=== PATIENT | female | born 1960 | race Caucasian/White ===

== ENCOUNTER 2019-08-05 09:08 | Day surgery (SDC) | payer OTHER, SELFPAY ==
[2019-08-02 09:09] VITALS: BMI 35.5
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
[2019-08-05] VITALS (7 sets, daily range): BP systolic 109–138; BP diastolic 74–84; PULSE 69–75; RESP 18; TEMP 36.2–36.6; O2SAT 91–97
--- NOTE | 2019-08-05 | SCC_ITS ---
Procedure Done: Placement of intraspinal epidural paddle electrode arrays; placement of subQ programmable pulse generator. 11.3 seconds of fluoroscopic guidance, for a cumulative dose of 11.36 mGy, was provided to Dr. García by the radiology department. C-arm images of the thoracic spine were saved for the patient's permanent record. [facility]
--- NOTE | 2019-08-05 | XR_ITS ---
WS: [id number] XR thoracic spine 1V 56009 REASON FOR EXAM: OR PICS FINDINGS: C-arm insertion of SCS electrodes. Electrodes were inserted in the upper thoracic spine are seen in good position in the one projection. XR/XR thoracic spine 1V 79542 IMPRESSION: SCS electrodes in good position
[2019-08-05 09:47] LABS: Glucose Point of Care 177 mg/dL (70-110)
[2019-08-05] MEDS: sodium chloride 0.9% 1,000 ML 30 ML IV (09:55)
--- NOTE | 2019-08-05 10:16 | P.ANESUD_ITS ---
Pre-Anesthetic Update Pre-Anesthetic Assessment: Date of Surgery/Procedure: 08/05/19 Preop Bhumika gnosis: Lumbar disc displacement with radiculopathy Proposed Procedure: Operation Date: 08/05/19 11:35 Proposed Procedures p Thoracic laminotomy/laminectomy with placement of intraspinal epidural paddle electrode arrays. Placement of subcutaneous programmable oulse generator (04000) M51.17(Not Applicable) - Rahul García MD Last Intake: Intake Last Liquid Date 08/04/19 Last Liquid Time 22:00 Last Solid Date 08/04/19 Last Solid Time 22:00 Labs Last 48hrs: Laboratory Results - last 48 hr 08/05/19 09:43 POC Glucose 177 Vitals: Temperature 97.1 F L 08/05/19 09:40 Temperature Source Temporal Artery S can 08/05/19 09:40 Pulse Rate 72 08/05/19 09:40 Pulse Rhythm 08/05/19 09:40 Pulse Strength 3+ Normal 08/05/19 09:40 Respiratory Rate 18 08/05/19 09:40 Blood Pressure 109/74 08/05/19 09:40 Blood Pressure Gisel n 85 08/05/19 09:40 Pulse Oximetry 93 08/05/19 09:40 Oxygen Delivery Me thod 08/05/19 09:40 Cardiac Studies: No Data to Display
[2019-08-05] MEDS: ipratropium 0.5 mg/2.5 mL Neb INHALATION (10:28)
--- NOTE | 2019-08-05 12:30 | W.PM.OPSUD ---
Surgery/Procedure H&P Update DATE OF PROCEDURE: August 05, 2019 DATE H&P PERFORMED: 07/30/19 H&P UPDATE INFORMATION: I have reviewed H&P completed within last 30 days and H&P to be scanned into chart PREOP DIAGNOSIS: Lumbar disc displacement with radiculopathy PRIMARY INDICATION FOR PROCEDURE: Pain PLANNED PROCEDURE: Operation Date: 08/05/19 11:35 Proposed Procedures Thoracic laminotomy/laminectomy with placement of intraspinal epidural paddle electrode arrays. Placement of subcutaneous programmable pulse generator (52837) M51.17(Not Applicable) - Rahul García MD
[2019-08-05] MEDS: vancomycin 1,000 MG in sodium chloride 0.9% 250 ML 250 MG IV (12:31)
--- NOTE | 2019-08-05 13:16 | PM.OP2 ---
 Brief Operative Note: Date of procedure: 08/05/19 Pre-op diagnosis: Intervertebral disc disorder with radiculopathy Post-op diagnosis: same Procedure Done: Placement of intraspinal epidural paddle electrode arrays; placement of subQ programmable pulse generator. Surgeon: Rahul García Estimated blood loss (mL): 50 Complications: None Condition: stable Disposition: same day Coding Level of Care Code Acute Instrument Repair Technician for Earle Tan
[2019-08-05] MEDS: thrombin 5,000 unit SDV 5000 UNIT XX (14:01)
--- NOTE | 2019-08-06 22:35 | PM.OP ---
Operative Report Date of procedure: August 05, 2019 Pre-op Diagnosis: Lumbar disc displacement with radiculopathy Post-op diagnosis: same Procedure Done: 1. Thoracic laminotomy with placement of intraspinal, epidural paddle electrode arrays. 2. Placement of subcutaneous programmable pulse generator with connection to intraspinal epidural electrode arrays. Implants: [employer] 32 surgical supply assistant [employer] WaveWriter pulse generator CLIK lead anchors Fixate suture devices Pathology: none sent Surgeon: Rahul García Anesthesia: MAC Estimated blood loss (mL): 50 IV fluids (mL): 500 Complications: none Condition: stable Disposition: same day Brief History: The patient is a 58-year-old female with complaints of chronic, progressive low back pain and predominantly left lower extremity symptoms. She underwent extensive pain clinic treatment trials in [place], with limited/transient benefit. She underwent a percutaneous thoracic spinal cord stimulation trial with Dr. Gale at [facility] in June, with marked improvement in chronic pain complaints noted during the trial. After review of the diagnostic and treatment options with the risks/potential benefits/rationale for each, she requested to proceed with permanent spinal cord stimulator implantation via laminotomy. Procedure: After routine preoperative evaluation and informed consent were obtained, the patient was taken to the Operating Room and positioned prone on the operating table. Chest and pelvic bolsters were positioned to ensure the abdomen was decompressed. All pressure points were padded. The patient reported the position to be comfortable. She was maintained under varying levels of intravenous sedation by Anesthesia personnel. The planned right flank pulse generator placement incision was marked with a skin marker. A planned midline posterior thoracic incision was also marked, after intraoperative localization with fluoroscopy. The patient's lead location during the successful percutaneous trial was utilized to guide placement for the permanent implant. The posterior thorax and flank areas were scrubbed with Betadine and prepped with DuraPrep. Sterile towels and drapes were applied, and an [place] surgical barrier was placed. The proposed midline thoracic incision was infiltrated with 1% Xylocaine with epinephrine. A skin incision was made and carried down into the subcutaneous tissues. The deep fascial plane was identified and divided in the midline. A right-sided subperiosteal dissection was carried down along the lamina at what appeared by intraoperative fluoroscopy to be T8/T9. Deep self-retaining retractors were placed to maximize the operative exposure. A laminotomy was fashioned with Kerrison rongeurs. Ligamentum flavum was resected at the base of the laminotomy site. The hockey-stick dural separator was advanced into the dorsal epidural space without resistance, and then removed. The [employer] Cover[employer] 32, 70 cm, 4 x 8 surgical supply assistant was then advanced into the dorsal epidural space. Intraoperative fluoroscopy suggested a near midline position with the cephalad extent of the lead approximating the T6/T7 interspace. Anesthesia personnel diminished the patient's sedation until she was awake and conversant. The lead tails were connected to extension cables, and intraoperative spinal cord stimulation was performed. The patient reported good paresthesia coverage of her chronic low back and lower extremity pain sites. Lead impedances were good. The patient's sedation was deepened. The wound was copiously irrigated with sterile saline and antibiotic irrigation. The fascia was closed utilizing 2-0 Vicryl Plus in a simple interrupted fashion. CLIK lead anchors were placed over 2 of the 4 lead tails, and secured at the fascial entry point with Fixate suture devices. The lead - anchor - fascial interfaces were manipulated and found to be secure. Intraoperative fluoroscopy verified a stable lead position. Strain relief loops of the lead tails were fashioned within the subcutaneous space at the thoracic incision site. The right flank incision site was prepared by infiltration with 1% Xylocaine with epinephrine. An incision was then made, and a subcutaneous pocket was created of adequate size to accommodate the pulse generator. The subcutaneous tunneling tool was utilized to create a subcutaneous passage between the thoracic and right flank incisions. Lead tails were advanced through the subcutaneous tunnel utilizing the tunneling tool. The lead tails were advanced into the appropriate ports on the [employer] WaveWriter pulse generator. An impedance check demonstrated no lead faults. The connection sites were secured with set screws and the torque wrench. The connection sites were manipulated and found to be secure. The pulse generator was again interrogated, with acceptable impedances and no evidence of device malfunction. The right flank subcutaneous pocket and the thoracic incision site were again copiously irrigated with antibiotic irrigation. Hemostasis was ensured. The pulse generator was placed within the right flank subcutaneous pocket with excess lead coiled deep/adjacent to the device. The pulse generator was anchored to the superficial fascia with a single Silk suture. The site was again irrigated with antibiotic irrigation. Wound closure was performed in multiple layers with 2-0 Vicryl Plus simple interrupted closure of the dermis. Intraoperative fluoroscopy demonstrated the lead extending to the top of T7, slightly left of midline. Final skin closure was performed at both incision sites with 3-0 Vicryl Plus in a running subcuticular pattern. Steri-Strips were applied, and sterile dressings were placed. The patient was then rotated onto the Recovery Room cart in the supine position. She tolerated the procedure well. All sponge, needle and instrument counts were correct at the completion of the procedure.
== END 2019-08-05 18:15 | disposition home or self-care (01) ==
PROVIDERS: Family Provider Nurse Practitioner; PCP Nurse Practitioner; Visit Provider Specialist
PROC: (CPT 63655; principal; 2019-08-05 11:35)
DX: M51.16 Intervertebral disc disorders with radiculopathy, lumbar region (principal); E11.9 Type 2 diabetes mellitus without complications; J44.9 Chronic obstructive pulmonary disease, unspecified; F41.9 Anxiety disorder, unspecified; F17.210 Nicotine dependence, cigarettes, uncomplicated
CPT/HCPCS: 63655; 63685; 12345; 36416; 72020; 76000; 82962; 94640; 96365; C1778; C1820; C1883; J2001; J2704; J3010; J3370; J3490; J7030; J7050; J7611; J7644

== ENCOUNTER → 2022-05-25 14:03 | Outpatient (BNVA) | payer OTHER, SELFPAY | PROVIDERS: PCP Nurse Practitioner; Visit Provider Internal Medicine Cardiovascular Disease | DX: R07.9 Chest pain, unspecified (principal); F17.210 Nicotine dependence, cigarettes, uncomplicated; I20.8 Other forms of angina pectoris; E78.5 Hyperlipidemia, unspecified; I10 Essential (primary) hypertension; Z86.73 Personal history of transient ischemic attack (TIA), and cerebral infarction without residual deficits | CPT/HCPCS: 99214; Q3014 ==

== ENCOUNTER 2022-07-11 16:58 | Emergency (ER) | payer OTHER, SELFPAY ==
[2022-07-11 17:00] VITALS: BP 100/63; PULSE 63; RESP 13; O2SAT 95; BMI 32.3
--- NOTE | 2022-07-11 17:10 | ECG_ITS ---
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 Measurements Intervals [place] Rate: 64 P: 24 [place]: 182 QRS: -18 QRSD: 87 T: 21 QT: 412 QTc: 427 Interpretive Statements SINUS RHYTHM LOW QRS VOLTAGE IN PRECORDIAL LEADS [QRS DEFLECTION < 1.0 mV IN CHEST LEADS] POSSIBLE ANTERIOR MYOCARDIAL INFARCTION , PROBABLY OLD [30 ms Q WAVE IN V3/V4, OR R < 0.2 mV IN V4] No previous ECG available for comparison Electronically Signed On 07-11-2022 19:11:26 RESERVATION MANAGER by Abigail Marie M.D. [id number]
--- NOTE | 2022-07-11 17:24 | XRR_ITS ---
PROCEDURE INFORMATION: Exam: XR Chest Exam date and time: 07/11/2022 6:04 PM Age: 61 years old Clinical indication: Pain; Chest pressure; Prior surgery; Surgery date: 6+ months; Surgery type: Stimulator; Additional info: Chest pain TECHNIQUE: Imaging protocol: Radiologic exam of the chest. Views: 1 view. COMPARISON: OT XR thoracic spine 1V [id number] 08/05/2019 12:38 PM FINDINGS: Tubes, catheters and devices: Thoracic neurostimulator device electrodes project over the midthoracic region. Lungs: Minimal left basilar atelectasis or infiltrate. Pleural spaces: Unremarkable. No pleural effusion. No pneumothorax. Heart/Mediastinum: Unremarkable. No cardiomegaly. Bones/joints: Unremarkable. XR/XR chest 1V portable [id number] IMPRESSION: Minimal left basilar atelectasis or infiltrate. Correlate for pulmonary infection.
--- NOTE | 2022-07-11 17:28 | W.ED.CHESTPA ---
HPI - Chest Pain General: Chief Complaint: Chest Pain Stated Complaint: CHEST PAIN Time Seen by Provider: 07/11/22 17:11 Source: patient and EMS Mode of arrival: EMS History of Present Illness: This 61-year-old male female with a history of coronary artery disease presents to the ER with chest pain that started around 1600 hrs. Patient is currently packing boxes at home because she is planning to move. Patient describes the pain as dull and intermittent. She took 1 nitroglycerin prior to EMS arrival and EMS administered 325 mg of aspirin prior to ER arrival. She currently rates the pain at 3 out of 10. She denies fever, nausea or vomiting. She appears clinically stable. Associated symptoms: Reports palpitations Review of Systems Const: Denies: chills, body aches or change in appetite Card: Reports: chest pain and palpitations; Denies: swelling of feet/ankles, lightheadedness or acrocyanosis : Denies: dysuria Musc: Denies: neck pain or back pain Neuro: Denies: headache(s) or weakness in extremities Psych: Denies: depression Luis Felipe/Lymph: Denies: easy bruising All/Imm: Denies: urticaria, tongue swelling or facial swelling PFSH ED PFSH: Medical History CAD (coronary artery disease) Cervical disc disorder with myelopathy of mid-cervical region Dyslipidemia HTN (hypertension) Intervertebral disc disorders with radiculopathy, lumbar region Intervertebral disc disorders with radiculopathy, lumbosacral region Lumbosacral spondylosis with radiculopathy Peripheral vascular disease Smoker Surgical History H/O: hysterectomy History of bladder surgery S/P insertion of spinal cord stimulator Family History Mother Cancer Diabetes Father CAD (coronary artery disease) Diabetes Sister Diabetes Grandmother Diabetes Social History Smoking and tobacco status: current every day smoker Alcohol intake: never Lives independently: Yes Marital status: Current occupational status: disabled Physical Exam Const: COMMON NORMALS: no acute distress, patient oriented x3, no limitations and alert HENMT: COMMON NORMALS: normocephalic HEAD & SCALP: normocephalic Eye: COMMON NORMALS: EOMs intact bilaterally Neck/C-Spine: COMMON NORMALS: full ROM and supple Chest: COMMONS NORMALS: normal inspection of the chest Resp: COMMON NORMALS: normal respiratory effort, No retractions, No use of accessory muscles and clear to auscultation bilaterally AUSCULTATION: clear to auscultation bilaterally Cardio: COMMON NORMALS: regular rate, regular rhythm and No murmurs present (Cardio) RATE: regular rate RHYTHM: regular rhythm GI: COMMON NORMALS: Normal to inspection, nondistended, normoactive bowel sounds present and non-tender : COMMON NORMALS: Yes no CVA tenderness BLADDER/KIDNEY EXAM: Yes no CVA tenderness Back/Pelvis: COMMON NORMALS: no CVA tenderness and no thoracic nor lumbar tenderness Extremity: GENERAL: Yes normal exam except as noted Neuro: COMMON NORMALS: patient oriented x3 and no focal motor deficits SENSORIUM/ORIENTATION: Yes alert Psych: COMMON NORMALS: mental status grossly normal and cooperative Course Vital Signs: Vital signs: Vital Signs Pulse Rate 63 07/11/22 17:00 Respiratory Rate 13 07/11/22 17:00 Blood Pressure 100/63 07/11/22 17:00 Pulse Oximetry 95 07/11/22 17:00 Oxygen Delivery Me thod 07/11/22 17:00 Oxygen Flow Rate 2 07/11/22 17:00 MDM - Chest Pain Medical Decision Making Medical decision making: Patient presents to the ER with chest pain. Initial troponin and repeat troponin 2 hours later shows a delta of 0. EKG is negative for any acute ischemic changes. Chest x-ray shows minimal left atelectasis versus infiltrate. Patient has no signs to suggest pulmonary infection. On reevaluation, patient was pain-free and ready to go home. She was advised to follow-up with her primary care physician to arrange for an outpatient stress test. Return instructions provided. Lab Data 07/11/22 16:14 07/11/22 16:14 Radiology Impressions Chest X-Ray 07/11/22 17:24 IMPRESSION: Minimal left basilar atelectasis or infiltrate. Correlate for pulmonary infection. Laboratory Results WBC 16.4 10^3/uL (4.0-10.0) H 07/11/22 16:14 RBC 4.68 10^6/uL (4.1-5.3) 07/11/22 16:14 Hgb 14.9 g/dL (11.5-15.3) 07/11/22 16:14 Hct 44.6 % (37.0-47.0) 07/11/22 16:14 MCV 95.3 fl (81-99) 07/11/22 16:14 MCH 31.8 pg (28.0-34.0) 07/11/22 16:14 MCHC 33.4 g/dL (30.0-36.0) 07/11/22 16:14 RDW 11.8 % (12.1-15.1) L 07/11/22 16:14 Plt Count 282 10^3/cmm (130-400) 07/11/22 16:14 MPV 9.7 fL (7.4-10.4) 07/11/22 16:14 Neut % (Auto) 61.2 % 07/11/22 16:14 Lymph % (Auto) 30.6 % 07/11/22 16:14 [place] % (Auto) 6.0 % 07/11/22 16:14 Eos % (Auto) 1.2 % 07/11/22 16:14 Baso % (Auto) 0.7 % 07/11/22 16:14 Neut # (Auto) 10.03 10^3/uL (1.8-7.7) H 07/11/22 16:14 Lymph # (Auto) 5.0 10^3/uL (0.8-4.8) H 07/11/22 16:14 [place] # (Auto) 1.0 10^3/uL (0.2-0.9) H 07/11/22 16:14 Eos # (Auto) 0.2 10^3/uL (0.0-0.8) 07/11/22 16:14 Baso # (Auto) 0.1 10^3/uL (0.0-0.1) 07/11/22 16:14 Nucleated RBC % (auto) 0 % 07/11/22 16:14 Nucleated RBCs # 0.0 /100WBC 07/11/22 16:14 Sodium 127 mmol/L (136-145) L 07/11/22 16:14 Potassium 4.1 mmol/L (3.5-5.1) 07/11/22 16:14 Chloride 89 mmol/L (98-107) L 07/11/22 16:14 Carbon Dioxide 24 mmol/L (22-29) 07/11/22 16:14 Anion Gap 18.1 (5-19) 07/11/22 16:14 BUN 6 mg/dL (8-23) L 07/11/22 16:14 Creatinine 0.7 mg/dL (0.5-0.9) 07/11/22 16:14 GFR Calculation 85.1 mL/min (90-130) L 07/11/22 16:14 Glucose 164 mg/dL (65-115) H 07/11/22 16:14 Calculated Osmolality 265 mOsm/kg (285-295) L 07/11/22 16:14 Calcium 9.4 mg/dL (8.5-10.5) 07/11/22 16:14 Total Bilirubin 0.4 mg/dL (0.15-1.2) 07/11/22 16:14 AST 16 U/L (0-32) 07/11/22 16:14 ALT 14 U/L (0-33) 07/11/22 16:14 Alkaline Phosphatase 114 U/L (35-105) H 07/11/22 16:14 Troponin T Baseline 6 ng/L (0-10) 07/11/22 16:14 Troponin T 120 Minute 6.00 ng/L (0-10) 07/11/22 18:38 Delta Troponin T 0 ABS# (0-10) 07/11/22 18:38 Total Protein 7.4 g/dL (6.6-8.7) 07/11/22 16:14 Albumin 3.9 g/dL (3.5-5.2) 07/11/22 16:14 Globulin 3.5 g/dL (1.3-4.6) 07/11/22 16:14 Discharge Plan Discharge Patient Disposition: Home Clinical Impression: Atypical chest pain Condition: Stable Prescriptions: No Action nitroglycerin [Nitrostat] 0.4 mg tablet, sublingual 0.4 mg SUBLINGUAL Q5M PRN (Reason: chest pain) Qty: 25 6RF Rx Instructions: do not exceed 3 doses per episode albuterol sulfate [Ventolin HFA] 90 mcg/actuation HFA aerosol inhaler 2 puff INHALATION Q6H PRN (Reason: sob) cetirizine 10 mg capsule 10 mg PO DAILY omeprazole 40 mg capsule,delayed release(DR/EC) 40 mg PO DAILY atorvastatin 80 mg tablet 80 mg PO DAILY spironolactone 100 mg tablet 100 mg PO DAILY Symbicort 160-4.5 mcg/actuation HFA aerosol inhaler 2 puff INHALATION BID duloxetine 60 mg capsule,delayed release(DR/EC) 60 mg PO DAILY fluticasone propionate 50 mcg/actuation spray,suspension 1 spray INTRANASAL DAILY lamotrigine [Lamictal] 200 mg tablet 225 mg PO DAILY omega-3 fatty acids 1,000 mg capsule 1,000 mg PO BID oxybutynin chloride 5 mg tablet 5 mg PO TID gabapentin 300 mg capsule 600 mg PO TID oxycodone-acetaminophen [Percocet] 5-325 mg tablet 1.5 tab PO TID ranolazine 500 mg tablet extended release 12 hr 500 mg PO BID Qty: 60 3RF Discharge Orders: Discharge ED (Routine); Ordered 07/11/22 Ordered By: Idania Mobley Referrals: Jenny Aly FNP [Primary Care Provider] - Discharge Diet: Usual diet Discharge Activity: Resume usual activity Patient Instructions: Opioid Safety, Pain Management Activity Restrictions/Additional Instructions: Continue taking your usual home medications. Follow-up with your primary care physician in 3 to 5 days for reevaluation and to arrange for an outpatient stress test. Return to the ER if you develop any new or worsening symptoms. Coding Level of Care Code ED Prepress Stripper for Earle Tan
[2022-07-11] MEDS: nitroglycerin 0.4 mg sublingual Tablet SUBLINGUAL (17:42)
[2022-07-11 17:50] LABS: Basophils # 0.1 10^3/uL (0.0-0.1); Basophils % 0.7 %; Eosinophils # 0.2 10^3/uL (0.0-0.8); Eosinophils % 1.2 %; Hematocrit 44.6 % (37.0-47.0); Hemoglobin 14.9 g/dL (11.5-15.3); Lymphocytes % 30.6 %; Mean Corpuscular HGB Conc 33.4 g/dL (30.0-36.0); Mean Corpuscular Hemoglobin 31.8 pg (28.0-34.0); Mean Corpuscular Volume 95.3 fl (81-99); Mean Platelet Volume 9.7 fL (7.4-10.4); Neutrophils # 10.03 10^3/uL (1.8-7.7); Neutrophils % 61.2 %; Nucleated Red Blood Cells % 0 %; Platelet Count 282 10^3/cmm (130-400); Red Blood Count 4.68 10^6/uL (4.1-5.3); Red Cell Distribution Width 11.8 % (12.1-15.1); White Blood Count 16.4 10^3/uL (4.0-10.0)
[2022-07-11 18:15] LABS: Troponin(5th) Baseline 6 ng/L (0-10)
[2022-07-11 18:17] LABS: Alanine Aminotransferase 14 U/L (0-33); Albumin Level 3.9 g/dL (3.5-5.2); Alkaline Phosphatase 114 U/L (35-105); Anion Gap 18.1 (5-19); Aspartate Amino Transferase 16 U/L (0-32); Blood Urea Nitrogen 6 mg/dL (8-23); Calcium 9.4 mg/dL (8.5-10.5); Carbon Dioxide 24 mmol/L (22-29); Chloride 89 mmol/L (98-107); Globulin 3.5 g/dL (1.3-4.6); Glomerular Filtration Rate 85.1 mL/min (90-130); Glucose 164 mg/dL (65-115); Osmolality Calculated 265 mOsm/kg (285-295); Potassium 4.1 mmol/L (3.5-5.1); Sodium 127 mmol/L (136-145); Total Bilirubin 0.4 mg/dL (0.15-1.2); Total Protein 7.4 g/dL (6.6-8.7)
[2022-07-11 19:19] LABS: Troponin 5 2HR Delta 0 ABS# (0-10)
--- NOTE | 2022-07-11 19:25 | ECG_ITS ---
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 Measurements Intervals [place] Rate: 65 P: 35 [place]: 185 QRS: 1 QRSD: 90 T: 32 QT: 405 QTc: 424 Interpretive Statements SINUS RHYTHM LOW QRS VOLTAGE IN PRECORDIAL LEADS [QRS DEFLECTION < 1.0 mV IN CHEST LEADS] ANTEROSEPTAL MYOCARDIAL INFARCTION , OF INDETERMINATE AGE [40+ ms Q WAVE IN V1-V4] Compared to ECG 07/11/2022 17:12:03 No significant changes Electronically Signed On 07-12-2022 17:40:50 GRIZZLY WORKER by Colt Chambers M.D. [id number]
== END 2022-07-11 21:01 | disposition home or self-care (01) ==
PROVIDERS: Emergency Provider Family Medicine; PCP Nurse Practitioner
DX: R07.89 Other chest pain (principal); I25.10 Atherosclerotic heart disease of native coronary artery without angina pectoris; E78.5 Hyperlipidemia, unspecified; I10 Essential (primary) hypertension; F17.210 Nicotine dependence, cigarettes, uncomplicated
CPT/HCPCS: 36415; 71045; 80053; 84484; 85025; 93005; 99285

== ENCOUNTER 2022-08-19 14:01 | Outpatient (CLI) | payer OTHER, SELFPAY ==
--- NOTE | 2022-08-19 14:19 | XR_ITS ---
WS: [id number] SCREENING DEXA SCAN [facility] CLINICAL INFORMATION: osteoporosis COMPARISON: None. FINDINGS: The LEFT forearm bone mineral density measures 0.90. This corresponds to a T score score of 0.3 and Z score of 1.4. Left femoral neck bone mineral density measures 0.973 g/cm2. This corresponds to a T score of -0.3 an d Z score of 0.1. Right femoral neck bone mineral density measures 1.049 g/cm2. This corresponds to a T score 0.3of and Z score of 0.7. Mean femoral neck bone mineral density measures 1.011 g/cm2. This corresponds to a T score of 0.0 and Z score of 0.4. XR/XR DEXA axial skeleton* [id number] IMPRESSION: Normal bone mineralization. Patient's FRAX calculated 10 year probability for major osteoporotic fracture i s 6.8 % and osteoporotic hip fracture is 0.6%.
== END 2022-08-19 14:02 | disposition home or self-care (01) ==
LOC: RAD 14:05
PROVIDERS: PCP Nurse Practitioner; Visit Provider Nurse Practitioner
DX: M81.0 Age-related osteoporosis without current pathological fracture (principal)
CPT/HCPCS: 77080

== ENCOUNTER 2023-03-07 14:13 | Outpatient (CLI) | payer OTHER, SELFPAY ==
--- NOTE | 2023-03-07 14:20 | MM_ITS ---
WS: [id number] BILATERAL 3D TOMOSYNTHESIS DIGITAL SCREENING MAMMOGRAPHY WITH CAD CLINICAL INFORMATION: SCREENING HISTORY: Screening mammogram. No current complaints. COMPARISON: 2014 TECHNIQUE: Bilateral CC and MLO views. FINDINGS: Scattered fibroglandular densities bilaterally. No suspicious focal mass, asymmetry, calcifications, or architectural distortion. No evidence of malignancy. Incidental punctate and secretory calcifications. IMPRESSION: MM/[place] [id number] BI-RADS: 2-Benign FOLLOW UP: 1 Year Follow-up Recommend return to annual screening mammography.
== END 2023-03-07 14:14 | disposition home or self-care (01) ==
PROVIDERS: PCP Nurse Practitioner; Visit Provider Nurse Practitioner
DX: Z12.31 Encounter for screening mammogram for malignant neoplasm of breast (principal)
CPT/HCPCS: 77063; 77067

== ENCOUNTER → 2023-06-16 11:04 | Outpatient (BNVA) | payer OTHER, SELFPAY | PROVIDERS: PCP Nurse Practitioner; Visit Provider Internal Medicine Cardiovascular Disease | DX: E78.5 Hyperlipidemia, unspecified (principal); I25.10 Atherosclerotic heart disease of native coronary artery without angina pectoris; I10 Essential (primary) hypertension; F17.200 Nicotine dependence, unspecified, uncomplicated; R07.9 Chest pain, unspecified; G89.29 Other chronic pain; F17.210 Nicotine dependence, cigarettes, uncomplicated | CPT/HCPCS: 99214 ==

== ENCOUNTER 2023-08-14 14:57 | Outpatient (CLI) | payer OTHER, SELFPAY ==
--- NOTE | 2023-08-14 15:07 | CT_ITS ---
WS: [id number] CT HEAD TECHNIQUE: Noncontrast CT of the head obtained from the skullbase to the vertex. CLINICAL INFORMATION: WORSENING TREMORS IN BILATERAL UPPER EXTREMITIES COMPARISON: None. DLP: 1103.[address] scans at [facility] use at least one of these dose optimization techniques: automated e xposure control; mA and/or kV adjustment per patient size (includes targeted exams where dose is matc hed to clinical indication); or iterative reconstruction. FINDINGS: No evidence of intracranial hemorrhage or mass effect. Ventricular system and basal cisterns are sauceda nt. Mild small vessel changes with mild parenchymal volume loss worst in the frontal lobes. No extra- axial fluid collections. No evidence of mass or mass effect. Mild intracranial vascular calcification . Paranasal sinuses and mastoid air cells are well aerated. .Normal visualized soft tissues. IMPRESSION: 1. No evidence of intracranial hemorrhage or mass effect 2. Mild small vessel changes. Mild parenchymal volume loss. 3. No acute intracranial findings.
== END 2023-08-14 14:58 | disposition home or self-care (01) ==
LOC: RAD 15:02
PROVIDERS: PCP Nurse Practitioner; Visit Provider Nurse Practitioner
DX: R25.1 Tremor, unspecified (principal)
CPT/HCPCS: 70450

== ENCOUNTER 2023-09-19 19:42 | Emergency (ER) | payer OTHER, SELFPAY ==
[2023-09-19 19:47] VITALS: BP 117/79; PULSE 86; RESP 16; TEMP 36.4; O2SAT 96; BMI 32.4
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
[2023-09-19] MEDS: bacitracin ointment Pkt 1 EACH TOPICAL (21:33)
[2023-09-19] MEDS: tetanus-dipt-pertussis 0.5 mL SDV IM (21:35)
[2023-09-19 22:06] VITALS: PULSE 84; RESP 16; O2SAT 96
== END 2023-09-19 21:50 | disposition home or self-care (01) ==
PROVIDERS: Emergency Provider Physician Assistant; PCP Nurse Practitioner
DX: T23.131A Burn of first degree of multiple right fingers (nail), not including thumb, initial encounter (principal); X10.2XXA Contact with fats and cooking oils, initial encounter; I10 Essential (primary) hypertension; I25.10 Atherosclerotic heart disease of native coronary artery without angina pectoris; E78.5 Hyperlipidemia, unspecified; Z72.0 Tobacco use; Z23 Encounter for immunization
CPT/HCPCS: 90471; 90715; 99283

== ENCOUNTER → 2023-10-04 08:51 | Outpatient (BNVA) | payer OTHER, SELFPAY | PROVIDERS: PCP Nurse Practitioner; Visit Provider Specialist | DX: R29.90 Unspecified symptoms and signs involving the nervous system (principal); G62.89 Other specified polyneuropathies; M51.16 Intervertebral disc disorders with radiculopathy, lumbar region; G89.29 Other chronic pain | CPT/HCPCS: 99204 ==

== ENCOUNTER → 2023-11-21 11:57 | Outpatient (BNVA) | payer MEDICARE, SELFPAY | PROVIDERS: PCP Nurse Practitioner; Visit Provider Specialist | DX: G62.89 Other specified polyneuropathies (principal) | CPT/HCPCS: 95909; 95910 ==

== ENCOUNTER → 2023-12-14 13:41 | Outpatient (BNVA) | payer OTHER, SELFPAY | PROVIDERS: PCP Nurse Practitioner; Visit Provider Internal Medicine Cardiovascular Disease | DX: E78.5 Hyperlipidemia, unspecified (principal); I25.118 Atherosclerotic heart disease of native coronary artery with other forms of angina pectoris; I10 Essential (primary) hypertension; Z72.0 Tobacco use | CPT/HCPCS: 99213 ==

== ENCOUNTER → 2024-01-16 10:15 | Outpatient (BNVA) | payer OTHER, SELFPAY | PROVIDERS: PCP Nurse Practitioner; Visit Provider Nurse Practitioner Family | DX: I20.81 Angina pectoris with coronary microvascular dysfunction (principal); I10 Essential (primary) hypertension | CPT/HCPCS: 99214 ==

== ENCOUNTER 2024-01-22 10:51 | Emergency (ER) | payer OTHER, MEDICARE, SELFPAY ==
[2024-01-22 11:06] VITALS: BP 119/78; PULSE 79; RESP 18; TEMP 36.6; O2SAT 95; BMI 30.7
--- NOTE | 2024-01-22 11:14 | CTR_ITS ---
PROCEDURE INFORMATION: Exam: CT Head Without Contrast Exam date and time: 01/22/2024 11:26 AM Age: 63 years old Clinical indication: Injury or trauma; Blunt trauma (contusions or hematomas); Injury details: PT states she had syncopal episode last night, PT reports falling before being able to sit down. PT C/O of right side pain from head to toe. PT reports hitting her head. PT reports being sick a few weeks with n/v. Prior surgery; Surgery date: 6+ months; Surgery type: Spinal cord stimulator; Additional info: Fall TECHNIQUE: Imaging protocol: Computed tomography of the head without contrast. Axial, coronal and sagittal reformatted images were created and reviewed. Radiation optimization: All CT scans at this facility use at least one of these dose optimization techniques: automated exposure control; mA and/or kV adjustment per patient size (includes targeted exams where dose is matched to clinical indication); or iterative reconstruction. COMPARISON: CT head wo con* [id number] 08/14/2023 3:14 PM RADIATION DOSE METRICS: Total DLP (mGy-cm): 947.7 FINDINGS: Brain: Subtle, patchy areas of hypoattenuation in the periventricular and subcortical white matter, nonspecific but suggestive of mild chronic small vessel ischemic disease. No CT evidence of acute intracranial hemorrhage or acute territorial infarction. No significant mass effect or midline shift. Basal cisterns patent. Cerebral ventricles: Prominence of the cortical sulci, cisterns and ventricular system, consistent with cerebral and cerebellar volume loss. Paranasal sinuses: Unremarkable. No fluid levels. Mastoid air cells: Grossly unremarkable. Bones: Unremarkable. No acute fracture. Soft tissues: Grossly unremarkable. CT/CT head wo con* [id number]: 1[address] No CT evidence of acute intracranial pathology. 2. Additional findings, as above.
--- NOTE | 2024-01-22 11:14 | XRR_ITS ---
PROCEDURE INFORMATION: Exam: XR Chest Exam date and time: 01/22/2024 11:18 AM Age: 63 years old Clinical indication: Injury or trauma; Fall; Blunt trauma (contusions or hematomas); Prior surgery; Surgery date: 6+ months; Surgery type: Spinal cord stimulator; Additional info: Syncope TECHNIQUE: Imaging protocol: Radiologic exam of the chest. Views: 1 view. COMPARISON: CR XR chest 1V portable [id number] 07/11/2022 6:04 PM FINDINGS: Tubes, catheters and devices: Leads project over spine similar to prior study, and information provided indicates spinal cord stimulator. Lungs: Opacity left lung base, lower left hemithorax laterally appears increased compared to 07/11/2022. Pleural spaces: No large or obvious pneumothorax nor pleural effusion seen. Heart/Mediastinum: Heart size appears within normal. Vasculature: Atherosclerotic disease. Bones/joints: Curvature, degenerative changes spine. Lobular sclerotic density measured at 1.2 cm or greater projects proximal shaft left humerus, not otherwise further characterized XR/XR chest 1V portable [id number] IMPRESSION: Opacity left lung base, lower left hemithorax laterally appears increased compared to 07/11/2022. Please see body of report for additional findings.
--- NOTE | 2024-01-22 11:14 | ECG_ITS ---
[facility] Test Date: 2024-01-22 Pat Name: Laquita Holguin Department: Room: Gender: Female Applications Trainer: : 1960 Requested By: Abby Benz Order Number: [id number] Miguel MD: Colt Chambers M.D. Measurements Intervals [place] Rate: 75 P: 113 IA: 366 QRS: -18 QRSD: 76 T: 29 QT: 349 QTc: 392 Interpretive Statements SUPRAVENTRICULAR RHYHTM. BASELINE ARTIFACT LOW QRS VOLTAGE IN PRECORDIAL LEADS [QRS DEFLECTION < 1.0 mV IN CHEST LEADS] POSSIBLE ANTERIOR MYOCARDIAL INFARCTION , PROBABLY OLD [30 ms Q WAVE IN V3/V4, OR R < 0.2 mV IN V4] Electronically Signed On 01-22-2024 11:59:11 CDT by Colt Chambers M.D. [email or web address]
--- NOTE | 2024-01-22 11:14 | CTR_ITS ---
PROCEDURE INFORMATION: Exam: CT Cervical Spine Without Contrast Exam date and time: 01/22/2024 11:26 AM Age: 63 years old Clinical indication: Injury or trauma; Blunt trauma; Injury details: PT states she had syncopal episode last night, PT reports falling before being able to sit down. PT C/O of right side pain from head to toe. PT reports hitting her head. PT reports being sick a few weeks with n/v. Prior surgery; Surgery date: 6+ months; Surgery type: Spinal cord stimulator; Additional info: Fall TECHNIQUE: Imaging protocol: Computed tomography of the cervical spine without contrast. Axial, coronal and sagittal reformatted images were created and reviewed. Radiation optimization: All CT scans at this facility use at least one of these dose optimization techniques: automated exposure control; mA and/or kV adjustment per patient size (includes targeted exams where dose is matched to clinical indication); or iterative reconstruction. COMPARISON: CT cervical spine w con [id number] 10/02/2018 10:15 AM RADIATION DOSE METRICS: Total DLP (mGy-cm): 1072.8 FINDINGS: Tubes, catheters and devices: Spinal stimulator device in place. Bones: Osteopenia. Straightening of the normal cervical lordosis. No CT evidence of acute fracture, dislocation or subluxation. Alignment anatomic. Minimal dextroscoliosis. Vertebral body heights maintained. Mild multilevel degenerative changes, characterized by disc space narrowing, osteophytosis and uncovertebral and facet joint hypertrophy. Mild multilevel spinal canal and neural foraminal narrowing. Lungs: Lung apices are normal. Soft tissues: Grossly unremarkable. CT/CT cervical spin wo con* [id number] IMPRESSION: 1. No CT evidence of acute cervical spine traumatic injury. 2. Additional findings, as above.
--- NOTE | 2024-01-22 11:21 | ED_ITS ---
HPI - Syncope 2 General: Chief Complaint: Syncope Stated Complaint: fall Time Seen by Provider: 01/22/24 10:55 Source: patient Mode of arrival: ambulatory Limitations: no limitations History of Present Illness: 63-year-old female states that she had a syncopal event last night around 8 PM. States she had passed out at home did hit her head states been having a headache since then she rates an 8 out of 10. She denies any chest pain or shortness of breath. She has some mild neck pain as well. She had some nausea and vomiting Associated symptoms: Reports headache(s); Deny abdominal pain, chest pain, fever(s) or nausea Related Data Home Medications Medication Instructions Recorded Confirmed albuterol sulfate 90 mcg/actuation 2 puff inhalation Q6H PRN sob 07/22/19 01/16/24 aerosol inhaler (Ventolin HFA) atorvastatin 80 mg tablet 80 mg PO DAILY 07/22/19 01/16/24 budesonide-formoterol HFA 160 2 puff inhalation BID 07/22/19 01/16/24 mcg-4.5 mcg/actuation aerosol inhaler (Symbicort) cetirizine 10 mg capsule 10 mg PO DAILY 07/22/19 01/16/24 duloxetine 60 mg capsule,delayed 60 mg PO DAILY 07/22/19 01/16/24 release fluticasone propionate 50 1 spray intranasal DAILY 07/22/19 01/16/24 mcg/actuation nasal spray,suspension lamotrigine 200 mg tablet 225 mg PO DAILY 07/22/19 01/16/24 (Lamictal) omega-3 fatty acids 1,000 mg 1,000 mg PO BID 07/22/19 01/16/24 capsule omeprazole 40 mg capsule,delayed 40 mg PO DAILY 07/22/19 01/16/24 release oxybutynin chloride 5 mg tablet 5 mg PO TID 07/22/19 01/16/24 oxycodone-acetaminophen 5 mg-325 1.5 tab PO TID pain 05/25/22 01/16/24 mg tablet (Percocet) trazodone 100 mg tablet 100 mg PO BEDTIME 10/04/23 01/16/24 fexofenadine 60 mg tablet 60 mg PO DAILY 12/14/23 01/16/24 semaglutide 0.25 mg or 0.5 mg (2 mg SUBCUT 12/14/23 01/16/24 mg/3 mL) subcutaneous pen injector (Ozempic) spironolactone 100 mg tablet 50 mg PO DAILY 12/14/23 01/16/24 Previous Rx's Medication Instructions Recorded nitroglycerin 0.4 mg sublingual 0.4 mg sublingual Q5M PRN chest 11/13/19 tablet (Nitrostat) pain #25 tabs bacitracin 500 unit/gram topical 1 applic topical BID #1,022.4 grams 09/19/23 ointment amlodipine 2.5 mg tablet 2.5 mg PO BID #60 tabs 12/04/23 isosorbide dinitrate 30 mg tablet 30 mg PO DAILY #90 tabs 12/26/23 ranolazine 500 mg tablet,extended 500 mg PO BID #180 tabs 01/16/24 release,12 hr Allergies Allergy/AdvReac Type Severity Reaction Status Date / Time bee pollen Allergy Intermediate Unknown Verified 01/16/24 10:19 iodine Allergy Intermediate unknow Verified 01/16/24 10:19 pneumococcal vaccine Allergy Intermediate Unknown Verified 01/16/24 10:19 [From Pneumovax 23] codeine Allergy Unknown Unknown Verified 01/16/24 10:19 latex Allergy Unknown Unknown Verified 01/16/24 10:19 Penicillins AdvReac Intermediate hives Verified 01/16/24 10:19 tramadol AdvReac itchy, rash Verified 01/16/24 10:19 Review of Systems 2 Const: Denies: fever(s), chills, body aches or change in appetite ENMT: Denies: throat pain or dental pain Card: Reports: syncope; Denies: chest pain Resp: Denies: dyspnea GI: Reports: vomiting; Denies: abdominal pain, nausea or diarrhea Musc: Denies: neck pain or back pain Skin/Breast: Denies: rash Neuro: Reports: headache(s) PFSH ED 2 PFSH: Medical History Chronic chest pain Smoker Intervertebral disc disorders with radiculopathy, lumbosacral region Lumbosacral spondylosis with radiculopathy HTN (hypertension) CAD (coronary artery disease) Dyslipidemia Peripheral vascular disease Cervical disc disorder with myelopathy of mid-cervical region Intervertebral disc disorders with radiculopathy, lumbar region Surgical History S/P insertion of spinal cord stimulator H/O: hysterectomy History of bladder surgery Family History Mother Cancer Diabetes Father CAD (coronary artery disease) Diabetes Sister Diabetes Grandmother Diabetes Social History Smoking and tobacco/nicotine status: current every day tobacco/nicotine user Alcohol intake: never Substance/Drug Use: never Lives independently: Yes Marital status: Current occupational status: disabled Physical Exam 2 Const: COMMON NORMALS: no acute distress, patient oriented x3 and healthy appearing HENMT: COMMON NORMALS: normocephalic and atraumatic HEAD & SCALP: n ormocephalic and atraumatic Eye: COMMON NORMALS: Equal, round and reactive pupils present and EOMs intact bilaterally PUPIL: Yes Equal, round and reactive pupils present Neck/C-Spine: COMMON NORMALS: full ROM and supple Chest: COMMONS NORMALS: normal inspection of the chest and normal palpation of entire chest wall Resp: COMMON NORMALS: normal respiratory effort, No retractions, No use of accessory muscles and clear to auscultation bilaterally AUSCULTATION: clear to auscultation bilaterally Cardio: COMMON NORMALS: regular rate, regular rhythm and No murmurs present (Cardio) RATE: regular rate RHYTHM: regular rhythm GI: COMMON NORMALS: Normal to inspection, nondistended, normoactive bowel sounds present, Soft to palpation, non-tender and no masses PALPATION: Yes Soft to palpation Extremity: COMMON NORMALS: normal to inspection and full ROM Neuro: COMMON NORMALS: patient oriented x3, moves all extremities and no focal motor deficits Psych: COMMON NORMALS: mental status grossly normal, Normal thought process present and cooperative THOUGHT PROCESS: Normal thought process present Skin: COMMON NORMALS: no rashes or lesions noted and no wounds GENERAL SKIN EXAM: no rashes or lesions noted Course 2 Vital Signs: Vital signs: Vital Signs Temperature 97.9 F 01/22/24 11:06 Pulse Rate 79 01/22/24 16:09 Respiratory Rate 21 H 01/22/24 16:09 Blood Pressure 111/72 01/22/24 16:09 Pulse Oximetry 92 01/22/24 16:09 Oxygen Delivery Me thod Room Air 01/22/24 11:06 MDM - Syncope Medical Decision Making Patient presents after syncopal event she has been well-appearing here she ambulated out any difficulty she feels improved like to go home head CT other imaging is normal troponins are normal she stable for discharge she is follow-up with PCP return if worsening. Medical Records I reviewed the patient's medical records. Lab Data I reviewed the patient's lab results. 01/22/24 11:49 01/22/24 11:49 Radiology Impressions Cervical Spine CT 01/22/24 11:[address]: [address] evidence of acute cervical spine traumatic injury. 2. Additional findings, as above. Chest X-Ray 01/22/24 11:14 IMPRESSION: Opacity left lung base, lower left hemithorax laterally appears increased compared to 07/11/2022. Please see body of report for additional findings. Head CT 01/22/24 11:[address]: 1[address] evidence of acute intracranial pathology. 2. Additional findings, as above. Chest/Abdomen/Pelvis CT 01/22/24 12:05 IMPRESSION: 1. No CT evidence of acute intrathoracic traumatic injury. 2. Additional findings, as above. IMPRESSION: 1. No CT evidence of acute intra-abdominal or pelvic traumatic injury. 2. Additional findings, as above. COMMENTS: Consistent with the [employer]'s Incidental Findings Committee white paper (J Am Bobby Radiol 2018): Any incidental renal lesion less than 1 cm or classified as too small to characterize, or any incidental cystic renal lesion characterized as simple-appearing, is likely benign. No follow-up imaging is recommended for these lesions per consensus recommendations based on imaging criteria. Laboratory Results WBC 15.62 10^3/uL (3.29-11.43) H 01/22/24 11:49 RBC 4.68 10^6/uL (3.85-5.65) 01/22/24 11:49 Hgb 14.60 g/dL (11.27-16.99) 01/22/24 11:49 Hct 45.0 % (36-47) 01/22/24 11:49 MCV 96.2 fl (85-98) 01/22/24 11:49 MCH 31.2 pg (27-33) 01/22/24 11:49 MCHC 32.4 g/dL (30-55) 01/22/24 11:49 RDW 13.2 % (12.1-15.1) 01/22/24 11:49 Plt Count 263 10^3/cmm (157-399) 01/22/24 11:49 MPV 9.2 fL (7.4-10.4) 01/22/24 11:49 Neut % (Auto) 69.2 % 01/22/24 11:49 Lymph % (Auto) 24.3 % 01/22/24 11:49 Moffat % (Auto) 4.7 % 01/22/24 11:49 Eos % (Auto) 0.9 % 01/22/24 11:49 Baso % (Auto) 0.5 % 01/22/24 11:49 Neut # (Auto) 10.79 10^3/uL (1.8-7.7) H 01/22/24 11:49 Lymph # (Auto) 3.8 10^3/uL (0.8-4.8) 01/22/24 11:49 Moffat # (Auto) 0.7 10^3/uL (0.2-0.9) 01/22/24 11:49 Eos # (Auto) 0.1 10^3/uL (0.0-0.8) 01/22/24 11:49 Baso # (Auto) 0.1 10^3/uL (0.0-0.1) 01/22/24 11:49 Nucleated RBC % (auto) 0 % 01/22/24 11:49 Nucleated RBCs # 0.0 /100WBC 01/22/24 11:49 PT 14.00 SECONDS (12.1-14.9) 01/22/24 12:31 INR 1.04 (0.8-1.2) 01/22/24 12:31 Sodium 135 mmol/L (136-145) L 01/22/24 11:49 Potassium 4.5 mmol/L (3.5-5.1) 01/22/24 11:49 Chloride 97 mmol/L (98-107) L 01/22/24 11:49 Carbon Dioxide 23 mmol/L (22-29) 01/22/24 11:49 Anion Gap 19.5 (5-19) H 01/22/24 11:49 BUN 7 mg/dL (8-23) L 01/22/24 11:49 Creatinine 0.6 mg/dL (0.5-0.9) 01/22/24 11:49 GFR Calculation 101.0 mL/min (90-130) 01/22/24 11:49 Glucose 129 mg/dL (65-115) H 01/22/24 11:49 Calculated Osmolality 280 mOsm/kg (285-295) L 01/22/24 11:49 Calcium 9.6 mg/dL (8.5-10.5) 01/22/24 11:49 Total Bilirubin 0.5 mg/dL (0.15-1.2) 01/22/24 11:49 AST 19 U/L (0-32) 01/22/24 11:49 ALT 23 U/L (0-33) 01/22/24 11:49 Alkaline Phosphatase 124 U/L (35-105) H 01/22/24 11:49 Troponin T Baseline 8 ng/L (0-10) 01/22/24 11:49 Troponin T 120 Minute 6.83 ng/L (0-10) 01/22/24 13:57 Delta Troponin T -1.17 ABS# (0-10) L 01/22/24 13:57 Total Protein 7.4 g/dL (6.6-8.7) 01/22/24 11:49 Albumin 4.7 g/dL (3.5-5.2) 01/22/24 11:49 Globulin 2.7 g/dL (1.3-4.6) 01/22/24 11:49 Lipase 32 U/L (13-60) 01/22/24 11:49 All radiology interpretation(s) finalized by discharge EKG Data EKG 1: I personally reviewed and interpreted this EKG as follows: EKG interpretation date: 01/22/24 EKG interpretation time: 11:22 Interpretation: nsr hr [address] or t wave abnormalities qrs 76 qtc 379 EKG 2: I personally reviewed and interpreted this EKG as follows: EKG interpretation date: 01/22/24 EKG interpretation time: 13:08 Interpretation: hr [address] elevation qrs 85 qtc 407 Discharge Plan Discharge Patient Disposition: Home Clinical Impression: Syncope, Closed head injury Condition: Stable Prescriptions: No Action nitroglycerin [Nitrostat] 0.4 mg tablet, sublingual 0.4 mg SUBLINGUAL Q5M PRN (Reason: chest pain) Qty: 25 6RF Rx Instructions: do not exceed 3 doses per episode albuterol sulfate [Ventolin HFA] 90 mcg/actuation HFA aerosol inhaler 2 puff INHALATION Q6H PRN (Reason: sob) cetirizine 10 mg capsule 10 mg PO DAILY omeprazole 40 mg capsule,delayed release(DR/EC) 40 mg PO DAILY atorvastatin 80 mg tablet 80 mg PO DAILY Symbicort 160-4.5 mcg/actuation HFA aerosol inhaler 2 puff INHALATION BID duloxetine 60 mg capsule,delayed release(DR/EC) 60 mg PO DAILY fluticasone propionate 50 mcg/actuation spray,suspension 1 spray INTRANASAL DAILY lamotrigine [Lamictal] 200 mg tablet 225 mg PO DAILY omega-3 fatty acids 1,000 mg capsule 1,000 mg PO BID oxybutynin chloride 5 mg tablet 5 mg PO TID oxycodone-acetaminophen [Percocet] 5-325 mg tablet 1.5 tab PO TID spironolactone 100 mg tablet 50 mg PO DAILY trazodone 100 mg tablet 100 mg PO BEDTIME ranolazine 500 mg tablet extended release 12 hr 500 mg PO BID Qty: 180 4RF fexofenadine 60 mg tablet 60 mg PO DAILY Ozempic 0.25 mg or 0.5 mg (2 mg/3 mL) pen injector SUBCUT amlodipine 2.5 mg tablet 2.5 mg PO BID Qty: 60 4RF isosorbide dinitrate 30 mg tablet 30 mg PO DAILY Qty: 90 1RF Rx Instructions: allow nitrate-free interval of 12-14 hrs per 24-hr period bacitracin 500 unit/gram ointment 1 applic topical BID Qty: 1022.4 0RF Discharge Orders: Discharge ED (Routine); Ordered 01/22/24 Ordered By: Abby Benz Referrals: Jenny Aly, PIANO MOVER [Primary Care Provider] - Discharge Diet: Advance as tolerated Discharge Activity: Resume usual activity Patient Instructions: Syncope (ED), Head Injury (ED) Coding Level of Care Code ED Neuro Intensivist Physician for Chg Fwd
[2024-01-22] MEDS: sodium chloride 0.9% 1,000 ML 999 ML IV (11:50)
[2024-01-22] MEDS: ondansetron 2 mg/ML SDV 2 mL 4 MG IVP (11:50)
[2024-01-22] MEDS: morphine 4 mg/mL SDV 1 mL IVP (11:50)
[2024-01-22 12:00] LABS: Basophils # 0.1 10^3/uL (0.0-0.1); Basophils % 0.5 %; Eosinophils # 0.1 10^3/uL (0.0-0.8); Eosinophils % 0.9 %; Lymphocytes # 3.8 10^3/uL (0.8-4.8); Lymphocytes % 24.3 %; Mean Corpuscular HGB Conc 32.4 g/dL (30-55); Mean Corpuscular Hemoglobin 31.2 pg (27-33); Mean Corpuscular Volume 96.2 fl (85-98); Mean Platelet Volume 9.2 fL (7.4-10.4); Monocytes # 0.7 10^3/uL (0.2-0.9); Monocytes % 4.7 %; Neutrophils # 10.79 10^3/uL (1.8-7.7); Neutrophils % 69.2 %; Nucleated Red Blood Cells % 0 %; Platelet Count 263 10^3/cmm (157-399); Red Blood Count 4.68 10^6/uL (3.85-5.65); Red Cell Distribution Width 13.2 % (12.1-15.1); White Blood Count 15.62 10^3/uL (3.29-11.43)
--- NOTE | 2024-01-22 12:05 | CTR_ITS ---
PROCEDURE INFORMATION: Exam: CTA Chest With Contrast Exam date and time: 01/22/2024 12:50 PM Age: 63 years old Clinical indication: Abdominal pain; Epigastric; Other: SOB; Additional info: Syncope/vomiting TECHNIQUE: Imaging protocol: Computed tomographic angiography of the chest with contrast. Exam focused on the arteries. Axial, coronal and sagittal reformatted images were created and reviewed. 3D rendering (Not supervised by radiologist): MIP and/or 3D reconstructed images were created by the technologist. Radiation optimization: All CT scans at this facility use at least one of these dose optimization techniques: automated exposure control; mA and/or kV adjustment per patient size (includes targeted exams where dose is matched to clinical indication); or iterative reconstruction. Contrast material: OMNI 350; Contrast volume: 100 ml; Contrast route: INTRAVENOUS (IV); COMPARISON: CR (CHEST, ) 01/22/2024 11:18 AM RADIATION DOSE METRICS: Total DLP (mGy-cm): 1438.84 FINDINGS: Pulmonary arteries: Contrast opacification satisfactory. No intraluminal filling defect. Aorta: Unremarkable. No aneurysm or dissection. Lungs: Mild central peribronchial thickening, suggestive of airway inflammation. Mild linear stranding and groundglass, likely due to atelectasis and/or scarring. No consolidation. Pleural spaces: Unremarkable. No pneumothorax. No pleural effusion. Heart: Unremarkable. No cardiomegaly. No pericardial effusion. Lymph nodes: Small mediastinal and hilar lymph nodes, nonspecific in appearance. No pathologically enlarged lymph nodes. Bones/joints: No acute osseous abnormality. Osteopenia. Degenerative changes. Soft tissues: Unremarkable. PROCEDURE INFORMATION: Exam: CT Abdomen And Pelvis With Contrast Exam date and time: 01/22/2024 12:50 PM Age: 63 years old Clinical indication: Abdominal pain; Epigastric; Other: SOB; Additional info: Syncope/vomiting TECHNIQUE: Imaging protocol: Computed tomography of the abdomen and pelvis with contrast. Axial, coronal and sagittal reformatted images were created and reviewed. Radiation optimization: All CT scans at this facility use at least one of these dose optimization techniques: automated exposure control; mA and/or kV adjustment per patient size (includes targeted exams where dose is matched to clinical indication); or iterative reconstruction. Contrast material: OMNI 350; Contrast volume: 100 ml; Contrast route: INTRAVENOUS (IV); COMPARISON: CR (CHEST, ) 01/22/2024 11:18 AM RADIATION DOSE METRICS: Total DLP (mGy-cm): 1438.84 FINDINGS: Tubes, catheters and devices: Stimulator device in the subcutaneous tissues of the right flank. Liver: 9 mm low-density lesion in the right hepatic lobe, too small to characterize. Gallbladder and biliary ducts: No radiodense gallstones. No biliary ductal dilatation. Pancreas: Unremarkable. Spleen: Unremarkable. Adrenal glands: Normal. No mass. Kidneys and ureters: 1.5 cm right renal cyst (no follow-up is indicated based on the imaging appearance). Stomach and bowel: Scattered colonic diverticula without evidence of diverticulitis. No obstruction. No bowel wall thickening. No pneumatosis. Appendix: Appendix not identified with certainty but no right lower quadrant inflammatory change to suggest acute appendicitis. Intraperitoneal space: No free fluid. No organized fluid collection. No free air. Vasculature: Mild atherosclerotic disease. No aneurysm or dissection. Lymph nodes: No pathologically enlarged lymph nodes. Urinary bladder: Unremarkable as visualized. Reproductive: Status post hysterectomy. Bones/joints: No acute osseous abnormality. Osteopenia. Mild degenerative changes. Soft tissues: Small, fat containing left inguinal hernia. CT/CT angio chest w abd pel w con IMPRESSION: 1. No CT evidence of acute intrathoracic traumatic injury. 2. Additional findings, as above. IMPRESSION: 1. No CT evidence of acute intra-abdominal or pelvic traumatic injury. 2. Additional findings, as above. COMMENTS: Consistent with the [employer]'s Incidental Findings Committee white paper (J Am Bobby Radiol 2018): Any incidental renal lesion less than 1 cm or classified as too small to characterize, or any incidental cystic renal lesion characterized as simple-appearing, is likely benign. No follow-up imaging is recommended for these lesions per consensus recommendations based on imaging criteria.
[2024-01-22 12:20] LABS: Troponin(5th) Baseline 8 ng/L (0-10)
[2024-01-22] MEDS: methylPREDNISolone sod succ 125 mg/2 mL INJ 40 MG IVP (12:26)
[2024-01-22] MEDS: diphenhydrAMINE 50 mg/mL SDV 1mL IVP (12:26)
[2024-01-22 12:41] LABS: Alanine Aminotransferase 23 U/L (0-33); Albumin Level 4.7 g/dL (3.5-5.2); Alkaline Phosphatase 124 U/L (35-105); Blood Urea Nitrogen 7 mg/dL (8-23); Calcium 9.6 mg/dL (8.5-10.5); Carbon Dioxide 23 mmol/L (22-29); Chloride 97 mmol/L (98-107); Creatinine Clr Calc Pharmacy 106.1338; Globulin 2.7 g/dL (1.3-4.6); Glucose 129 mg/dL (65-115); Lipase 32 U/L (13-60); Osmolality Calculated 280 mOsm/kg (285-295); Sodium 135 mmol/L (136-145); Total Bilirubin 0.5 mg/dL (0.15-1.2); Total Protein 7.4 g/dL (6.6-8.7)
[2024-01-22 12:46] LABS: INR 1.04 (0.8-1.2)
[2024-01-22 12:51] LABS: Anion Gap 19.5 (5-19); Aspartate Amino Transferase 19 U/L (0-32); Potassium 4.5 mmol/L (3.5-5.1)
[2024-01-22] MEDS: iohexol 350 mg/mL 500 mL Btl (per mL) IV (12:56)
--- NOTE | 2024-01-22 13:14 | ECG_ITS ---
[facility] Test Date: 2024-01-22 Pat Name: Laquita Holguin Department: Room: Gender: Female Car Conditioner: : 1960 Requested By: Abby Benz Order Number: [id number] Miguel MD: Colt Chambers M.D. Measurements Intervals [place] Rate: 78 P: -83 LA: 366 QRS: -13 QRSD: 85 T: 50 QT: 373 QTc: 427 Interpretive Statements SUPRAVENTRICULAR RHYTHM. BASELINE ARTIFACT LOW QRS VOLTAGE IN PRECORDIAL LEADS [QRS DEFLECTION < 1.0 mV IN CHEST LEADS] ANTEROSEPTAL MYOCARDIAL INFARCTION , OF INDETERMINATE AGE [40+ ms Q WAVE IN V1-V4] Compared to ECG 01/22/2024 11:22:06 No significant changes Electronically Signed On 01-22-2024 18:09:38 CDT by Colt Chambers M.D. [id number]
[2024-01-22 14:37] LABS: Troponin 5 2HR 6.83 ng/L (0-10)
[2024-01-22 14:39] LABS: Troponin 5 2HR Delta -1.17 ABS# (0-10)
[2024-01-22 15:21] VITALS: BP 112/70; BP 113/71; BP 93/71; PULSE 75; PULSE 80; PULSE 84
[2024-01-22 16:09] VITALS: BP 111/72; PULSE 79; RESP 21; O2SAT 92
== END 2024-01-22 16:11 | disposition home or self-care (01) ==
PROVIDERS: Emergency Provider Emergency Medicine; PCP Nurse Practitioner
DX: R55 Syncope and collapse (principal); S09.8XXA Other specified injuries of head, initial encounter; Z79.85 Long-term (current) use of injectable non-insulin antidiabetic drugs; Z72.0 Tobacco use; I10 Essential (primary) hypertension; I25.10 Atherosclerotic heart disease of native coronary artery without angina pectoris; E78.5 Hyperlipidemia, unspecified; W18.39XA Other fall on same level, initial encounter
CPT/HCPCS: 70450; 71045; 71275; 72125; 74177; 80053; 83690; 84484; 85025; 85610; 93005; 96374; 96375; 99285; J1200; J2270; J2405; J2919; J7030

== ENCOUNTER 2024-03-18 20:00 | Outpatient (CLI) | payer MEDICARE, SELFPAY | END 2024-03-18 20:01 | disposition home or self-care (01) | LOC: SLEEP 03-19 | PROVIDERS: PCP Nurse Practitioner; Visit Provider Nurse Practitioner | DX: G47.33 Obstructive sleep apnea (adult) (pediatric) (principal) | CPT/HCPCS: 95810 ==

== ENCOUNTER 2024-09-03 20:00 | Outpatient (CLI) | payer MEDICARE, SELFPAY | END 2024-09-03 20:01 | disposition home or self-care (01) | LOC: SLEEP 21:15 | PROVIDERS: PCP Nurse Practitioner; Visit Provider Anesthesiology Pain Medicine | DX: G47.33 Obstructive sleep apnea (adult) (pediatric) (principal) | CPT/HCPCS: 95811 ==

== ENCOUNTER 2024-12-15 23:13 | Emergency (ER) | payer MEDICARE, SELFPAY ==
--- OUTSIDE RECORDS SUMMARY | 2023-12-18 10:11 | XMS_ITS | Encounter Summary ---
Author Name [facility] [place] [facility] [place] Address [address] [place] [address] Care Team Providers Care Gps Field Data Collector Name Role Phone DAKOTAH INFANTE Primary Care Provider Unavail able Insurance Providers: All historical and current Section Date Range: From patient's date of to the date document was created. This section includes the names of all active insurance providers for the patient. Insurance Provider Type of Coverage Plan Name Start of Policy Coverage End of Policy Coverage Group Number Member ID Insurance Provider's Telephone Number Policy Palmer's Name Patient's Relationship to Policy Palmer [facility] (WNR) MEDICARE ADVANTAGE HUMAN A INSUR ANCE COM May 22, 2020 [id number] JAMI CASTELLANO PATIENT INNOVIANT E-PHARM PRESCRIPT ION SWEET WATER KANDI DIST Jan 20, 2007 [id number] [phone] JAMI CASTELLANO PATIENT MEDICARE (WNR) MEDICARE (M) PART A Nov 19, 2013 PART A [id number] JAMI CASTELLANO PATIENT MEDICARE (WNR) MEDICARE (M) PART B Nov 19, 2013 PART B [id number] JAMI CASTELLANO PATIENT MEDICARE (WNR) MEDICARE (M) PART A Nov 19, 2013 PART A [id number] JAMI CASTELLAON PATIENT MEDICARE (WNR) MEDICARE (M) PART B Nov 19, 2013 PART B [id number] JAMI CASTELLANO PATIENT MEDICARE (WNR) MEDICARE (M) PART A Nov 19, 2013 PART A [id number] JAMI CASTELLANO PATIENT MEDICARE (WNR) MEDICARE (M) PART B Nov 19, 2013 PART B [id number] JAMI CASTELLANO PATIENT MEDICARE (WNR) MEDICARE (M) PART B Nov 19, 2013 PART B [id number] JAMI CASTELLANO PATIENT MEDICARE (WNR) MEDICARE (M) PART A Nov 19, 2013 PART A [id number] JAMI CASTELLANO PATIENT MEDICARE (WNR) MEDICARE (M) PART A Nov 19, 2013 PART A [id number] JAMI CASTELLANO PATIENT MEDICARE (WNR) MEDICARE (M) PART B Nov 19, 2013 PART B [id number] JAMI CASTELLANO PATIENT MEDICARE (WNR) MEDICARE (M) PART B Nov 19, 2013 PART B [id number] JAMI CASTELLANO PATIENT MEDICARE (WNR) MEDICARE (M) PART A Nov 19, 2013 PART A [id number] JAMI CASTELLANO PATIENT MEDICARE (WNR) MEDICARE (M) PART B Nov 19, 2013 PART B [id number] JAMI CASTELLANO PATIENT MEDICARE (WNR) MEDICARE (M) PART A Nov 19, 2013 PART A [id number] JAMI CASTELLANO PATIENT MEDICARE (WNR) MEDICARE (M) PART A Nov 19, 2013 PART A [id number] JAMI CASTELLANO PATIENT MEDICARE (WNR) MEDICARE (M) PART B Nov 19, 2013 PART B [id number] JAMI CASTELLANO PATIENT MEDICARE PART D (WNR) MEDICARE (M) PART D May 22, 2020 PART D [id number] JAMI CASTELLANO PATIENT MEDICARE PART D (WNR) MEDICARE (M) PART D Feb 19, 2014 PART D [id number] JAMI CASTELLANO PATIENT OFF OF REG RINK RAT BURDICK TORT FEASOR TORT Nov 26, 2017 TORT [id number] JAMI CASTELLANO PATIENT OPTUM RX PRESCRIPT ION SWEET WATER SCHOO L #1 September 19, 2008 [id number] [phone] JAMI CASTELLANO PATIENT [facility] COMPREHEN SIVE MAJOR MEDICAL SWEET WATER COUNT Y SC Jan 20, 2014 [id number] [phone] JAMI CASTELLANO PATIENT [facility] PREFERRED PROVIDER ORGANIZAT ION (PPO) TAWANNA SS ROEL HEALT H Jan 20, 2007 [id number] JAMI CASTELLANO PATIENT Selected Encounter This section includes the information on record at [place] for the Encounter. Date/Time Encounter Type Encounter Description Reason Pro vider Source Dec 18, 2023 03:11 PM Outpatient Encounter PRIMARY CARE/MEDICINE IHE Encounter Template Text not used by [place] Plan of Treatment: Future Appointments (+ 6 months) and Future Tests (+/- 45 days) The Plan of Treatment section includes future care activities for the patient from all [place] treatmentfacilities. This section includes future appointments and future orders which are active, pending or scheduled. Future Appointments This section includes appointments that were scheduled to occur 6 months from the date of the Encounter, up to a maximum of 20 appointments. The data comes from all [place] treatment facilities. Appointment Date/Time Appointment Type Appointme nt Facility Name Dec 21, 2023 01:00 PM AMBULATORY - MEDICINE [facility] Jan 23, 2024 02:30 PM [facility] [place] [facility] Jan 25, 2024 01:00 PM AMBULATORY - MEDICINE [facility] Jan 30, 2024 03:45 PM AMBULATORY - MEDICINE [facility] Feb 14, 2024 08:00 AM AMBULATORY - NONE [place] [facility] Mar 12, 2024 02:30 PM AMBULATORY - MEDICINE [facility] Mar 14, 2024 02:00 PM AMBULATORY - PS[facility]CHIATRY [facility] Mar 19, 2024 09:30 AM AMBULATORY - MEDICINE [facility] Mar 19, 2024 09:31 AM [facility] [place] [facility] Mar 26, 2024 02:00 PM [facility] - NONE [place] [facility] Apr 02, 2024 01:00 PM AMBULATORY - MEDICINE [facility] Apr 09, 2024 01:00 PM AMBULATORY - MEDICINE [facility] Apr 09, 2024 02:00 PM AMBULATORY - MEDICINE [facility] Apr 19, 2024 02:00 PM AMBULATORY - PS[facility]CHIATRY [facility] May 09, 2024 01:30 PM [facility] [place]IC[place] [facility] May 17, 2024 09:30 AM AMBULATORY - MEDICINE [facility] May 17, 2024 09:31 AM [facility]IC[place] [facility] May 28, 2024 01:30 PM AMBULATORY - MEDICINE [facility] Jun 05, 2024 01:30 PM AMBULATORY - MEDICINE [facility] Jun 07, 2024 01:00 PM AMBULATORY - PS[facility]CHIATRY [facility] Active, Pending, and Scheduled Orders This section includes a listing of several types of active, pending, and scheduled orders, including clinic medications orders, diagnostic test orders, procedure orders and consult orders; where the start date of the order is 45 days before the date of the Encounter or 45 days after the date of theEncounter. The data comes from all [place] treatment facilities. Test Date/Time Test Type Test Details Facility Name Dec 01, 2023 12:00 AM Laboratory - Chemi stry Order [id number],3- GALACTOSE IGE BLOOD SERUM SP [facility] Lab Results: +/- 30 days of the encounter This section includes the Chemistry and Hematology Lab Results on record with [place] for the patient. Radiology Reports and Pathology Reports are provided separately, in subsequent sections. Lab Results This section contains the Chemistry/Hematology Results that were resulted 30 days before or 30 daysafter the date of the Encounter. Date/Time Source Result Type Result - Unit Interpretation Reference Range Specimen Type Comment Dec 21, 2023 02:12 PM [facility] GASTROINTESTINAL PCR PANEL FECES Specimen Typ e: FECES No comment entered. Ordering Provider: LILIAM HARPER Report Released Date/Time: Dec 21, 2023 02:11 PM Reporting Lab: [place] [facility] [address] [place] [address] Performing Lab: [place] [facility] [address] [place] [address] *Campylobacter-j,c,u (BF)) Not Detected Not Detected *Clostridium difficile (toxin A/B)(BF) canc Not Detected *Plesiomonas shigelloides(BF) Not Detected Not Detected *Salmonella(BF) Not Detected Not Detecte d *Yersinia enterocolitica(BF) Not Detected Not Detected *Vibrio (p,v,ch)(BF) Not Detected Not De tected *Vibrio cholerae(BF) Not Detected Not De tected *Enteroaggregative E. coli (EAEC)(BF) Not Detect ed Not Detected *Enteropathic E. coli (EPEC)(BF) Not Detected Not Detected *Enterotoxigenic E. coli (ETEC)(BF) Not Detected Not Detected *Shiga-like tox-prod E. coli (STEC)(BF) Not Dete cted Not Detected *E. coli 0157(BF) Not Detected Not Detec demario *Shigella/Enteroinv E. coli (EIEC)(BF) Not Detec demario Not Detected *Cryptosporidium(BF) Not Detected Not De tected *Cyclospora cayetanensis(BF) Not Detected Not Detected *Entamoeba histolytica(BF) Not Detected Not Detected *Giardia lamblia(BF) Not Detected Not De tected *Adenovirus F40/41(BF) NON_DETECT Not De tected *Norovirus GI/GII(BF) Not Detected Not D etected *Rotavirus A(BF) Not Detected Not Detect ed *Sapovirus (I, II, IV & V)(BF) Not Detected Not Detected *Astrovirus(BF) Not Detected Not Detecte d Dec 21, 2023 02:10 PM [facility] HELICOBACTER PYLORI ANTIGEN FECES Specimen Ty pe: FECES Comment: Antimicrobials, proton pump inhibitors, and bismuth preparations inhibit H. pylori and ingestion up to two weeks prior to testing may cause false negative results. If clinically indicated the test should be repeated on a new specimen obtained two weeks after discontinuing treatment. Test Performed by Doris Ladd, [facility], [address] [place], [place] Wilfred Velásquez M.D., Ph.D., Director of Laboratories , CLIA [id number] Ordering Provider: LILIAM HARPER Report Released Date/Time: Dec 14, 2023 03:24 PM Reporting Lab: [facility] [address] [facility] [place] [address] Performing Lab: [facility] [address] [facility] HELICOBACTER PYLORI ANTIGEN Not Detected Not Detected Dec 14, 2023 03:21 PM [facility] [id number]-1,3-GALACTOSE IGE SERUM Speci men Type: SERUM Comment: REFERENCE RANGE: <0.10 kU/L Results above 0.1 kU/L indicate an allergen-specific IgE sensitization to cpuradiok-o-0,3-galactose, and such patients are at risk for delayed allergic reactions following beef, pork, or poole consumption. Circulating IgE antibodies may remain undetectable despite a convincing clinical history because these antibodies may be directed towards allergens revealed or altered during industrial processing, cooking, or digestion and therefore do not exist in the original food for which the patient is tested. Sometimes individuals diagnosed with chronic urticaria may develop IgE antibodies directed against human thyroglobulin. Such antibodies may cross-react with the bovine thyroglobulin used in ImmunoCAP(R) Allergen o215, alpha-Gal, leading to a false-positive test result. A definitive diagnosis should be based on the evaluation of both clinical and laboratory findings and not on any single diagnostic method. Additional information can be found at [email or web address] Test performed by [facility] [address] [place] [address] Station Jailer: Loni Landis MD,PHD,SANCHO Test Reported by [employer] [facility], [address] [place], [place] Wilfred Velásquez M.D., Ph.D., Director of Laboratories , CLIA [id number] Ordering Provider: LILIAM HARPER Report Released Date/Time: Dec 11, 2023 04:10 PM Reporting Lab: [place] [facility] [address] [facility] [place] [address] Performing Lab: [place] [facility] [address] [facility] [id number]-CUKTI-5,3-GALACTOSE IGE <0.10 kU/L SEE BELOW Dec 14, 2023 03:21 PM [place] [facility] IRON PLASM A Specimen Type: PLASMA No comment entered. Ordering Provider: LILIAM HARPER Report Released Date/Time: Dec 11, 2023 04:10 PM Reporting Lab: [place] [facility] [address] [place] [address] Performing Lab: [place] [facility] [address] [place] [address] IRON 56 ug/dL 50-170 Dec 14, 2023 03:21 PM [facility] [place] [facility] CHOLESTEROL PANEL (PB) PLASMA Specimen Type: P LASMA No comment entered. Ordering Provider: LILIAM HARPER Report Released Date/Time: Dec 11, 2023 04:10 PM Reporting Lab: [place] [facility] [address] [place] [address] Performing Lab: [place] [facility] [address] [place] [address] CHOLESTEROL 122 mg/dL 0-200 TRIGLYCERIDE 250 mg/dL H 0-150 CALCULATED LDL 49.0 mg/dL HDL(New) 23.0 mg/dL L >40 HDL % OF TOTAL CHOLESTEROL (PB) 18.9 >25 Dec 14, 2023 03:21 PM [facility] [place] [facility] VITAMIN D, 25-HYDROXY SERUM Specimen Type: SE RUM No comment entered. Ordering Provider: LILIAM HARPER Report Released Date/Time: Dec 11, 2023 04:10 PM Reporting Lab: [place] [facility] [address] [place] [address] Performing Lab: [place] [facility] [address] [place] [address] VITAMIN D, 25-HYDROXY 31.9 ng/mL 30-96 Dec 14, 2023 03:21 PM [facility] [place] [facility] B12 SERUM Specimen Type: SERUM No comment entered. Ordering Provider: LILIAM HARPER Report Released Date/Time: Dec 11, 2023 04:10 PM Reporting Lab: [place] [facility] [address] [place] [address] Performing Lab: [place] [facility] [address] [place] [address] B12 213 pg/mL 213-816 Dec 14, 2023 03:21 PM [facility] FOLATE (PB) SERUM Specimen Typ e: SERUM No comment entered. Ordering Provider: LILIAM HARPER Report Released Date/Time: Dec 11, 2023 04:10 PM Reporting Lab: [place] [facility] [address] [place] [address] Performing Lab: [place] [facility] [address] [place] [address] FOLATE (PB) 11.4 ng/mL 7-20 Dec 14, 2023 03:21 PM [facility] HGA1C BLOOD Specimen Type: BLOOD No comment entered. Ordering Provider: LILIAM HARPER Report Released Date/Time: Dec 11, 2023 04:10 PM Reporting Lab: [place] [facility] [address] [place] [address] Performing Lab: [place] [facility] [address] [place] [address] HGA1C 6.5 H 4.0-6.0 Dec 14, 2023 03:20 PM [facility] DIRECT LDL (MA-PB) PLASMA Specimen Type: PLASM A No comment entered. Ordering Provider: LILIAM HARPER Report Released Date/Time: Dec 11, 2023 04:10 PM Reporting Lab: [place] [facility] [address] [place] [address] Performing Lab: [place] [facility] [address] [place] [address] DIRECT LDL 63.9 mg/dL 0-99.9 Advance Directives: All historical and current Section Date Range: From patient's date of to the date document was created. This section includes ALL of a patient's completed or amended [place] Advance and Rescinded Directives. The entries below indicate that a directive exists for the patient, but an actual copy is not included with this document. The data comes from all [place] facilities. Date Advance Directives Provider Source Dec 18, 2023 ADVANCE DIRECTIVE PETER BOWLINGU [facility] Encounter Notes: All associated encounter notes This section contains the clinical notes associated to the Encounter. Date/Time Encounter Note(s) Provider Source Dec 18, 2023 03:11 PM ADVANCE DIRECTIVE: LOCAL TITLE: ADVANCE DIRECTIVE STANDARD TITLE: ADVANCE DIRECTIVE DATE OF NOTE: DEC 18, 2023@15:11 ENTRY DATE: DEC 18, 2023@15:11:38 AUTHOR: PETER BOWLING EXP COSIGNER: URGENCY: STATUS: COMPLETED received a completed Advance directive on this date. Document forwarded to scanning to be added to record. /matt/ AMAIRANI Hardy,SPREADING MACHINE OPERATOR Information Technology Audit Manager Signed: 12/18/2023 15:12 PETER BOWLING [facility]
--- OUTSIDE RECORDS SUMMARY | 2024-03-01 09:12 | XMS_ITS | Encounter Summary ---
Author Name [facility] [place] [facility] [place] Address [address] [place] [address] Care Team Providers Care Hospice Care Transitions Coordinator Name Role Phone DAKOTAH INFANTE Primary Care [...] Name Patient's Relationship to Policy [facility] (WNR) MEDICARE ADVANTAGE HUMAN A INSUR KaiimaE [employer] May 22, 2020 [id number] JAMI CASTELLANO PATIENT INNOVIANT E-PHARM PRESCRIPT ION SWEET WATER KANDI DIST Jan 20, 2007 [id number] [phone] JAMI CASTELLANO PATIENT MEDICARE (WNR) MEDICARE (M) PART A Nov 19, 2013 PART A [id number] JAMI CASTELLANO PATIENT MEDICARE (WNR) MEDICARE (M) PART B Nov 19, 2013 PART B [id number] JAMI CASTELLANO PATIENT MEDICARE (WNR) MEDICARE (M) PART A Nov 19, 2013 PART A [id number] JAMI CASTELLANO PATIENT MEDICARE (WNR) MEDICARE (M) PART B Nov 19, 2013 PART B [id number] JAMI CASTELLANO PATIENT MEDICARE (WNR) MEDICARE (M) PART A Nov 19, 2013 PART A [id number] JAMI CASTELLANO PATIENT MEDICARE (WNR) MEDICARE (M) PART B Nov 19, 2013 PART B [id number] JAMI CASTELLANO PATIENT MEDICARE (WNR) MEDICARE (M) PART A Nov 19, 2013 PART A [id number] JAMI CASTELLANO PATIENT MEDICARE (WNR) MEDICARE (M) PART B Nov 19, 2013 PART B [id number] JAMI CASTELLANO PATIENT MEDICARE (WNR) MEDICARE (M) PART A Nov 19, 2013 PART A [id number] JAMI CASTELLANO PATIENT MEDICARE (WNR) MEDICARE (M) PART B Nov 19, 2013 PART B [id number] JAMI CASTELLANO PATIENT MEDICARE (WNR) MEDICARE (M) PART A Nov 19, 2013 PART A [id number] JAMI CASTELLANO PATIENT MEDICARE (WNR) MEDICARE (M) PART B Nov 19, 2013 PART B [id number] JAMI CASTELLANO PATIENT MEDICARE (WNR) MEDICARE (M) PART A Nov 19, 2013 PART A [id number] JAMI CASTELLANO PATIENT MEDICARE (WNR) MEDICARE (M) PART B Nov 19, 2013 PART B [id number] JAMI CASTELLANO PATIENT MEDICARE (WNR) MEDICARE (M) PART A Nov 19, 2013 PART A [id number] JAMI CASTELLANO PATIENT MEDICARE (WNR) MEDICARE (M) PART B Nov 19, 2013 PART B [id number] JAMI CASTELLANO PATIENT MEDICARE PART D (WNR) MEDICARE (M) PART D May 22, 2020 PART D [id number] JAMI CASTELLANO PATIENT MEDICARE PART D (WNR) MEDICARE (M) PART D Feb 19, 2014 PART D [id number] JAMI CASTELLANO PATIENT OFF OF REG ORDNANCE KEEPER BURDICK TORT FEASOR TORT Nov 26, 2017 TORT [id number] JAMI CASTELLANO PATIENT [employer] RX PRESCRIPT ION SWEET WATER SCHOO L #1 September 19, 2008 [id number] [phone] JAMI CASTELLANO PATIENT [facility] COMPREHEN SIVE MAJOR MEDICAL SWEET WATER COUNT Y SC Jan 20, 2014 [id number] [phone] JAMI CASTELLANO PATIENT [facility] PREFERRED PROVIDER ORGANIZAT ION (PPO) TAWANNA SS ROEL HEALT H Jan 20, 2007 [id number] JAMI CASTELLANO PATIENT Selected Encounter This section includes the information on record at [place] for the Encounter. Date/Time Encounter Type Encounter Description Reason Pro vider Source Mar 01, 2024 02:12 PM Outpatient Encounter ADMIN PAT ACTIVTIES (MASNONCT) IHE Encounter Template Text not used by [place] Plan of Treatment: Future Appointments (+ 6 months) and Future Tests (+/- 45 days) The Plan of Treatment section includes future care activities for the patient from all [place] treatmentfacilities. This section includes future appointments and future orders which are active, pending or scheduled. Future Appointments This section includes appointments that were scheduled to occur 6 months from the date of the Encounter, up to a maximum of 20 appointments. The data comes from all [place] treatment facilities. Appointment Date/Time Appointment Type Appointme nt Facility Name Mar 12, 2024 02:30 PM AMBULATORY - MEDICINE [facility] Mar 14, 2024 02:00 PM AMB[facility]ATORY - PSYCHIATRY [facility] Mar 19, 2024 09:30 AM AMBULATORY - MEDICINE [facility] Mar 19, 2024 09:31 AM AMBULAT[facility] - MEDICINE [facility] Mar 26, 2024 02:00 PM AMBULATORY - NONE [facility] Apr 02, 2024 01:00 PM AMBULATORY - MEDICINE [facility] Apr 09, 2024 01:00 PM AMBULATORY - MEDICINE [facility] Apr 09, 2024 02:00 PM AMBULATORY - MEDICINE [facility] Apr 19, 2024 02:00 PM AM[facility]ATORY - PS[facility]CHIATRY [facility] May 09, 2024 01:30 PM AMBULATORY - MEDICINE [facility] May 17, 2024 09:30 AM AMBULATORY - MEDICINE [facility] May 17, 2024 09:31 AM AMBULATORY - MEDICINE [facility] May 28, 2024 01:30 PM AMBULATORY - MEDICINE [facility] Jun 05, 2024 01:30 PM AMBULATORY - MEDICINE [facility] Jun 07, 2024 01:00 PM AM[facility]ATORY - [facility]CHIATRY [facility] Jun 17, 2024 01:15 PM AMBULATORY - MEDICINE [facility] Jun 19, 2024 11:45 AM AMBULATORY - MEDICINE [facility] Jun 19, 2024 01:00 PM AM[facility]ULATORY - PS[facility]CHIATRY [facility] Jun 19, 2024 02:00 PM AMBULATORY - MEDICINE [facility] Jun 19, 2024 02:01 PM AMBULATORY - MEDICINE [facility] Advance Directives: All historical and current Section Date Range: From patient's date of to the date document was created. This section includes ALL of a patient's completed or amended [place] Advance and Rescinded Directives. The entries below indicate that a directive exists for the patient, but an actual copy is not included with this document. The data comes from all [place] facilities. Date Advance Directives Provider Source Dec 18, 2023 ADVANCE DIRECTIVE [facility] Encounter Notes: All associated encounter notes This section contains the clinical notes associated to the Encounter. Date/Time Encounter Note(s) Provider Source Mar 01, 2024 02:12 PM GENERAL MEDICINE N OTE: LOCAL TITLE: General Note PB STANDARD TITLE: GENERAL MEDICINE NOTE DATE OF NOTE: MAR 01, 2024@14:12 ENTRY DATE: MAR 01, 2024@14:12:25 AUTHOR: NAVID SHORE EXP COSIGNER: URGENCY: STATUS: COMPLETED 63 yr old with noted smoking hx of 1ppd x 40 yrs. 02.22.2023 LRADS 1. No noted exclusions. Will place annual screen order for PCP review/signature. /matt/ NAVID PANCHAL BSN RN FELICIANO V15 [facility] Spec RNCC Signed: 03/01/2024 14:15 NAVID SHORE [facility]
--- OUTSIDE RECORDS SUMMARY | 2024-04-09 08:00 | XMS_ITS | Encounter Summary ---
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 Name Role Phone DAKOTAH INFANTE Primary Care [...] Name Patient's Relationship to Policy Palmer [facility] (WNR) MEDICARE ADVANTAGE HUMAN A INSUR ANCE THEMA May 22, 2020 [id number] JAMI CASTELLANO PATIENT INNOVIANT E-PHARM PRESCRIPT ION SWEET WATER KANDI DIST Jan 20, 2007 [id number] [phone] JAMI CASTELLANO PATIENT MEDICARE (WNR) MEDICARE (M) PART A Nov 19, 2013 PART A [id number] JAMI CASTELLANO PATIENT MEDICARE (WNR) MEDICARE (M) PART B Nov 19, 2013 PART B [id number] JAMI CASTELLANO PATIENT MEDICARE (WNR) MEDICARE (M) PART B Nov 19, 2013 PART B [id number] JAMI CASTELLANO PATIENT MEDICARE (WNR) MEDICARE (M) PART A Nov 19, 2013 PART A [id number] JAMI CASTELLANO PATIENT MEDICARE (WNR) MEDICARE (M) PART A Nov 19, 2013 PART A [id number] JAMI CASTELLANO PATIENT MEDICARE (WNR) MEDICARE (M) PART B Nov 19, 2013 PART B [id number] JAMI CASTELLANO PATIENT MEDICARE (WNR) MEDICARE (M) PART A Nov 19, 2013 PART A [id number] JAMI CASTELLANO PATIENT MEDICARE (WNR) MEDICARE (M) PART B Nov 19, 2013 PART B [id number] JAMI CASTELLANO PATIENT MEDICARE (WNR) MEDICARE (M) PART A Nov 19, 2013 PART A [id number] JAMI CASTELLANO PATIENT MEDICARE (WNR) MEDICARE () PART B Nov 19, 2013 PART B [id number] JAMI CASTELLANO PATIENT MEDICARE (WNR) MEDICARE () PART A Nov 19, 2013 PART A [id number] JAMI CASTELLANO PATIENT MEDICARE (WNR) MEDICARE (M) PART B Nov 19, 2013 PART B [id number] JAMI CASTELLANO PATIENT MEDICARE (WNR) MEDICARE (M) PART A Nov 19, 2013 PART A [id number] JAMI CASTELLANO PATIENT MEDICARE (WNR) MEDICARE (M) PART B Nov 19, 2013 PART B [id number] JAMI CASTELLANO PATIENT MEDICARE (WNR) MEDICARE (M) PART A Nov 19, 2013 PART A [id number] JAMI CASTELLANO PATIENT MEDICARE (WNR) MEDICARE (M) PART B Nov 19, 2013 PART B [id number] JAMI CASTELLANO PATIENT MEDICARE PART D (WNR) MEDICARE (M) PART D May 22, 2020 PART D [id number] JAMI CASTELLANO PATIENT MEDICARE PART D (WNR) MEDICARE (M) PART D Feb 19, 2014 PART D [id number] JAMI CASTELLANO PATIENT OFF OF REG TRANSPORTATION AID [facility] TORT FEASOR TORT Nov 26, 2017 TORT [id number] JAMI CASTELLANO PATIENT OPTUM RX PRESCRIPT ION SWEET WATER SCHOO L #1 September 19, 2008 [id number] [phone] JAMI CASTELLANO PATIENT UMR COMPREHEN SIVE MAJOR MEDICAL SWEET WATER COUNT Y SC Jan 20, 2014 [id number] [phone] JAMI CASTELLANO PATIENT [facility]MR PREFERRED PROVIDER ORGANIZAT ION (PPO) TAWANNA SS ROEL HEALT H Jan 20, 2007 [id number] [phone] JAMI CASTELLANO PATIENT Selected Encounter This section includes the information on record at [place] for the Encounter. Date/Time Encounter Type Encounter Description Reason Provider Source Apr 09, 2024 01:00 PM OFFICE O/P EST MOD 30 MIN PRIMARY CARE/MEDICINE ICD-10-CM E11.9 Type 2 diabetes mellitus without complications LUDWIN INFANTE Bruna Encounter Template Text not used by [place] Assessments - Encounter Diagnoses This section includes the primary and secondary diagnoses documented for the Encounter. Date/Time Primary/Secondary Diagnosis Diagnosis Name Provider Source Apr 09, 2024 05:12 PM PRIMARY Type 2 diabetes mellitus without complications CAMRYN INFANTE [place] [facility] Apr 09, 2024 05:12 PM SECONDARY Allergic rhinitis, unspecified CAMRYN INFANTE [place] [facility] Apr 09, 2024 05:12 PM SECONDARY Chronic obstructive pulmonary disease, unspecified CAMRYN INFANTE [place] [facility] Apr 09, 2024 05:12 PM SECONDARY Gastro-esophageal reflux disease without esophagitis CAMRYN INFANTE [place] [facility] Apr 09, 2024 05:12 PM SECONDARY Low back pain, unspecified CAMRYN INFANTE [place] [facility] Apr 09, 2024 05:12 PM SECONDARY Nicotine dependence, cigarettes, uncomplicated CAMRYN INFANTE [facility] Apr 09, 2024 05:12 PM SECONDARY Stress incontinence (female) (male) CAMRYN INFANTE [facility] Apr 09, 2024 05:12 PM SECONDARY Type 2 diabetes mellitus with diabetic neuropathy, unsp CAMRYN INFANTE [facility] Plan of Treatment: Future Appointments (+ 6 months) and Future Tests (+/- 45 days) The Plan of Treatment section includes future care activities for the patient from all [place] treatmentfacilities. This section includes future appointments and future orders which are active, pending or scheduled. Future Appointments This section includes appointments that were scheduled to occur 6 months from the date of the Encounter, up to a maximum of 20 appointments. The data comes from all [place] treatment facilities. Appointment Date/Time Appointment Type Appointme nt Facility Name Apr 19, 2024 02:00 PM AMBULATORY - [facility]RY [facility] May 09, 2024 01:30 PM AMB[facility]ORY - [place]IC[place] [facility] May 17, 2024 09:30 AM AMBULATORY - MEDICINE [facility] May 17, 2024 09:31 AM AMBULATORY - [facility]IC[place] [facility] May 28, 2024 01:30 PM AMBULATORY - MEDICINE [facility] Jun 05, 2024 01:30 PM AMBULATORY - MEDICINE [facility] Jun 07, 2024 01:00 PM [facility]ATORY - PS[facility]CHIATRY [facility] Jun 17, 2024 01:15 PM AMBULATORY - MEDICINE [facility] Jun 19, 2024 11:45 AM AMBULATORY - MEDIC[place] [facility] Jun 19, 2024 01:00 PM [facility] - PS[facility]CHIATRY [facility] Jun 19, 2024 02:00 PM AMBULATORY - MEDICINE [facility] Jun 19, 2024 02:01 PM AMBULATORY - MEDICINE [place] [facility] Jun 21, 2024 12:30 PM AMBULATORY - MEDICINE [facility] Jun 27, 2024 01:30 PM AMBULATORY - MEDICINE [facility] Jul 01, 2024 02:00 PM AMBULATORY - MEDICINE [facility] Jul 01, 2024 02:02 PM AMBULATORY - MEDICINE [place] [facility] Jul 04, 2024 01:30 PM AMBULATORY - MEDICINE [facility] Jul 16, 2024 01:00 PM [facility] Jul 31, 2024 12:30 PM [facility] [facility] Jul 31, 2024 12:32 PM [facility] Lab Results: +/- 30 days of the encounter This section includes the Chemistry and Hematology Lab Results on record with [place] for the patient. Radiology Reports and Pathology Reports are provided separately, in subsequent sections. Lab Results This section contains the Chemistry/Hematology Results that were resulted 30 days before or 30 daysafter the date of the Encounter. Date/Time Source Result Type Result - Unit Interpretation Reference Range Specimen Type Comment Apr 02, 2024 01:16 PM [facility] LAMOTRIGINE SERUM Specimen Type: SERUM Comment: This test was developed and its analytical performance characteristics have been determined by [employer] [place], [place]. It has not been cleared or approved by the U.S. Food and Drug Administration. This assay has been validated pursuant to the CLIA regulations and is used for clinical purposes. Test Performed by [facility], [employer] [facility], [address] [place] [address] Wilfred Velásquez M.D., Ph.D., Director of Laboratories , CLIA [id number] Ordering Provider: LILIAM HARPER Report Released Date/Time: Apr 02, 2024 01:14 PM Reporting Lab: [place] [facility] [address] [place] [address] Performing Lab: [place] [facility] [address] [facility] LAMOTRIGINE 4.7 ug/mL 2.5-15.0 Apr 02, 2024 01:16 PM [facility] DIRECT LDL (MA-PB) PLASMA Specimen Type: PLASM A Comment: LDL calculation invalid when Triglyceride exceeds 250 mg/dl Ordering Provider: LILIAM HARPER Report Released Date/Time: Apr 02, 2024 01:14 PM Reporting Lab: [place] [facility] [address] [place] [address] Performing Lab: [place] [facility] [address] [place] [address] DIRECT LDL 65.1 mg/dL 0-99.9 Apr 02, 2024 01:16 PM [facility] VITAMIN D, 25-HYDROXY SERUM Specimen Type: SE RUM No comment entered. Ordering Provider: LILIAM HARPER Report Released Date/Time: Apr 02, 2024 01:14 PM Reporting Lab: [place] [facility] [address] [place] [address] Performing Lab: [place] [facility] [address] [place] [address] VITAMIN D, 25-HYDROXY 26.6 ng/mL L 30-96 Apr 02, 2024 01:16 PM [facility] CHOLESTEROL PANEL (PB) PLASMA Specimen Type: P LASMA Comment: LDL calculation invalid when Triglyceride exceeds 250 mg/dl Ordering Provider: LILIAM HARPER Report Released Date/Time: Apr 02, 2024 01:14 PM Reporting Lab: [place] [facility] [address] [place] [address] Performing Lab: [place] [facility] [address] [place] [address] CHOLESTEROL 136 mg/dL 0-200 TRIGLYCERIDE 275 mg/dL H 0-150 CALCULATED LDL comment mg/dL HDL(New) 23.6 mg/dL L >40 HDL % OF TOTAL CHOLESTEROL (PB) 17.4 >25 DIRECT LDL(MA) 65.0 mg/dL 0-99.9 Apr 02, 2024 01:16 PM [facility] IRON PLASM A Specimen Type: PLASMA Comment: LDL calculation invalid when Triglyceride exceeds 250 mg/dl Ordering Provider: LILIAM HARPER Report Released Date/Time: Apr 02, 2024 01:14 PM Reporting Lab: [place] [facility] [address] [place] [address] Performing Lab: [place] [facility] [address] [place] [address] IRON 69 ug/dL 50-170 Apr 02, 2024 01:16 PM [facility] FOLATE (PB) SERUM Specimen Typ e: SERUM No comment entered. Ordering Provider: LILIAM HARPER Report Released Date/Time: Apr 02, 2024 01:14 PM Reporting Lab: [place] [facility] [address] [place] [address] Performing Lab: [place] [facility] [address] [place] [address] FOLATE (PB) 9.4 ng/mL 7-20 Apr 02, 2024 01:16 PM [facility] HGA1C BLOOD Specimen Type: BLOOD No comment entered. Ordering Provider: LILIAM HARPER Report Released Date/Time: Apr 02, 2024 01:14 PM Reporting Lab: [place] [facility] [address] [place] [address] Performing Lab: [place] [facility] [address] [place] [address] HGA1C 6.6 H 4.0-6.0 Apr 02, 2024 01:16 PM [facility] B12 SERUM Specimen Type: SERUM No comment entered. Ordering Provider: LILIAM HARPER Report Released Date/Time: Apr 02, 2024 01:14 PM Reporting Lab: [place] [facility] [address] [place] [address] Performing Lab: [place] [facility] [address] [place] [address] B12 193 pg/mL L 213-816 Apr 02, 2024 01:16 PM [facility] COMPREHENSIVE METABOLIC PANEL PLASMA Specimen Type: PLASMA Comment: LDL calculation invalid when Triglyceride exceeds 250 mg/dl Ordering Provider: LILIAM HARPER Report Released Date/Time: Apr 02, 2024 01:14 PM Reporting Lab: [place] [facility] [address] [place] [address] Performing Lab: [place] [facility] [address] [place] [address] CREATININE 0.87 mg/dL 0.6-1.1 UREA NITROGEN 12 mg/dL 9-25 GLUCOSE 169 mg/dL H 72-99 SODIUM 137 meq/L 136-145 POTASSIUM 3.8 meq/L 3.5-5 CHLORIDE 104 meq/L 98-107 CARBON DIOXIDE 21 meq/L L 22-31 CALCIUM 9.3 mg/dL 8.4-10.4 PROTEIN 7.2 g/dL 6-8.6 ALBUMIN 4.3 g/dL 3.4-5 TOTAL BILIRUBIN 0.3 mg/dL 0.2-1.2 ALKALINE PHOSPHATASE 112 U/L 40-150 AST/SGOT 14 U/L 5-34 ALT/SGPT 20 U/L 8-40 EGFR (CKD-EPI 2020) 75 Vital Signs: All taken on the encounter date This section contains inpatient and outpatient Vital Signs collected on the date of the Encounter. Date/Time Temperature Pulse Blood Pressure Respiratory Rate SP02 Pain Height Weight Body Mass Index Source Apr 09, 2024 01:07 PM 81 95 [facility] Apr 09, 2024 01:06 PM 79 81/50 18 96 66.0 186.4 30 [facility] Social History: Smoking Status (Most current) and Tobacco Use (All prior to encounter date) This section includes the most current, and the historical, smoking and tobacco- related health factors from the [place] facility where the Encounter took place. Current Smoking Status This section includes the most current smoking, or tobacco-related health factor, from the [place] facility where the Encounter took place. Date/Time Current Smoking Status Comment Facil ity Aug 23, 2023 11:00 AM VA-TOBACCO USER EVERY DAY [facility] Tobacco Use History This section includes a history of the smoking, or tobacco-related health factors, that were collected on or before the date of the Encounter. The data comes from the [facility] facility where the Encounter took place. Date/Time Smoking Status/Tobacco Use Comment F acility Aug 23, 2023 11:00 AM VA-TOBACCO USE ADVICE [facility] Aug 23, 2023 11:00 AM VA-TOBACCO USE TRANSPORTATION AID NO [facility] Aug 23, 2023 11:00 AM VA-TOBACCO USE MED NO [facility] Aug 23, 2023 11:00 AM VA-TOBACCO USE WI 30 MIN OF WAKE UP [facility] Aug 23, 2023 11:00 AM VA-TOBACCO USER EVERY DAY [facility] Aug 24, 2022 01:30 PM VA-TOBACCO DOESNT USE WI 30 MIN WAKEUP [facility] Aug 24, 2022 01:30 PM VA-TOBACCO USE > 1 5 LESS THAN 30 YEARS [facility] Aug 24, 2022 01:30 PM VA-TOBACCO USE ADVICE [facility] Aug 24, 2022 01:30 PM VA-TOBACCO USE TRANSPORTATION AID NO [facility] Aug 24, 2022 01:30 PM VA-TOBACCO USE MED NO [facility] Aug 24, 2022 01:30 PM VA-TOBACCO USER EVERY DAY [facility] [place] [facility] Aug 30, 2021 01:30 PM VA-TOBACCO USE 30 YEARS OR MORE [facility] Aug 30, 2021 01:30 PM VA-TOBACCO USE ADVICE [facility] Aug 30, 2021 01:30 PM VA-TOBACCO USE TRANSPORTATION AID NO [facility] Aug 30, 2021 01:30 PM VA-TOBACCO USE MED NOTIFY PROVID ER [facility] Aug 30, 2021 01:30 PM VA-TOBACCO USE WI 30 MIN OF WAKE UP [facility] Aug 30, 2021 01:30 PM VA-TOBACCO USER EVERY DAY [facility] Feb 17, 2020 02:00 PM VA-TOBACCO USE 30 YEARS OR MORE [place] [facility] Feb 17, 2020 02:00 PM VA-TOBACCO USE ADVICE [place] [facility] Feb 17, 2020 02:00 PM VA-TOBACCO USE TRANSPORTATION AID NO [place] [facility] Feb 17, 2020 02:00 PM VA-TOBACCO USE MED NO [facility] Feb 17, 2020 02:00 PM VA-TOBACCO USE WI 30 MIN OF WAKE UP [facility] Feb 17, 2020 02:00 PM VA-TOBACCO USER EVERY DAY [place] [facility] Jun 27, 2018 12:01 PM VA-TOBACCO USE 30 YEARS OR MORE [place] [facility] Jun 27, 2018 12:01 PM VA-TOBACCO USE ADVICE [place] [facility] Jun 27, 2018 12:01 PM VA-TOBACCO USE TRANSPORTATION AID NO [facility] Jun 27, 2018 12:01 PM VA-TOBACCO USE MED NO [facility] Jun 27, 2018 12:01 PM VA-TOBACCO USE WI 30 MIN OF WAKE UP [facility] Jun 27, 2018 12:01 PM VA-TOBACCO USER EVERY DAY [facility] Jul 20, 2017 04:18 PM CURRENT TOBACCO USER [facility] Jul 20, 2017 04:18 PM CURRENT TOBACCO US ER (NOT READY TO QUIT) [place] [facility] Jul 20, 2017 04:18 PM TOBACCO CESSATION REFERRAL DECLI JENNIFFER [facility] Jul 20, 2017 04:18 PM TOBACCO MEDS OFFERED BUT DECLINE D [facility] Jul 20, 2017 04:18 PM TOBACCO USER OFFERED MEDS [facility] Jul 20, 2017 04:00 PM CURRENT TOBACCO USER [facility] Jul 20, 2017 04:00 PM CURRENT TOBACCO US ER (NOT READY TO QUIT) [facility] Jul 20, 2017 04:00 PM TOBACCO CESSATION REFERRAL DECLI JENNIFFER [facility] Jul 20, 2017 04:00 PM TOBACCO MEDS OFFERED BUT DECLINE D [facility] Jul 20, 2017 04:00 PM TOBACCO USER OFFERED MEDS [facility] Advance Directives: All historical and current Section Date Range: From patient's date of to the date document was created. This section includes ALL of a patient's completed or amended [place] Advance and Rescinded Directives. The entries below indicate that a directive exists for the patient, but an actual copy is not included with this document. The data comes from all [place] facilities. Date Advance Directives Provider Source Dec 18, 2023 ADVANCE DIRECTIVE PETER BOWLING MARIVEL [facility] Encounter Notes: All associated encounter notes This section contains the clinical notes associated to the Encounter. Date/Time Encounter Note(s) Provider Source Apr 09, 2024 01:27 PM PRIMARY CARE PROGR ESS NOTE: LOCAL TITLE: PRIMARY CARE CLINIC PROGRESS NOTE PB STANDARD TITLE: PRIMARY CARE PROGRESS NOTE DATE OF NOTE: APR 09, 2024@13:27 ENTRY DATE: APR 09, 2024@13:27:51 AUTHOR: DAKOTAH INFANTE COSIGNER: URGENCY: STATUS: COMPLETED PROVIDER ASSESSMENT DATE & TIME:Mar@13:27 CHIEF COMPLAINT: 6 month follow up on chronic illness and lab review. HISTORY OF PRESENT ILLNESS: Kulwinder is being seen for 6 month follow up on chronic illness. Kulwinder is feeling better and is not as sick as when she was on lyrica. [place] states she has only had one fall in the bathtub. Kulwinder is due for a repeat LDCT scan. She does not want to do a mammogram. She continues to use nicotine in the form of cigarettes and is not interested in quitting at this time. She denies any home needs. Active problems/med list gut puller: 1) Diabetes Mellitus Type 2 ([facility] [id number]) 2) GERD - Gastro-Esophageal Reflux Disease ([facility] [id number]) 3) Gout ([facility] [id number]) 4) Depression ([facility] [id number]) 5) Bipolar disorder 6) Migraine 7) Low back pain 8) Cervicalgia 9) Somatoform pain disorder 10) Mood disorder with depressive features due to general medical condition 11) Generalized anxiety disorder 12) Housing problem 13) Neurocognitive disorder 14) Nicotine dependence ([facility] [id number]) 15) Chronic obstructive lung disease 16) Allergic Rhinitis ([facility] [id number]) 17) Chronic post-traumatic stress disorder 18) Female stress incontinence 19) Diabetic neuropathy 20) Chronic tremor 21) Cyst of pineal gland Active Outpatient Medications (including Supplies): Active Outpatient Medications Status 1) ALBUTEROL 90MCG (CFC-F) 200D ORAL INHL INHALE 2 PUFFS ACTIVE (S) BY ORAL INHALATION FOUR TIMES A DAY NEEDED FOR BREATHING. SHAKE WELL. RINSE MOUTHPIECE FREQUENTLY TO PREVENT CLOGGING. 2) AMLODIPINE BESYLATE 2.5MG TAB TAKE ONE TABLET BY ACTIVE (S) MOUTH TWICE A DAY FOR HIGH BLOOD PRESSURE 3) ATORVASTATIN CALCIUM 80MG TAB TAKE ONE-HALF TABLET BY ACTIVE MOUTH EVERY EVENING FOR CHOLESTEROL. REPORT ANY UNEXPLAINED MUSCLE PAIN/WEAKNESS TO PROVIDER THIS TABLET IS TO BE CUT IN HALF FOR YOUR DOSE 4) CETIRIZINE HCL 10MG TAB TAKE ONE TABLET BY MOUTH ONCE ACTIVE (S) A DAY FOR ALLERGY SYMPTOMS 5) CHOLECALCIF 50MCG (D3-2,000UNIT) TAB TAKE ONE TABLET ACTIVE (S) BY MOUTH ONCE A DAY FOR VITAMIN D DEFICIENCY. 6) DULOXETINE HCL 60MG EC CAP TAKE ONE CAPSULE BY MOUTH ACTIVE ONCE A DAY DO NOT ABRUPTLY DISCONTINUE MEDICATION. 7) EPI(EQV-ADRENACLICK)0.3MG/0. 3ML INJCTR INJECT 1 PEN ACTIVE (0.3MG/0.3ML) INTRAMUSCULARLY ONE-TIME FOR ALLERGIC REACTION 8) FEXOFENADINE HCL 180MG TAB TAKE ONE TABLET BY MOUTH ACTIVE (S) EVERY MORNING FOR ALLERGIC RHINITIS 9) GLIPIZIDE 10MG TAB TAKE ONE TABLET BY MOUTH THREE ACTIVE TIMES A DAY BEFORE MEALS FOR DIABETES TAKE 30 MINUTES BEFORE EATING. 10) HYDROPHILIC (EQV EUCERIN) TOP CREAM APPLY LIGHTLY TO ACTIVE (S) AFFECTED AREA(S) ONCE A DAY FOR DRY SKIN (EXTERNAL USE ONLY) APPLY TO FEET NIGHTLY 11) HYDROXYZINE HCL 25MG TAB TAKE ONE TABLET BY MOUTH ACTIVE (S) THREE TIMES A DAY NEEDED FOR URTICARIA *MAY CAUSE DROWSINESS* 12) ISOSORBIDE DINITRATE 30MG ORAL TAB TAKE ONE TABLET BY ACTIVE MOUTH ONCE A DAY ALLOW 10 TO 12 HOURS BETWEEN NIGHT AND MORNING DOSE. 13) LAMOTRIGINE 200MG TAB TAKE ONE TABLET BY MOUTH AT ACTIVE (S) BEDTIME FOR MOOD OR SEIZURES 14) LAMOTRIGINE 25MG TAB TAKE ONE TABLET BY MOUTH AT ACTIVE (S) BEDTIME FOR MOOD OR SEIZURES TAKE WITH THE 200MG 15) LANCET,SOFTCLIX USE LANCET FOR BLOOD TEST ONCE A DAY ACTIVE FOR BLOOD SUGAR MONITORING USE DIRECTED. 16) LIDOCAINE 5% OINT APPLY LIGHTLY TO AFFECTED AREA(S) ACTIVE (S) ONCE A DAY NEEDED 17) METFORMIN HCL 500MG 24HR SA TAB TAKE TWO TABLETS BY ACTIVE MOUTH TWICE A DAY WITH MEALS FOR DIABETES TAKE WITH FOOD. AVOID ALCOHOL. DISCONTINUE BEFORE GETTING XRAY DYE. 18) MULTIVIT/OPHTH AREDS2/LUTE/ZEAX CAP/TAB TAKE 1 ACTIVE (S) CAP/TAB BY MOUTH TWICE A DAY WITH MEAL(S) FOR EYE HEALTH AVOID IF YOU HAVE PEANUT ALLERGY. 19) NITROGLYCERIN 0.4MG SL TAB DISSOLVE ONE TABLET UNDER ACTIVE (S) THE TONGUE ONE-TIME FOR CHEST PAIN NEEDED ; IF NO IMPROVEMENT AFTER FIRST DOSE CALL 9-1-1. MAY TAKE 2 ADDITIONAL DOSES, 5 MINUTES APART. TAKE WHILE SITTING. 20) ONDANSETRON HCL 8MG TAB TAKE ONE TABLET BY MOUTH ONCE ACTIVE A DAY NEEDED FOR NAUSEA/VOMITING 21) OXYBUTYNIN CHLORIDE 5MG TAB TAKE ONE TABLET BY MOUTH ACTIVE (S) THREE TIMES A DAY FOR BLADDER 22) OXYCODONE 7.5MG/ACETAMINOPHEN 325MG TAB TAKE 1 TABLET ACTIVE BY MOUTH EVERY 4 HOURS NEEDED FOR PAIN (MAX 4 TAB/DAY; HOLD WITHIN 4 HOURS OF PLANNED SLEEP) MUST LAST 28 DAYS OR MORE NOTE: DO NOT EXCEED 4000MG PER DAY ACETAMINOPHEN (APAP) 23) PANTOPRAZOLE NA 40MG EC TAB TAKE ONE TABLET BY MOUTH ACTIVE (S) EVERY MORNING BEFORE A MEAL FOR GASTROESOPHAGEAL REFLUX DISEASE TAKE 30 MINUTES BEFORE MEAL(S) 24) RANOLAZINE 500MG SA TAB TAKE ONE TABLET BY MOUTH ACTIVE TWICE A DAY *SWALLOW WHOLE- DO NOT CRUSH,BREAK OR CHEW* 25) SPIRONOLACTONE 50MG TAB TAKE ONE TABLET BY MOUTH ONCE ACTIVE (S) A DAY FOR HEART FAILURE AND EXCESSIVE FLUID. DOSE DECREASE 26) TRAZODONE HCL 100MG TAB TAKE ONE TABLET BY MOUTH AT ACTIVE (S) BEDTIME FOR MOOD OR SLEEP. REVIEW OF SYSTEMS: HEENT: No Headache. No blurry vision, vision loss, eye pain, red eyes, or foreign body. No runnynose, congestion, or nose bleed. No hearing loss, ringing in the ears, or vertigo. No sore throat or dental pain. RESPIRATORY: chronic cough. CARDIOVASCULAR: No chest pain, palpitations, tachycardia, PND, or orthopnea. GI: No abdominal pain, nausea, vomiting, diarrhea, constipation, melena, or hematochezia. : No dysuria, hematuria, urinary frequency, weak stream, or post-void dribbling. MUSCULOSKELETAL:chronic low back pain. SKIN: No rash, lesions, or infection PSYCH: No Depression or Anxiety. Not suicidal. PHYSICAL ASSESSMENT: VITAL SIGNS Pulse: 81 (04/09/2024 13:07) Blood Pressure: 81/50 (04/09/2024 13:06) Respiratory Rate: 18 (04/09/2024 13:06) Temperature: 98.5 F [36.9 C] (10/05/2023 11:32) Weight: 186.4 lb [84.55 kg] (04/09/2024 13:06) Height: 66.0 in [167.6 cm] (04/09/2024 13:06) Pain: 0 (09/04/2023 13:58) HEENT:PERRL, EOMI, Fundi benign, TM's dull, Pharynx not red and without exudate, tonsils normal size. NECK: Supple, no lymhadenopathy, thyroid normal. CARDIAC: Regular rate and rhythm without murmur. No edema. RESPIRATORY: CTA upper lobes, lower lobes diminished bilaterally. GI: Abdomen soft,with ABS, no HSM, no guarding or rebound. MUSCULOSKELETAL:Chronic joint pain with no acute change. FROM. SKIN: [place] without rash or lesions. NEUROLOGICAL: The [place] is alert and oriented without distress. Affect appropriate. IMPRESSION: Diabetes Mellitus Type II with Neuropathy-controlled GERD-controlled Low Back Pain-controlled Obesity-current Allergic Rhinitis-chronic Female Stress Incontinence-chronic COPD-chronic Nicotine Dependence-current PLAN: Continue current medications. Increase water intake. Monthly self breast exam. Consider smoking cessation. Will order LDCT. Daily foot checks. Fall precautions. Will renew medications. Labs reviewed with . RTC in 6 months or sooner if needed. Patient is advised this primary care clinic has open access and he can make a same day appointment anytime a problem/concern arises. Patient further advised he can be seen on a walk-in basis as needed. Patient is provided clinic contact information. Medications reviewed and reconciled. Discussed diet and exercise as relevant to patient conditions. Treatment plan as noted above and the After Visit Summary was reviewed with ; opportunity provided to report concerns and ask question regarding aspects of care or treatment or services; concurrence reached and verbalized understanding. Please refer to addendum or follow up lab letter for plan of care/changes related to lab/test results not available at conclusion of appointment, if any. Discussed with patient that in the event of community imaging / testing being ordered in the future, once the imaging / testing has been completed, please notify PACT of within 1 week by a [facility] PACT member; this is due to intermittent lapses in notification of imaging completion within CPRS. All questions answered; agrees to plan of care. Follow up as listed above, annually, and as needed. Keep all completion at outside facility if not called with results appointments. Medications Reconciled. Time spent 30 minutes. Repeat Lung Cancer Screen (Provider): Patient continues to be a candidate for screening, there are no new clinical exclusions. No abnormal findings suspicious for lung CA present on last chest CT. Screening process reviewed with patient and patient AGREES to continue screening. Chest CT will be ordered. Patient currently uses cigarettes and does not want assistance with smoking cessation at this time. Mammogram Screening - L,N,P,PH,U: The patient declined a mammogram. /matt/ MARYJO [facility] Signed: 04/09/2024 17:11 DAKOTAH INFANTE [facility] Apr 09, 2024 01:13 PM PRIMARY CARE NURSI MEENU NOTE: LOCAL TITLE: PRIMARY CARE NURSING PROGRESS NOTE (TEXT) NURSING P STANDARD TITLE: PRIMARY CARE NURSING NOTE DATE OF NOTE: APR 09, 2024@13:13 ENTRY DATE: APR 09, 2024@13:13:36 AUTHOR: ELA DU EXP COSIGNER: URGENCY: STATUS: COMPLETED Established Patient JAMI CASTELLANO IS A 63 YEAR OLD FEMALE BEING SEEN IN CLINIC APR 09, 2024. = = REASON FOR VISIT: here today for her 6 month check up for t2dm. Are you receiving care any where other than the [facility]? No HEALTH AND SURGICAL HISTORY: Does patient report using home oxygen? No CURRENT ACTIVE MEDICATIONS FOR REVIEW: Allergies/ADRs (Tool #5) FACILITY ALLERGY/ADR -------- [facility] BEE STINGS [facility] CODEINE [facility] GLOVE [facility] IODINE CONTRAST EVEN WITH PREP [facility] PENICILLIN MALCOLM Soco [facility] CODEINE MALCOLM Soc[facility] LATEX MALCOLM Wan [facility]ENICILLIN [facility] BEE STINGS [facility] CODEINE [facility] GLOVE [facility] IODINE CONTRAST EVEN WITH PREP [facility] PENICILLIN [facility] TRAMADOL [facility] BAND-[facility] IODINE CONTRAST EVEN WITH PREP [facility]ENICILLIN [facility] PNEUMOCOCCAL VACCINE [facility] SEMAGLUTIDE . [facility] TRAMADOL Med. Reconciliation (Tool #1) INCLUDED IN THIS LIST: Alphabetical list of active outpatient prescriptions dispensed from this [facility] (local) and dispensed from another [facility] or [facility] facility (remote) as well as inpatient orders (local pending and active), local clinic medications, locally documented non-VA medications, and local prescriptions that have or been discontinued in the past 90 days. Non-VA Meds Last Documented On: Jul 04, 2023 NOTE The display of VA prescriptions dispensed from another [facility] or [facility] facility (remote) is limited to active outpatient prescription entries matched to National Drug File at the originating site and may not include some items such as investigational drugs, compounds, etc. NOT INCLUDED IN THIS LIST: Medications self-entered by the patient into personal health records (i.e. SocialVest) are NOT included in this list. Non-VA medications documented outside this [facility], remote inpatient orders (regardless of status) and remote clinic medications are NOT included in this list. The patient and provider must always discuss medications the patient is taking, regardless of where the medication was dispensed or obtained. OUTPT ALBUTEROL 90MCG (CFC-F) 200D ORAL INHL (Status = Discontinued) INHALE 2 PUFFS BY ORAL INHALATION FOUR TIMES A DAY NEEDED FOR BREATHING. SHAKE WELL. RINSE MOUTHPIECE FREQUENTLY TO PREVENT CLOGGING. Rx# [id number] Last Released: 02/10/24 Qty/Days Supply: Rx Expiration Date: 05/21/24 Refills Remainin OUTPT ALBUTEROL 90MCG (CFC-F) 200D ORAL INHL (Status = Active/Suspended) INHALE 2 PUFFS BY ORAL INHALATION FOUR TIMES A DAY NEEDED FOR BREATHING. SHAKE WELL. RINSE MOUTHPIECE FREQUENTLY TO PREVENT CLOGGING. Rx# [id number] Last Released: Qty/Days Supply: Rx Expiration Date: 03/06/25 Refills Remainin OUTPT AMLODIPINE BESYLATE 2.5MG TAB (Status = Discontinued) TAKE ONE TABLET BY MOUTH TWICE A DAY FOR HIGH BLOOD PRESSURE Rx# [id number] Last Released: 12/08/23 Qty/Days Supply: Rx Expiration Date: 12/04/24 Refills Remainin Indication: FOR HIGH BLOOD PRESSURE OUTPT AMLODIPINE BESYLATE 2.5MG TAB (Status = Discontinued) TAKE ONE TABLET BY MOUTH TWICE A DAY FOR HIGH BLOOD PRESSURE Rx# [id number] Last Released: 02/15/24 Qty/Days Supply: Rx Expiration Date: 01/16/25 Refills Remainin Indication: FOR HIGH BLOOD PRESSURE OUTPT AMLODIPINE BESYLATE 2.5MG TAB (Status = Active/Suspended) TAKE ONE TABLET BY MOUTH TWICE A DAY FOR HIGH BLOOD PRESSURE Rx# [id number] Last Released: Qt Supply: Rx Expiration Date: 03/06/25 Refills Remainin Indication: FOR HIGH BLOOD PRESSURE OUTPT ATORVASTATIN CALCIUM 80MG TAB (Status = Active) TAKE ONE-HALF TABLET BY MOUTH EVERY EVENING FOR CHOLESTEROL. REPORT ANY UNEXPLAINED MUSCLE PAIN/WEAKNESS TO PROVIDER THIS TABLET IS TO BE CUT IN HALF FOR YOUR DOSE Rx# [id number] Last Released: 03/25/24 Qty/Days Supply: 45 Rx Expiration Date: 01/01/25 Refills Remainin OUTPT CETIRIZINE HCL 10MG TAB (Status = Discontinued) TAKE ONE TABLET BY MOUTH ONCE A DAY FOR ALLERGY SYMPTOMS Rx# [id number] Last Released: 02/02/24 Qty/Days Supply: Rx Expiration Date: 01/31/25 Refills Remainin Indication: FOR ALLERGY SYMPTOMS OUTPT CETIRIZINE HCL 10MG TAB (Status = Active/Suspended) TAKE ONE TABLET BY MOUTH ONCE A DAY FOR ALLERGY SYMPTOMS Rx# [id number] Last Released: Qty/Days Supply: Rx Expiration Date: 03/06/25 Refills Remainin Indication: FOR ALLERGY SYMPTOMS OUTPT CHOLECALCIF 50MCG (D3-2,000UNIT) TAB (Status = Active/Suspended) TAKE ONE TABLET BY MOUTH ONCE A DAY FOR VITAMIN D DEFICIENCY. Rx# [id number] Last Released: 02/27/24 Qty/Days Supply: 100/ Rx Expiration Date: 11/30/24 Refills Remainin OUTPT DULOXETINE HCL 60MG EC CAP (Status = Active) TAKE ONE CAPSULE BY MOUTH ONCE A DAY DO NOT ABRUPTLY DISCONTINUE MEDICATION. Rx# [id number] Last Released: 04/01/24 Qty/Days Supply: 90/ Rx Expiration Date: 11/30/24 Refills Remainin OUTPT EPI(EQV-ADRENACLICK)0.3MG/0. 3ML INJCTR (Status = Discontinued) INJECT 1 PEN (0.3MG/0.3ML) INTRAMUSCULARLY ONE-TIME FOR ALLERGIC REACTION Rx# [id number] Last Released: 02/01/24 Qty/Days Supply: 06/22 Rx Expiration Date: 01/17/25 Refills Remainin Indication: FOR ALLERGIC REACTION OUTPT EPI(EQV-ADRENACLICK)0.3MG/0. 3ML INJCTR (Status = Active) INJECT 1 PEN (0.3MG/0.3ML) INTRAMUSCULARLY ONE-TIME FOR ALLERGIC REACTION Rx# [id number] Last Released: 03/26/24 Qty/Days Supply: 06/22 Rx Expiration Date: 03/06/25 Refills Remainin Indication: FOR ALLERGIC REACTION OUTPT FEXOFENADINE HCL 180MG TAB (Status = Active/Suspended) TAKE ONE TABLET BY MOUTH EVERY MORNING FOR ALLERGIC RHINITIS Rx# [id number] Last Released: 01/18/24 Qty/Days Supply: 90 Rx Expiration Date: 08/23/24 Refills Remainin Indication: FOR ALLERGIC RHINITIS OUTPT GLIPIZIDE 10MG TAB (Status = Active) TAKE ONE TABLET BY MOUTH THREE TIMES A DAY BEFORE MEALS FOR DIABETES TAKE 30 MINUTES BEFORE EATING. Rx# [id number] Last Released: 12/15/23 Qty/Days Supply: 270/ Rx Expiration Date: 10/05/24 Refills Remainin Indication: FOR DIABETES OUTPT HYDROPHILIC (EQV EUCERIN) TOP CREAM (Status = Active/Suspended) APPLY LIGHTLY TO AFFECTED AREA(S) ONCE A DAY FOR DRY SKIN (EXTERNAL USE ONLY) APPLY TO FEET NIGHTLY Rx# [id number] Last Released: 01/27/24 Qty/Days Supply: 454/ Rx Expiration Date: 11/30/24 Refills Remainin Indication: FOR DRY SKIN OUTPT HYDROXYZINE HCL 25MG TAB (Status = Discontinued) TAKE ONE TABLET BY MOUTH THREE TIMES A DAY NEEDED FOR URTICARIA *MAY CAUSE DROWSINESS* Rx# [id number] Last Released: 12/08/23 Qty/Days Supply: Rx Expiration Date: 03/05/24 Refills Remainin Indication: FOR URTICARIA OUTPT HYDROXYZINE HCL 25MG TAB (Status = Discontinued) TAKE ONE TABLET BY MOUTH THREE TIMES A DAY NEEDED FOR URTICARIA *MAY CAUSE DROWSINESS* Rx# [id number] Last Released: Qty/Days Supply: Rx Expiration Date: 04/15/24 Refills Remainin Indication: FOR URTICARIA OUTPT HYDROXYZINE HCL 25MG TAB (Status = Discontinued) TAKE ONE TABLET BY MOUTH THREE TIMES A DAY NEEDED FOR URTICARIA *MAY CAUSE DROWSINESS* Rx# [id number] Last Released: 02/15/24 Qty/Days Supply: Rx Expiration Date: 04/16/24 Refills Remainin Indication: FOR URTICARIA OUTPT HYDROXYZINE HCL 25MG TAB (Status = Active/Suspended) TAKE ONE TABLET BY MOUTH THREE TIMES A DAY NEEDED FOR URTICARIA *MAY CAUSE DROWSINESS* Rx# [id number] Last Released: Qt Supply: Rx Expiration Date: 06/03/24 Refills Remainin Indication: FOR URTICARIA OUTPT ISOSORBIDE DINITRATE 30MG ORAL TAB (Status = Discontinued) TAKE ONE TABLET BY MOUTH ONCE A DAY ALLOW 10 TO 12 HOURS BETWEEN NIGHT AND MORNING DOSE. Rx# [id number] Last Released: 12/30/23 Qty/Days Supply: Rx Expiration Date: 12/26/24 Refills Remainin OUTPT ISOSORBIDE DINITRATE 30MG ORAL TAB (Status = Discontinued) TAKE ONE TABLET BY MOUTH ONCE A DAY ALLOW 10 TO 12 HOURS BETWEEN NIGHT AND MORNING DOSE. Rx# [id number] Last Released: 02/02/24 Qty/Days Supply: Rx Expiration Date: 01/16/25 Refills Remainin OUTPT ISOSORBIDE DINITRATE 30MG ORAL TAB (Status = Active) TAKE ONE TABLET BY MOUTH ONCE A DAY ALLOW 10 TO 12 HOURS BETWEEN NIGHT AND MORNING DOSE. Rx# [id number] Last Released: Qt Supply: Rx Expiration Date: 03/06/25 Refills Remainin OUTPT LAMOTRIGINE 200MG TAB (Status = Discontinued) TAKE ONE TABLET BY MOUTH AT BEDTIME FOR MOOD OR SEIZURES Rx# [id number] Last Released: 02/09/24 Qty/Days Supply: Rx Expiration Date: 01/01/25 Refills Remainin OUTPT LAMOTRIGINE 200MG TAB (Status = Active/Suspended) TAKE ONE TABLET BY MOUTH AT BEDTIME FOR MOOD OR SEIZURES Rx# [id number] Last Released: Qt Supply: Rx Expiration Date: 03/06/25 Refills Remainin OUTPT LAMOTRIGINE 25MG TAB (Status = Discontinued) TAKE ONE TABLET BY MOUTH AT BEDTIME FOR MOOD OR SEIZURES TAKE WITH THE 200MG Rx# [id number] Last Released: 02/08/24 Qty/Days Supply: Rx Expiration Date: 05/21/24 Refills Remainin OUTPT LAMOTRIGINE 25MG TAB (Status = Active/Suspended) TAKE ONE TABLET BY MOUTH AT BEDTIME FOR MOOD OR SEIZURES TAKE WITH THE 200MG Rx# [id number] Last Released: Supply: Rx Expiration Date: 03/06/25 Refills Remainin OUTPT LIDOCAINE 5% OINT (Status = Discontinued) APPLY LIGHTLY TO AFFECTED AREA(S) ONCE A DAY NEEDED Rx# [id number] Last Released: 01/25/24 Qty/Days Supply: Rx Expiration Date: 05/21/24 Refills Remainin OUTPT LIDOCAINE 5% OINT (Status = Active/Suspended) APPLY LIGHTLY TO AFFECTED AREA(S) ONCE A DAY NEEDED Rx# [id number] Last Released: Qt/ Supply: Rx Expiration Date: 03/06/25 Refills Remainin OUTPT METFORMIN HCL 500MG 24HR SA TAB (Status = Active) TAKE TWO TABLETS BY MOUTH TWICE A DAY WITH MEALS FOR DIABETES TAKE WITH FOOD. AVOID ALCOHOL. DISCONTINUE BEFORE GETTING XRAY DYE. Rx# [id number] Last Released: 03/30/24 Qty/Days Supply: 120/30 Rx Expiration Date: 07/04/24 Refills Remainin Indication: FOR DIABETES OUTPT MULTIVIT/OPHTH AREDS2/LUTE/ZEAX CAP/TAB (Status = Active/Suspended) TAKE 1 CAP/TAB BY MOUTH TWICE A DAY WITH MEAL(S) FOR EYE HEALTH AVOID IF YOU HAVE PEANUT ALLERGY. Rx# [id number] Last Released: 01/16/24 Qty/Days Supply: 240/90 Rx Expiration Date: 08/23/24 Refills Remainin Indication: FOR EYE HEALTH OUTPT NITROGLYCERIN 0.4MG SL TAB (Status = Active/Suspended) DISSOLVE ONE TABLET UNDER THE TONGUE ONE-TIME FOR CHEST PAIN NEEDED ; IF NO IMPROVEMENT AFTER FIRST DOSE CALL 9-1-1. MAY TAKE 2 ADDITIONAL DOSES, 5 MINUTES APART. TAKE WHILE SITTING. Rx# [id number] Last Released: 02/16/24 Qty/Days Supply: 100/90 Rx Expiration Date: 12/07/24 Refills Remainin Indication: FOR CHEST PAIN OUTPT ONDANSETRON HCL 8MG TAB (Status = Discontinued) TAKE ONE TABLET BY MOUTH ONCE A DAY NEEDED FOR NAUSEA/VOMITING Rx# [id number] Last Released: 01/04/24 Qty/Days Supply: 90/90 Rx Expiration Date: 04/28/24 Refills Remainin Indication: FOR NAUSEA/VOMITING OUTPT ONDANSETRON HCL 8MG TAB (Status = Active) TAKE ONE TABLET BY MOUTH ONCE A DAY NEEDED FOR NAUSEA/VOMITING Rx# [id number] Last Released: 04/03/24 Qty/Days Supply: 90/90 Rx Expiration Date: 06/05/24 Refills Remainin Indication: FOR NAUSEA/VOMITING OUTPT OXYBUTYNIN CHLORIDE 5MG TAB (Status = Active/Suspended) TAKE ONE TABLET BY MOUTH THREE TIMES A DAY FOR BLADDER Rx# [id number] Last Released: 01/19/24 Qty/Days Supply: 270/90 Rx Expiration Date: 05/21/24 Refills Remainin OUTPT OXYCODONE 7.5MG/ACETAMINOPHEN 325MG TAB (Status = Discontinued) TAKE 1 TABLET BY MOUTH EVERY 4 HOURS NEEDED FOR PAIN (MAX 4 TABLETS PER DAY; HOLD WITHIN 4 HOURS OF PLANNED SLEEP) THIS QUANTITY MUST LAST 28 DAYS OR MORE NOTE: DO NOT EXCEED 4000MG PER DAY ACETAMINOPHEN (APAP) Rx# [id number] Last Released: 12/28/23 Qty/Days Supply: Rx Expiration Date: 01/25/24 Refills Remainin OUTPT OXYCODONE 7.5MG/ACETAMINOPHEN 325MG TAB (Status = Discontinued) TAKE 1 TABLET BY MOUTH EVERY 4 HOURS NEEDED FOR PAIN (MAX 4 TABLETS PER DAY; HOLD WITHIN 4 HOURS OF PLANNED SLEEP) THIS QUANTITY MUST LAST 28 DAYS OR MORE NOTE: DO NOT EXCEED 4000MG PER DAY ACETAMINOPHEN (APAP) Rx# [id number] Last Released: 02/02/24 Qty/Days Supply: Rx Expiration Date: 02/22/24 Refills Remainin OUTPT OXYCODONE 7.5MG/ACETAMINOPHEN 325MG TAB (Status = Discontinued) TAKE 1 TABLET BY MOUTH EVERY 4 HOURS NEEDED FOR PAIN (MAX 4 TAB/DAY; HOLD WITHIN 4 HOURS OF PLANNED SLEEP) MUST LAST 28 DAYS OR MORE NOTE: DO NOT EXCEED 4000MG PER DAY ACETAMINOPHEN (APAP) Rx# [id number] Last Released: 03/01/24 Qty/Days Supply: Rx Expiration Date: 03/21/24 Refills Remainin OUTPT OXYCODONE 7.5MG/ACETAMINOPHEN 325MG TAB (Status = Active) TAKE 1 TABLET BY MOUTH EVERY 4 HOURS NEEDED FOR PAIN (MAX 4 TAB/DAY; HOLD WITHIN 4 HOURS OF PLANNED SLEEP) MUST LAST 28 DAYS OR MORE NOTE: DO NOT EXCEED 4000MG PER DAY ACETAMINOPHEN (APAP) Rx# [id number] Last Released: 03/29/24 Qty/Days Supply: Rx Expiration Date: 04/18/24 Refills Remainin OUTPT PANTOPRAZOLE NA 40MG EC TAB (Status = Active/Suspended) TAKE ONE TABLET BY MOUTH EVERY MORNING BEFORE A MEAL FOR GASTROESOPHAGEAL REFLUX DISEASE TAKE 30 MINUTES BEFORE MEAL(S) Rx# [id number] Last Released: 02/21/24 Qty/Days Supply: Rx Expiration Date: 12/11/24 Refills Remainin Indication: FOR GASTROESOPHAGEAL REFLUX DISEASE OUTPT RANOLAZINE 500MG SA TAB (Status = Active) TAKE ONE TABLET BY MOUTH TWICE A DAY *SWALLOW WHOLE- DO NOT CRUSH,BREAK OR CHEW* Rx# [id number] Last Released: 03/29/24 Qty/Days Supply: 180/90 Rx Expiration Date: 01/16/25 Refills Remainin OUTPT SEMAGLUTIDE 0.25MG/0.375ML INJ PEN 3ML (Status = Discontinued) INJECT 0.5MG UNDER THE SKIN EVERY WEEK FOR DIABETES Rx# [id number] Last Released: 01/11/24 Qty/Days Supply: 06/20 Rx Expiration Date: 10/25/24 Refills Remainin Indication: FOR DIABETES OUTPT SPIRONOLACTONE 50MG TAB (Status = Discontinued) TAKE ONE TABLET BY MOUTH ONCE A DAY FOR HEART FAILURE AND EXCESSIVE FLUID. DOSE DECREASE Rx# [id number] Last Released: 02/06/24 Qty/Days Supply: Rx Expiration Date: 08/28/24 Refills Remainin Indication: FOR HEART FAILURE OUTPT SPIRONOLACTONE 50MG TAB (Status = Active/Suspended) TAKE ONE TABLET BY MOUTH ONCE A DAY FOR HEART FAILURE AND EXCESSIVE FLUID. DOSE DECREASE Rx# [id number] Last Released: Supply: Rx Expiration Date: 03/06/25 Refills Remainin Indication: FOR HEART FAILURE OUTPT TRAZODONE HCL 100MG TAB (Status = Discontinued) TAKE ONE TABLET BY MOUTH AT BEDTIME FOR MOOD OR SLEEP. Rx# [id number] Last Released: 12/21/23 Qty/Days Supply: Rx Expiration Date: 05/21/24 Refills Remainin OUTPT TRAZODONE HCL 100MG TAB (Status = Active/Suspended) TAKE ONE TABLET BY MOUTH AT BEDTIME FOR MOOD OR SLEEP. Rx# [id number] Last Released: 03/21/24 Qty/Days Supply: Rx Expiration Date: 01/16/25 Refills Remainin SUPPLIES OUTPT LANCET,SOFTCLIX (Status = Active) USE LANCET FOR BLOOD TEST ONCE A DAY FOR BLOOD SUGAR MONITORING USE DIRECTED. Rx# [id number] Last Released: 01/31/24 Qty/Days Supply: 100/90 Rx Expiration Date: 08/23/24 Refills Remainin Indication: FOR BLOOD SUGAR MONITORING PHARMACY TERMS AND POSSIBLE PATIENT ACTIONS INPT = [facility] inpatient order IV = [facility] intravenous medication OUTPT = [facility] outpatient prescription PHARMACY POSSIBLE PATIENT TERMS EXPLANATION ACTIONS -------- ---- ACTIVE A prescription that can be If you have refills, filled at the local [facility] pharmacy. you may request a refill of this prescription from your [facility] pharmacy. CLINIC A medication you received during If you have questions a visit to a [facility] clinic or about this medication emergency department. contact your VA healthcare team. DISCONTINUED A prescription your provider has Contact your VA stopped. It is no longer healthcare team if you available to be sent to you or need more of this picked up at the [facility] pharmacy medication. window. A prescription which is too old Contact your VA to fill. This does not refer to healthcare team if you the expiration date of the need more of this medication in the container. medication. NON-VA A medication that came from If this medication someplace other than a VA information is pharmacy. This may be a incorrect or out of prescription from either the VA date, please tell your or non VA providers that was VA healthcare team. filled outside the VA. Or, it may be an [id number] (OTC), herbal, dietary supplements or sample medication. ON HOLD An active prescription that will Contact your VA not be filled until pharmacy pharmacy when you need resolves the issue. more of this medication. PARKED An active prescription that will Contact your VA not be filled until the patient pharmacy when you need requests it. this medication. PENDING This prescription order has been If you have been sent to the pharmacy for review instructed to start and is not ready yet. this medication now, contact your VA pharmacy. SUSPENDED An active prescription that is Contact your VA not scheduled to be filled yet. pharmacy if you need You should receive it before this medication now. you run out. Patient reports taking medications as ordered. IS PATIENT TAKING ANY OVER THE COUNTER MEDICATIONS, SUCH VITAMINS OR HERBAL SUPPLEMENTS, INCLUDING ANY MEDICATIONS PRESCRIBED BY ANOTHER PHYSICIAN? No ALLERGIES/ADVERSE REACTIONS: PENICILLIN, BEE STINGS, TRAMADOL, IODINE CONTRAST EVEN WITH PREP, BAND-AIDS PNEUMOCOCCAL VACCINE, SEMAGLUTIDE Does patient have any new allergies to report since last visit? NO VITALS: TEMPERATURE: 98.5 F [36.9 C] (10/05/2023 11:32) BP: 81/50 (04/09/2024 13:06) RESP: 18 (04/09/2024 13:06) PULSE: 81 (04/09/2024 13:07) HT: 66.0 in [167.6 cm] (04/09/2024 13:06) WT: 186.4 lb [84.55 kg] (04/09/2024 13:06) BMI: 30.1 PAIN ASSESSMENT: (Most Recent Pain Score in Vitals Package: 0 (09/04/2023 13:58) ) The patient indicated that they and their close contacts have not traveled outside of the [place] in the past 21 days. The patient reports the following symptoms: No symptoms present The patient is not immunocompromised. The patient does not report having a history of Multi Drug Resistant Organism (MDRO) within the last five years. The patient does not report having been exposed to measles, chickenpox, or zoster in last 30 days. Patient reports no pain at this visit. Pain Score = 0. STRESS: Thank you for your service. Now let us serve you. At the [facility], we strive to provide you with exceptional health care that improves your health and well-being. Are you feeling sad, empty, or depressed? No Do you need to talk about things in your life that worry you or cause you stress? No Do you need to talk about personal problems, family problems, alcohol use, drug use, or mental or emotional illness? No SUICIDE SCREENING: The patient was asked, Over the past two weeks, how often have you been bothered by thoughts that you would be better off or of hurting yourself in some way? Not At All SPIRITUAL ASSESSMENT: Are there shinto practices or spiritual concerns you want the as400 analyst, your physician, and other health care team members to immediately know about? No Patient advised to call the clinic for any concerns, questions, or symptoms. Patient and/or caregiver verbalized understanding of plan of care. RHS Screen - VS: RHS Screen Session Format: Face to Face Environmental Check Screening was not completed at this time due to: Other: Single COVID-19 Immunization - L,N,P,PH,U: Refused Moderna Monovalent COVID-19 vaccine Immunization: COVID-19 (MODERNA), MRNA, LNP-S, PF, 50 MCG/0.5 ML (AGES 12+ YEARS) Refusal Reason: PATIENT DECISION Patient refuses all immunization(s) in the COVID-19 group Date Documented: 04/09/24 13:20 Homelessness/Food Insecurity Screen - DI,L,N,P,PH,PS,S,U: In the past 2 months, have you been living in stable housing that you own, rent, or stay in as part of a household? Yes - Living in stable housing. Are you worried or concerned that in the next 2 months you may NOT have stable housing that you own, rent, or stay in as part of a household? No - Not worried about housing near future The reports the following: Within the past 12 months, you worried whether your food would run out before you got money to buy more. Never true Within the past 12 months, the food you bought just didn't last and you didn't have money to get more. Never true Advanced Directive Screen/Nut Processing Supervisor: ADVANCE DIRECTIVE SCREENING: I asked if the patient has an advance directive, and determined that: Patient has an Advance Directive. Patient does not wish to make any changes to the Advance Directive at this time. ADVANCE DIRECTIVE NOTIFICATION I provided the patient with written notification about advance directives. Level of understanding: Mammogram Screening - L,N,P,PH,U: The patient declined a mammogram. Comment: Declined Herpes Zoster (Shingles) Vaccine - L,N,P,PH,U: The patient declines to receive the recommended dose of zoster (shingles) vaccine. Immunization: ZOSTER RECOMBINANT Refusal Reason: PATIENT DECISION Patient refuses all immunization(s) in the ZOSTER group Date Documented: 04/09/24 13:31 PAVE Foot Check - L,N,P,PH,PO,PT,U: A complete foot check was completed at this encounter. VISUAL INSPECTION: Includes inspection for skin breaks, deformity, erythema, trauma, pallor on elevation, dependent rubor, nail deformities, extensive callus and pitting edema. Visual exam results: Normal Comment: Normal PEDAL PULSES: Includes palpation of dorsalis and posterior tibial pulses and signs/symptoms of vascular compromise like pain, pallor, parasthesia or paralysis. Present (even if diminished) Comment: Present SENSORY CHECK: Includes 10 gram Monofilament (Horsham-Silvio) test of sensation. Intact (Greater than or equal to 80% of sites checked) Abnormal (Less than 80% of sites checked): Intact Comment: Intact LOW-RISK: LOW RISK INFORMATION PROVIDED: 1. Advised patient not to walk barefoot. 2. Explained the importance of daily foot checks for changes. 3. Stressed the importance of daily foot hygiene, including bathing and complete drying. The patient verbalized understanding and was offered a detailed handout on diabetic foot care. [facility] - PHP MAP: PERSONAL HEALTH PLAN INVENTORY & MAP 's Response: Family /es/ ELA DU LPN Signed: 04/09/2024 13:32 ELA DU [facility]
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
--- OUTSIDE RECORDS SUMMARY | 2024-05-17 04:31 | XMS_ITS | Encounter Summary ---
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 Phone DAKOTAH INFANTE Primary Care [...] Name Patient's Relationship to Policy Palmer HUMANA [facility] (WNR) MEDICARE ADVANTAGE HUMAN A INSUR ANCE COM May 22, 2020 [id number] JAMI CASTELLANO PATIENT INNOVIANT E-PHARM PRESCRIPT ION SWEET WATER KANDI DIST Jan 20, 2007 [id number] [phone] JAMI CASTELLANO PATIENT MEDICARE (WNR) MEDICARE (M) PART A Nov 19, 2013 PART A [id number] JAMI CASTELLANO PATIENT MEDICARE (WNR) MEDICARE (M) PART B Nov 19, 2013 PART B [id number] JAMI CASTELLANO PATIENT MEDICARE (WNR) MEDICARE (M) PART A Nov 19, 2013 PART A [id number] JAMI CASTELLANO PATIENT MEDICARE (WNR) MEDICARE (M) PART B Nov 19, 2013 PART B [id number] JAMI CASTELLANO PATIENT MEDICARE (WNR) MEDICARE (M) PART A Nov 19, 2013 PART A [id number] JAMI CASTELLANO PATIENT MEDICARE (WNR) MEDICARE (M) PART B Nov 19, 2013 PART B [id number] JAMI CASTELLANO PATIENT MEDICARE (WNR) MEDICARE (M) PART B Nov 19, 2013 PART B [id number] JAMI CASTELLANO PATIENT MEDICARE (WNR) MEDICARE (M) PART A Nov 19, 2013 PART A [id number] JAMI CASTELLANO PATIENT MEDICARE (WNR) MEDICARE (M) PART A Nov 19, 2013 PART A [id number] JAMI CASTELLANO PATIENT MEDICARE (WNR) MEDICARE (M) PART B Nov 19, 2013 PART B [id number] JAMI CASTELLANO PATIENT MEDICARE (WNR) MEDICARE () PART B Nov 19, 2013 PART B [id number] JAMI CASTELLANO PATIENT MEDICARE (WNR) MEDICARE (M) PART A Nov 19, 2013 PART A [id number] JAMI CASTELLANO PATIENT MEDICARE (WNR) MEDICARE (M) PART B Nov 19, 2013 PART B [id number] JAMI CASTELLANO PATIENT MEDICARE (WNR) MEDICARE (M) PART A Nov 19, 2013 PART A [id number] JAMI CASTELLANO PATIENT MEDICARE (WNR) MEDICARE (M) PART A Nov 19, 2013 PART A [id number] JAMI CASTELLANO PATIENT MEDICARE (WNR) MEDICARE (M) PART B Nov 19, 2013 PART B [id number] JAMI CASTELLANO PATIENT MEDICARE PART D (WNR) MEDICARE (M) PART D May 22, 2020 PART D [id number] JAMI CASTELLANO PATIENT MEDICARE PART D (WNR) MEDICARE (M) PART D Feb 19, 2014 PART D [id number] JAMI CASTELLANO PATIENT OFF OF REG BORDER INSPECTOR BURDICK TORT FEASOR TORT Nov 26, 2017 TORT [id number] [phone] JAMI CASTELLANO PATIENT OPTUM RX PRESCRIPT ION SWEET WATER SCHOO L #1 September 19, 2008 [id number] [phone] JAMI CASTELLANO PATIENT UMR COMPREHEN SIVE MAJOR MEDICAL SWEET WATER COUNT Y SC Jan 20, 2014 [id number] [phone] JAMI CASTELLANO PATIENT UMR PREFERRED PROVIDER ORGANIZAT ION (PPO) TAWANNA SS ROEL HEALT H Jan 20, 2007 [id number] JAMI CASTELLANO PATIENT Selected Encounter This section includes the information on record at [place] for the Encounter. Date/Time Encounter Type Encounter Description Reason Provider Source May 17, 2024 09:31 AM HEARING AID EXAM BOTH EARS AUDIOLOGY ICD-10-CM H93.13 Tinnitus, bilateral GRAVES,ALEXAND RA A [facility] Encounter Template Text not used by [place] Assessments - Encounter Diagnoses This section includes the primary and secondary diagnoses documented for the Encounter. Date/Time Primary/Secondary Diagnosis Diagnosis Name Provider Source May 17, 2024 09:44 AM PRIMARY Tinnitus, bilateral GRAVES,ALEXAND RA A [facility] May 17, 2024 09:44 AM SECONDARY Sensorineural hearing loss, bilateral GRAVES,ALEXAND RA A [place] [facility] Plan of Treatment: Future Appointments (+ 6 months) and Future Tests (+/- 45 days) The Plan of Treatment section includes future care activities for the patient from all [place] treatmentfacilities. This section includes future appointments and future orders which are active, pending or scheduled. Future Appointments This section includes appointments that were scheduled to occur 6 months from the date of the Encounter, up to a maximum of 20 appointments. The data comes from all [place] treatment facilities. Appointment Date/Time Appointment Type Appointme nt Facility Name May 28, 2024 01:30 PM [facility] Jun 05, 2024 01:30 PM [facility]ORY - MEDICINE [facility] Jun 07, 2024 01:00 PM [facility]AT[facility]IATRY [facility] Jun 17, 2024 01:15 PM AMBULATORY - MEDICINE [facility] Jun 19, 2024 11:45 AM [facility]BULATORY - [facility]IC[facility] [facility] Jun 19, 2024 01:00 PM [facility]AT[facility]IATRY [facility] Jun 19, 2024 02:00 PM AMBULATORY - MEDICINE [facility] Jun 19, 2024 02:01 PM [facility]ORY - [facility] [place] [facility] Jun 21, 2024 12:30 PM AMBULATORY - MEDICINE [facility] Jun 27, 2024 01:30 PM AMBULATORY - MEDICINE [facility] Jul 01, 2024 02:00 PM AMBULATORY - MEDICINE [facility] Jul 01, 2024 02:02 PM AMBULATORY - MEDICINE [facility] [facility] Jul 04, 2024 01:30 PM AMBULATORY - MEDICINE [facility] Jul 16, 2024 01:00 PM [facility]AT[facility] - [facility]CHIATRY [facility] Jul 31, 2024 12:30 PM AMBULATORY - MEDICINE [facility] Jul 31, 2024 12:32 PM AMBULATORY - MEDICINE [place] Aug 13, 2024 03:00 PM AM[facility]ULAT[facility]ATRY [facility] September 19, 2024 01:30 PM AMBULATORY - MEDICINE [place] [facility] September 26, 2024 11:45 AM AM[facility]ULATORY [facility]ATRY [facility] September 26, 2024 11:46 AM AMBULATORY - MEDICINE [place] [facility] Active, Pending, and Scheduled Orders This section includes a listing of several types of active, pending, and scheduled orders, including clinic medications orders, diagnostic test orders, procedure orders and consult orders; where the start date of the order is 45 days before the date of the Encounter or 45 days after the date of theEncounter. The data comes from all [place] treatment facilities. Test Date/Time Test Type Test Details Facility Name Jun 21, 2024 01:06 PM Laboratory - Chemi stry Order ANCILLARY INFLUENZA A&B (PB) [facility] SP [facility] Advance Directives: All historical and current Section Date Range: From patient's date of to the date document was created. This section includes ALL of a patient's completed or amended [place] Advance and Rescinded Directives. The entries below indicate that a directive exists for the patient, but an actual copy is not included with this document. The data comes from all [place] facilities. Date Advance Directives Provider Source Dec 18, 2023 ADVANCE DIRECTIVE PETER BOWLING [facility] Encounter Notes: All associated encounter notes This section contains the clinical notes associated to the Encounter. Date/Time Encounter Note(s) Provider Source May 17, 2024 07:06 AM AUDIOLOGY NOTE: LOCAL TITLE: HEARING CLINIC PB STANDARD TITLE: AUDIOLOGY NOTE DATE OF NOTE: MAY 17, 2024@07:06 ENTRY DATE: MAY 17, 2024@07:06:12 AUTHOR: ALEJANDRO DURBIN COSIGNER: URGENCY: STATUS: COMPLETED Diagnosis: Sensorineural Hearing Loss, Bilateral and Tinnitus, Bilateral Treatment: Hearing Evaluation Time spent with : 60 minutes Bowdle seen for an audiogram via Audio Telehealth and verbally consented to the Telehealth modality. Multi-factor personally identifiable information of the was obtained verbally (full name and date of ). Bowdle accompanied by: none Patient site: [facility] AUDIOLOGIC HISTORY: Patient seen today for an initial hearing evaluation. - Ear surgery: no - Aural Pain/Pressure/Drainage: no - Tinnitus: bilateral/constant - Noise Exposure: yes HEARING DEVICES: none AUDIOMETRIC EXAM: Otoscopy was performed by collaboration of telehealth clinical glass technician/installer and provider via telehealth technology/video otoscope which revealed: Right: minimal cerumen Left: minimal cerumen Tympanograms: Right: consistent with normal middle ear function Left: consistent with normal middle ear function Acoustic Reflex Thresholds: not performed due to time constraints Pure-Tone Air and Bone-Conduction Audiometric Testing revealed: Right: within normal limits through 1000 Hz, slight to moderately-severe sensorineural hearing loss 8520-4756 Hz Left: within normal limits through 2000 Hz, mild to moderate sensorineural hearing loss 1636-2520 Hz Speech Advertising Assistant Threshold testing yielded: Right: 15 dBHL Left: 15 dBHL Word Recognition testing yielded: Right: 100% @ 65 dBHL Left: 96% @ 65 dBHL Word scoring may be impacted by quality of audio through telehealth medium. Test Reliability: Good PROVIDER COMMENTS/RECOMMENDATIONS: Hearing test results were reviewed with patient. Patient is interested in hearing aids to assist in tinnitus relief. Counseled the patient on tinnitus, hearing conservation, realistic expectations and motivation when using amplification. Hearing aid options were discussed, and the following devices ordered: PHONAK SonatypeEO I90-R MARCELLO - 1S FRONTLOAD DRIVER 6.0 - OPEN DOME - SMALL - CERUSTOP Accessories: REMOTECONTROL Phone Connectivity: yes Note: Patient reports difficulties with fine motor Patient expressed interest in a bedside sound generator. Ordered the following device in ROES: - TINNITUS MASKER [id number] PLAN: 1) Return to clinic in four weeks for 60 minute hearing aid fitting. 2) Recommend hearing evaluation annually or prn. Bowdle expressed understanding and is in agreement with the plan. /matt/ Carmen French [facility] Signed: 05/17/2024 10:04 ALEJANDRO DURBIN [facility]
--- OUTSIDE RECORDS SUMMARY | 2024-05-24 10:10 | XMS_ITS | Encounter Summary ---
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 Phone DAKOTAH INFANTE Primary Care [...] Name Patient's Relationship to Policy Palmer HUMANA [facility] (WNR) MEDICARE ADVANTAGE HUMAN A INSUR [employer] May 22, 2020 [id number] [phone] JAMI CASTELLANO PATIENT INNOVIANT E-PHARM PRESCRIPT ION SWEET WATER KANDI DIST Jan 20, 2007 [id number] [phone] JAMI CASTELLANO PATIENT MEDICARE (WNR) MEDICARE (M) PART A Nov 19, 2013 PART A [id number] JAMI CASTELLANO PATIENT MEDICARE (WNR) MEDICARE (M) PART B Nov 19, 2013 PART B [id number] JAMI CASTELLANO PATIENT MEDICARE (WNR) MEDICARE (M) PART B Nov 19, 2013 PART B [id number] JAMI CASTELLANO PATIENT MEDICARE (WNR) MEDICARE (M) PART A Nov 19, 2013 PART A [id number] JAMI CASTELLANO PATIENT MEDICARE (WNR) MEDICARE (M) PART A Nov 19, 2013 PART A [id number] JAMI CASTELLANO PATIENT MEDICARE (WNR) MEDICARE (M) PART B Nov 19, 2013 PART B [id number] JAMI CASTELLANO PATIENT MEDICARE (WNR) MEDICARE (M) PART A Nov 19, 2013 PART A [id number] JAMI CASTELLANO PATIENT MEDICARE (WNR) MEDICARE (M) PART B Nov 19, 2013 PART B [id number] AJMI CASTELLANO PATIENT MEDICARE (WNR) MEDICARE (M) PART A Nov 19, 2013 PART A [id number] JAMI CASTELLANO PATIENT MEDICARE (WNR) MEDICARE (M) PART B Nov 19, 2013 PART B [id number] JAMI CASTELLANO PATIENT MEDICARE (WNR) MEDICARE (M) PART A Nov 19, 2013 PART A [id number] JAMI CASTELLANO PATIENT MEDICARE (WNR) MEDICARE (M) PART B Nov 19, 2013 PART B [id number] JAMI CASTELLANO PATIENT MEDICARE (WNR) MEDICARE (M) PART B Nov 19, 2013 PART B [id number] JAMI CASTELLANO PATIENT MEDICARE (WNR) MEDICARE (M) PART A Nov 19, 2013 PART A [id number] JAMI CASTELLANO PATIENT MEDICARE (WNR) MEDICARE (M) PART A Nov 19, 2013 PART A [id number] JAMI CASTELLANO PATIENT MEDICARE (WNR) MEDICARE (M) PART B Nov 19, 2013 PART B [id number] JAMI CASTELLANO PATIENT MEDICARE PART D (WNR) MEDICARE (M) PART D May 22, 2020 PART D [id number] JAMI CASTELLANO PATIENT MEDICARE PART D (WNR) MEDICARE (M) PART D Feb 19, 2014 PART D [id number] JAMI CASTELLANO PATIENT OFF OF REG PROFESSIONAL NURSE BURDICK TORT FEASOR TORT Nov 26, 2017 TORT [id number] JAMI CASTELLANO PATIENT OPTUM RX PRESCRIPT ION SWEET WATER SCHOO L #1 September 19, 2008 [id number] [phone] JAMI CASTELLANO PATIENT UMR COMPREHEN SIVE MAJOR MEDICAL SWEET WATER COUNT Y SC Jan 20, 2014 [id number] [phone] JAMI CASTELLANO PATIENT UMR PREFERRED PROVIDER ORGANIZAT ION (PPO) TAWANNA SS ROEL HEALT H Jan 20, 2007 [id number] [phone] JAMI CASTELLANO PATIENT Selected Encounter This section includes the information on record at ID for the Encounter. Date/Time Encounter Type Encounter Description Reason Pro vider Source May 24, 2024 03:10 PM Outpatient Encounter ADMIN PAT ACTIVTIES (MASNONCT) IHE Encounter Template Text not used by ID Plan of Treatment: Future Appointments (+ 6 months) and Future Tests (+/- 45 days) The Plan of Treatment section includes future care activities for the patient from all ID treatmentfacilities. This section includes future appointments and future orders which are active, pending or scheduled. Future Appointments This section includes appointments that were scheduled to occur 6 months from the date of the Encounter, up to a maximum of 20 appointments. The data comes from all ID treatment facilities. Appointment Date/Time Appointment Type Appointme nt Facility Name May 28, 2024 01:30 PM AMBULATORY - MEDICINE [facility] Jun 05, 2024 01:30 PM AMBULATORY - MEDICINE [facility] Jun 07, 2024 01:00 PM [facility]AT[facility]ATRY [facility] Jun 17, 2024 01:15 PM [facility] Jun 19, 2024 11:45 AM AMBULATORY - MEDICINE [facility] Jun 19, 2024 01:00 PM [facility] Jun 19, 2024 02:00 PM AMBULATORY - MEDICINE [facility] Jun 19, 2024 02:01 PM AMBULATORY - [facility]IC[facility] [place] Jun 21, 2024 12:30 PM [facility] Jun 27, 2024 01:30 PM AMBULATORY - MEDICINE [facility] Jul 01, 2024 02:00 PM [facility] Jul 01, 2024 02:02 PM AMBULATORY - [facility] [place] Jul 04, 2024 01:30 PM AMBULATORY - MEDICINE [facility] Jul 16, 2024 01:00 PM [facility]ATORY - [facility]IATRY [facility] Jul 31, 2024 12:30 PM [facility] Jul 31, 2024 12:32 PM [facility]ULATORY - MEDIC[facility] [place] Aug 13, 2024 03:00 PM AM[facility]ULATORY - PS[facility]ATRY [facility] September 19, 2024 01:30 PM AMBULATORY - MEDICINE [place] [facility] September 26, 2024 11:45 AM AM[facility]ULATORY - PS[facility]CHIATRY [facility] September 26, 2024 11:46 AM AMBULATORY - MEDICINE [place] [facility] Active, Pending, and Scheduled Orders This section includes a listing of several types of active, pending, and scheduled orders, including clinic medications orders, diagnostic test orders, procedure orders and consult orders; where the start date of the order is 45 days before the date of the Encounter or 45 days after the date of the Encounter. The data comes from all ID treatment facilities. Test Date/Time Test Type Test Details Facility Name Jun 21, 2024 01:06 PM Laboratory - Chemi stry Order ANCILLARY INFLUENZA A&B (PB) [facility] SP [facility] Lab Results: +/- 30 days of the encounter This section includes the Chemistry and Hematology Lab Results on record with ID for the patient. Radiology Reports and Pathology Reports are provided separately, in subsequent sections. Lab Results This section contains the Chemistry/Hematology Results that were resulted 30 days before or 30 daysafter the date of the Encounter. Date/Time Source Result Type Result - Unit Interpretation Reference Range Specimen Type Comment Jun 21, 2024 01:[address] [facility] ANCILLARY INFLUENZA A&B (PB) NARES Specimen T ype: NARES Comment: Test performed by: Benito Coronado [id number] Meter #: [id number] Ordering Provider: JAKOB INFANTE Report Released Date/Time: Jun 21, 2024 01:29 PM Reporting Lab: [facility] [address] [facility] [address] Performing Lab: [facility] [address] [facility] [id number] INFLUENZA A negative Negative INFLUENZA B negative Negative Social History: Smoking Status (Most current) and Tobacco Use (All prior to encounter date) This section includes the most current, and the historical, smoking and tobacco- related health factors from the ID facility where the Encounter took place. Current Smoking Status This section includes the most current smoking, or tobacco-related health factor, from the ID facility where the Encounter took place. Date/Time Current Smoking Status Comment Facil ity Aug 23, 2023 11:00 AM VA-TOBACCO USE [place] [address] [facility] Tobacco Use History This section includes a history of the smoking, or tobacco-related health factors, that were collected on or before the date of the Encounter. The data comes from the ID facility where the Encounter took place. Date/Time Smoking Status/Tobacco Use Comment F acility Aug 23, 2023 11:00 AM VA-TOBACCO USE ADVICE [facility] Aug 23, 2023 11:00 AM VA-TOBACCO USE PROFESSIONAL NURSE NO [facility] Aug 23, 2023 11:00 AM VA-TOBACCO USE MED NO [facility] Aug 23, 2023 11:00 AM VA-TOBACCO USE WI 30 MIN OF WAKE UP [facility] Aug 23, 2023 11:00 AM VA-TOBACCO USER EVERY DAY [facility] Aug 24, 2022 01:30 PM VA-TOBACCO DOESNT USE WI 30 MIN WAKEUP [facility] Aug 24, 2022 01:30 PM VA-TOBACCO USE > 1 5 LESS THAN 30 YEARS [facility] Aug 24, 2022 01:30 PM VA-TOBACCO USE ADVICE [facility] Aug 24, 2022 01:30 PM VA-TOBACCO USE PROFESSIONAL NURSE NO [facility] Aug 24, 2022 01:30 PM VA-TOBACCO USE MED NO [facility] Aug 24, 2022 01:30 PM VA-TOBACCO USER EVERY DAY [facility] Aug 30, 2021 01:30 PM VA-TOBACCO USE 30 YEARS OR MORE [facility] Aug 30, 2021 01:30 PM VA-TOBACCO USE ADVICE [facility] Aug 30, 2021 01:30 PM VA-TOBACCO USE PROFESSIONAL NURSE NO [facility] Aug 30, 2021 01:30 PM VA-TOBACCO USE MED NOTIFY PROVID ER [facility] Aug 30, 2021 01:30 PM VA-TOBACCO USE WI 30 MIN OF WAKE UP [facility] Aug 30, 2021 01:30 PM VA-TOBACCO USER EVERY DAY [facility] Feb 17, 2020 02:00 PM VA-TOBACCO USE 30 YEARS OR MORE [facility] Feb 17, 2020 02:00 PM VA-TOBACCO USE ADVICE [facility] Feb 17, 2020 02:00 PM VA-TOBACCO USE PROFESSIONAL NURSE NO [facility] Feb 17, 2020 02:00 PM VA-TOBACCO USE MED NO [facility] Feb 17, 2020 02:00 PM VA-TOBACCO USE WI 30 MIN OF WAKE UP [facility] Feb 17, 2020 02:00 PM VA-TOBACCO USER EVERY DAY [facility] Jun 27, 2018 12:01 PM VA-TOBACCO USE 30 YEARS OR MORE [facility] Jun 27, 2018 12:01 PM VA-TOBACCO USE ADVICE [facility] Jun 27, 2018 12:01 PM VA-TOBACCO USE PROFESSIONAL NURSE NO [facility] Jun 27, 2018 12:01 PM VA-TOBACCO USE MED NO [facility] Jun 27, 2018 12:01 PM VA-TOBACCO USE WI 30 MIN OF WAKE UP [facility] Jun 27, 2018 12:01 PM VA-TOBACCO USER EVERY DAY [facility] Jul 20, 2017 04:18 PM CURRENT TOBACCO USER [facility] Jul 20, 2017 04:18 PM CURRENT TOBACCO US ER (NOT READY TO QUIT) [facility] Jul 20, 2017 04:18 PM TOBACCO CESSATION REFERRAL DECLI JENNIFFER [facility] Jul 20, 2017 04:18 PM TOBACCO MEDS OFFERED BUT DECLINE D [facility] Jul 20, 2017 04:18 PM TOBACCO USER OFFERED MEDS [facility] Jul 20, 2017 04:00 PM CURRENT TOBACCO USER [facility] Jul 20, 2017 04:00 PM CURRENT TOBACCO US ER (NOT READY TO QUIT) [facility] Jul 20, 2017 04:00 PM TOBACCO CESSATION REFERRAL DECLI JENNIFFER [facility] Jul 20, 2017 04:00 PM TOBACCO MEDS OFFERED BUT DECLINE D [facility] Jul 20, 2017 04:00 PM TOBACCO USER OFFERED MEDS [facility] Advance Directives: All historical and current Section Date Range: From patient's date of to the date document was created. This section includes ALL of a patient's completed or amended ID Advance and Rescinded Directives. The entries below indicate that a directive exists for the patient, but an actual copy is not included with this document. The data comes from all ID facilities. Date Advance Directives Provider Source Dec 18, 2023 ADVANCE DIRECTIVE PETER BOWLINGU FF [facility] Encounter Notes: All associated encounter notes This section contains the clinical notes associated to the Encounter. Date/Time Encounter Note(s) Provider Source May 24, 2024 03:10 PM GENERAL MEDICINE N OTE: LOCAL TITLE: General Note PB STANDARD TITLE: GENERAL MEDICINE NOTE DATE OF NOTE: MAY 24, 2024@15:10 ENTRY DATE: MAY 24, 2024@15:11:01 AUTHOR: GIL UP EXP COSIGNER: URGENCY: STATUS: COMPLETED Rec'd hearing aids and remote control certified in [facility]. [place] has upcoming fitting appt. /es/ PILAR GARCIA [facility] Signed: 05/24/2024 15:[address] [facility]
--- OUTSIDE RECORDS SUMMARY | 2024-06-05 08:30 | XMS_ITS | Encounter Summary ---
Author Name [facility] [place] [facility] [place] Address [address] [place] [address] Care Team Providers Care Rack Puller Name Role Phone DAKOTAH INFANTE Primary Care [...] Name Patient's Relationship to Policy Palmer [facility] (WNR) MEDICARE ADVANTAGE HUMAN A INSUR ANCE Krikle May 22, 2020 [id number] JAMI CASTELLANO PATIENT INNOVIANT E-PHARM PRESCRIPT ION SWEET WATER KANDI DIST Jan 20, 2007 [id number] [phone] JAMI CASTELLANO PATIENT MEDICARE (WNR) MEDICARE (M) PART A Nov 19, 2013 PART A [id number] JAMI CASETLLANO PATIENT MEDICARE (WNR) MEDICARE (M) PART B Nov 19, 2013 PART B [id number] JAMI CASTELLANO PATIENT MEDICARE (WNR) MEDICARE () PART A Nov 19, 2013 PART A [id number] JAMI CASTELLANO PATIENT MEDICARE (WNR) MEDICARE (M) PART B Nov 19, 2013 PART B [id number] JAMI CASTELLANO PATIENT MEDICARE (WNR) MEDICARE (M) PART A Nov 19, 2013 PART A [id number] JAMI CASTELLANO PATIENT MEDICARE (WNR) MEDICARE (M) PART B Nov 19, 2013 PART B [id number] JAMI CASTELLANO PATIENT MEDICARE (WNR) MEDICARE (M) PART B Nov 19, 2013 PART B [id number] JAMI CASTELLANO PATIENT MEDICARE (WNR) MEDICARE (M) PART A Nov 19, 2013 PART A [id number] JAMI CASTELLANO PATIENT MEDICARE (WNR) MEDICARE (M) PART A Nov 19, 2013 PART A [id number] JAMI CASTELLANO PATIENT MEDICARE (WNR) MEDICARE (M) PART B Nov 19, 2013 PART B [id number] JAMI CASTELLANO PATIENT MEDICARE (WNR) MEDICARE () PART B Nov 19, 2013 PART B [id number] JAMI CASTELLANO PATIENT MEDICARE (WNR) MEDICARE (M) PART A Nov 19, 2013 PART A [id number] JAMI CASTELLANO PATIENT MEDICARE (WNR) MEDICARE (M) PART A Nov 19, 2013 PART A [id number] JAMI CASTELLANO PATIENT MEDICARE (WNR) MEDICARE (M) PART B Nov 19, 2013 PART B [id number] JAMI CASTELLANO PATIENT MEDICARE (WNR) MEDICARE (M) PART A Nov 19, 2013 PART A [id number] JAMI CASTELLANO PATIENT MEDICARE (WNR) MEDICARE (M) PART B Nov 19, 2013 PART B [id number] JAMI CASTELLANO PATIENT MEDICARE PART D (WNR) MEDICARE (M) PART D May 22, 2020 PART D [id number] JAMI CASTELLANO PATIENT MEDICARE PART D (WNR) MEDICARE (M) PART D Feb 19, 2014 PART D [id number] JAMI CASTELLANO PATIENT OFF OF REG 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 Date/Time Encounter Type Encounter Description Reason Provider Source Jun 05, 2024 01:30 PM OFFICE O/P EST MOD 30 MIN PRIMARY CARE/MEDICINE ICD-10-CM Z71.89 Other specified counseling CAMRYN INFANTE Bruna Encounter Template Text not used by [place] Assessments - Encounter Diagnoses This section includes the primary and secondary diagnoses documented for the Encounter. Date/Time Primary/Secondary Diagnosis Diagnosis Name Provider Source Jun 15, 2024 06:52 PM PRIMARY Other specified counseling CAMRYN INFANTE [facility] Jun 15, 2024 06:52 PM SECONDARY Type 2 diabetes mellitus without complications CAMRYN INFANTE [facility] Plan of Treatment: Future Appointments (+ 6 months) and Future Tests (+/- 45 days) The Plan of Treatment section includes future care activities for the patient from all [place] treatmentfacilities. This section includes future appointments and future orders which are active, pending or scheduled. Future Appointments This section includes appointments that were scheduled to occur 6 months from the date of the Encounter, up to a maximum of 20 appointments. The data comes from all [place] treatment facilities. Appointment Date/Time Appointment Type Appointme nt Facility Name Jun 07, 2024 01:00 PM AMBULATORY - [facility]RY [facility] Jun 17, 2024 01:15 PM AMBULATORY - MEDICINE [facility] Jun 19, 2024 11:45 AM [place]IC[place] [facility] Jun 19, 2024 01:00 PM [facility]AT[facility]CHIATRY [facility] Jun 19, 2024 02:00 PM AMBULATORY - MEDICINE [facility] Jun 19, 2024 02:01 PM [facility] [place] [facility] Jun 21, 2024 12:30 PM AMBULATORY - MEDICINE [facility] Jun 27, 2024 01:30 PM AMBULATORY - MEDICINE [facility] Jul 01, 2024 02:00 PM AMBULATORY - MEDICINE [facility] Jul 01, 2024 02:02 PM [facility] [place]IC[place] [facility] Jul 04, 2024 01:30 PM AMBULATORY - MEDICINE [facility] Jul 16, 2024 01:00 PM AMBULAT[facility] PS[facility]CHIATRY [facility] Jul 31, 2024 12:30 PM AMBULATORY - MEDICINE [facility] Jul 31, 2024 12:32 PM [facility] [place] [facility] Aug 13, 2024 03:00 PM [facility]AT[facility] PS[facility]CHIATRY [facility] September 19, 2024 01:30 PM AMBULATORY - MEDICINE [place] [facility] September 26, 2024 11:45 AM [facility]CHIATRY [facility] September 26, 2024 11:46 AM AM[facility]ATORY - MEDICINE [place] [facility] October 01, 2024 12:00 PM AMBULATORY - MEDICINE [facility] October 01, 2024 12:01 PM AMBULATORY - MEDICINE [place] [facility] Active, Pending, and Scheduled Orders This section includes a listing of several types of active, pending, and scheduled orders, including clinic medications orders, diagnostic test orders, procedure orders and consult orders; where the start date of the order is 45 days before the date of the Encounter or 45 days after the date of theEncounter. The data comes from all [place] treatment facilities. Test Date/Time Test Type Test Details Facility Name Jun 21, 2024 01:06 PM Laboratory - Chemi stry Order ANCILLARY INFLUENZA A&B (PB) NARES SP [facility] Lab Results: +/- 30 days of the encounter This section includes the Chemistry and Hematology Lab Results on record with [place] for the patient. Radiology Reports and Pathology Reports are provided separately, in subsequent sections. Lab Results This section contains the Chemistry/Hematology Results that were resulted 30 days before or 30 daysafter the date of the Encounter. Date/Time Source Result Type Result - Unit Interpretation Reference Range Specimen Type Comment Jul 04, 2024 01:47 PM [facility] RMBLPQKFS-LDZJH-1,3-GALACTOSE IGE SERUM Speci men Type: SERUM Comment: REFERENCE RANGE: <0.10 kU/L Results above 0.1 kU/L indicate an allergen-specific IgE sensitization to whymqjwai-t-7,3-g alactose, and such patients are at risk for [...] method. Additional information can be found at [email or web address] Test performed by [employer] [address] [place] [address] Looseleaf Binder Coverer: Loni Landis MD,PHD,SANCHO Test Reported by [employer] [place], [employer] [place], [address] [place], [place] Wilfred Velásquez M.D., Ph.D., Director of Laboratories , [facility] [id number] Ordering Provider: LILIAM HARPER Report Released Date/Time: Jul 04, 2024 01:45 PM Reporting Lab: [place] [facility] [address] [place] [address] Performing Lab: [place] [facility] [address] [facility] PLKLITAOB-EFGHS-6,3-GALACTOSE IGE <0.10 kU/L SEE BELOW Jul 04, 2024 01:47 PM [facility] FOLATE (PB) SERUM Specimen Typ e: SERUM No comment entered. Ordering Provider: LILIAM HARPER Report Released Date/Time: Jul 04, 2024 01:45 PM Reporting Lab: [place] [facility] [address] [place] [address] Performing Lab: [place] [facility] [address] [place] [address] FOLATE (PB) 15.7 ng/mL 7-20 Jul 04, 2024 01:47 PM [facility] VITAMIN D, 25-HYDROXY SERUM Specimen Type: SE RUM No comment entered. Ordering Provider: LILIAM HARPER Report Released Date/Time: Jul 04, 2024 01:45 PM Reporting Lab: [place] [facility] [address] [place] [address] Performing Lab: [place] [facility] [address] [place] [address] VITAMIN D, 25-HYDROXY 31.5 ng/mL 30-96 Jul 04, 2024 01:47 PM [place] [facility] B12 SERUM Specimen Type: SERUM No comment entered. Ordering Provider: LILIAM HARPER Report Released Date/Time: Jul 04, 2024 01:45 PM Reporting Lab: [place] [facility] [address] [place] [address] Performing Lab: [place] [facility] [address] [place] [address] B12 673 pg/mL 213-816 Jul 02, 2024 12:44 PM [facility] HGA1C BLOOD Specimen Type: BLOOD No comment entered. Ordering Provider: LILIAM HARPER Report Released Date/Time: Apr 09, 2024 03:26 PM Reporting Lab: [place] [facility] [address] [place] [address] Performing Lab: [place] [facility] [address] [place] [address] HGA1C 6.6 H 4.0-6.0 Jul 02, 2024 12:44 PM [place] [facility] DIRECT LDL (MA-PB) PLASMA Specimen Type: PLAS MA No comment entered. Ordering Provider: LILIAM HARPER Report Released Date/Time: Apr 09, 2024 03:26 PM Reporting Lab: [place] [facility] [address] [place] [address] Performing Lab: [place] [facility] [address] [place] [address] DIRECT LDL 70.4 mg/dL 0-99.9 Jul 02, 2024 12:44 PM [facility] CHOLESTEROL PANEL (PB) PLASMA Specimen Type: P LASMA No comment entered. Ordering Provider: LILIAM HARPER Report Released Date/Time: Apr 09, 2024 03:26 PM Reporting Lab: [place] [facility] [address] [place] [address] Performing Lab: [place] [facility] [address] [place] [address] CHOLESTEROL 120 mg/dL 0-200 TRIGLYCERIDE 164 mg/dL H 0-150 CALCULATED LDL 61.2 mg/dL HDL(New) 26.0 mg/dL L >40 HDL % OF TOTAL CHOLESTEROL (PB) 21.7 >25 Jul 02, 2024 12:44 PM [facility] COMPREHENSIVE METABOLIC PANEL PLASMA Specimen Type: PLASMA No comment entered. Ordering Provider: LILIAM HARPER Report Released Date/Time: Apr 09, 2024 03:26 PM Reporting Lab: [place] [facility] [address] [place] [address] Performing Lab: [place] [facility] [address] [place] [address] CREATININE 0.66 mg/dL 0.6-1.1 UREA NITROGEN 13 mg/dL 9-25 GLUCOSE 138 mg/dL H 72-99 SODIUM 136 meq/L 136-145 POTASSIUM 4.5 meq/L 3.5-5 CHLORIDE 103 meq/L 98-107 CARBON DIOXIDE 26 meq/L 22-31 CALCIUM 9.2 mg/dL 8.4-10.4 PROTEIN 7.0 g/dL 6-8.6 ALBUMIN 4.2 g/dL 3.4-5 TOTAL BILIRUBIN 0.7 mg/dL 0.2-1.2 ALKALINE PHOSPHATASE 104 U/L 40-150 AST/SGOT 24 U/L 5-34 ALT/SGPT 62 U/L H 8-40 EGFR (CKD-EPI 2020) 99 Jun 21, 2024 01:17 PM [facility] ANCILLARY INFLUENZA A&B (PB) NARES Specimen T ype: NARES Comment: Test performed by: Benito Coronado [id number] Meter #: [id number] Ordering Provider: DAKOTAH INFANTE Report Released Date/Time: Jun 21, 2024 01:29 PM Reporting Lab: [facility] [address] [facility] [address] Performing Lab: [facility] [address] [facility] [address] INFLUENZA A negative Negative INFLUENZA B negative Negative Vital Signs: All taken on the encounter date This section contains inpatient and outpatient Vital Signs collected on the date of the Encounter. Date/Time Temperature Pulse Blood Pressure Respiratory Rate SP02 Pain Height Weight Body Mass Index Source Jun 05, 2024 01:50 PM 76 115/72 18 97 66.0 186.3 30 [facility] Social History: Smoking Status (Most current) and Tobacco Use (All prior to encounter date) This section includes the most current, and the historical, smoking and tobacco- related health factors from the [place] facility where the Encounter took place. Current Smoking Status This section includes the most current smoking, or tobacco-related health factor, from the [place] facility where the Encounter took place. Date/Time Current Smoking Status Comment Gustavo ity Aug 23, 2023 11:00 AM VA-TOBACCO USER EVERY DAY [facility] Tobacco Use History This section includes a history of the smoking, or tobacco-related health factors, that were collected on or before the date of the Encounter. The data comes from the [place] facility where the Encounter took place. Date/Time Smoking Status/Tobacco Use Comment F acility Aug 23, 2023 11:00 AM VA-TOBACCO USE ADVICE 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 Aug 23, 2023 11:00 AM VA-TOBACCO USE MED NO [facility] Aug 23, 2023 11:00 AM VA-TOBACCO USE WI 30 MIN OF WAKE UP [facility] Aug 23, 2023 11:00 AM VA-TOBACCO USER EVERY DAY 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 [facility] Aug 24, 2022 01:30 PM VA-TOBACCO USE MED NO [facility] Aug 24, 2022 01:30 PM VA-TOBACCO USER EVERY DAY [facility] Aug 30, 2021 01:30 PM VA-TOBACCO USE 30 YEARS OR MORE [facility] Aug 30, 2021 01:30 PM VA-TOBACCO USE ADVICE [facility] Aug 30, 2021 01:30 PM VA-TOBACCO USE 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 NO [place] [facility] Aug 30, 2021 01:30 PM VA-TOBACCO USE MED NOTIFY PROVID ER [place] [facility] Aug 30, 2021 01:30 PM VA-TOBACCO USE WI 30 MIN OF WAKE UP [facility] Aug 30, 2021 01:30 PM VA-TOBACCO USER EVERY DAY [facility] Feb 17, 2020 02:00 PM VA-TOBACCO USE 30 YEARS OR MORE [facility] Feb 17, 2020 02:00 PM VA-TOBACCO USE ADVICE [place] [facility] Feb 17, 2020 02:00 PM VA-TOBACCO USE 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 NO [facility] Feb 17, 2020 02:00 PM VA-TOBACCO USE MED NO [facility] Feb 17, 2020 02:00 PM VA-TOBACCO USE WI 30 MIN OF WAKE UP [facility] Feb 17, 2020 02:00 PM VA-TOBACCO USER EVERY DAY [facility] Jun 27, 2018 12:01 PM VA-TOBACCO USE 30 YEARS OR MORE [facility] Jun 27, 2018 12:01 PM VA-TOBACCO USE ADVICE [facility] Jun 27, 2018 12:01 PM VA-TOBACCO USE 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 NO [facility] Jun 27, 2018 12:01 PM VA-TOBACCO USE MED NO [facility] Jun 27, 2018 12:01 PM VA-TOBACCO USE WI 30 MIN OF WAKE UP [facility] Jun 27, 2018 12:01 PM VA-TOBACCO USER EVERY DAY [facility] Jul 20, 2017 04:18 PM CURRENT TOBACCO USER [facility] Jul 20, 2017 04:18 PM CURRENT TOBACCO US ER (NOT READY TO QUIT) [facility] Jul 20, 2017 04:18 PM TOBACCO CESSATION REFERRAL DECLI JENNIFFER [facility] Jul 20, 2017 04:18 PM TOBACCO MEDS OFFERED BUT DECLINE D [facility] Jul 20, 2017 04:18 PM TOBACCO USER OFFERED MEDS [facility] Jul 20, 2017 04:00 PM CURRENT TOBACCO USER [facility] Jul 20, 2017 04:00 PM CURRENT TOBACCO US ER (NOT READY TO QUIT) [facility] Jul 20, 2017 04:00 PM TOBACCO CESSATION REFERRAL DECLI JENNIFFER [facility] Jul 20, 2017 04:00 PM TOBACCO MEDS OFFERED BUT DECLINE D [facility] Jul 20, 2017 04:00 PM TOBACCO USER OFFERED MEDS [facility] Advance Directives: All historical and current Section Date Range: From patient's date of to the date document was created. This section includes ALL of a patient's completed or amended [place] Advance and Rescinded Directives. The entries below indicate that a directive exists for the patient, but an actual copy is not included with this document. The data comes from all [place] facilities. Date Advance Directives Provider Source Dec 18, 2023 ADVANCE DIRECTIVE PETER BOWLING [facility] Radiology Reports: +/- 30 days of the encounter Radiology Reports For cases when an order for radiology services may have been completed prior to the date of the Encounter, the report list includes the Radiology Reports that were completed up to 30 days before dateof the Encounter. For cases when an order for radiology services may have been completed after the date of the Encounter, the report list also includes the Radiology Reports that were completed up to30 days after date of the Encounter. The data comes from all [place] treatment facilities. 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 There is no infiltrate or effusion. Heart size is normal. There is a neurostimulator in the mid thoracic spinal canal. 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 Mild elevation right hemidiaphragm. Faint ill-defined density left midlung field suspicious for pneumonia. Other etiologies cannot be ruled out. Finding is new since previous study. Heart normal size. Plaque thoracic aorta. No pleural effusions. Stimulator wires noted. Impression: 1. Mild COPD 2. Faint ill-defined density left midlung field suspicious for pneumonia. Other etiologies cannot be ruled out 3. Recommend follow-up PA and lateral views the chest in 7-10 days or sooner if clinically indicated Primary Interpreting Staff: HUBERT BRUNNER, RADIOLOGIST (Partnership Marketing Manager, no e-sig) /HUBERT Buck [facility] Encounter Notes: All associated encounter notes This section contains the clinical notes associated to the Encounter. Date/Time Encounter Note(s) Provider Source Jun 05, 2024 02:35 PM PRIMARY CARE PROGR ESS NOTE: LOCAL TITLE: PRIMARY CARE CLINIC PROGRESS NOTE PB STANDARD TITLE: PRIMARY CARE PROGRESS NOTE DATE OF NOTE: JUN 05, 2024@14:35 ENTRY DATE: JUN 05, 2024@14:35:53 AUTHOR: DAKOTAH INFANTEIGNER: URGENCY: STATUS: COMPLETED PROVIDER ASSESSMENT DATE & TIME:May@14:35 CHIEF COMPLAINT: Medication Discussion. HISTORY OF PRESENT ILLNESS: Kulwinder is present with her son who wants to discuss her medications. They are uncertain if there is any she can go without and he would like an explanation of what they are all for. Her medications are reviewed with and son and she is to continue current medications. Medications that are optional that are discussed are her B12 supplement. We also discussed on her medication list that some of them are as needed and she is not required to take them. and son had a better understanding of mediations at the end of the visit. They also understood diabetes and the effect on the body fci after the visit. Active problems/med list pull tab dealer: 1) Diabetes Mellitus Type 2 ([facility] [id number]) 2) GERD - Gastro-Esophageal Reflux Disease ([facility] [id number]) 3) Gout ([facility] [id number]) 4) Depression ([facility] [id number]) 5) Bipolar disorder 6) Migraine 7) Low back pain 8) Cervicalgia 9) Somatoform pain disorder 10) Mood disorder with depressive features due to general medical condition 11) Generalized anxiety disorder 12) Housing problem 13) Neurocognitive disorder 14) Nicotine dependence ([facility] [id number]) 15) Chronic obstructive lung disease 16) Allergic Rhinitis ([facility] [id number]) 17) Chronic post-traumatic stress disorder 18) Female stress incontinence 19) Diabetic neuropathy 20) Chronic tremor 21) Cyst of pineal gland 22) Bilateral tinnitus 23) Sensorineural hearing loss of bilateral ears Active Outpatient Medications (including Supplies): Active Outpatient Medications Status 1) ALBUTEROL 90MCG (CFC-F) 200D ORAL INHL INHALE 2 PUFFS BY ACTIVE ORAL INHALATION FOUR TIMES A DAY NEEDED FOR BREATHING. SHAKE WELL. RINSE MOUTHPIECE FREQUENTLY TO PREVENT CLOGGING. 2) AMLODIPINE BESYLATE 2.5MG TAB TAKE ONE TABLET BY MOUTH TWICE ACTIVE (S) A DAY Indication: FOR HIGH BLOOD PRESSURE 3) ATORVASTATIN CALCIUM 80MG TAB TAKE ONE-HALF TABLET BY MOUTH ACTIVE (S) EVERY EVENING FOR CHOLESTEROL. REPORT ANY UNEXPLAINED MUSCLE PAIN/WEAKNESS TO PROVIDER THIS TABLET IS TO BE CUT IN HALF FOR YOUR DOSE 4) CETIRIZINE HCL 10MG TAB TAKE ONE TABLET BY MOUTH ONCE A DAY ACTIVE (S) Indication: FOR ALLERGY SYMPTOMS 5) CHOLECALCIF 50MCG (D3-2,000UNIT) TAB TAKE TWO TABLETS BY ACTIVE (S) MOUTH ONCE A DAY Indication: FOR VITAMIN D DEFICIENCY 6) CYANOCOBALAMIN 500MCG TAB TAKE ONE TABLET BY MOUTH ONCE A ACTIVE DAY Indication: FOR VITAMIN B12 SUPPLEMENTATION 7) DULOXETINE HCL 60MG EC CAP TAKE ONE CAPSULE BY MOUTH ONCE A ACTIVE (S) DAY DO NOT ABRUPTLY DISCONTINUE MEDICATION. 8) EPI(EQV-ADRENACLICK)0.3MG/0. 3ML INJCTR INJECT 1 PEN ACTIVE (0.3MG/0.3ML) INTRAMUSCULARLY ONE-TIME Indication: FOR ALLERGIC REACTION 9) FEXOFENADINE HCL 180MG TAB TAKE ONE TABLET BY MOUTH EVERY ACTIVE (S) MORNING Indication: FOR ALLERGIC RHINITIS 10) HYDROPHILIC (EQV EUCERIN) TOP CREAM APPLY LIGHTLY TO ACTIVE (S) AFFECTED AREA(S) ONCE A DAY (EXTERNAL USE ONLY) APPLY TO FEET NIGHTLY Indication: FOR DRY SKIN 11) HYDROXYZINE HCL 25MG TAB TAKE ONE TABLET BY MOUTH THREE ACTIVE (S) TIMES A DAY NEEDED *MAY CAUSE DROWSINESS* Indication: FOR URTICARIA 12) ISOSORBIDE DINITRATE 30MG ORAL TAB TAKE ONE TABLET BY MOUTH ACTIVE (S) ONCE A DAY ALLOW 10 TO 12 HOURS BETWEEN NIGHT AND MORNING DOSE. 13) LAMOTRIGINE 200MG TAB TAKE ONE TABLET BY MOUTH AT BEDTIME ACTIVE (S) FOR MOOD OR SEIZURES 14) LAMOTRIGINE 25MG TAB TAKE ONE TABLET BY MOUTH AT BEDTIME FOR ACTIVE (S) MOOD OR SEIZURES TAKE WITH THE 200MG 15) LANCET,SOFTCLIX USE LANCET FOR BLOOD TEST ONCE A DAY USE ACTIVE DIRECTED. Indication: FOR BLOOD SUGAR MONITORING 16) LIDOCAINE 5% OINT APPLY LIGHTLY TO AFFECTED AREA(S) ONCE A ACTIVE (S) DAY NEEDED 17) METFORMIN HCL 500MG 24HR SA TAB TAKE TWO TABLETS BY MOUTH ACTIVE TWICE A DAY WITH MEALS TAKE WITH FOOD. AVOID ALCOHOL. DISCONTINUE BEFORE GETTING XRAY DYE. Indication: FOR DIABETES 18) MULTIVIT/OPHTH AREDS2/LUTE/ZEAX CAP/TAB TAKE 1 CAP/TAB BY ACTIVE (S) MOUTH TWICE A DAY WITH MEAL(S) AVOID IF YOU HAVE PEANUT ALLERGY. Indication: FOR EYE HEALTH 19) NITROGLYCERIN 0.4MG SL TAB DISSOLVE ONE TABLET UNDER THE ACTIVE TONGUE ONE-TIME NEEDED ; IF NO IMPROVEMENT AFTER FIRST DOSE CALL 01-20-. MAY TAKE 2 ADDITIONAL DOSES, 5 MINUTES APART. TAKE WHILE SITTING. Indication: FOR CHEST PAIN 20) ONDANSETRON HCL 8MG TAB TAKE ONE-HALF TABLET BY MOUTH ONCE A ACTIVE DAY NEEDED Indication: FOR NAUSEA/VOMITING 21) OXYBUTYNIN CHLORIDE 5MG TAB TAKE ONE TABLET BY MOUTH THREE ACTIVE (S) TIMES A DAY FOR BLADDER 22) OXYCODONE 7.5MG/ACETAMINOPHEN 325MG TAB TAKE 1 TABLET BY ACTIVE MOUTH EVERY 4 HOURS NEEDED FOR PAIN (MAX 4 TABLETS PER DAY; HOLD WITHIN 4 HOURS OF PLANNED SLEEP) THIS QUANTITY MUST LAST 28 DAYS OR MORE NOTE: DO NOT EXCEED 4000MG PER DAY ACETAMINOPHEN (APAP) 23) PANTOPRAZOLE NA 40MG EC TAB TAKE ONE TABLET BY MOUTH EVERY ACTIVE (S) MORNING BEFORE A MEAL TAKE 30 MINUTES BEFORE MEAL(S) Indication: FOR GASTROESOPHAGEAL REFLUX DISEASE 24) RANOLAZINE 500MG SA TAB TAKE ONE TABLET BY MOUTH TWICE A DAY ACTIVE (S) *SWALLOW WHOLE- DO NOT CRUSH,BREAK OR CHEW* 25) SPIRONOLACTONE 50MG TAB TAKE ONE TABLET BY MOUTH ONCE A DAY ACTIVE (S) AND EXCESSIVE FLUID. DOSE DECREASE Indication: FOR HEART FAILURE 26) TRAZODONE HCL 100MG TAB TAKE ONE TABLET BY MOUTH AT BEDTIME ACTIVE (S) FOR MOOD OR SLEEP. REVIEW OF SYSTEMS: HEENT: No Headache. No blurry vision, vision loss, eye pain, red eyes, or foreign body. No runnynose, congestion, or nose bleed. No hearing loss, ringing in the ears, or vertigo. No sore throat or dental pain. RESPIRATORY: No cough, SOA, wheezing, or sputum production. CARDIOVASCULAR: No chest pain, palpitations, tachycardia, PND, or orthopnea. GI: No abdominal pain, nausea, vomiting, diarrhea, constipation, melena, or hematochezia. : No dysuria, hematuria, urinary frequency, weak stream, or post-void dribbling. MUSCULOSKELETAL:chronic joint pain. SKIN: No rash, lesions, or infection PSYCH: No Depression or Anxiety. Not suicidal. PHYSICAL ASSESSMENT: VITAL SIGNS Pulse: 76 (06/05/2024 13:50) Blood Pressure: 115/72 (06/05/2024 13:50) Respiratory Rate: 18 (06/05/2024 13:50) Temperature: 98.5 F [36.9 C] (10/05/2023 11:32) Weight: 186.3 lb [84.50 kg] (06/05/2024 13:50) Height: 66.0 in [167.6 cm] (06/05/2024 13:50) Pain: 0 (09/04/2023 13:58) CARDIAC: Regular rate and rhythm without murmur. No edema. RESPIRATORY: CTA upper lobes, lower lobes diminished bilaterally. GI: Abdomen soft,with ABS, no HSM, no guarding or rebound. MUSCULOSKELETAL:Chronic joint pain. SKIN: [place] without rash or lesions. NEUROLOGICAL: The is alert and oriented without distress. Affect appropriate. IMPRESSION: Medication Counseling-current Diabetes Mellitus Type II-current PLAN: Continue current medications. Vitamin B12 is optional. RTC as previously scheduled. Patient is advised this primary care clinic [...] the After Visit Summary was reviewed with [place]; opportunity provided to report concerns and ask [...] assistance with smoking cessation at this time. /matt/ KAREN Cronin CBOC Signed: 06/15/2024 18:48 DAKOT[facility] INFANTE
--- OUTSIDE RECORDS SUMMARY | 2024-06-17 08:15 | XMS_ITS | Encounter Summary ---
Author Name [facility] [place] [facility] [place] [facility] [place] Address [address] [place] [address] Care Team Providers Care Glass Lathe Operator Name Role Phone DAKOTAH INFANTE Primary [...] HOSPITAL (WNR) MEDICARE ADVANTAGE HUMAN A INSUR [employer] May 22, 2020 [id number] [phone] JAMI CASTELLANO PATIENT INNOVIANT E-PHARM PRESCRIPT ION SWEET WATER KANDI DIST Jan 20, 2007 [id number] [phone] JAMI CASTELLANO PATIENT MEDICARE (WNR) MEDICARE (M) PART A Nov 19, 2013 PART A [id number] JAMI CASTELLANO PATIENT MEDICARE (WNR) MEDICARE (M) PART B Nov 19, 2013 PART B [id number] JAMI CASTELLANO PATIENT MEDICARE (WNR) MEDICARE (M) PART A Nov 19, 2013 PART A [id number] [phone] JAMI CASTELLANO PATIENT MEDICARE (WNR) MEDICARE (M) PART B Nov 19, 2013 PART B [id number] [phone] JAMI CASTELLANO PATIENT MEDICARE (WNR) MEDICARE (M) PART A Nov 19, 2013 PART A [id number] [phone] JAMI CASTELLANO PATIENT MEDICARE (WNR) MEDICARE (M) PART B Nov 19, 2013 PART B [id number] JAMI CASTELLANO PATIENT MEDICARE (WNR) MEDICARE (M) PART A Nov 19, 2013 PART A [id number] JAMI CASTELLANO PATIENT MEDICARE (WNR) MEDICARE (M) PART B Nov 19, 2013 PART B [id number] JAMI CASTELLANO PATIENT MEDICARE (WNR) MEDICARE (M) PART A Nov 19, 2013 PART A [id number] JAMI CASTELLANO PATIENT MEDICARE (WNR) MEDICARE (M) PART B Nov 19, 2013 PART B [id number] [phone] JAMI CASTELLANO PATIENT MEDICARE (WNR) MEDICARE (M) PART A Nov 19, 2013 PART A [id number] JAMI CASTELLANO PATIENT MEDICARE (WNR) MEDICARE (M) PART B Nov 19, 2013 PART B [id number] JAMI CASTELLANO PATIENT MEDICARE (WNR) MEDICARE (M) PART A Nov 19, 2013 PART A [id number] JAMI CASTELLANO PATIENT MEDICARE (WNR) MEDICARE (M) PART B Nov 19, 2013 PART B [id number] JAMI CASTELLANO PATIENT MEDICARE (WNR) MEDICARE (M) PART A Nov 19, 2013 PART A [id number] JAMI CASTELLANO PATIENT MEDICARE (WNR) MEDICARE (M) PART B Nov 19, 2013 PART B [id number] JAMI CASTELLANO PATIENT MEDICARE PART D (WNR) MEDICARE (M) PART D May 22, 2020 PART D [id number] JAMI CASTELLANO PATIENT MEDICARE PART D (WNR) MEDICARE (M) PART D Feb 19, 2014 PART D [id number] JAMI CASTELLANO PATIENT 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 Date/Time Encounter Type Encounter Description Reason Provider Source Jun 17, 2024 01:15 PM OFF/OP EST SEPTEMBER X REQ PHY/QHP PRIMARY CARE/MEDICINE ICD-10-CM R05.1 Acute cough BALA HAYES Bruna Encounter Template Text not used by [place] Assessments - Encounter Diagnoses This section includes the primary and secondary diagnoses documented for the Encounter. Date/Time Primary/Secondary Diagnosis Diagnosis Name Provider Source Jun 17, 2024 01:58 PM PRIMARY Acute cough [facility] Jun 17, 2024 01:58 PM SECONDARY Nasal congestion BALA HAYES [facility] Plan of Treatment: Future Appointments (+ 6 months) and Future Tests (+/- 45 days) The Plan of Treatment section includes future care activities for the patient from all [place] treatmentfacilities. This section includes future appointments and future orders which are active, pending or scheduled. Future Appointments This section includes appointments that were scheduled to occur 6 months from the date of the Encounter, up to a maximum of 20 appointments. The data comes from all [place] treatment facilities. Appointment Date/Time Appointment Type Appointme nt Facility Name Jun 19, 2024 11:45 AM AMBULATORY - [facility]IC[facility] [place] [facility] Jun 19, 2024 01:00 PM AMBULATORY - PS[facility]CHIATRY [facility] Jun 19, 2024 02:00 PM AMBULATORY - MEDICINE [facility] Jun 19, 2024 02:01 PM [facility] [place] [facility] Jun 21, 2024 12:30 PM AMBULATORY - MEDICINE [facility] Jun 27, 2024 01:30 PM AMBULATORY - MEDICINE [facility] Jul 01, 2024 02:00 PM AMBULATORY - MEDICINE [facility] Jul 01, 2024 02:02 PM [facility] [place] [facility] Jul 04, 2024 01:30 PM AMBULATORY - MEDICINE [facility] Jul 16, 2024 01:00 PM [facility] Jul 31, 2024 12:30 PM AMBULATORY - MEDICINE [facility] Jul 31, 2024 12:32 PM [facility] [place] [facility] Aug 13, 2024 03:00 PM AMBULATORY - [facility]RY [facility] September 19, 2024 01:30 PM [facility] [place] [facility] September 26, 2024 11:45 AM AM[facility]ORY [facility]RY [facility] September 26, 2024 11:46 AM [facility] [place] [facility] October 01, 2024 12:00 PM AMBULATORY - MEDICINE [facility] October 01, 2024 12:01 PM [facility] [place] [facility] October 01, 2024 12:30 PM AMBULATORY - MEDICINE [facility] October 08, 2024 02:00 PM AMBULATORY - MEDICINE [facility] Active, Pending, and Scheduled Orders This section includes a listing of several types of active, pending, and scheduled orders, including clinic medications orders, diagnostic test orders, procedure orders and consult orders; where the start date of the order is 45 days before the date of the Encounter or 45 days after the date of theEncounter. The data comes from all [place] treatment facilities. Test Date/Time Test Type Test Details Facility Name Jun 21, 2024 01:06 PM Laboratory - Chemi stry Order ANCILLARY INFLUENZA A&B (PB) NARES SP [place] [place] [facility] Lab Results: +/- 30 days of the encounter This section includes the Chemistry and Hematology Lab Results on record with [place] for the patient. Radiology Reports and Pathology Reports are provided separately, in subsequent sections. Lab Results This section contains the Chemistry/Hematology Results that were resulted 30 days before or 30 daysafter the date of the Encounter. Date/Time Source Result Type Result - Unit Interpretation Reference Range Specimen Type Comment Jul 04, 2024 01:47 PM [facility] [id number]-8,3-GALACTOSE IGE SERUM Speci men Type: SERUM Comment: REFERENCE RANGE: <0.10 kU/L Results above 0.1 kU/L indicate an allergen-specific IgE sensitization to pdcihhnzm-z-9,3-g alactose, and such patients are at risk [...] method. Additional information can be found at [email or web address] Test performed by [facility] [address] [place] [address] Automated Manufacturing Instructor: Loni Landis MD,PHD,SANCHO Test Reported by [email or web address], [facility], [address] [place], [place] Wilfred Velásquez M.D., Ph.D., Director of Laboratories , [place] [id number] Ordering Provider: LILIAM HARPER Report Released Date/Time: Jul 04, 2024 01:45 PM Reporting Lab: [place] [facility] [address] [place] [address] Performing Lab: [place] [facility] [address] [facility] OREZQRCWX-XCXAV-4,3-GALACTOSE IGE <0.10 kU/L SEE BELOW Jul 04, 2024 01:47 PM [facility] [place] [place] [facility] FOLATE (PB) SERUM Specimen Typ e: SERUM No comment entered. Ordering Provider: LILIAM HARPER Report Released Date/Time: Jul 04, 2024 01:45 PM Reporting Lab: [place] [facility] [address] [place] [address] Performing Lab: [place] [facility] [address] [place] [address] FOLATE (PB) 15.7 ng/mL 7-20 Jul 04, 2024 01:47 PM [facility] [place] [facility] B12 SERUM Specimen Type: SERUM No comment entered. Ordering Provider: LILIAM HARPER Report Released Date/Time: Jul 04, 2024 01:45 PM Reporting Lab: [place] [facility] [address] [place] [address] Performing Lab: [place] [facility] [address] [place] [address] B12 673 pg/mL 213-816 Jul 04, 2024 01:47 PM [facility] VITAMIN D, 25-HYDROXY SERUM Specimen Type: SE RUM No comment entered. Ordering Provider: LILIAM HARPER Report Released Date/Time: Jul 04, 2024 01:45 PM Reporting Lab: [place] [facility] [address] [place] [address] Performing Lab: [place] [facility] [address] [place] [address] VITAMIN D, 25-HYDROXY 31.5 ng/mL 30-96 Jul 02, 2024 12:44 PM [place] [facility] DIRECT LDL (MA-PB) PLASMA Specimen Type: PLASM A No comment entered. Ordering Provider: LILIAM HARPER Report Released Date/Time: Apr 09, 2024 03:26 PM Reporting Lab: [place] [facility] [address] [place] [address] Performing Lab: [place] [facility] [address] [place] [address] DIRECT LDL 70.4 mg/dL 0-99.9 Jul 02, 2024 12:44 PM [facility] HGA1C BLOOD Specimen Type: BLOOD No comment entered. Ordering Provider: LILIAM HARPER Report Released Date/Time: Apr 09, 2024 03:26 PM Reporting Lab: [place] [facility] [address] [place] [address] Performing Lab: [place] [facility] [address] [place] [address] HGA1C 6.6 H 4.0-6.0 Jul 02, 2024 12:44 PM [facility] CHOLESTEROL PANEL (PB) PLASMA Specimen Type: P LASMA No comment entered. Ordering Provider: LILIAM HARPER Report Released Date/Time: Apr 09, 2024 03:26 PM Reporting Lab: [place] [facility] [address] [place] [address] Performing Lab: [place] [facility] [address] [place] [address] CHOLESTEROL 120 mg/dL 0-200 TRIGLYCERIDE 164 mg/dL H 0-150 CALCULATED LDL 61.2 mg/dL HDL(New) 26.0 mg/dL L >40 HDL % OF TOTAL CHOLESTEROL (PB) 21.7 >25 Jul 02, 2024 12:44 PM [facility] COMPREHENSIVE METABOLIC PANEL PLASMA Specimen Type: PLASMA No comment entered. Ordering Provider: LILIAM HARPER Report Released Date/Time: Apr 09, 2024 03:26 PM Reporting Lab: [place] [facility] [address] [place] [address] Performing Lab: [place] [facility] [address] [place] [address] CREATININE 0.66 mg/dL 0.6-1.1 UREA NITROGEN 13 [...] 2020) 99 Jun 21, 2024 01:17 PM [facility] ANCILLARY INFLUENZA A&B (PB) NARES Specimen T ype: NARES Comment: Test performed by: Benito Coronado [id number] Meter #: [id number] Ordering Provider: DAKOTAH INFANTE Report Released Date/Time: Jun 21, 2024 01:29 PM Reporting Lab: [facility] [address] [facility] [address] Performing Lab: [facility] [address] [facility] [address] INFLUENZA A negative Negative INFLUENZA B negative Negative Vital Signs: All taken on the encounter date This section contains inpatient and outpatient Vital Signs collected on the date of the Encounter. Date/Time Temperature Pulse Blood Pressure Respiratory Rate SP02 Pain Height Weight Body Mass Index Source Jun 17, 2024 01:42 PM 98.6 86 108/74 8 94 7 187.9 30 [facility] Social History: Smoking Status (Most current) and Tobacco Use (All prior to encounter date) This section includes the most current, and the historical, smoking and tobacco- related health factors from the [place] facility where the Encounter took place. Current Smoking Status This section includes the most current smoking, or tobacco-related health factor, from the [place] facility where the Encounter took place. Date/Time Current Smoking Status Comment Facil ity Aug 23, 2023 11:00 AM VA-TOBACCO USER EVERY DAY [facility] Tobacco Use History This section includes a history of the smoking, or tobacco-related health factors, that were collected on or before the date of the Encounter. The data comes from the [place] facility where the Encounter took place. 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 SERVICER NO [facility] Aug 23, 2023 11:00 AM VA-TOBACCO USE MED NO [facility] Aug 23, 2023 11:00 AM VA-TOBACCO USE WI 30 MIN OF WAKE UP [facility] Aug 23, 2023 11:00 AM VA-TOBACCO USER EVERY DAY [facility] Aug 24, 2022 01:30 PM VA-TOBACCO DOESNT USE WI 30 MIN WAKEUP [facility] Aug 24, 2022 01:30 PM VA-TOBACCO USE > 1 5 LESS THAN 30 YEARS [facility] Aug 24, 2022 01:30 PM VA-TOBACCO USE ADVICE [facility] Aug 24, 2022 01:30 PM VA-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 USE 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 SERVICER NO [facility] Aug 24, 2022 01:30 PM VA-TOBACCO USE MED NO [facility] Aug 24, 2022 01:30 PM VA-TOBACCO USER EVERY DAY [facility] Aug 30, 2021 01:30 PM VA-TOBACCO USE 30 YEARS OR MORE [facility] Aug 30, 2021 01:30 PM VA-TOBACCO USE ADVICE [facility] Aug 30, 2021 01:30 PM VA-TOBACCO USE 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 SERVICER NO [place] [facility] Aug 30, 2021 01:30 PM VA-TOBACCO USE MED NOTIFY PROVID ER [place] [facility] Aug 30, 2021 01:30 PM VA-TOBACCO USE WI 30 MIN OF WAKE UP [facility] Aug 30, 2021 01:30 PM VA-TOBACCO USER EVERY DAY [facility] Feb 17, 2020 02:00 PM VA-TOBACCO USE 30 YEARS OR MORE [place] [facility] Feb 17, 2020 02:00 PM VA-TOBACCO USE ADVICE [place] [facility] Feb 17, 2020 02:00 PM VA-TOBACCO USE 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 SERVICER NO [facility] Feb 17, 2020 02:00 PM VA-TOBACCO USE MED NO [facility] Feb 17, 2020 02:00 PM VA-TOBACCO USE WI 30 MIN OF WAKE UP [facility] Feb 17, 2020 02:00 PM VA-TOBACCO USER EVERY DAY [facility] Jun 27, 2018 12:01 PM VA-TOBACCO USE 30 YEARS OR MORE [facility] Jun 27, 2018 12:01 PM VA-TOBACCO USE ADVICE [facility] Jun 27, 2018 12:01 PM VA-TOBACCO USE 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 SERVICER NO [facility] Jun 27, 2018 12:01 PM VA-TOBACCO USE MED NO [facility] Jun 27, 2018 12:01 PM VA-TOBACCO USE WI 30 MIN OF WAKE UP [facility] Jun 27, 2018 12:01 PM VA-TOBACCO USER EVERY DAY [facility] Jul 20, 2017 04:18 PM CURRENT TOBACCO USER [facility] Jul 20, 2017 04:18 PM CURRENT TOBACCO US ER (NOT READY TO QUIT) [facility] Jul 20, 2017 04:18 PM TOBACCO CESSATION REFERRAL DECLI JENNIFFER [facility] Jul 20, 2017 04:18 PM TOBACCO MEDS OFFERED BUT DECLINE D [facility] Jul 20, 2017 04:18 PM TOBACCO USER OFFERED MEDS [facility] Jul 20, 2017 04:00 PM CURRENT TOBACCO USER [facility] Jul 20, 2017 04:00 PM CURRENT TOBACCO US ER (NOT READY TO QUIT) [facility] Jul 20, 2017 04:00 PM TOBACCO CESSATION REFERRAL DECLI JENNIFFER [facility] Jul 20, 2017 04:00 PM TOBACCO MEDS OFFERED BUT DECLINE D [facility] Jul 20, 2017 04:00 PM TOBACCO USER OFFERED MEDS [facility] Advance Directives: All historical and current Section Date Range: From patient's date of to the date document was created. This section includes ALL of a patient's completed or amended [place] Advance and Rescinded Directives. The entries below indicate that a directive exists for the patient, but an actual copy is not included with this document. The data comes from all [place] facilities. Date Advance Directives Provider Source Dec 18, 2023 ADVANCE DIRECTIVE PETER BOWLING MARIVEL FF [facility] Radiology Reports: +/- 30 days of the [...] the Encounter. The data comes from all [place] treatment facilities. Date/Time Radiology Report Provider Source Jul 04, 2024 01:52 PM CHEST X-RAY, 2 VIE WS: JAMI CASTELLANO [id number] -[id number] F Exm Date: JUL 04, 2024@13:52 Req Phys: DAKOTAH INFANTE [facility] AN[facility]UOT BANANA EXPERT WH (Req Img Loc: [facility] Service: [place] [address] (Case [id number] COMPLETE) CHEST X-RAY, 2 VIEWS (RAD Detailed) CPT:94380 Reason for Study: follow up pneumonia Clinical History: Report Status: Verified Date Reported: JUL 04, 2024 Date Verified: JUL 04, 2024 Editor & Co Founder E-Sig: Report: PA and lateral views of the chest reveal minimal spinal curvature with no acute osseous abnormality. There is no infiltrate or effusion. Heart size is normal. There is a neurostimulator in the mid thoracic spinal canal. Impression: No acute process Primary Interpreting Staff: RADHA SMALL RADIOLOGIST (Editor & Co Founder, no e-sig) /RADHA Ramos [facility] Jun 27, 2024 01:42 PM CHEST X-RAY, 2 VIE WS: JAMI CASTELLANO [id number] -[id number] F Exm Date: JUN 27, 2024@13:42 Req Phys: DAKOTAH INFANTE R [facility] JEANETTEBELTRAN BANANA EXPERT WH (Req Img Loc: [facility] Service: [place] [address] (Case [id number] COMPLETE) CHEST X-RAY, 2 VIEWS (RAD Detailed) CPT:56616 Reason for Study: cont cough with positive flu Clinical History: copd and current smoker Report Status: Verified Date Reported: JUN 27, 2024 Date Verified: JUN 27, 2024 Editor & Co Founder E-Sig: Report: Chest 2 views. Mild elevation [...] indicated Primary Interpreting Staff: HUBERT BRUNNER, RADIOLOGIST (Editor & Co Founder, no e-sig) /HUBERT Buck [facility] Encounter Notes: All associated encounter notes This section contains the clinical notes associated to the Encounter. Date/Time Encounter Note(s) Provider Source Jun 17, 2024 01:46 PM GENERAL MEDICINE N OTE: LOCAL TITLE: General Note PB STANDARD TITLE: GENERAL MEDICINE NOTE DATE OF NOTE: JUN 17, 2024@13:46 ENTRY DATE: JUN 17, 2024@13:46:50 AUTHOR: DAKOTAH INFANTE EXP COSIGNER: URGENCY: STATUS: COMPLETED Doxycycline 100mg one po bid for 7 days and tessalon perles 100mg on po tid prn given for to fill on the immediate need benefit plan. /es/ MARYJO Cronin-[facility] Signed: 06/17/2024 13:47 DAKOTAH INFANTE [facility] Jun 17, 2024 01:29 PM NURSING PROGRESS N OTE: LOCAL TITLE: NURSING NOTE PB STANDARD TITLE: NURSING PROGRESS NOTE DATE OF NOTE: JUN 17, 2024@13:29 ENTRY DATE: JUN 17, 2024@13:29:33 AUTHOR: BALA HAYES EXP COSIGNER: URGENCY: STATUS: COMPLETED This is a 63 year old FEMALE with known Allergies as noted: PENICILLIN, BEE STINGS, TRAMADOL, IODINE CONTRAST EVEN WITH PREP, BAND-AIDS PNEUMOCOCCAL VACCINE, SEMAGLUTIDE On the following Active Medications: Active Outpatient Medications (including Supplies): Active Outpatient [...] (D3-2,000UNIT) TAB TAKE TWO TABLETS BY ACTIVE MOUTH ONCE A DAY Indication: FOR VITAMIN [...] IF NO IMPROVEMENT AFTER FIRST DOSE CALL . MAY TAKE 2 ADDITIONAL DOSES, 5 MINUTES APART. TAKE WHILE SITTING. Indication: FOR CHEST PAIN 20) OXYBUTYNIN CHLORIDE 5MG TAB TAKE ONE TABLET BY MOUTH THREE ACTIVE (S) TIMES A DAY FOR BLADDER 21) OXYCODONE 7.5MG/ACETAMINOPHEN 325MG TAB TAKE 1 TABLET BY ACTIVE MOUTH EVERY 4 HOURS NEEDED FOR PAIN (MAX 4 TABLETS PER DAY; HOLD WITHIN 4 HOURS OF PLANNED SLEEP) THIS QUANTITY MUST LAST 28 DAYS OR MORE NOTE: DO NOT EXCEED 4000MG PER DAY ACETAMINOPHEN (APAP) 22) PANTOPRAZOLE NA 40MG EC TAB TAKE ONE TABLET BY MOUTH EVERY ACTIVE (S) MORNING BEFORE A MEAL TAKE 30 MINUTES BEFORE MEAL(S) Indication: FOR GASTROESOPHAGEAL REFLUX DISEASE 23) RANOLAZINE 500MG SA TAB TAKE ONE TABLET BY MOUTH TWICE A DAY ACTIVE (S) *SWALLOW WHOLE- DO NOT CRUSH,BREAK OR CHEW* 24) SPIRONOLACTONE 50MG TAB TAKE ONE TABLET BY MOUTH ONCE A DAY ACTIVE (S) AND EXCESSIVE FLUID. DOSE DECREASE Indication: FOR HEART FAILURE 25) TRAZODONE HCL 100MG TAB TAKE ONE TABLET BY MOUTH AT BEDTIME ACTIVE FOR MOOD OR SLEEP. C/C: congestion/ coughing S: The presented to the clinic today with the complaint of cough and congestion since yesterday. The reports that her ears also feel full. The reports that she has not taken anything OTC for her symptoms. O/A: The ambulated to the exam room without assistance, gate is steady. The is afebrile today in clinic. Auscultated the 's lungs, she does have some inspiratory and expiratory wheezes that mostly clear with coughing. her throat is red and her tonsils are swollen. The also reports pain in the Maxillary sinuses with palpation. Vitals were stable today. Vital Signs: as charted. P: Discussed the above symptoms and assessment with SOLITARIO Infante. Let the know that Dakotah had written her a script for doxycycline and a cough medication. Also let her know that she can take Vitamin D3 1000 units daily- protects against acute respiratory diseases. Vitamin C 1000mg daily boosts the immune system Magnesium 400mg daily-enhances Vit D, protects the lungs, kidneys and heart. Guaifenesin 600mg twice daily as needed To help with symptoms. The voiced understanding, is in agreement with the plan and has no further questions or complaints at this time. The ambulated to the exit in satisfactory manner. RTC: as needed. Per [facility] Directive 1605.06, wristband documentation: Patient wristband was removed and destroyed by (staff name) Geovanna Haeys RN and placed in the designated [employer] bin. /matt/ Bala Hayes RN,BSN [place] Signed: 06/17/2024 13:58 Receipt Acknowledged By: 06/17/2024 14:17 /es/ [facility] JOHANNA R [place] [facility]
--- OUTSIDE RECORDS SUMMARY | 2024-06-19 08:00 | XMS_ITS | Encounter Summary ---
Author Name [facility] [place] [facility] [place] Address [address] [place] [address] Care Team Providers Care Offset Printer Name Role Phone DAKOTAH INFANTE Primary Care [...] Name Patient's Relationship to Policy [facility] (WNR) MEDICARE ADVANTAGE HUMAN A INSUR ANCE COM May 22, 2020 [id number] [phone] JAMI CASTELLANO PATIENT INNOVIANT E-PHARM PRESCRIPT ION SWEET WATER KANDI DIST Jan 20, 2007 [id number] [phone] JAMI CASTELLANO PATIENT MEDICARE (WNR) MEDICARE (M) PART A Nov 19, 2013 PART A [id number] JAMI CASTELLANO PATIENT MEDICARE (WNR) MEDICARE (M) PART B Nov 19, 2013 PART B [id number] JAMI CASTELLANO PATIENT MEDICARE (WNR) MEDICARE (M) PART A Nov 19, 2013 PART A [id number] JAMI CASTELLANO PATIENT MEDICARE (WNR) MEDICARE (M) PART B Nov 19, 2013 PART B [id number] JAMI CASTELLANO PATIENT MEDICARE (WNR) MEDICARE (M) PART B Nov 19, 2013 PART B [id number] JAMI CASTELLANO PATIENT MEDICARE (WNR) MEDICARE (M) PART A Nov 19, 2013 PART A [id number] JAMI CASTELLANO PATIENT MEDICARE (WNR) MEDICARE (M) PART A Nov 19, 2013 PART A [id number] JAMI CASTELLANO PATIENT MEDICARE (WNR) MEDICARE (M) PART B Nov 19, 2013 PART B [id number] JAMI CASTELLANO PATIENT MEDICARE (WNR) MEDICARE (M) PART A Nov 19, 2013 PART A [id number] JAMI CASTELLANO PATIENT MEDICARE (WNR) MEDICARE (M) PART B Nov 19, 2013 PART B [id number] JAMI CASTELLANO PATIENT MEDICARE (WNR) MEDICARE (M) PART A Nov 19, 2013 PART A [id number] JAMI CASTELLANO PATIENT MEDICARE (WNR) MEDICARE (M) PART B Nov 19, 2013 PART B [id number] JAMI CASTELLANO PATIENT MEDICARE (WNR) MEDICARE (M) PART A Nov 19, 2013 PART A [id number] JAMI CASTELLANO PATIENT MEDICARE (WNR) MEDICARE (M) PART B Nov 19, 2013 PART B [id number] JAMI CASTELLANO PATIENT MEDICARE (WNR) MEDICARE (M) PART A Nov 19, 2013 PART A [id number] JAMI CASTELLANO PATIENT MEDICARE (WNR) MEDICARE (M) PART B Nov 19, 2013 PART B [id number] JAMI CASTELLANO PATIENT MEDICARE PART D (WNR) MEDICARE (M) PART D May 22, 2020 PART D [id number] JAMI CASTELLANO PATIENT MEDICARE PART D (WNR) MEDICARE (M) PART D Feb 19, 2014 PART D [id number] JAMI CASTELLANO 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 Date/Time Encounter Type Encounter Description Reason Provider Source Jun 19, 2024 01:00 PM Outpatient Encounter [facility] Encounter Template Text not used by [place] [...] Appointment Type Appointme nt Facility Name Jun 21, 2024 12:30 PM AMBULATORY - MEDICINE [facility] Jun 27, 2024 01:30 PM AMBULATORY - MEDICINE [facility] Jul 01, 2024 02:00 PM AMBULATORY - MEDICINE [facility] Jul 01, 2024 02:02 PM AMBULATORY - MEDICINE [facility] Jul 04, 2024 01:30 PM AMBULATORY - MEDICINE [facility] Jul 16, 2024 01:00 PM AMBULATORY - PSYCHIATRY [facility] Jul 31, 2024 12:30 PM AMBULATORY - MEDICINE [facility] Jul 31, 2024 12:32 PM AMBULATORY - [facility]IC[place] [facility] Aug 13, 2024 03:00 PM AMBULATORY - PSYCHIATRY [facility] September 19, 2024 01:30 PM AMBULATORY [facility] [place] [facility] September 26, 2024 11:45 AM AMBULATORY - PSYCHIATRY [facility] September 26, 2024 11:46 AM AMBULATORY - [facility] [facility] October 01, 2024 12:00 PM AMBULATORY - MEDICINE [facility] October 01, 2024 12:01 PM AM[facility]ULATORY [facility] [place] [facility] October 01, 2024 12:30 PM AMBULATORY - MEDICINE [facility] October 08, 2024 02:00 PM AMBULATORY - MEDICINE [facility] Oct 21, 2024 01:00 PM AMBULATORY - MEDICINE [facility] Oct 22, 2024 01:00 PM AMBULATORY - MEDICINE [facility] Oct 30, 2024 12:00 PM AMBULATORY - NONE [facility] Active, Pending, and Scheduled Orders This [...] Order ANCILLARY INFLUENZA A&B (PB) NARES SP [facility] Lab Results: +/- 30 days of [...] Type Comment Jul 04, 2024 01:47 PM [facility] ZEXSDTELL-LVJPI-4,3-GALACTOSE IGE SERUM Speci men Type: SERUM Comment: REFERENCE RANGE: <0.10 kU/L Results above 0.1 kU/L indicate an allergen-specific IgE sensitization to asgykfqxy-w-5,3-g alactose, and such patients are at risk [...] method. Additional information can be found at [email or web address] .Cuciniale Test performed by [facility] [place] [id number] [place] [id number] Ship'S Officer: Loni Landis MD,PHD,SANCHO Test Reported by [facility], [facility], [address] [place] [address] Wilfred Velásquez M.D., Ph.D., Director of Laboratories , [facility] [id number] Ordering Provider: LILIAM HARPER Report Released Date/Time: Jul 04, 2024 01:45 PM Reporting Lab: [place] [facility] [address] [place] [address] Performing Lab: [place] [facility] [address] [facility] MXQPRWSMS-CALKZ-2,3-GALACTOSE IGE <0.10 kU/L SEE BELOW Jul 04, 2024 01:47 PM [facility] FOLATE (PB) SERUM Specimen Typ e: SERUM No comment entered. Ordering Provider: LILIAM HARPER Report Released Date/Time: Jul 04, 2024 01:45 PM Reporting Lab: [place] [facility] [address] [place] [address] Performing Lab: [place] [facility] [address] [place] [address] FOLATE (PB) 15.7 ng/mL 7-20 Jul 04, 2024 01:47 PM [facility] [place] [facility] B12 SERUM Specimen Type: SERUM No comment entered. Ordering Provider: LILIAM HARPER Report Released Date/Time: Jul 04, 2024 01:45 PM Reporting Lab: [place] [facility] [address] [place] [address] Performing Lab: [place] [facility] [address] [place] [address] B12 673 pg/mL 213-816 Jul 04, 2024 01:47 PM [facility] [place] [facility] VITAMIN D, 25-HYDROXY SERUM Specimen Type: SE RUM No comment entered. Ordering Provider: LILIAM HARPER Report Released Date/Time: Jul 04, 2024 01:45 PM Reporting Lab: [place] [facility] [address] [place] [address] Performing Lab: [place] [facility] [address] [place] [address] VITAMIN D, 25-HYDROXY 31.5 ng/mL 30-96 Jul 02, 2024 12:44 PM [facility] HGA1C BLOOD Specimen Type: BLOOD No comment entered. Ordering Provider: LILIAM HARPER Report Released Date/Time: Apr 09, 2024 03:26 PM Reporting Lab: [place] [facility] [address] [place] [address] Performing Lab: [place] [facility] [address] [place] [address] HGA1C 6.6 H 4.0-6.0 Jul 02, 2024 12:44 PM [facility] [place] [facility] DIRECT LDL (MA-PB) PLASMA Specimen Type: PLASM A No comment entered. Ordering Provider: LILIAM HARPER Report Released Date/Time: Apr 09, 2024 03:26 PM Reporting Lab: [place] [facility] [address] [place] [address] Performing Lab: [place] [facility] [address] [place] [address] DIRECT LDL 70.4 mg/dL 0-99.9 Jul 02, 2024 12:44 PM [facility] CHOLESTEROL PANEL (PB) PLASMA Specimen Type: P LASMA No comment entered. Ordering Provider: LILIAM HARPER Report Released Date/Time: Apr 09, 2024 03:26 PM Reporting Lab: [place] [facility] [address] [place] [address] Performing Lab: [place] [facility] [address] [place] [address] CHOLESTEROL 120 mg/dL 0-200 TRIGLYCERIDE 164 mg/dL H 0-150 CALCULATED LDL 61.2 mg/dL HDL(New) 26.0 mg/dL L >40 HDL % OF TOTAL CHOLESTEROL (PB) 21.7 >25 Jul 02, 2024 12:44 PM [facility] COMPREHENSIVE METABOLIC PANEL PLASMA Specimen Type: PLASMA No comment entered. Ordering Provider: LILIAM HARPER Report Released Date/Time: Apr 09, 2024 03:26 PM Reporting Lab: [place] [facility] [address] [place] [address] Performing Lab: [place] [facility] [address] [place] [address] CREATININE 0.66 mg/dL 0.6-1.1 UREA NITROGEN 13 [...] 2020) 99 Jun 21, 2024 01:17 PM [facility] ANCILLARY INFLUENZA A&B (PB) NARES Specimen T ype: NARES Comment: Test performed by: Benito Coronado [id number] Meter #: [id number] Ordering Provider: DAKOTAH INFANTE Report Released Date/Time: Jun 21, 2024 01:29 PM Reporting Lab: [facility] [address] [facility] [address] Performing Lab: [facility] [address] [facility] [address] INFLUENZA A negative Negative INFLUENZA B negative Negative Social History: Smoking Status (Most current) and Tobacco Use (All prior to encounter date) This section includes the most current, and the historical, smoking and tobacco- related health factors from the [place] facility where the Encounter took place. Current Smoking Status This section includes the most current smoking, or tobacco-related health factor, from the [place] facility where the Encounter took place. Date/Time Current Smoking Status Comment Facil ity Aug 23, 2023 11:00 AM VA-TOBACCO USE WI 30 MIN OF WAKE UP [facility] [place] [facility] Tobacco Use History This section includes a history of the smoking, or tobacco-related health factors, that were collected on or before the date of the Encounter. The data comes from the [place] facility where the Encounter took place. 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 [facility] Aug 23, 2023 11:00 AM VA-TOBACCO USE MED NO [facility] Aug 23, 2023 11:00 AM VA-TOBACCO USE WI 30 MIN OF WAKE UP [facility] Aug 23, 2023 11:00 AM VA-TOBACCO USER EVERY DAY [facility] Aug 24, 2022 01:30 PM VA-TOBACCO DOESNT USE WI 30 MIN WAKEUP [facility] Aug 24, 2022 01:30 PM VA-TOBACCO USE > 1 5 LESS THAN 30 YEARS [facility] Aug 24, 2022 01:30 PM VA-TOBACCO USE ADVICE [facility] Aug 24, 2022 01:30 PM VA-TOBACCO USE 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 [facility] Aug 24, 2022 01:30 PM VA-TOBACCO USE MED NO [facility] Aug 24, 2022 01:30 PM VA-TOBACCO USER EVERY DAY [facility] Aug 30, 2021 01:30 PM VA-TOBACCO USE 30 YEARS OR MORE [facility] Aug 30, 2021 01:30 PM VA-TOBACCO USE ADVICE [facility] Aug 30, 2021 01:30 PM VA-TOBACCO USE 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 [facility] Aug 30, 2021 01:30 PM VA-TOBACCO USE MED NOTIFY PROVID ER [facility] Aug 30, 2021 01:30 PM VA-TOBACCO USE WI 30 MIN OF WAKE UP [facility] Aug 30, 2021 01:30 PM VA-TOBACCO USER EVERY DAY [facility] Feb 17, 2020 02:00 PM VA-TOBACCO USE 30 YEARS OR MORE [facility] Feb 17, 2020 02:00 PM VA-TOBACCO USE ADVICE [facility] Feb 17, 2020 02:00 PM VA-TOBACCO USE 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 [facility] Feb 17, 2020 02:00 PM VA-TOBACCO USE MED NO [facility] Feb 17, 2020 02:00 PM VA-TOBACCO USE WI 30 MIN OF WAKE UP [facility] Feb 17, 2020 02:00 PM VA-TOBACCO USER EVERY DAY [facility] Jun 27, 2018 12:01 PM VA-TOBACCO USE 30 YEARS OR MORE [facility] Jun 27, 2018 12:01 PM VA-TOBACCO USE ADVICE [facility] Jun 27, 2018 12:01 PM VA-TOBACCO USE 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 [facility] Jun 27, 2018 12:01 PM VA-TOBACCO USE MED NO [facility] Jun 27, 2018 12:01 PM VA-TOBACCO USE WI 30 MIN OF WAKE UP [facility] Jun 27, 2018 12:01 PM VA-TOBACCO USER EVERY DAY [facility] Jul 20, 2017 04:18 PM CURRENT TOBACCO USER [facility] Jul 20, 2017 04:18 PM CURRENT TOBACCO US ER (NOT READY TO QUIT) [facility] Jul 20, 2017 04:18 PM TOBACCO CESSATION REFERRAL DECLI JENNIFFER [facility] Jul 20, 2017 04:18 PM TOBACCO MEDS OFFERED BUT DECLINE D [facility] Jul 20, 2017 04:18 PM TOBACCO USER OFFERED MEDS [facility] Jul 20, 2017 04:00 PM CURRENT TOBACCO USER [facility] Jul 20, 2017 04:00 PM CURRENT TOBACCO US ER (NOT READY TO QUIT) [facility] Jul 20, 2017 04:00 PM TOBACCO CESSATION REFERRAL DECLI JENNIFFER [facility] Jul 20, 2017 04:00 PM TOBACCO MEDS OFFERED BUT DECLINE D [facility] Jul 20, 2017 04:00 PM TOBACCO USER OFFERED MEDS [facility] Advance Directives: All historical and current Section Date Range: From patient's date of to the date document was created. This section includes ALL of a patient's completed or amended [place] Advance and Rescinded Directives. The entries below indicate that a directive exists for the patient, but an actual copy is not included with this document. The data comes from all [place] facilities. Date Advance Directives Provider Source Dec 18, 2023 ADVANCE DIRECTIVE PETER BOWLING MARIVEL FF [facility] Radiology Reports: +/- 30 days of [...] the Encounter. The data comes from all [place] treatment facilities. 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 There is no infiltrate or effusion. Heart size is normal. There is a neurostimulator in the mid thoracic spinal canal. 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 Mild elevation [...] indicated Primary Interpreting Staff: HUBERT BRUNNER, RADIOLOGIST (Bill Of Lading Clerk, no e-sig) /HUBERT Buck [facility]
--- OUTSIDE RECORDS SUMMARY | 2024-06-19 09:01 | XMS_ITS | Encounter Summary ---
Author Name [facility] [place] [facility] [place] [facility] [place] Address [address] [place] [address] Care Team Providers Care Agricultural Service Technician Name Role Phone DAKOTHA INFANTE Primary Care Provider Unavail able Insurance [...] Name Patient's Relationship to Policy Palmer [facility] (WNR) MEDICARE ADVANTAGE HUMAN A INSUR [employer] May 22, 2020 [id number] JAMI CASTELLANO PATIENT INNOVIANT E-PHARM PRESCRIPT ION SWEET WATER KANDI DIST Jan 20, 2007 [id number] [phone] JAMI CASTELLANO PATIENT MEDICARE (WNR) MEDICARE (M) PART A Nov 19, 2013 PART A [id number] JAMI CASTELLANO PATIENT MEDICARE (WNR) MEDICARE (M) PART B Nov 19, 2013 PART B [id number] JAMI CASTELLANO PATIENT MEDICARE (WNR) MEDICARE (M) PART A Nov 19, 2013 PART A [id number] JAMI CASTELLANO PATIENT MEDICARE (WNR) MEDICARE (M) PART B Nov 19, 2013 PART B [id number] JAMI CASTELLANO PATIENT MEDICARE (WNR) MEDICARE (M) PART B Nov 19, 2013 PART B [id number] JAMI CASTELLANO PATIENT MEDICARE (WNR) MEDICARE (M) PART A Nov 19, 2013 PART A [id number] JAMI CASTELLANO PATIENT MEDICARE (WNR) MEDICARE (M) PART A Nov 19, 2013 PART A [id number] JAMI CASTELLANO PATIENT MEDICARE (WNR) MEDICARE (M) PART B Nov 19, 2013 PART B [id number] JAMI CASTELLANO PATIENT MEDICARE (WNR) MEDICARE (M) PART A Nov 19, 2013 PART A [id number] JAMI CASTELLANO PATIENT MEDICARE (WNR) MEDICARE (M) PART B Nov 19, 2013 PART B [id number] JAMI CASTELLANO PATIENT MEDICARE (WNR) MEDICARE (M) PART A Nov 19, 2013 PART A [id number] JAMI CASTELLANO PATIENT MEDICARE (WNR) MEDICARE (M) PART B Nov 19, 2013 PART B [id number] JAMI CASTLELANO PATIENT MEDICARE (WNR) MEDICARE (M) PART A Nov 19, 2013 PART A [id number] JAMI CASTELLANO PATIENT MEDICARE (WNR) MEDICARE (M) PART B Nov 19, 2013 PART B [id number] JAMI CASTELLANO PATIENT MEDICARE (WNR) MEDICARE (M) PART A Nov 19, 2013 PART A [id number] JAMI CASTELLANO PATIENT MEDICARE (WNR) MEDICARE (M) PART B Nov 19, 2013 PART B [id number] JAMI CASTELLANO PATIENT MEDICARE PART D (WNR) MEDICARE (M) PART D May 22, 2020 PART D [id number] JAMI CASTELLANO PATIENT MEDICARE PART D (WNR) MEDICARE (M) PART D Feb 19, 2014 PART D [id number] JAMI 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 Date/Time Encounter Type Encounter Description Reason Pro vider Source Jun 19, 2024 02:01 PM Outpatient Encounter AUDIOLOGY IHE Encounter Template Text not used by [place] Plan of Treatment: Future Appointments (+ 6 months) and Future Tests (+/- 45 days) The Plan of Treatment section includes future care activities for the patient from all [place] treatmentfacilities. This section includes future appointments and future orders which are active, pending or scheduled. Future Appointments This section includes appointments that were scheduled to occur 6 months from the date of the Encounter, up to a maximum of 20 appointments. The data comes from all [place] treatment facilities. Appointment Date/Time Appointment Type Appointme nt Facility Name Jun 21, 2024 12:30 PM AMBULATORY - MEDICINE [facility] Jun 27, 2024 01:30 PM AMBULATORY - MEDICINE [facility] Jul 01, 2024 02:00 PM AMBULATORY - MEDICINE [facility] Jul 01, 2024 02:02 PM [facility] [place]ICINE [place] [facility] Jul 04, 2024 01:30 PM AMBULATORY - MEDICINE [facility] Jul 16, 2024 01:00 PM AM[facility]ATORY - [facility]IATRY [facility] Jul 31, 2024 12:30 PM AMBULATORY - MEDICINE [facility] Jul 31, 2024 12:32 PM [facility] - [facility]ICINE [place] [facility] Aug 13, 2024 03:00 PM [facility]RY [facility] September 19, 2024 01:30 PM [facility] MEDICINE [place] [facility] September 26, 2024 11:45 AM [facility]ORY - [facility]ATRY [facility] September 26, 2024 11:46 AM [facility]ATORY - MEDICINE [place] [facility] October 01, 2024 12:00 PM AMBULATORY - MEDICINE [facility] October 01, 2024 12:01 PM [facility]ATORY - MEDICINE [place] [facility] October 01, 2024 12:30 PM AMBULATORY - MEDICINE [facility] October 08, 2024 02:00 PM AMBULATORY - MEDICINE [facility] Oct 21, 2024 01:00 PM AMBULATORY - MEDICINE [facility] Oct 22, 2024 01:00 PM AMBULATORY - MEDICINE [facility] Oct 30, 2024 12:00 PM AMBULATORY - NONE [place] [facility] Active, Pending, and Scheduled Orders This section includes a listing of several types of active, pending, and scheduled orders, including clinic medications orders, diagnostic test orders, procedure orders and consult orders; where the start date of the order is 45 days before the date of the Encounter or 45 days after the date of theEncounter. The data comes from all [place] treatment facilities. Test Date/Time Test Type Test Details Facility Name Jun 21, 2024 01:06 PM Laboratory - Chemi stry Order ANCILLARY INFLUENZA A&B (PB) NARES SP [facility] Lab Results: +/- 30 days of the encounter This section includes the Chemistry and Hematology Lab Results on record with [place] for the patient. Radiology Reports and Pathology Reports are provided separately, in subsequent sections. Lab Results This section contains the Chemistry/Hematology Results that were resulted 30 days before or 30 daysafter the date of the Encounter. Date/Time Source Result Type Result - Unit Interpretation Reference Range Specimen Type Comment Jul 04, 2024 01:47 PM [facility] SPHPZRSUE-SFGYN-7,3-GALACTOSE IGE SERUM Speci men Type: SERUM Comment: REFERENCE RANGE: <0.10 kU/L Results above 0.1 kU/L indicate an allergen-specific IgE sensitization to cdzgzvztk-y-8,3-g alactose, and such patients are at risk [...] method. Additional information can be found at [email or web address] Test performed by [facility] [place] [address] [address] [id number] Tube Test Technician: Loni Landis MD,PHD,SANCHO Test Reported by [facility], [facility], [address] [place] [address] Wilfred Velásquez M.D., Ph.D., Director of Sheology , [facility] [id number] Ordering Provider: LILIAM HARPER Report Released Date/Time: Jul 04, 2024 01:45 PM Reporting Lab: [place] [facility] [address] [facility] [address] Performing Lab: [place] [facility] [address] [facility] PFFMEEXKC-LPVFZ-3,3-GALACTOSE IGE <0.10 kU/L SEE BELOW Jul 04, 2024 01:47 PM [facility] FOLATE (PB) SERUM Specimen Typ e: SERUM No comment entered. Ordering Provider: LILIAM HARPER Report Released Date/Time: Jul 04, 2024 01:45 PM Reporting Lab: [place] [facility] [address] [place] [address] Performing Lab: [place] [facility] [address] [place] [address] FOLATE (PB) 15.7 ng/mL 7-20 Jul 04, 2024 01:47 PM [facility] [place] [facility] B12 SERUM Specimen Type: SERUM No comment entered. Ordering Provider: LILIAM HARPER Report Released Date/Time: Jul 04, 2024 01:45 PM Reporting Lab: [place] [facility] [address] [place] [address] Performing Lab: [place] [facility] [address] [place] [address] B12 673 pg/mL 213-816 Jul 04, 2024 01:47 PM [facility] VITAMIN D, 25-HYDROXY SERUM Specimen Type: SE RUM No comment entered. Ordering Provider: LILIAM HARPER Report Released Date/Time: Jul 04, 2024 01:45 PM Reporting Lab: [place] [facility] [address] [place] [address] Performing Lab: [place] [facility] [address] [place] [address] VITAMIN D, 25-HYDROXY 31.5 ng/mL 30-96 Jul 02, 2024 12:44 PM [facility] HGA1C BLOOD Specimen Type: BLOOD No comment entered. Ordering Provider: LILIAM HARPER Report Released Date/Time: Apr 09, 2024 03:26 PM Reporting Lab: [place] [facility] [address] [place] [address] Performing Lab: [place] [facility] [address] [place] [address] HGA1C 6.6 H 4.0-6.0 Jul 02, 2024 12:44 PM [facility] DIRECT LDL (MA-PB) PLASMA Specimen Type: PLASM A No comment entered. Ordering Provider: LILIAM HARPER Report Released Date/Time: Apr 09, 2024 03:26 PM Reporting Lab: [place] [facility] [address] [place] [address] Performing Lab: [place] [facility] [address] [place] [address] DIRECT LDL 70.4 mg/dL 0-99.9 Jul 02, 2024 12:44 PM [facility] CHOLESTEROL PANEL (PB) PLASMA Specimen Type: P LASMA No comment entered. Ordering Provider: LILIAM HARPER Report Released Date/Time: Apr 09, 2024 03:26 PM Reporting Lab: [place] [facility] [address] [place] [address] Performing Lab: [place] [facility] [address] [place] [address] CHOLESTEROL 120 mg/dL 0-200 TRIGLYCERIDE 164 mg/dL H 0-150 CALCULATED LDL 61.2 mg/dL HDL(New) 26.0 mg/dL L >40 HDL % OF TOTAL CHOLESTEROL (PB) 21.7 >25 Jul 02, 2024 12:44 PM [facility] COMPREHENSIVE METABOLIC PANEL PLASMA Specimen Type: PLASMA No comment entered. Ordering Provider: LILIAM HARPER Report Released Date/Time: Apr 09, 2024 03:26 PM Reporting Lab: [place] [facility] [address] [place] [address] Performing Lab: [place] [facility] [address] [place] [address] CREATININE 0.66 mg/dL 0.6-1.1 UREA NITROGEN 13 [...] 2020) 99 Jun 21, 2024 01:17 PM [facility] ANCILLARY INFLUENZA A&B (PB) NARES Specimen T ype: NARES Comment: Test performed by: Benito Coronado [id number] Meter #: [id number] Ordering Provider: DAKOTAH INFANTE Report Released Date/Time: Jun 21, 2024 01:29 PM Reporting Lab: [facility] [address] [facility] [address] Performing Lab: [facility] [address] [facility] [address] INFLUENZA A negative Negative INFLUENZA B negative Negative Advance Directives: All historical and current Section Date Range: From patient's date of to the date document was created. This section includes ALL of a patient's completed or amended [place] Advance and Rescinded Directives. The entries below indicate that a directive exists for the patient, but an actual copy is not included with this document. The data comes from all [place] facilities. Date Advance Directives Provider Source Dec 18, 2023 ADVANCE DIRECTIVE PETER BOWLING [facility] Radiology Reports: +/- 30 days [...] the Encounter. The data comes from all [place] treatment facilities. Date/Time Radiology Report Provider Source Jul 04, 2024 01:52 PM CHEST X-RAY, 2 VIE WS: JAMI CASTELLANO [id number] -[id number] F Exm Date: JUL 04, 2024@13:52 Req Phys: DAKOTAH INFANTE Loc: PB-MAITE PACT [facility] DRAMA THERAPIST WH (Req Img Loc: PB-XRAY FIVE POINTS Service: [place] [address] (Case [id number] COMPLETE) CHEST X-RAY, 2 VIEWS (RAD Detailed) CPT:76851 Reason for Study: follow up pneumonia Clinical History: Report Status: Verified Date Reported: JUL 04, 2024 Date Verified: JUL 04, 2024 [facility] E-Sig: Report: PA and lateral views of the chest reveal minimal spinal curvature with no acute osseous abnormality. There is no infiltrate or effusion. Heart size is normal. There is a neurostimulator in the mid thoracic spinal canal. Impression: No acute process Primary Interpreting Staff: RADHA SMALL RADIOLOGIST ([facility], no e-sig) /RADHA Ramos [facility] Jun 27, 2024 01:42 PM CHEST X-RAY, 2 VIE WS: JAMI CASTELLANO [id number] -1960 F Exm Date: JUN 27, 2024@13:42 Req Phys: DAKOTAH INFANTE Pat Loc: PB-MAITE PACT [employer] DRAMA THERAPIST WH (Req Img Loc: PB-XRAY FIVE POINTS Service: [place] [address] (Case [id number] COMPLETE) CHEST X-RAY, 2 VIEWS (RAD Detailed) CPT:37011 Reason for Study: cont cough with positive flu Clinical History: copd and current smoker Report Status: Verified Date Reported: JUN 27, 2024 Date Verified: JUN 27, 2024 [facility] E-Sig: Report: Chest 2 views. Mild elevation [...] indicated Primary Interpreting Staff: HUBERT BRUNNER, RADIOLOGIST ([facility], no e-sig) /HUBERT Buck [facility]
--- OUTSIDE RECORDS SUMMARY | 2024-06-27 08:30 | XMS_ITS | Encounter Summary ---
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 Role Phone DAKOTAH INFANTE Primary Care [...] Name Patient's Relationship to Policy Palmer HUMANA [facility] (WNR) MEDICARE ADVANTAGE HUMAN A INSUR ANCE [employer] May 22, 2020 [id number] JAMI CASTELLANO PATIENT INNOVIANT E-PHARM PRESCRIPT ION SWEET WATER KANDI DIST Jan 20, 2007 [id number] [phone] JAMI CASTELLANO PATIENT MEDICARE (WNR) MEDICARE (M) PART A Nov 19, 2013 PART A [id number] JAMI CASTELLANO PATIENT MEDICARE (WNR) MEDICARE () PART B Nov 19, 2013 PART B [id number] JAMI CASTELLANO PATIENT MEDICARE (WNR) MEDICARE () PART A Nov 19, 2013 PART A [id number] JAMI CASTELLANO PATIENT MEDICARE (WNR) MEDICARE (M) PART B Nov 19, 2013 PART B [id number] JAMI CASTELLANO PATIENT MEDICARE (WNR) MEDICARE () PART A Nov 19, 2013 PART A [id number] JAMI CASTELLANO PATIENT MEDICARE (WNR) MEDICARE (M) PART B Nov 19, 2013 PART B [id number] JAMI CASTELLANO PATIENT MEDICARE (WNR) MEDICARE () PART A Nov 19, 2013 PART A [id number] JAMI CASTELLANO PATIENT MEDICARE (WNR) MEDICARE (M) PART B Nov 19, 2013 PART B [id number] JAMI CASTELLANO PATIENT MEDICARE (WNR) MEDICARE () PART A Nov 19, 2013 PART A [id number] JAMI CASTELLANO PATIENT MEDICARE (WNR) MEDICARE () PART B Nov 19, 2013 PART B [id number] JAMI CASTELLANO PATIENT MEDICARE (WNR) MEDICARE () PART A Nov 19, 2013 PART A [id number] JAMI CASTELLANO PATIENT MEDICARE (WNR) MEDICARE (M) PART B Nov 19, 2013 PART B [id number] JAIM CASTELLANO PATIENT MEDICARE (WNR) MEDICARE (M) PART A Nov 19, 2013 PART A [id number] JAMI CASTELLANO PATIENT MEDICARE (WNR) MEDICARE (M) PART B Nov 19, 2013 PART B [id number] JAMI CASTELLANO PATIENT MEDICARE (WNR) MEDICARE (M) PART A Nov 19, 2013 PART A [id number] JAMI CASTELLANO PATIENT MEDICARE (WNR) MEDICARE (M) PART B Nov 19, 2013 PART B [id number] JAMI CASTELLANO PATIENT MEDICARE PART D (WNR) MEDICARE (M) PART D May 22, 2020 PART D [id number] JAMI CASTELLANO PATIENT MEDICARE PART D (WNR) MEDICARE (M) PART D Feb 19, 2014 PART D [id number] JAMI CASTELLANO PATIENT OFF OF REG ONLINE CONTENT COORDINATOR BURDICK TORT FEASOR TORT Nov 26, 2017 TORT [id number] [phone] JAMI CASTELLANO PATIENT OPTUM RX PRESCRIPT ION SWEET WATER SCHOO L #1 September 19, 2008 [id number] [phone] JAMI CASTELLANO PATIENT UMR COMPREHEN SIVE MAJOR MEDICAL SWEET WATER COUNT Y SC Jan 20, 2014 [id number] [phone] JAMI CASTELLANO PATIENT UMR PREFERRED PROVIDER ORGANIZAT ION (PPO) TAWANNA SS ROEL HEALT H Jan 20, 2007 [id number] [phone] JAMI CASTELLANO PATIENT Selected Encounter This section includes the information on record at [place] for the Encounter. Date/Time Encounter Type Encounter Description Reason Provider Source Jun 27, 2024 01:30 PM OFFICE O/P EST MOD 30 MIN PRIMARY CARE/MEDICINE ICD-10-CM J18.8 Other pneumonia, unspecified organism CAMRYN INFANTE Bruna Encounter Template Text not used by [place] Assessments - Encounter Diagnoses This section includes the primary and secondary diagnoses documented for the Encounter. Date/Time Primary/Secondary Diagnosis Diagnosis Name Provider Source Jun 28, 2024 12:54 PM PRIMARY Other pneumonia, unspecified organism [place]NA INFANTE [place] [facility] Jun 28, 2024 12:54 PM SECONDARY Chronic obstructive pulmonary disease, unspecified [place]NA INFANTE [place] [facility] Plan of Treatment: Future Appointments (+ 6 months) and Future Tests (+/- 45 days) The Plan of Treatment section includes future care activities for the patient from all [place] treatmentfacilities. This section includes future appointments and future orders which are active, pending or scheduled. Future Appointments This section includes appointments that were scheduled to occur 6 months from the date of the Encounter, up to a maximum of 20 appointments. The data comes from all [place] treatment facilities. Appointment Date/Time Appointment Type Appointme nt Facility Name Jul 01, 2024 02:00 PM AMBULATORY - MEDICINE [facility] Jul 01, 2024 02:02 PM AM[facility]ORY [place]IC[place] [facility] Jul 04, 2024 01:30 PM AMBULATORY - MEDICINE [facility] Jul 16, 2024 01:00 PM AMBULATORY - PSYCHIATRY [facility] Jul 31, 2024 12:30 PM AMBULATORY - MEDICINE [facility] Jul 31, 2024 12:32 PM [facility]BULATORY - [place]IC[place] [facility] Aug 13, 2024 03:00 PM AMBULATORY - PS[facility]CHIATRY [facility] September 19, 2024 01:30 PM AMBULATORY [place] MEDICINE [place] [facility] September 26, 2024 11:45 AM AMBULATORY - [facility]CHIATRY [facility] September 26, 2024 11:46 AM [facility] October 01, 2024 12:00 PM AMBULATORY - MEDICINE [facility] October 01, 2024 12:01 PM AMBULATORY - MEDICINE [place] [facility] October 01, 2024 12:30 PM AMBULATORY - MEDICINE [facility] October 08, 2024 02:00 PM AMBULATORY - MEDICINE [facility] Oct 21, 2024 01:00 PM AMBULATORY - MEDICINE [facility] Oct 22, 2024 01:00 PM AMBULATORY - MEDICINE [facility] Oct 30, 2024 12:00 PM AMBULATORY - NONE [place] [facility] Dec 19, 2024 12:15 PM AMBULATORY - PS[facility]CHIATRY [facility] Dec 19, 2024 12:16 PM [facility] Active, Pending, and Scheduled Orders This section includes a listing of several types of active, pending, and scheduled orders, including clinic medications orders, diagnostic test orders, procedure orders and consult orders; where thestart date of the order is 45 days before the date of the Encounter or 45 days after the date of the Encounter. The data comes from all [place] treatment facilities. Test Date/Time Test Type Test Details Facility Name Jun 21, 2024 01:06 PM Laboratory - Chemi stry Order ANCILLARY INFLUENZA A&B (PB) NARES SP [facility] Lab Results: +/- 30 days of the encounter This section includes the Chemistry and Hematology Lab Results on record with [place] for the patient. Radiology Reports and Pathology Reports are provided separately, in subsequent sections. Lab Results This section contains the Chemistry/Hematology Results that were resulted 30 days before or 30 daysafter the date of the Encounter. Date/Time Source Result Type Result - Unit Interpretation Reference Range Specimen Type Comment Jul 04, 2024 01:47 PM [facility] KGKZZSGET-KNMON-0,3-GALACTOSE IGE SERUM Speci men Type: SERUM Comment: REFERENCE RANGE: <0.10 kU/L Results above 0.1 kU/L indicate an allergen-specific IgE sensitization to hcslllfrk-j-1,3-g alactose, and such patients are at risk [...] method. Additional information can be found at [email or web address] .LifeOnKey Test performed by [employer] [id number] [place] [id number] Salon Professional: Loni Landis MD,PHD,SANCHO Test Reported by [facility], [employer] [place], [address] [place], [place] Wilfred Velásquez M.D., Ph.D., Director of Laboratories , [place] [id number] Ordering Provider: LILIAM HARPER Report Released Date/Time: Jul 04, 2024 01:45 PM Reporting Lab: [place] [facility] [address] [address] Performing Lab: [place] [facility] [address] [facility] LGOILODDJ-TQSKY-8,3-GALACTOSE IGE <0.10 kU/L SEE BELOW Jul 04, 2024 01:47 PM [facility] FOLATE (PB) SERUM Specimen Typ e: SERUM No comment entered. Ordering Provider: LILIAM HARPER Report Released Date/Time: Jul 04, 2024 01:45 PM Reporting Lab: [place] [facility] [address] [place] [address] Performing Lab: [place] [facility] [address] [place] [address] FOLATE (PB) 15.7 ng/mL 7-20 Jul 04, 2024 01:47 PM [facility] B12 SERUM Specimen Type: SERUM No comment entered. Ordering Provider: LILIAM HARPER Report Released Date/Time: Jul 04, 2024 01:45 PM Reporting Lab: [place] [facility] [address] [place] [address] Performing Lab: [place] [facility] [address] [place] [address] B12 673 pg/mL 213-816 Jul 04, 2024 01:47 PM [facility] VITAMIN D, 25-HYDROXY SERUM Specimen Type: SE RUM No comment entered. Ordering Provider: LILIAM HARPER Report Released Date/Time: Jul 04, 2024 01:45 PM Reporting Lab: [place] [facility] [address] [place] [address] Performing Lab: [place] [facility] [address] [place] [address] VITAMIN D, 25-HYDROXY 31.5 ng/mL 30-96 Jul 02, 2024 12:44 PM [facility] DIRECT LDL (MA-PB) PLASMA Specimen Type: PLASM A No comment entered. Ordering Provider: LILIAM HARPER Report Released Date/Time: Apr 09, 2024 03:26 PM Reporting Lab: [place] [facility] [address] [place] [address] Performing Lab: [place] [facility] [address] [place] [address] DIRECT LDL 70.4 mg/dL 0-99.9 Jul 02, 2024 12:44 PM [facility] HGA1C BLOOD Specimen Type: BLOOD No comment entered. Ordering Provider: LILIAM HARPER Report Released Date/Time: Apr 09, 2024 03:26 PM Reporting Lab: [place] [facility] [address] [place] [address] Performing Lab: [place] [facility] [address] [place] [address] HGA1C 6.6 H 4.0-6.0 Jul 02, 2024 12:44 PM [facility] CHOLESTEROL PANEL (PB) PLASMA Specimen Type: P LASMA No comment entered. Ordering Provider: LILIAM HARPER Report Released Date/Time: Apr 09, 2024 03:26 PM Reporting Lab: [place] [facility] [address] [place] [address] Performing Lab: [place] [facility] [address] [place] [address] CHOLESTEROL 120 mg/dL 0-200 TRIGLYCERIDE 164 mg/dL H 0-150 CALCULATED LDL 61.2 mg/dL HDL(New) 26.0 mg/dL L >40 HDL % OF TOTAL CHOLESTEROL (PB) 21.7 >25 Jul 02, 2024 12:44 PM [facility] COMPREHENSIVE METABOLIC PANEL PLASMA Specimen Type: PLASMA No comment entered. Ordering Provider: LILIAM HARPER Report Released Date/Time: Apr 09, 2024 03:26 PM Reporting Lab: [place] [facility] [address] [place] [address] Performing Lab: [place] [facility] [address] [place] [address] CREATININE 0.66 mg/dL 0.6-1.1 UREA NITROGEN 13 [...] 2020) 99 Jun 21, 2024 01:17 PM [facility] ANCILLARY INFLUENZA A&B (PB) NARES Specimen T ype: NARES Comment: Test performed by: Benito Coronado [id number] Meter #: [id number] Ordering Provider: DAKOTAH INFANTE Report Released Date/Time: Jun 21, 2024 01:29 PM Reporting Lab: [facility] [address] [facility] [address] Performing Lab: [facility] [address] [facility] [address] INFLUENZA A negative Negative INFLUENZA B negative Negative Vital Signs: All taken on the encounter date This section contains inpatient and outpatient Vital Signs collected on the date of the Encounter. Date/Time Temperature Pulse Blood Pressure Respiratory Rate SP02 Pain Height Weight Body Mass Index Source Jun 27, 2024 01:37 PM 77 121/79 20 95 66.0 185.0 30 [facility] Social History: Smoking Status (Most current) and Tobacco Use (All prior to encounter date) This section includes the most current, and the historical, smoking and tobacco- related health factors from the [place] facility where the Encounter took place. Current Smoking Status This section includes the most current smoking, or tobacco-related health factor, from the [place] facility where the Encounter took place. Date/Time Current Smoking Status Comment Gustavo ity Aug 23, 2023 11:00 AM VA-TOBACCO USER EVERY DAY [facility] Tobacco Use History This section includes a history of the smoking, or tobacco-related health factors, that were collected on or before the date of the Encounter. The data comes from the [place] facility where the Encounter took place. Date/Time Smoking Status/Tobacco Use Comment F acility Aug 23, 2023 11:00 AM VA-TOBACCO USE ADVICE [facility] Aug 23, 2023 11:00 AM VA-TOBACCO USE ONLINE CONTENT COORDINATOR NO [facility] Aug 23, 2023 11:00 AM VA-TOBACCO USE MED NO [facility] Aug 23, 2023 11:00 AM VA-TOBACCO USE WI 30 MIN OF WAKE UP [facility] Aug 23, 2023 11:00 AM VA-TOBACCO USER EVERY DAY [facility] Aug 24, 2022 01:30 PM VA-TOBACCO DOESNT USE WI 30 MIN WAKEUP [facility] Aug 24, 2022 01:30 PM VA-TOBACCO USE > 1 5 LESS THAN 30 YEARS [facility] Aug 24, 2022 01:30 PM VA-TOBACCO USE ADVICE [facility] Aug 24, 2022 01:30 PM VA-TOBACCO USE ONLINE CONTENT COORDINATOR NO [facility] Aug 24, 2022 01:30 PM VA-TOBACCO USE MED NO [facility] Aug 24, 2022 01:30 PM VA-TOBACCO USER EVERY DAY [facility] Aug 30, 2021 01:30 PM VA-TOBACCO USE 30 YEARS OR MORE [place] [facility] Aug 30, 2021 01:30 PM VA-TOBACCO USE ADVICE [place] [facility] Aug 30, 2021 01:30 PM VA-TOBACCO USE ONLINE CONTENT COORDINATOR NO [place] [facility] Aug 30, 2021 01:30 PM VA-TOBACCO USE MED NOTIFY PROVID ER [place] [facility] Aug 30, 2021 01:30 PM VA-TOBACCO USE WI 30 MIN OF WAKE UP [facility] Aug 30, 2021 01:30 PM VA-TOBACCO USER EVERY DAY [facility] Feb 17, 2020 02:00 PM VA-TOBACCO USE 30 YEARS OR MORE [place] [facility] Feb 17, 2020 02:00 PM VA-TOBACCO USE ADVICE [place] [facility] Feb 17, 2020 02:00 PM VA-TOBACCO USE ONLINE CONTENT COORDINATOR NO [place] [facility] Feb 17, 2020 02:00 PM VA-TOBACCO USE MED NO [place] [facility] Feb 17, 2020 02:00 PM VA-TOBACCO USE [place] 30 MIN OF WAKE UP [facility] Feb 17, 2020 02:00 PM VA-TOBACCO USER EVERY DAY [facility] Jun 27, 2018 12:01 PM VA-TOBACCO USE 30 YEARS OR MORE [facility] Jun 27, 2018 12:01 PM VA-TOBACCO USE ADVICE [facility] Jun 27, 2018 12:01 PM VA-TOBACCO USE ONLINE CONTENT COORDINATOR NO [facility] Jun 27, 2018 12:01 PM VA-TOBACCO USE MED NO [facility] Jun 27, 2018 12:01 PM VA-TOBACCO USE WI 30 MIN OF WAKE UP [facility] Jun 27, 2018 12:01 PM VA-TOBACCO USER EVERY DAY [facility] Jul 20, 2017 04:18 PM CURRENT TOBACCO USER [facility] Jul 20, 2017 04:18 PM CURRENT TOBACCO US ER (NOT READY TO QUIT) [facility] Jul 20, 2017 04:18 PM TOBACCO CESSATION REFERRAL DECLI JENNIFFER [facility] Jul 20, 2017 04:18 PM TOBACCO MEDS OFFERED BUT DECLINE D [facility] Jul 20, 2017 04:18 PM TOBACCO USER OFFERED MEDS [facility] Jul 20, 2017 04:00 PM CURRENT TOBACCO USER [facility] Jul 20, 2017 04:00 PM CURRENT TOBACCO US ER (NOT READY TO QUIT) [facility] Jul 20, 2017 04:00 PM TOBACCO CESSATION REFERRAL DECLI JENNIFFER [facility] Jul 20, 2017 04:00 PM TOBACCO MEDS OFFERED BUT DECLINE D [facility] Jul 20, 2017 04:00 PM TOBACCO USER OFFERED MEDS [facility] Advance Directives: All historical and current Section Date Range: From patient's date of to the date document was created. This section includes ALL of a patient's completed or amended [place] Advance and Rescinded Directives. The entries below indicate that a directive exists for the patient, but an actual copy is not included with this document. The data comes from all [place] facilities. Date Advance Directives Provider Source Dec 18, 2023 ADVANCE DIRECTIVE PETER BOWLING [facility] Radiology Reports: +/- 30 days [...] the Encounter. The data comes from all [place] treatment facilities. Date/Time Radiology Report Provider Source Jul 04, 2024 01:52 PM CHEST X-RAY, 2 VIE WS: JAMI CASTELLANO [id number] -[id number] F Exm Date: JUL 04, 2024@13:52 Req Phys: DAKOTAH INFANTE R Pat [facility] MANAGER OF PHOTOGRAPHY WH (Req Img Loc: [facility] Service: [place] [address] (Case [id number] COMPLETE) CHEST X-RAY, 2 VIEWS (RAD Detailed) CPT:27923 Reason for Study: follow up pneumonia Clinical History: Report Status: Verified Date Reported: JUL 04, 2024 Date Verified: JUL 04, 2024 [employer] E-Sig: Report: PA and lateral views of the chest reveal minimal spinal curvature with no acute osseous abnormality. There is no infiltrate or effusion. Heart size is normal. There is a neurostimulator in the mid thoracic spinal canal. Impression: No acute process Primary Interpreting Staff: RADHA SMALL RADIOLOGIST ([employer], no e-sig) /RDAHA Ramos [facility] Jun 27, 2024 01:42 PM CHEST X-RAY, 2 VIE WS: JAMI CASTELLANO [id number] -[id number] F Exm Date: JUN 27, 2024@13:42 Req Phys: DAKOTAH INFANTE R Pat Loc: -[facility] MANAGER OF PHOTOGRAPHY WH (Req Img Loc: [facility] Service: [place] [address] (Case [id number] COMPLETE) CHEST X-RAY, 2 VIEWS (RAD Detailed) CPT:70040 Reason for Study: cont cough with positive flu Clinical History: copd and current smoker Report Status: Verified Date Reported: JUN 27, 2024 Date Verified: JUN 27, 2024 [employer] E-Sig: Report: Chest 2 views. Mild elevation [...] indicated Primary Interpreting Staff: HUBERT BRUNNER, RADIOLOGIST ([employer], no e-sig) /HUBERT Buck [facility] Encounter Notes: All associated encounter notes This section contains the clinical notes associated to the Encounter. Date/Time Encounter Note(s) Provider Source Jun 28, 2024 12:43 PM PHYSICIAN LETTERS: LOCAL TITLE: TEST RESULT GENERAL LETTER STL STANDARD TITLE: PHYSICIAN LETTERS DATE OF NOTE: JUN 28, 2024@12:43 ENTRY DATE: JUN 28, 2024@12:43:26 AUTHOR: DAKOTAH INFANTE COSIGNER: URGENCY: STATUS: COMPLETED [facility] [address] [place] [address] JUN 28, 2024 JAMI CASTELLANO [address] [place], [place] [address] Dear Jami Castellano, I would like to update you on your recent test results. OTHER TEST RESULTS RADIOLOGY (NON-INVASIVE TEST RESULTS): Chest Xray: Impression: 1. Mild COPD 2. Faint ill-defined density left midlung field suspicious for pneumonia. Other etiologies cannot be ruled out 3. Recommend follow-up PA and lateral views the chest in 7-10 days or sooner if clinically indicated We gave you an antibiotic to treat pneumonia. If you are not feeling better then please let us know. We need to recheck your chest xray around the . Please drop back by the clinic to have this done. FUTURE APPOINTMENTS: 07/01/2024 14:00 [facility] CVT AUDIO FIT 3(PA 07/01/2024 14:02 PB-CVT AUDIO FIT 3(PRO) 07/02/2024 13:00 [facility] IND SWS CRI 07/04/2024 13:30 [facility] PACT PHARM 07/16/2024 13:00 [facility] IND SWS CRI 10/08/2024 14:00 [facility] PACT [employer] MANAGER OF PHOTOGRAPHY WH Sincerely, Dakotah Infante, QUARRY MANAGER-[facility] JAMI CASTELLANO [place] [facility] [place] [facility] Jun 27, 2024 01:57 PM PRIMARY CARE PROGR ESS NOTE: LOCAL TITLE: PRIMARY CARE CLINIC PROGRESS NOTE PB STANDARD TITLE: PRIMARY CARE PROGRESS NOTE DATE OF NOTE: JUN 27, 2024@13:57 ENTRY DATE: JUN 27, 2024@13:57:34 AUTHOR: DAKOTAH INFANTE COSIGNER: URGENCY: STATUS: COMPLETED PROVIDER ASSESSMENT DATE & TIME:Jun@13:57 CHIEF COMPLAINT: Continued cough and congestion. HISTORY OF PRESENT ILLNESS: Hector is being seen for continued cough and congestion. [place] states she is past a lot of the flu like symptoms but continues to have a productive cough with green sputum. She completed prednisone tapering dose today. She needs her flonase renewed. She denies any home needs. She continues to use nicotine in the form of cigarettes. 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: 1) Diabetes Mellitus Type 2 ([facility] [id number]) 2) GERD - Gastro-Esophageal Reflux Disease ([facility] [id number]) 3) Gout ([facility] [id number]) 4) Depression ([facility] [id number]) 5) Bipolar disorder 6) Migraine 7) Low back pain 8) Cervicalgia 9) Somatoform pain disorder 10) Mood disorder with depressive features due to general medical condition 11) Generalized anxiety disorder 12) Housing problem 13) Neurocognitive disorder 14) Nicotine dependence ([facility] [id number]) 15) Chronic obstructive lung disease 16) Allergic Rhinitis ([facility] [id number]) 17) Chronic post-traumatic stress disorder 18) Female [...] TAB TAKE ONE-HALF TABLET BY MOUTH ACTIVE EVERY EVENING FOR CHOLESTEROL. REPORT ANY UNEXPLAINED MUSCLE PAIN/WEAKNESS TO PROVIDER THIS TABLET IS TO BE CUT IN HALF FOR YOUR DOSE 4) CETIRIZINE HCL 10MG TAB TAKE ONE TABLET BY MOUTH ONCE A DAY ACTIVE Indication: FOR ALLERGY SYMPTOMS 5) CHOLECALCIF 50MCG [...] IF NO IMPROVEMENT AFTER FIRST DOSE CALL --. MAY TAKE 2 ADDITIONAL DOSES, 5 MINUTES [...] MEAL(S) Indication: FOR GASTROESOPHAGEAL REFLUX DISEASE 23) PSYLLIUM ORAL PWD MIX AND DRINK 1 TEASPOONFUL BY MOUTH ONCE ACTIVE A DAY MIX IN GLASS OF WATER/JUICE. FLAVOR SUBSTITUTIONS MAY/WILL OCCUR AND SPECIFIC VARIETIES WILL NOT BE PROVIDED. Indication: FOR FIBER SUPPLEMENTATION 24) RANOLAZINE 500MG SA TAB TAKE ONE TABLET BY MOUTH TWICE A DAY ACTIVE (S) *SWALLOW WHOLE- DO NOT CRUSH,BREAK OR CHEW* 25) SPIRONOLACTONE 50MG TAB TAKE ONE TABLET BY MOUTH ONCE A DAY ACTIVE (S) AND EXCESSIVE FLUID. DOSE DECREASE Indication: FOR HEART FAILURE 26) TRAZODONE HCL 100MG TAB TAKE ONE TABLET BY MOUTH AT BEDTIME ACTIVE FOR MOOD OR SLEEP. Pending Outpatient Medications Status 1) ISOSORBIDE DINITRATE 30MG ORAL TAB TAKE ONE TABLET BY MOUTH PENDING TWICE A DAY ALLOW 10 TO 12 HOURS BETWEEN NIGHT AND MORNING DOSE. 27 Total Medications REVIEW OF SYSTEMS: HEENT: No Headache. No blurry vision, vision loss, eye pain, red eyes, or foreign body. No runnynose, congestion, or nose bleed. No hearing loss, ringing in the ears, or vertigo. No sore throat or dental pain. RESPIRATORY:productive cough. CARDIOVASCULAR: No chest pain, palpitations, tachycardia, PND, or orthopnea. GI: No abdominal pain, nausea, vomiting, diarrhea, constipation, melena, or hematochezia. : No dysuria, hematuria, urinary frequency, weak stream, or post-void dribbling. MUSCULOSKELETAL:No muscle or joint pain. SKIN: No rash, lesions, or infection PSYCH: No Depression or Anxiety. Not suicidal. PHYSICAL ASSESSMENT: VITAL SIGNS Pulse: 77 (06/27/2024 13:37) Blood Pressure: 121/79 (06/27/2024 13:37) Respiratory Rate: 20 (06/27/2024 13:37) Temperature: 97.8 F [36.6 C] (06/21/2024 13:52) Weight: 185.0 lb [83.91 kg] (06/27/2024 13:37) Height: 66.0 in [167.6 cm] (06/27/2024 13:37) Pain: 7 (06/17/2024 13:42) HEENT:PERRL, EOMI, Fundi benign, TM's clear, Pharynx not red and without exudate, tonsils normal size. Positive nasal congestion. NECK: Supple, no lymhadenopathy, thyroid normal. CARDIAC: Regular rate and rhythm without murmur. No edema. RESPIRATORY: CTA upper lobes, course sounds throughout remainder lobes with diminished lobes bilateral lower lobes. GI: Abdomen soft,with ABS, no HSM, no guarding or rebound. MUSCULOSKELETAL:chronic joint pain with no acute change. SKIN: [place] without rash or lesions. NEUROLOGICAL: The is alert and oriented without distress. Affect appropriate. IMPRESSION: Pneumonia, unspecified organism-current COPD-current PLAN: Doxycycline 100mg one po bid for 7 days #14 0 refills given to to fill on the immediate need benefit plan. Flonase also to fill on the immediate need benefit plan. Increase water intake. Consider smoking cessation. OTC cough medication as directed. RTC as directed . Patient is advised this primary care clinic [...] the After Visit Summary was reviewed with [place]; opportunity provided to report concerns and ask [...] appointments. Medications Reconciled. Time spent 30 minutes. /matt/ JESSICA CroninUnited States Marine HospitalMidkiffSALMA Fabian Signed: 06/28/2024 12:53 DAKOTAH INFANTE MT DANNY Jun 27, 2024 01:45 PM PRIMARY CARE NURSI NG NOTE: LOCAL TITLE: PRIMARY CARE NURSING PROGRESS NOTE (TEXT) NURSING P STANDARD TITLE: PRIMARY CARE NURSING NOTE DATE OF NOTE: JUN 27, 2024@13:45 ENTRY DATE: JUN 27, 2024@13:45:35 AUTHOR: ELA DU EXP COSIGNER: URGENCY: STATUS: COMPLETED Established Patient JAMI CASTELLANO IS A 63 YEAR OLD FEMALE BEING SEEN IN CLINIC JUN 27, 2024. = = REASON FOR VISIT: here today c/o continued cough, congestion and not feeling well. Lung sounds are coarse and rhonci. Are you receiving care any where other than the [place]? No HEALTH AND SURGICAL HISTORY: Does patient report using home oxygen? No CURRENT ACTIVE MEDICATIONS FOR REVIEW: Allergies/ADRs (Tool #5) FACILITY ALLERGY/ADR -------- [facility] BEE STINGS [facility] CODEINE [facility] GLOVE [facility] IODINE CONTRAST EVEN WITH PREP [facility] PENICILLIN [facility] CODEINE [facility] LATEX [facility] PENICILLIN [facility] BEE STINGS [facility] CODEINE [facility] GLOVE [facility] IODINE CONTRAST EVEN WITH PREP [facility] PENICILLIN [facility] TRAMADOL [facility]- DIVISION BAND-AIDS [facility]- DIVISION BEE STINGS [facility]- DIVISION IODINE CONTRAST EVEN WITH PREP [facility]- DIVISION PENICILLIN [facility] DIVISION PNEUMOCOCCAL VACCINE [facility] DIVISION SEMAGLUTIDE [facility] DIVISION TRAMADOL Med. Reconciliation (Tool #1) INCLUDED IN THIS LIST: Alphabetical list of active outpatient prescriptions dispensed from this [place] (local) and dispensed from another [place] or [facility] facility (remote) as well as inpatient orders (local pending and active), local clinic medications, locally documented non-VA medications, and local prescriptions that have or been discontinued in the past 90 days. Non-VA Meds Last Documented On: Jul 04, 2023 NOTE The display of VA prescriptions dispensed from another [place] or [facility] facility (remote) is limited to active outpatient prescription entries matched to National Drug File at the originating site and may not include some items such as investigational drugs, compounds, etc. NOT INCLUDED IN THIS LIST: Medications self-entered by the patient into personal health records (i.e. [facility]) are NOT included in this list. Non-VA medications documented outside this [place], remote inpatient orders (regardless of status) and remote clinic medications are NOT included in this list. The patient and provider must always discuss medications the patient is taking, regardless of where the medication was dispensed or obtained. OUTPT ALBUTEROL 90MCG (CFC-F) 200D ORAL INHL (Status = Active) INHALE 2 PUFFS BY ORAL INHALATION FOUR TIMES A DAY NEEDED FOR BREATHING. SHAKE WELL. RINSE MOUTHPIECE FREQUENTLY TO PREVENT CLOGGING. Rx# [id number] Last Released: 05/03/24 Qty/Days Supply: Rx Expiration Date: 03/06/25 Refills Remainin OUTPT AMLODIPINE BESYLATE 2.5MG TAB (Status = Active/Suspended) TAKE ONE TABLET BY MOUTH TWICE A DAY FOR HIGH BLOOD PRESSURE Rx# [id number] Last Released: 05/06/24 Qty/Days Supply: 180 Rx Expiration Date: 03/06/25 Refills Remainin Indication: FOR HIGH BLOOD PRESSURE OUTPT ATORVASTATIN CALCIUM 80MG TAB (Status = Active) TAKE ONE-HALF TABLET BY MOUTH EVERY EVENING FOR CHOLESTEROL. REPORT ANY UNEXPLAINED MUSCLE PAIN/WEAKNESS TO PROVIDER THIS TABLET IS TO BE CUT IN HALF FOR YOUR DOSE Rx# [id number] Last Released: 06/21/24 Qty/Days Supply: 45 Rx Expiration Date: 01/01/25 Refills Remainin OUTPT CETIRIZINE HCL 10MG TAB (Status = Active) TAKE ONE TABLET BY MOUTH ONCE A DAY FOR ALLERGY SYMPTOMS Rx# [id number] Last Released: 06/27/24 Qty/Days Supply: 90 Rx Expiration Date: 03/06/25 Refills Remainin Indication: FOR ALLERGY SYMPTOMS OUTPT CHOLECALCIF 50MCG (D3-2,000UNIT) TAB (Status = Discontinued) TAKE ONE TABLET BY MOUTH ONCE A DAY FOR VITAMIN D DEFICIENCY. Rx# [id number] Last Released: 02/27/24 Qty/Days Supply: 100/ Rx Expiration Date: 11/30/24 Refills Remainin OUTPT CHOLECALCIF 50MCG (D3-2,000UNIT) TAB (Status = Active) TAKE TWO TABLETS BY MOUTH ONCE A DAY FOR VITAMIN D DEFICIENCY Rx# [id number] Last Released: 06/21/24 Qty/Days Supply: 200/90 Rx Expiration Date: 04/10/25 Refills Remainin Indication: FOR VITAMIN D DEFICIENCY OUTPT CYANOCOBALAMIN 500MCG TAB (Status = Active) TAKE ONE TABLET BY MOUTH ONCE A DAY FOR VITAMIN B12 SUPPLEMENTATION Rx# [id number] Last Released: 04/12/24 Qty/Days Supply: 100/90 Rx Expiration Date: 07/08/24 Refills Remainin Indication: FOR VITAMIN B12 SUPPLEMENTATION OUTPT DULOXETINE HCL 60MG EC CAP (Status = Active/Suspended) TAKE ONE CAPSULE BY MOUTH ONCE A DAY DO NOT ABRUPTLY DISCONTINUE MEDICATION. Rx# [id number] Last Released: 06/26/24 Qty/Days Supply: Rx Expiration Date: 11/30/24 Refills Remainin OUTPT EPI(EQV-ADRENACLICK)0.3MG/0. 3ML INJCTR (Status = Active) INJECT 1 PEN (0.3MG/0.3ML) INTRAMUSCULARLY ONE-TIME FOR ALLERGIC REACTION Rx# [id number] Last Released: 03/26/24 Qty/Days Supply: 06/22 Rx Expiration Date: 03/06/25 Refills Remainin Indication: FOR ALLERGIC REACTION OUTPT FEXOFENADINE HCL 180MG TAB (Status = Discontinued) TAKE ONE TABLET BY MOUTH EVERY MORNING FOR ALLERGIC RHINITIS Rx# [id number] Last Released: 04/17/24 Qty/Days Supply: Rx Expiration Date: 08/23/24 Refills Remainin Indication: FOR ALLERGIC RHINITIS OUTPT FEXOFENADINE HCL 180MG TAB (Status = Active/Suspended) TAKE ONE TABLET BY MOUTH EVERY MORNING FOR ALLERGIC RHINITIS Rx# [id number] Last Released: Qty/Days Supply: Rx Expiration Date: 05/03/25 Refills Remainin Indication: FOR ALLERGIC RHINITIS OUTPT GLIPIZIDE 10MG TAB (Status = Discontinued) TAKE ONE TABLET BY MOUTH THREE TIMES A DAY BEFORE MEALS FOR DIABETES TAKE 30 MINUTES BEFORE EATING. Rx# [id number] Last Released: 12/15/23 Qty/Days Supply: 270/ Rx Expiration Date: 10/05/24 Refills Remainin Indication: FOR DIABETES OUTPT HYDROPHILIC (EQV EUCERIN) TOP CREAM (Status = Active/Suspended) APPLY LIGHTLY TO AFFECTED AREA(S) ONCE A DAY FOR DRY SKIN (EXTERNAL USE ONLY) APPLY TO FEET NIGHTLY Rx# [id number] Last Released: 04/17/24 Qty/Days Supply: 454/90 Rx Expiration Date: 11/30/24 Refills Remainin Indication: FOR DRY SKIN OUTPT HYDROXYZINE HCL 25MG TAB (Status = Discontinued) TAKE ONE TABLET BY MOUTH THREE TIMES A DAY NEEDED FOR URTICARIA *MAY CAUSE DROWSINESS* Rx# [id number] Last Released: Qt/ Supply: 270 Rx Expiration Date: 06/03/24 Refills Remainin Indication: FOR URTICARIA OUTPT HYDROXYZINE HCL 25MG TAB (Status = Discontinued) TAKE ONE TABLET BY MOUTH THREE TIMES A DAY NEEDED FOR URTICARIA *MAY CAUSE DROWSINESS* Rx# [id number] Last Released: 05/04/24 Qty/Days Supply: 27090 Rx Expiration Date: 07/08/24 Refills Remainin Indication: FOR URTICARIA OUTPT HYDROXYZINE HCL 25MG TAB (Status = Active/Suspended) TAKE ONE TABLET BY MOUTH THREE TIMES A DAY NEEDED FOR URTICARIA *MAY CAUSE DROWSINESS* Rx# [id number] Last Released: Qty/Days Supply: 27090 Rx Expiration Date: 07/31/24 Refills Remainin Indication: FOR URTICARIA OUTPT ISOSORBIDE DINITRATE 30MG ORAL TAB (Status = Discontinued) TAKE ONE TABLET BY MOUTH ONCE A DAY ALLOW 10 TO 12 HOURS BETWEEN NIGHT AND MORNING DOSE. Rx# [id number] Last Released: 04/10/24 Qty/Days Supply: 90/ Rx Expiration Date: 03/06/25 Refills Remainin OUTPT ISOSORBIDE DINITRATE 30MG ORAL TAB (Status = Active/Suspended) TAKE ONE TABLET BY MOUTH ONCE A DAY ALLOW 10 TO 12 HOURS BETWEEN NIGHT AND MORNING DOSE. Rx# [id number] Last Released: Qt Supply: Rx Expiration Date: 05/03/25 Refills Remainin OUTPT ISOSORBIDE DINITRATE 30MG ORAL TAB (Status = Pending) TAKE ONE TABLET BY MOUTH TWICE A DAY ALLOW 10 TO 12 HOURS BETWEEN NIGHT AND MORNING DOSE. Login Date: 06/26/24 Qty/Days Supply: 180/ Refills Ordered: 3 OUTPT LAMOTRIGINE 200MG TAB (Status = Discontinued) TAKE ONE TABLET BY MOUTH AT BEDTIME FOR MOOD OR SEIZURES Rx# [id number] Last Released: 04/30/24 Qty/Days Supply: Rx Expiration Date: 03/06/25 Refills Remainin OUTPT LAMOTRIGINE 200MG TAB (Status = Active/Suspended) TAKE ONE TABLET BY MOUTH AT BEDTIME FOR MOOD OR SEIZURES Rx# [id number] Last Released: Supply: Rx Expiration Date: 05/03/25 Refills Remainin OUTPT LAMOTRIGINE 25MG TAB (Status = Active/Suspended) TAKE ONE TABLET BY MOUTH AT BEDTIME FOR MOOD OR SEIZURES TAKE WITH THE 200MG Rx# [id number] Last Released: 05/07/24 Qty/Days Supply: Rx Expiration Date: 03/06/25 Refills Remainin OUTPT LIDOCAINE 5% OINT (Status = Active/Suspended) APPLY LIGHTLY TO AFFECTED AREA(S) ONCE A DAY NEEDED Rx# [id number] Last Released: 04/24/24 Qty/Days Supply: Rx Expiration Date: 03/06/25 Refills Remainin OUTPT METFORMIN HCL 500MG 24HR SA TAB (Status = Active) TAKE TWO TABLETS BY MOUTH TWICE A DAY WITH MEALS FOR DIABETES TAKE WITH FOOD. AVOID ALCOHOL. DISCONTINUE BEFORE GETTING XRAY DYE. Rx# [id number] Last Released: 04/30/24 Qty/Days Supply: 120/30 Rx Expiration Date: 07/04/24 Refills Remainin Indication: FOR DIABETES OUTPT MULTIVIT/OPHTH AREDS2/LUTE/ZEAX CAP/TAB (Status = Active/Suspended) TAKE 1 CAP/TAB BY MOUTH TWICE A DAY WITH MEAL(S) FOR EYE HEALTH AVOID IF YOU HAVE PEANUT ALLERGY. Rx# [id number] Last Released: 04/12/24 Qty/Days Supply: 240/90 Rx Expiration Date: 08/23/24 Refills Remainin Indication: FOR EYE HEALTH OUTPT NITROGLYCERIN 0.4MG SL TAB (Status = Active) DISSOLVE ONE TABLET UNDER THE TONGUE ONE-TIME FOR CHEST PAIN NEEDED ; IF NO IMPROVEMENT AFTER FIRST DOSE CALL 9-1-1. MAY TAKE 2 ADDITIONAL DOSES, 5 MINUTES APART. TAKE WHILE SITTING. Rx# [id number] Last Released: 05/21/24 Qty/Days Supply: 100/90 Rx Expiration Date: 12/07/24 Refills Remainin Indication: FOR CHEST PAIN OUTPT ONDANSETRON HCL 8MG TAB (Status = Discontinued) TAKE ONE TABLET BY MOUTH ONCE A DAY NEEDED FOR NAUSEA/VOMITING Rx# [id number] Last Released: 04/03/24 Qty/Days Supply: 90/90 Rx Expiration Date: 06/05/24 Refills Remainin Indication: FOR NAUSEA/VOMITING OUTPT ONDANSETRON HCL 8MG TAB (Status = ) TAKE ONE-HALF TABLET BY MOUTH ONCE A DAY NEEDED FOR NAUSEA/VOMITING Rx# [id number] Last Released: 04/11/24 Qty/Days Supply: 30 Rx Expiration Date: 06/08/24 Refills Remainin Indication: FOR NAUSEA/VOMITING OUTPT OXYBUTYNIN CHLORIDE 5MG TAB (Status = Discontinued) TAKE ONE TABLET BY MOUTH THREE TIMES A DAY FOR BLADDER Rx# [id number] Last Released: 01/19/24 Qty/Days Supply: 270/90 Rx Expiration Date: 05/21/24 Refills Remainin OUTPT OXYBUTYNIN CHLORIDE 5MG TAB (Status = Active/Suspended) TAKE ONE TABLET BY MOUTH THREE TIMES A DAY FOR BLADDER Rx# [id number] Last Released: 04/22/24 Qty/Days Supply: 270/90 Rx Expiration Date: 04/10/25 Refills Remainin OUTPT OXYCODONE 7.5MG/ACETAMINOPHEN 325MG TAB (Status = ) TAKE 1 TABLET BY MOUTH EVERY 4 HOURS NEEDED FOR PAIN (MAX 4 TAB/DAY; HOLD WITHIN 4 HOURS OF PLANNED SLEEP) MUST LAST 28 DAYS OR MORE NOTE: DO NOT EXCEED 4000MG PER DAY ACETAMINOPHEN (APAP) Rx# [id number] Last Released: 03/29/24 Qty/Days Supply: Rx Expiration Date: 04/18/24 Refills Remainin OUTPT OXYCODONE 7.5MG/ACETAMINOPHEN 325MG TAB (Status = ) TAKE 1 TABLET BY MOUTH EVERY 4 HOURS NEEDED FOR PAIN MAX OF 4 TABLETS PER DAY. HOLD WITHIN 4 HOURS OF PLANNED SLEEP. *MUST LAST 28 DAYS OR MORE* NOTE: DO NOT EXCEED 4000MG PER DAY ACETAMINOPHEN (APAP) Rx# [id number] Last Released: 04/26/24 Qty/Days Supply: Rx Expiration Date: 05/16/24 Refills Remainin OUTPT OXYCODONE 7.5MG/ACETAMINOPHEN 325MG TAB (Status = Discontinued) TAKE 1 TABLET BY MOUTH EVERY 4 HOURS NEEDED FOR PAIN (MAX 4 TABLETS PER DAY; HOLD WITHIN 4 HOURS OF PLANNED SLEEP) THIS QUANTITY MUST LAST 28 DAYS OR MORE NOTE: DO NOT EXCEED 4000MG PER DAY ACETAMINOPHEN (APAP) Rx# [id number] Last Released: 05/29/24 Qty/Days Supply: Rx Expiration Date: 06/27/24 Refills Remainin OUTPT OXYCODONE 7.5MG/ACETAMINOPHEN 325MG TAB (Status = Active) TAKE 1 TABLET BY MOUTH EVERY 4 HOURS NEEDED FOR PAIN (MAX 4 TAB/DAY; HOLD WITHIN 4 HOURS OF PLANNED SLEEP) MUST LAST 28 DAYS OR MORE NOTE: DO NOT EXCEED 4000MG PER DAY ACETAMINOPHEN (APAP) Rx# [id number] Last Released: 06/26/24 Qty/Days Supply: Rx Expiration Date: 07/24/24 Refills Remainin OUTPT PANTOPRAZOLE NA 40MG EC TAB (Status = Active/Suspended) TAKE ONE TABLET BY MOUTH EVERY MORNING BEFORE A MEAL FOR GASTROESOPHAGEAL REFLUX DISEASE TAKE 30 MINUTES BEFORE MEAL(S) Rx# [id number] Last Released: 05/24/24 Qty/Days Supply: Rx Expiration Date: 12/11/24 Refills Remainin Indication: FOR GASTROESOPHAGEAL REFLUX DISEASE OUTPT PSYLLIUM ORAL PWD (Status = Active) MIX AND DRINK 1 TEASPOONFUL BY MOUTH ONCE A DAY FOR FIBER SUPPLEMENTATION MIX IN GLASS OF WATER/JUICE. FLAVOR SUBSTITUTIONS MAY/WILL OCCUR AND SPECIFIC VARIETIES WILL NOT BE PROVIDED. Rx# [id number] Last Released: Qt Supply: 780 Rx Expiration Date: 06/22/25 Refills Remainin Indication: FOR FIBER SUPPLEMENTATION OUTPT RANOLAZINE 500MG SA TAB (Status = Active/Suspended) TAKE ONE TABLET BY MOUTH TWICE A DAY *SWALLOW WHOLE- DO NOT CRUSH,BREAK OR CHEW* Rx# [id number] Last Released: 03/29/24 Qty/Days Supply: 180/ Rx Expiration Date: 01/16/25 Refills Remainin OUTPT SPIRONOLACTONE 50MG TAB (Status = Active/Suspended) TAKE ONE TABLET BY MOUTH ONCE A DAY FOR HEART FAILURE AND EXCESSIVE FLUID. DOSE DECREASE Rx# [id number] Last Released: 05/08/24 Qty/Days Supply: Rx Expiration Date: 03/06/25 Refills Remainin Indication: FOR HEART FAILURE OUTPT TRAZODONE HCL 100MG TAB (Status = Active) TAKE ONE TABLET BY MOUTH AT BEDTIME FOR MOOD OR SLEEP. Rx# [id number] Last Released: 06/07/24 Qty/Days Supply: Rx Expiration Date: 01/16/25 Refills Remainin SUPPLIES OUTPT LANCET,SOFTCLIX (Status = Active) USE LANCET FOR BLOOD TEST ONCE A DAY FOR BLOOD SUGAR MONITORING USE DIRECTED. Rx# [id number] Last Released: 01/31/24 Qty/Days Supply: 100/ Rx Expiration Date: 08/23/24 Refills Remainin Indication: FOR BLOOD SUGAR MONITORING PHARMACY TERMS AND POSSIBLE PATIENT ACTIONS INPT = [place] inpatient order IV = [place] intravenous medication OUTPT = [place] outpatient prescription PHARMACY POSSIBLE PATIENT TERMS EXPLANATION ACTIONS -------- ---- ACTIVE A prescription that can be If you have refills, filled at the local [place] pharmacy. you may request a refill of this prescription from your [facility] pharmacy. CLINIC A medication you received during If you have questions a visit to a [place] clinic or about this medication emergency department. contact your [place] healthcare team. DISCONTINUED A prescription your provider has Contact your [place] stopped. It is no longer healthcare team if you available to be sent to you or need more of this picked up at the [place] pharmacy medication. window. A prescription which is [...] the [facility]. Or, it may be an eacu-[id number] (OTC), herbal, dietary supplements or sample medication. [...] An active prescription that is Contact your [place] not scheduled to be filled yet. pharmacy [...] report since last visit? NO VITALS: TEMPERATURE: 97.8 F [36.6 C] (06/21/2024 13:52) BP: 121/79 (06/27/2024 13:37) RESP: 20 (06/27/2024:37) PULSE: 77 (06/27/2024 13:37) HT: 66.0 in [167.6 cm] (06/27/2024) WT: 185.0 lb [83.91 kg] (06/27/2024:) BMI: 29.9 PAIN ASSESSMENT: (Most Recent Pain Score in Vitals Package: 7 (06/17/2024 13:42) ) The patient indicated that they and [...] Now let us serve you. At the [facility], we strive to provide you with exceptional [...] Not At All SPIRITUAL ASSESSMENT: Are there pentecostalism practices or spiritual concerns you want the jai alai player, your physician, and other health care team members to immediately know about? No Patient advised to call the clinic for any concerns, questions, or symptoms. Patient and/or caregiver verbalized understanding of plan of care. COVID-19 Immunization - L,N,P,PH,U: Refused Moderna Monovalent COVID-19 vaccine Immunization: COVID-19 (MODERNA), MRNA, LNP-S, PF, 50 MCG/0.5 ML (AGES 12+ YEARS) Refusal Reason: PATIENT DECISION Patient refuses all immunization(s) in the COVID-19 group Date Documented: 06/27/24 13:56 Influenza Immunization - L,N,P,PH,U: Deferral / Refusal The patient declines to receive the recommended dose of seasonal influenza vaccine. Immunization: INFLUENZA, UNSPECIFIED FORMULATION Refusal Reason: PATIENT DECISION Patient refuses all immunization(s) in the FLU group Date Documented: 06/27/24 13:56 MOVE Weight Management: Most recent BMI: 29.9. educated on health risk of obesity and treatment is offered. Participation in a weight management program was considered/offered for this patient based on the current BMI score. Patient declines participation in a weight management program. Herpes Zoster (Shingles) Vaccine - L,N,P,PH,U: The patient declines to receive the recommended dose of zoster (shingles) vaccine. 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
--- OUTSIDE RECORDS SUMMARY | 2024-07-01 09:02 | XMS_ITS ---
Author Name [facility] [facility] [place] Address [address] [place] [address] Care Team Providers Care Fender Repairer Name Role Phone DAKOTAH INFANTE Primary Care [...] (WNR) MEDICARE ADVANTAGE HUMAN A INSUR ANCE [employer] May 22, 2020 [id number] JAMI CASTELLANO PATIENT INNOVIANT E-PHARM PRESCRIPT ION SWEET WATER KANDI DIST Jan 20, 2007 [id number] [phone] JAMI CASTELLANO PATIENT MEDICARE (WNR) MEDICARE (M) PART A Nov 19, 2013 PART A [id number] JAMI CASTELLANO PATIENT MEDICARE (WNR) MEDICARE (M) PART B Nov 19, 2013 PART B [id number] JAMI CASTELLANO PATIENT MEDICARE (WNR) MEDICARE (M) PART B Nov 19, 2013 PART B [id number] JAMI CASTELLANO PATIENT MEDICARE (WNR) MEDICARE (M) PART A Nov 19, 2013 PART A [id number] JAMI CASTELLANO PATIENT MEDICARE (WNR) MEDICARE (M) PART A Nov 19, 2013 PART A [id number] JAMI CASTELLANO PATIENT MEDICARE (WNR) MEDICARE (M) PART B Nov 19, 2013 PART B [id number] JAMI CASTELLANO PATIENT MEDICARE (WNR) MEDICARE (M) PART A Nov 19, 2013 PART A [id number] JAMI CASTELLANO PATIENT MEDICARE (WNR) MEDICARE (M) PART B Nov 19, 2013 PART B [id number] JAMI CASTELLANO PATIENT MEDICARE (WNR) MEDICARE (M) PART A Nov 19, 2013 PART A [id number] JAMI CASTELLANO PATIENT MEDICARE (WNR) MEDICARE (M) PART B Nov 19, 2013 PART B [id number] JAMI CASTELLANO PATIENT MEDICARE (WNR) MEDICARE (M) PART A Nov 19, 2013 PART A [id number] JAMI CASTELLANO PATIENT MEDICARE (WNR) MEDICARE (M) PART B Nov 19, 2013 PART B [id number] JAMI CASTELLANO PATIENT MEDICARE (WNR) MEDICARE (M) PART A Nov 19, 2013 PART A [id number] JAMI CASTELLANO PATIENT MEDICARE (WNR) MEDICARE (M) PART B Nov 19, 2013 PART B [id number] JAMI CASTELLANO PATIENT MEDICARE (WNR) MEDICARE (M) PART A Nov 19, 2013 PART A [id number] JAMI CASTELLANO PATIENT MEDICARE (WNR) MEDICARE (M) PART B Nov 19, 2013 PART B [id number] JAMI CASTELLANO PATIENT MEDICARE PART D (WNR) MEDICARE (M) PART D May 22, 2020 PART D [id number] JAMI CASTELLANO PATIENT MEDICARE PART D (WNR) MEDICARE (M) PART D Feb 19, 2014 PART D [id number] JAMI CASTELLANO 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 Date/Time Encounter Type Encounter Description Reason Provider Source Jul 01, 2024 02:02 PM CONFORMITY EVALUATION AUDIOLOGY ICD-10-CM Z46.1 Encounter for fitting and adjustment of hearing aid SAURABH DURBIN RA [facility] Encounter Template Text not used by [place] Assessments - Encounter Diagnoses This section includes the primary and secondary diagnoses documented for the Encounter. Date/Time Primary/Secondary Diagnosis Diagnosis Name Provider Source Jul 01, 2024 02:06 PM PRIMARY Encounter for fitting and adjustment of hearing aid SAURABH DURBIN RA [facility] Jul 01, 2024 02:06 PM SECONDARY Sensorineural hearing loss, bilateral SAURABH DURBIN RA [place] [facility] Jul 01, 2024 02:06 PM SECONDARY Tinnitus, bilateral SAURABH DURBIN RA [place] [facility] Plan of Treatment: Future Appointments (+ 6 months) and Future Tests (+/- 45 days) The Plan of Treatment section includes future care activities for the patient from all [place] treatmentfacilities. This section includes future appointments and future orders which are active, pending or scheduled. Future Appointments This section includes appointments that were scheduled to occur 6 months from the date of the Encounter, up to a maximum of 20 appointments. The data comes from all [facility]. Appointment Date/Time Appointment Type Appointme nt Facility Name Jul 04, 2024 01:30 PM AMBULATORY - MEDICINE [facility] Jul 16, 2024 01:00 PM AMBULATORY - PSYCHIATRY [facility] Jul 31, 2024 12:30 PM AMBULATORY - MEDICINE [facility] Jul 31, 2024 12:32 PM [place] - [place]IC[place] [facility] Aug 13, 2024 03:00 PM AMBULATORY - PSYCHIATRY [facility] September 19, 2024 01:30 PM [place]IC[place] [facility] September 26, 2024 11:45 AM AMBULATORY - PSYCHIATRY [facility] September 26, 2024 11:46 AM [place]ORY - [place]IC[place] [facility] October 01, 2024 12:00 PM AMBULATORY - MEDICINE [facility] October 01, 2024 12:01 PM AM[place]ORY - [place]IC[place] [facility] October 01, 2024 12:30 PM AMBULATORY - MEDICINE [facility] October 08, 2024 02:00 PM AMBULATORY - MEDICINE [facility] Oct 21, 2024 01:00 PM AMBULATORY - MEDICINE [facility] Oct 22, 2024 01:00 PM AMBULATORY - MEDICINE [facility] Oct 30, 2024 12:00 PM AMBULATORY - NONE [place] [facility] Dec 19, 2024 12:15 PM AMBULATORY - PSYCHIATRY [facility] Dec 19, 2024 12:16 PM [facility] [place] [facility] [facility] Active, Pending, and Scheduled Orders This section includes a listing of several types of active, pending, and scheduled orders, including clinic medications orders, diagnostic test orders, procedure orders and consult orders; where the start date of the order is 45 days before the date of the Encounter or 45 days after the date of theEncounter. The data comes from all [facility]. Test Date/Time Test Type Test Details Facility Name Jun 21, 2024 01:06 PM Laboratory - Chemi stry Order ANCILLARY INFLUENZA A&B (PB) HAM SP [facility] Lab Results: +/- 30 days of the encounter This section includes the Chemistry and Hematology Lab Results on record with [place] for the patient. Radiology Reports and Pathology Reports are provided separately, in subsequent sections. Lab Results This section contains the Chemistry/Hematology Results that were resulted 30 days before or 30 daysafter the date of the Encounter. Date/Time Source Result Type Result - Unit Interpretation Reference Range Specimen Type Comment Jul 04, 2024 01:47 PM [facility] SGFOWGPBG-PIJUT-0,3-GALACTOSE IGE SERUM Speci men Type: SERUM Comment: REFERENCE RANGE: <0.10 kU/L Results above 0.1 kU/L indicate an allergen-specific IgE sensitization to uodgbwjoy-s-3,3-g alactose, and such patients are at risk [...] method. Additional information can be found at [email or web address] .[employer] Test performed by [employer] [address] [place], [place] [id number] Mobile Plant Operators: Loni Landis MD,PHD,SANCHO Test Reported by [facility], [facility], [address] [place], [place] Wilfred Velásquez M.D., Ph.D., Director of Laboratories , [place] [id number] Ordering Provider: LILIAM HARPER Report Released Date/Time: Jul 04, 2024 01:45 PM Reporting Lab: [place] [facility] [address] [place] [address] Performing Lab: [place] [facility] [address] [facility] FEPJTKNDK-KQMQM-9,3-GALACTOSE IGE <0.10 kU/L SEE BELOW Jul 04, 2024 01:47 PM [facility] FOLATE (PB) SERUM Specimen Typ e: SERUM No comment entered. Ordering Provider: LILIAM HARPER Report Released Date/Time: Jul 04, 2024 01:45 PM Reporting Lab: [place] [facility] [address] [place] [address] Performing Lab: [place] [facility] [address] [place] [address] FOLATE (PB) 15.7 ng/mL 7-20 Jul 04, 2024 01:47 PM [facility] [place] [facility] B12 SERUM Specimen Type: SERUM No comment entered. Ordering Provider: LILIAM HARPER Report Released Date/Time: Jul 04, 2024 01:45 PM Reporting Lab: [place] [facility] [address] [place] [address] Performing Lab: [place] [facility] [address] [place] [address] B12 673 pg/mL 213-816 Jul 04, 2024 01:47 PM [facility] VITAMIN D, 25-HYDROXY SERUM Specimen Type: SE RUM No comment entered. Ordering Provider: LILIAM HARPER Report Released Date/Time: Jul 04, 2024 01:45 PM Reporting Lab: [place] [facility] [address] [place] [address] Performing Lab: [place] [facility] [address] [place] [address] VITAMIN D, 25-HYDROXY 31.5 ng/mL 30-96 Jul 02, 2024 12:44 PM [facility] DIRECT LDL (MA-PB) PLASMA Specimen Type: PLASM A No comment entered. Ordering Provider: LILIAM HARPER Report Released Date/Time: Apr 09, 2024 03:26 PM Reporting Lab: [place] [facility] [address] [place] [address] Performing Lab: [place] [facility] [address] [place] [address] DIRECT LDL 70.4 mg/dL 0-99.9 Jul 02, 2024 12:44 PM [facility] HGA1C BLOOD Specimen Type: BLOOD No comment entered. Ordering Provider: LILIAM HARPER Report Released Date/Time: Apr 09, 2024 03:26 PM Reporting Lab: [place] [facility] [address] [place] [address] Performing Lab: [place] [facility] [address] [place] [address] HGA1C 6.6 H 4.0-6.0 Jul 02, 2024 12:44 PM [facility] CHOLESTEROL PANEL (PB) PLASMA Specimen Type: P LASMA No comment entered. Ordering Provider: LILIAM HARPER Report Released Date/Time: Apr 09, 2024 03:26 PM Reporting Lab: [place] [facility] [address] [place] [address] Performing Lab: [place] [facility] [address] [place] [address] CHOLESTEROL 120 mg/dL 0-200 TRIGLYCERIDE 164 mg/dL H 0-150 CALCULATED LDL 61.2 mg/dL HDL(New) 26.0 mg/dL L >40 HDL % OF TOTAL CHOLESTEROL (PB) 21.7 >25 Jul 02, 2024 12:44 PM [facility] COMPREHENSIVE METABOLIC PANEL PLASMA Specimen Type: PLASMA No comment entered. Ordering Provider: LILIAM HARPER Report Released Date/Time: Apr 09, 2024 03:26 PM Reporting Lab: [place] [facility] [address] [place] [address] Performing Lab: [place] [facility] [address] [place] [address] CREATININE 0.66 mg/dL 0.6-1.1 UREA NITROGEN 13 [...] 2020) 99 Jun 21, 2024 01:17 PM [facility] ANCILLARY INFLUENZA A&B (PB) NARES Specimen T ype: NARES Comment: Test performed by: Benito Coronado [id number] Meter #: [id number] Ordering Provider: DAKOTAH INFANTE Report Released Date/Time: Jun 21, 2024 01:29 PM Reporting Lab: [facility] [address] [facility] [address] Performing Lab: [facility] [address] [facility] [address] INFLUENZA A negative Negative INFLUENZA B negative Negative Advance Directives: All historical and current Section Date Range: From patient's date of to the date document was created. This section includes ALL of a patient's completed or amended [place] Advance and Rescinded Directives. The entries below indicate that a directive exists for the patient, but an actual copy is not included with this document. The data comes from all [place] facilities. Date Advance Directives Provider Source Dec 18, 2023 ADVANCE DIRECTIVE PETER BOWLING [facility] Radiology Reports: +/- 30 days [...] the Encounter. The data comes from all [place] treatment facilities. Date/Time Radiology Report Provider Source Jul 04, 2024 01:52 PM CHEST X-RAY, 2 VIE WS: JAMI CASTELLANO [id number] -1960 F Exm Date: JUL 04, 2024@13:52 Req Phys: DAKOTAH INFANTE Pat Loc: PB-MAITE PACT [employer] SALES NEGOTIATOR WH (Req Img Loc: PB-XRAY VENICE Service: [place] [address] (Case [id number] COMPLETE) CHEST X-RAY, 2 VIEWS (RAD Detailed) CPT:19992 Reason for Study: follow up pneumonia Clinical History: Report Status: Verified Date Reported: JUL 04, 2024 Date Verified: JUL 04, 2024 Staff Software Engineer E-Sig: Report: PA and lateral views of the chest reveal minimal spinal curvature with no acute osseous abnormality. There is no infiltrate or effusion. Heart size is normal. There is a neurostimulator in the mid thoracic spinal canal. Impression: No acute process Primary Interpreting Staff: RADHA SMALL RADIOLOGIST (Staff Software Engineer, no e-sig) /RADHA Ramos [facility] Jun 27, 2024 01:42 PM CHEST X-RAY, 2 VIE WS: JAMI CASTELLANO [id number] -1960 F Exm Date: JUN 27, 2024@13:42 Req Phys: DAKOTAH INFANTE Loc: PB-MAITE PACT FOXGENO SALES NEGOTIATOR WH (Req Img Loc: PB-XRAY [facility] Service: [place] [address] (Case [id number] COMPLETE) CHEST X-RAY, 2 VIEWS (RAD Detailed) CPT:67650 Reason for Study: cont cough with positive flu Clinical History: copd and current smoker Report Status: Verified Date Reported: JUN 27, 2024 Date Verified: JUN 27, 2024 Staff Software Engineer E-Sig: Report: Chest 2 views. Mild elevation [...] if clinically indicated Primary Interpreting Staff: HUBERT BRUNNER RADIOLOGIST (Staff Software Engineer, no e-sig) /HUBERT Buck [facility] Encounter Notes: All associated encounter notes This section contains the clinical notes associated to the Encounter. Date/Time Encounter Note(s) Provider Source Jul 01, 2024 07:10 AM AUDIOLOGY NOTE: LOCAL TITLE: HEARING CLINIC PB STANDARD TITLE: AUDIOLOGY NOTE DATE OF NOTE: JUL 01, 2024@07:10 ENTRY DATE: JUL 01, 2024@07:11:02 AUTHOR: ALEJANDRO DURBIN COSIGNER: URGENCY: STATUS: COMPLETED Diagnosis: Sensorineural Hearing Loss, Bilateral and Tinnitus, Bilateral Treatment: Hearing Aid Fitting Time spent with Edmond: 60 minutes Edmond seen for a hearing aid fitting via Audio Telehealth and verbally consented to the Telehealth modality. Multi-factor personally identifiable information of the was obtained verbally (full name and date of ). Edmond accompanied by: cem Patient site: [facility] SUBJECTIVE: Patient is here for the issue of new hearing aids. Edmond is new to amplification. HEARING DEVICES: was fit with the following hearing devices and accessories today: 06/2024 PHONAK AUDEO I90-R MARCELLO L [id number] 06/19/27 11/16/2406/2024 PHONAK AUDEO I90-R MARCELLO R [id number] 06/19/27 11/16/24 - 1S ENTERPRISE APPLICATIONS MANAGER 6.0 - OPEN DOME - SMALL - CERUSTOP Accessories: [employer]ONTROL Phone Connectivity: yes (no sound generator to start) OBJECTIVE/ASSESSMENT: Otoscopy was performed by collaboration of telehealth clinical pharmacy picking technician and provider via telehealth technology/video otoscope which revealed: Right: unremarkable Left: minimal cerumen Probe-Microphone Measures: Conformity evaluation was performed using real ear measures with NAL-NL2 ([employer]) targets. Maximum output was within the predicted upper limit of comfort. Hearing aids set to 80% target gain per patient subjective listening preference. Feedback mechanical project manager completed. Familiarized patient with sound indicators (low battery signal, volume control, etc.). Device(s) issued in Remote Mechanic'S Assistant System. Physical Fit/Comfort: Good per patient. Sound Quality: Good per patient. Settings: - Programs: Automatic - Push button: enabled - Volume control: short press - Program change: medium press - On/Off device: long press Phone Connectivity: - streaming. A test call confirmed proper connectivity. DIRECT PATIENT EDUCATION-30 minutes educated on: - Use of batteries/inspector barrel - Hearing aid care and maintenance - Adjustment period/ importance of daily consistent use (8- 12hrs/day) - Realistic expectations - Effective communication strategies - Pet/child warning - Patient instructed not to wear devices in excessive noise - Installation and use of additional accessories - Ordering supplies through [facility] - Repair process - Trial period Edmond demonstrated how to: - Insert/remove hearing aid(s) - Adjust volume control/program switch - Change batteries/charge hearing aid(s) Edmond was provided: - Hearing aid manual - [place] form 2477b was counseled/educated on services provided today and is in agreement with the plan. Patient was given clinic phone number and encouraged to contact the clinic as needs arise. PLAN: Return to clinic for follow up/check. Please complete outcome measures questionnaire at that time. /matt/ Carmen French [facility] Signed: 07/01/2024 14:22 ALEJANDRO DURBIN [facility]
--- OUTSIDE RECORDS SUMMARY | 2024-07-02 07:59 | XMS_ITS | Encounter Summary ---
Author Name [facility] [place] [facility] [place] Address [address] [place] [address] Care Team Providers Care Creative Strategist Name Role Phone DAKOTAH INFANTE Primary Care [...] Relationship to Policy Palmer [facility] (WNR) MEDICARE ADVANTAGE HUMAN A INSUR [email or web address] May 22, 2020 [id number] JAMI CASTELLANO PATIENT INNOVIANT E-PHARM PRESCRIPT ION SWEET WATER KANDI DIST Jan 20, 2007 [id number] [phone] JAMI CASTELLANO PATIENT MEDICARE (WNR) MEDICARE (M) PART A Nov 19, 2013 PART A [id number] JAMI CASTELLANO PATIENT MEDICARE (WNR) MEDICARE (M) PART B Nov 19, 2013 PART B [id number] JAMI CASTELLANO PATIENT MEDICARE (WNR) MEDICARE (M) PART A Nov 19, 2013 PART A [id number] JAMI CASTELLANO PATIENT MEDICARE (WNR) MEDICARE (M) PART B Nov 19, 2013 PART B [id number] JAMI CASTELLANO PATIENT MEDICARE (WNR) MEDICARE (M) PART A Nov 19, 2013 PART A [id number] JAMI CASTELLANO PATIENT MEDICARE (WNR) MEDICARE (M) PART B Nov 19, 2013 PART B [id number] JAMI CASTELLANO PATIENT MEDICARE (WNR) MEDICARE (M) PART B Nov 19, 2013 PART B [id number] JAMI CASTELLANO PATIENT MEDICARE (WNR) MEDICARE (M) PART A Nov 19, 2013 PART A [id number] JAMI CASTELLANO PATIENT MEDICARE (WNR) MEDICARE (M) PART A Nov 19, 2013 PART A [id number] JAMI CASTELLANO PATIENT MEDICARE (WNR) MEDICARE (M) PART B Nov 19, 2013 PART B [id number] JAMI CASTELLANO PATIENT MEDICARE (WNR) MEDICARE (M) PART A Nov 19, 2013 PART A [id number] JAMI CASTELLANO PATIENT MEDICARE (WNR) MEDICARE (M) PART B Nov 19, 2013 PART B [id number] JAMI CASTELLANO PATIENT MEDICARE (WNR) MEDICARE (M) PART B Nov 19, 2013 PART B [id number] JAMI CASTELLANO PATIENT MEDICARE (WNR) MEDICARE (M) PART A Nov 19, 2013 PART A [id number] JAMI CASTELLANO PATIENT MEDICARE (WNR) MEDICARE (M) PART A Nov 19, 2013 PART A [id number] JAMI CASTELLANO PATIENT MEDICARE (WNR) MEDICARE (M) PART B Nov 19, 2013 PART B [id number] JAMI CASTELLANO PATIENT MEDICARE PART D (WNR) MEDICARE (M) PART D May 22, 2020 PART D [id number] JAMI CASTELLANO PATIENT MEDICARE PART D (WNR) MEDICARE (M) PART D Feb 19, 2014 PART D [id number] JAMI CASTELLANO PATIENT OFF OF REG WIRE INSPECTOR BURDICK TORT FEASOR TORT Nov 26, 2017 TORT [id number] JAMI CASTELLANO PATIENT OPTUM RX PRESCRIPT ION SWEET WATER SCHOO L #1 September 19, 2008 [id number] [phone] JAMI CASTELLANO PATIENT UMR COMPREHEN SIVE MAJOR MEDICAL SWEET WATER COUNT Y SC Jan 20, 2014 [id number] [phone] JAMI CASTELLANO PATIENT UMR PREFERRED PROVIDER ORGANIZAT ION (PPO) TAWANNA SS ROEL HEALT H Jan 20, 2007 [id number] [phone] JAMI CASTELLANO PATIENT Selected Encounter This section includes the information on record at NE for the Encounter. Date/Time Encounter Type Encounter Description Reason Pro vider Source Jul 02, 2024 12:59 PM Outpatient Encounter ADMIN PAT ACTIVTIES (MASNONCT) IHE Encounter Template Text not used by NE Plan of Treatment: Future Appointments (+ 6 months) and Future Tests (+/- 45 days) The Plan of Treatment section includes future care activities for the patient from all [place] treatmentfacilities. This section includes future appointments and future orders which are active, pending or scheduled. Future Appointments This section includes appointments that were scheduled to occur 6 months from the date of the Encounter, up to a maximum of 20 appointments. The data comes from all [place] treatment facilities. Appointment Date/Time Appointment Type Appointme nt Facility Name Jul 04, 2024 01:30 PM AMBULATORY - MEDICINE [facility] Jul 16, 2024 01:00 PM AMBULATORY - PSYCHIATRY [facility] Jul 31, 2024 12:30 PM AMBULATORY - MEDICINE [facility] Jul 31, 2024 12:32 PM AMBULATORY - MEDICINE [facility] [facility] Aug 13, 2024 03:00 PM [facility]AT[facility] September 19, 2024 01:30 PM AMBULATORY - MEDICINE [place] [facility] September 26, 2024 11:45 AM AMBULATORY - PSYCHIATRY [facility] September 26, 2024 11:46 AM [facility] October 01, 2024 12:00 PM AMBULATORY - MEDICINE [facility] October 01, 2024 12:01 PM AMBULATORY - MEDICINE [place] [facility] October 01, 2024 12:30 PM AMBULATORY - MEDICINE [facility] October 08, 2024 02:00 PM AMBULATORY - MEDICINE [facility] Oct 21, 2024 01:00 PM AMBULATORY - MEDICINE [facility] Oct 22, 2024 01:00 PM AMBULATORY - MEDICINE [facility] Oct 30, 2024 12:00 PM AMBULATORY - NONE [place] [facility] Dec 19, 2024 12:15 PM AMBULATORY - PSYCHIATRY [facility] Dec 19, 2024 12:16 PM AMBULATORY - MEDICINE [facility] [facility] Active, Pending, and Scheduled Orders This section includes a listing of several types of active, pending, and scheduled orders, including clinic medications orders, diagnostic test orders, procedure orders and consult orders; where the start date of the order is 45 days before the date of the Encounter or 45 days after the date of theEncounter. The data comes from all [place] treatment facilities. Test Date/Time Test Type Test Details Facility Name Jun 21, 2024 01:06 PM Laboratory - Chemi stry Order ANCILLARY INFLUENZA A&B (PB) NARES SP [facility] Lab Results: +/- 30 days of the encounter This section includes the Chemistry and Hematology Lab Results on record with NE for the patient. Radiology Reports and Pathology Reports are provided separately, in subsequent sections. Lab Results This section contains the Chemistry/Hematology Results that were resulted 30 days before or 30 daysafter the date of the Encounter. Date/Time Source Result Type Result - Unit Interpretation Reference Range Specimen Type Comment Jul 04, 2024 01:47 PM [facility] NJOJZOYIW-DIHZY-8,3-GALACTOSE IGE SERUM Speci men Type: SERUM Comment: REFERENCE RANGE: <0.10 kU/L Results above 0.1 kU/L indicate an allergen-specific IgE sensitization to hqgyjeefg-b-7,3-g alactose, and such patients are at risk [...] method. Additional information can be found at [email or web address] Test performed by [facility] [address] [place] [id number] Video Surveillance Technician: Loni Landis MD,PHD,SANCHO Test Reported by [facility], [employer] [facility], [address] [place] [address] Wilfred Velásquez M.D., Ph.D., Director of Laboratories , [place] [id number] Ordering Provider: LILIAM HARPER Report Released Date/Time: Jul 04, 2024 01:45 PM Reporting Lab: [place] [facility] [address] [place] [address] Performing Lab: [place] [facility] [address] [facility] ATTRNCSNG-JCZEI-7,3-GALACTOSE IGE <0.10 kU/L SEE BELOW Jul 04, 2024 01:47 PM [facility] B12 SERUM Specimen Type: SERUM No comment entered. Ordering Provider: LILIAM HARPER Report Released Date/Time: Jul 04, 2024 01:45 PM Reporting Lab: [place] [facility] [address] [place] [address] Performing Lab: [place] [facility] [address] [place] [address] B12 673 pg/mL 213-816 Jul 04, 2024 01:47 PM [facility] VITAMIN D, 25-HYDROXY SERUM Specimen Type: SE RUM No comment entered. Ordering Provider: LILIAM HARPER Report Released Date/Time: Jul 04, 2024 01:45 PM Reporting Lab: [place] [facility] [address] [place] [address] Performing Lab: [place] [facility] [address] [place] [address] VITAMIN D, 25-HYDROXY 31.5 ng/mL 30-96 Jul 04, 2024 01:47 PM [facility] [place] [facility] FOLATE (PB) SERUM Specimen Typ e: SERUM No comment entered. Ordering Provider: LILIAM HARPER Report Released Date/Time: Jul 04, 2024 01:45 PM Reporting Lab: [place] [facility] [address] [place] [address] Performing Lab: [place] [facility] [address] [place] [address] FOLATE (PB) 15.7 ng/mL 7-20 Jul 02, 2024 12:44 PM [facility] HGA1C BLOOD Specimen Type: BLOOD No comment entered. Ordering Provider: LILIAM HARPER Report Released Date/Time: Apr 09, 2024 03:26 PM Reporting Lab: [place] [facility] [address] [place] [address] Performing Lab: [place] [facility] [address] [place] [address] HGA1C 6.6 H 4.0-6.0 Jul 02, 2024 12:44 PM [place] [facility] DIRECT LDL (MA-PB) PLASMA Specimen Type: PLASM A No comment entered. Ordering Provider: LILIAM HARPER Report Released Date/Time: Apr 09, 2024 03:26 PM Reporting Lab: [place] [facility] [address] [place] [address] Performing Lab: [place] [facility] [address] [place] [address] DIRECT LDL 70.4 mg/dL 0-99.9 Jul 02, 2024 12:44 PM [facility] CHOLESTEROL PANEL (PB) PLASMA Specimen Type: P LASMA No comment entered. Ordering Provider: LILIAM HARPER Report Released Date/Time: Apr 09, 2024 03:26 PM Reporting Lab: [place] [facility] [address] [place] [address] Performing Lab: [place] [facility] [address] [place] [address] CHOLESTEROL 120 mg/dL 0-200 TRIGLYCERIDE 164 mg/dL H 0-150 CALCULATED LDL 61.2 mg/dL HDL(New) 26.0 mg/dL L >40 HDL % OF TOTAL CHOLESTEROL (PB) 21.7 >25 Jul 02, 2024 12:44 PM [facility] COMPREHENSIVE METABOLIC PANEL PLASMA Specimen Type: PLASMA No comment entered. Ordering Provider: LILIAM HARPER Report Released Date/Time: Apr 09, 2024 03:26 PM Reporting Lab: [place] [facility] [address] [place] [address] Performing Lab: [place] [facility] [address] [place] [address] CREATININE 0.66 mg/dL 0.6-1.1 UREA NITROGEN 13 [...] 2020) 99 Jun 21, 2024 01:17 PM [facility] ANCILLARY INFLUENZA A&B (PB) NARES Specimen T ype: NARES Comment: Test performed by: Benito Coronado [id number] Meter #: [id number] Ordering Provider: DAKOTAH INFANTE Report Released Date/Time: Jun 21, 2024 01:29 PM Reporting Lab: [facility] [address] [facility] [address] Performing Lab: [facility] [address] [facility] [address] INFLUENZA A negative Negative INFLUENZA B negative Negative Social History: Smoking Status (Most current) and Tobacco Use (All prior to encounter date) This section includes the most current, and the historical, smoking and tobacco- related health factors from the NE facility where the Encounter took place. Current Smoking Status This section includes the most current smoking, or tobacco-related health factor, from the NE facility where the Encounter took place. Date/Time Current Smoking Status Comment Facil ity Aug 23, 2023 11:00 AM VA-TOBACCO USE WI 30 MIN OF WAKE UP [facility] Tobacco Use History This section includes a history of the smoking, or tobacco-related health factors, that were collected on or before the date of the Encounter. The data comes from the [place] facility where the Encounter took place. Date/Time Smoking Status/Tobacco Use Comment F acility Aug 23, 2023 11:00 AM VA-TOBACCO USE ADVICE [facility] Aug 23, 2023 11:00 AM VA-TOBACCO USE WIRE INSPECTOR NO [facility] Aug 23, 2023 11:00 AM VA-TOBACCO USE MED NO [facility] Aug 23, 2023 11:00 AM VA-TOBACCO USE WI 30 MIN OF WAKE UP [facility] Aug 23, 2023 11:00 AM VA-TOBACCO USER EVERY DAY [facility] Aug 24, 2022 01:30 PM VA-TOBACCO DOESNT USE WI 30 MIN WAKEUP [facility] Aug 24, 2022 01:30 PM VA-TOBACCO USE > 1 5 LESS THAN 30 YEARS [facility] Aug 24, 2022 01:30 PM VA-TOBACCO USE ADVICE [facility] Aug 24, 2022 01:30 PM VA-TOBACCO USE WIRE INSPECTOR NO [facility] Aug 24, 2022 01:30 PM VA-TOBACCO USE MED NO [facility] Aug 24, 2022 01:30 PM VA-TOBACCO USER EVERY DAY [facility] Aug 30, 2021 01:30 PM VA-TOBACCO USE 30 YEARS OR MORE [place] [facility] Aug 30, 2021 01:30 PM VA-TOBACCO USE ADVICE [facility] Aug 30, 2021 01:30 PM VA-TOBACCO USE WIRE INSPECTOR NO [facility] Aug 30, 2021 01:30 PM VA-TOBACCO USE MED NOTIFY PROVID [facility] Aug 30, 2021 01:30 PM VA-TOBACCO USE WI 30 MIN OF WAKE UP [facility] Aug 30, 2021 01:30 PM VA-TOBACCO USER EVERY DAY [facility] Feb 17, 2020 02:00 PM VA-TOBACCO USE 30 YEARS OR MORE [facility] [facility] Feb 17, 2020 02:00 PM VA-TOBACCO USE ADVICE [facility] [facility] Feb 17, 2020 02:00 PM VA-TOBACCO USE WIRE INSPECTOR NO [facility] Feb 17, 2020 02:00 PM VA-TOBACCO USE MED NO [place] [facility] Feb 17, 2020 02:00 PM VA-TOBACCO USE WI 30 MIN OF WAKE UP [place] [facility] Feb 17, 2020 02:00 PM VA-TOBACCO USER EVERY DAY [place] [facility] Jun 27, 2018 12:01 PM VA-TOBACCO USE 30 YEARS OR MORE [place] [facility] Jun 27, 2018 12:01 PM VA-TOBACCO USE ADVICE [facility] [facility] Jun 27, 2018 12:01 PM VA-TOBACCO USE WIRE INSPECTOR NO [place] [facility] Jun 27, 2018 12:01 PM VA-TOBACCO USE MED NO [place] [facility] Jun 27, 2018 12:01 PM VA-TOBACCO USE WI 30 MIN OF WAKE UP [place] [facility] Jun 27, 2018 12:01 PM VA-TOBACCO USER EVERY DAY [place] [facility] Jul 20, 2017 04:18 PM CURRENT TOBACCO USER [place] [facility] Jul 20, 2017 04:18 PM CURRENT TOBACCO US ER (NOT READY TO QUIT) [facility] [facility] Jul 20, 2017 04:18 PM TOBACCO CESSATION REFERRAL DECLI [facility]NIFFER [place] [facility] Jul 20, 2017 04:18 PM TOBACCO MEDS OFFERED BUT DECLINE D [place] [facility] Jul 20, 2017 04:18 PM TOBACCO USER OFFERED MEDS [place] [facility] Jul 20, 2017 04:00 PM CURRENT TOBACCO USER [place] [facility] Jul 20, 2017 04:00 PM CURRENT TOBACCO US ER (NOT READY TO QUIT) [place] [facility] Jul 20, 2017 04:00 PM TOBACCO CESSATION REFERRAL DECLI [facility] [place] [facility] Jul 20, 2017 04:00 PM TOBACCO MEDS OFFERED BUT DECLINE D [place] [facility] Jul 20, 2017 04:00 PM TOBACCO USER OFFERED [facility] Advance Directives: All historical and current Section Date Range: From patient's date of to the date document was created. This section includes ALL of a patient's completed or amended [place] Advance and Rescinded Directives. The entries below indicate that a directive exists for the patient, but an actual copy is not included with this document. The data comes from all [place] facilities. Date Advance Directives Provider Source Dec 18, 2023 ADVANCE DIRECTIVE PETER BOWLING MARIVEL [facility] Radiology Reports: +/- 30 days [...] the Encounter. The data comes from all [place] treatment facilities. Date/Time Radiology Report Provider Source Jul 04, 2024 01:52 PM CHEST X-RAY, 2 VIE WS: JAMI CASTELLANO [id number] -[id number] F Exm Date: JUL 04, 2024@13:52 Req Phys: DAKOTAH INFANTE Loc: PB-MAITE PACT [place] RESHIPPING CLERK WH (Req Img Loc: PB-XRAY [place] Service: [place] [address] (Case [id number] COMPLETE) CHEST X-RAY, 2 VIEWS (RAD Detailed) CPT:89944 Reason for Study: follow up pneumonia Clinical History: Report Status: Verified Date Reported: JUL 04, 2024 Date Verified: JUL 04, 2024 Medical Office Scheduler E-Sig: Report: PA and lateral views of the chest reveal minimal spinal curvature with no acute osseous abnormality. There is no infiltrate or effusion. Heart size is normal. There is a neurostimulator in the mid thoracic spinal canal. Impression: No acute process Primary Interpreting Staff: RADHA SMALL RADIOLOGIST (Medical Office Scheduler, no e-sig) /RADHA Ramos [facility] Jun 27, 2024 01:42 PM CHEST X-RAY, 2 VIE WS: JAMI CASTELLANO [id number] -[id number] F Exm Date: JUN 27, 2024@13:42 Req Phys: NARESHDAKOTAH R Pat Loc: PB-MAITE PACT FOXNEETA[place] RESHIPPING CLERK WH (Req Img Loc: PB-XRAY [place] Service: [place] [address] (Case [id number] COMPLETE) CHEST X-RAY, 2 VIEWS (RAD Detailed) CPT:15197 Reason for Study: cont cough with positive flu Clinical History: copd and current smoker Report Status: Verified Date Reported: JUN 27, 2024 Date Verified: JUN 27, 2024 Medical Office Scheduler E-Sig: Report: Chest 2 views. Mild elevation [...] indicated Primary Interpreting Staff: HUBERT BRUNNER, RADIOLOGIST (Medical Office Scheduler, no e-sig) /HUBERT Buck [facility] Encounter Notes: All associated encounter notes This section contains the clinical notes associated to the Encounter. Date/Time Encounter Note(s) Provider Source Jul 02, 2024 12:59 PM GENERAL MEDICINE N OTE: LOCAL TITLE: General Note PB STANDARD TITLE: GENERAL MEDICINE NOTE DATE OF NOTE: JUL 02, 2024@12:59 ENTRY DATE: JUL 02, 2024@12:59:22 AUTHOR: ROEL TOWNSEND EXP COSIGNER: URGENCY: STATUS: COMPLETED Eye Care At-Risk Screen - L,N,PH,U: Patient identified to be at risk for the following eye condition(s): DIABETIC RETINOPATHY: Diabetes Diagnosis Information: Encounter Diagnosis: 06/05/2024@13:30 E11.9 (ICD-10-CM) Type 2 Diabetes Mellitus without Complications rank: SECONDARY Prov. Narr. - Diabetes Mellitus Type 2 ([facility] [id number]) MACULAR DEGENERATION: Macular Degeneration Risk Factors Information: Reminder Term: VA-AMD RISK FACTORS Encounter Diagnosis: 04/09/2024@13:00 F17.210 (ICD-10-CM) Nicotine Dependence, Cigarettes, Uncomplicated rank: SECONDARY Prov. Narr. - Nicotine dependence ([facility] [id number]) Action: No Referral Ordered: Eye exam completed elsewhere by an Desizing Pad Operator or Investigation Lieutenant Diabetic retinal exam result: Negative for Retinopathy Date: May 09, 2024 Location: Dr Luna /matt/ ROEL TOWNSEND Telehealth Clinical Wind Turbine Controls Engineer Signed: 07/02/2024 13:00 ROEL TOWNSEND [facility]
--- OUTSIDE RECORDS SUMMARY | 2024-07-04 08:30 | XMS_ITS | Encounter Summary ---
Author Name [facility] [facility] [place] Address [address] [place] [address] Care Team Providers Care Peanut Salter Name Role Phone DAKOTAH INFANTE Primary Care [...] Relationship to Policy Palmer [facility]MANA [facility] (WNR) MEDICARE ADVANTAGE HUMAN A INSUR ANCE [employer] May 22, 2020 [id number] [phone] JAMI CASTELLANO PATIENT INNOVIANT E-PHARM PRESCRIPT ION SWEET WATER T[place]ER DIST Jan 20, 2007 [id number] [phone] JAMI CASTELLANO PATIENT MEDICARE (WNR) MEDICARE (M) PART A Nov 19, 2013 PART A [id number] JAIM CASTELLANO PATIENT MEDICARE (WNR) MEDICARE () PART B Nov 19, 2013 PART B [id number] JAMI CASTELLANO PATIENT MEDICARE (WNR) MEDICARE () PART A Nov 19, 2013 PART A [id number] JAMI CASTELLANO PATIENT MEDICARE (WNR) MEDICARE (M) PART B Nov 19, 2013 PART B [id number] JAMI CASTELLANO PATIENT MEDICARE (WNR) MEDICARE () PART A Nov 19, 2013 PART A [id number] JAMI CASTELLANO PATIENT MEDICARE (WNR) MEDICARE (M) PART B Nov 19, 2013 PART B [id number] JAMI CASTELLANO PATIENT MEDICARE (WNR) MEDICARE () PART A Nov 19, 2013 PART A [id number] JAMI CASTELLANO PATIENT MEDICARE (WNR) MEDICARE (M) PART B Nov 19, 2013 PART B [id number] JAMI CASTELLANO PATIENT MEDICARE (WNR) MEDICARE () PART A Nov 19, 2013 PART A [id number] JAMI CASTELLANO PATIENT MEDICARE (WNR) MEDICARE () PART B Nov 19, 2013 PART B [id number] JAMI CASTELLANO PATIENT MEDICARE (WNR) MEDICARE () PART A Nov 19, 2013 PART A [id number] JAMI CASTELLANO PATIENT MEDICARE (WNR) MEDICARE (M) PART B Nov 19, 2013 PART B [id number] JAMI CASTELLANO PATIENT MEDICARE (WNR) MEDICARE (M) PART A Nov 19, 2013 PART A [id number] JAMI CASTELLANO PATIENT MEDICARE (WNR) MEDICARE (M) PART B Nov 19, 2013 PART B [id number] JAMI CASTELLANO PATIENT MEDICARE (WNR) MEDICARE (M) PART A Nov 19, 2013 PART A [id number] JAMI CASTELLANO PATIENT MEDICARE (WNR) MEDICARE (M) PART B Nov 19, 2013 PART B [id number] JAMI CASTELLANO PATIENT MEDICARE PART D (WNR) MEDICARE (M) PART D May 22, 2020 PART D [id number] JAMI CASTELLANO PATIENT MEDICARE PART D (WNR) MEDICARE (M) PART D Feb 19, 2014 PART D [id number] JAMI CASTELLANO PATIENT 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 Date/Time Encounter Type Encounter Description Reason Provider Source Jul 04, 2024 01:30 PM MTMS BY PHARM ADDL 15 MIN CLINICAL PHARMACY ICD-10-CM J44.9 Chronic obstructive pulmonary disease, unspecified LILIAM HARPER Bruna Encounter Template Text not used by [place] Assessments - Encounter Diagnoses This section includes the primary and secondary diagnoses documented for the Encounter. Date/Time Primary/Secondary Diagnosis Diagnosis Name Provider Source Jul 04, 2024 02:19 PM PRIMARY Chronic obstructive pulmonary disease, unspecified LILIAM HARPER [facility] Jul 04, 2024 02:19 PM SECONDARY Gastro-esophageal reflux disease without esophagitis LILIAM HARPER [facility] Jul 04, 2024 02:19 PM SECONDARY Type 2 diabetes mellitus without complications LILIAM HARPER [facility] Plan of Treatment: Future Appointments (+ 6 months) and Future Tests (+/- 45 days) The Plan of Treatment section includes future care activities for the patient from all [facility] treatmentfacilities. This section includes future appointments and future orders which are active, pending or scheduled. Future Appointments This section includes appointments that were scheduled to occur 6 months from the date of the Encounter, up to a maximum of 20 appointments. The data comes from all [facility]. Appointment Date/Time Appointment Type Appointme nt Facility Name Jul 16, 2024 01:00 PM AMBULATORY - PS[facility]IATRY [facility] Jul 31, 2024 12:30 PM AMBULATORY - MEDICINE [facility] Jul 31, 2024 12:32 PM [place]IC[place] [facility] Aug 13, 2024 03:00 PM AMBULATORY - PSYCHIATRY [facility] September 19, 2024 01:30 PM [place]BULATORY - [place]IC[place] [facility] September 26, 2024 11:45 AM AMBULATORY - PSYCHIATRY [facility] September 26, 2024 11:46 AM [place]BULATORY [place]IC[place] [facility] October 01, 2024 12:00 PM AMBULATORY - MEDICINE [facility] October 01, 2024 12:01 PM [facility] [place] [facility] October 01, 2024 12:30 PM AMBULATORY - MEDICINE [facility] October 08, 2024 02:00 PM AMBULATORY - MEDICINE [facility] Oct 21, 2024 01:00 PM AMBULATORY - MEDICINE [facility] Oct 22, 2024 01:00 PM [facility]ATORY - MED[facility]INE [facility] Oct 30, 2024 12:00 PM [facility] - [facility] [place] [facility] Dec 19, 2024 12:15 PM AMBULATORY - PSYCHIATRY [facility] Dec 19, 2024 12:16 PM [facility] - [facility]IC[facility] [place] [facility] Dec 31, 2024 01:00 PM AMBULATORY - PSYCHIATRY [facility] Active, Pending, and Scheduled Orders This section includes a listing of several types of active, pending, and scheduled orders, including clinic medications orders, diagnostic test orders, procedure orders and consult orders; where the start date of the order is 45 days before the date of the Encounter or 45 days after the date of theEncounter. The data comes from all [facility]. Test Date/Time Test Type Test Details Facility Name Jun 21, 2024 01:06 PM Laboratory - Chemi stry Order ANCILLARY INFLUENZA A&B (PB) HAM SP [facility] Lab Results: +/- 30 days of the encounter This section includes the Chemistry and Hematology Lab Results on record with [place] for the patient. Radiology Reports and Pathology Reports are provided separately, in subsequent sections. Lab Results This section contains the Chemistry/Hematology Results that were resulted 30 days before or 30 daysafter the date of the Encounter. Date/Time Source Result Type Result - Unit Interpretation Reference Range Specimen Type Comment Jul 04, 2024 01:47 PM [facility] IRDABQPBZ-FMFMZ-7,3-GALACTOSE IGE SERUM Speci men Type: SERUM Comment: REFERENCE RANGE: <0.10 kU/L Results above 0.1 kU/L indicate an allergen-specific IgE sensitization to ubengrbwc-n-5,3-g alactose, and such patients are at risk [...] method. Additional information can be found at [email or web address] .Triptease Test performed by [facility] [id number] [place] [id number] Steam Press Operator: Loni Landis MD,PHD,SANCHO Test Reported by [facility], [place], [address] [place], [place] Wilfred Velásquez M.D., Ph.D., Director of Laboratories , [place] [id number] Ordering Provider: LILIAM HARPER Report Released Date/Time: Jul 04, 2024 01:45 PM Reporting Lab: [place] [facility] [address] [place] [address] Performing Lab: [place] [facility] [address] [facility] OYSBSAQLM-EDDRW-2,3-GALACTOSE IGE <0.10 kU/L SEE BELOW Jul 04, 2024 01:47 PM [facility] FOLATE (PB) SERUM Specimen Typ e: SERUM No comment entered. Ordering Provider: LILIAM HARPER Report Released Date/Time: Jul 04, 2024 01:45 PM Reporting Lab: [place] [facility] [address] [place] [address] Performing Lab: [place] [facility] [address] [place] [address] FOLATE (PB) 15.7 ng/mL 7-20 Jul 04, 2024 01:47 PM [place] [facility] B12 SERUM Specimen Type: SERUM No comment entered. Ordering Provider: LILIAM HARPER Report Released Date/Time: Jul 04, 2024 01:45 PM Reporting Lab: [place] [facility] [address] [place] [address] Performing Lab: [place] [facility] [address] [place] [address] B12 673 pg/mL 213-816 Jul 04, 2024 01:47 PM [facility] VITAMIN D, 25-HYDROXY SERUM Specimen Type: SE RUM No comment entered. Ordering Provider: LILIAM HARPER Report Released Date/Time: Jul 04, 2024 01:45 PM Reporting Lab: [place] [facility] [address] [place] [address] Performing Lab: [place] [facility] [address] [place] [address] VITAMIN D, 25-HYDROXY 31.5 ng/mL 30-96 Jul 02, 2024 12:44 PM [facility] DIRECT LDL (MA-PB) PLASMA Specimen Type: PLASM A No comment entered. Ordering Provider: LILIAM HARPER Report Released Date/Time: Apr 09, 2024 03:26 PM Reporting Lab: [place] [facility] [address] [place] [address] Performing Lab: [place] [facility] [address] [place] [address] DIRECT LDL 70.4 mg/dL 0-99.9 Jul 02, 2024 12:44 PM [facility] HGA1C BLOOD Specimen Type: BLOOD No comment entered. Ordering Provider: LILIAM HARPER Report Released Date/Time: Apr 09, 2024 03:26 PM Reporting Lab: [place] [facility] [address] [place] [address] Performing Lab: [place] [facility] [address] [place] [address] HGA1C 6.6 H 4.0-6.0 Jul 02, 2024 12:44 PM [facility] CHOLESTEROL PANEL (PB) PLASMA Specimen Type: P LASMA No comment entered. Ordering Provider: LILIAM HARPER Report Released Date/Time: Apr 09, 2024 03:26 PM Reporting Lab: [place] [facility] [address] [place] [address] Performing Lab: [place] [facility] [address] [place] [address] CHOLESTEROL 120 mg/dL 0-200 TRIGLYCERIDE 164 mg/dL H 0-150 CALCULATED LDL 61.2 mg/dL HDL(New) 26.0 mg/dL L >40 HDL % OF TOTAL CHOLESTEROL (PB) 21.7 >25 Jul 02, 2024 12:44 PM [facility] COMPREHENSIVE METABOLIC PANEL PLASMA Specimen Type: PLASMA No comment entered. Ordering Provider: LILIAM HARPER Report Released Date/Time: Apr 09, 2024 03:26 PM Reporting Lab: [place] [facility] [address] [place] [address] Performing Lab: [place] [facility] [address] [place] [address] CREATININE 0.66 mg/dL 0.6-1.1 UREA NITROGEN 13 [...] 2020) 99 Jun 21, 2024 01:17 PM [facility] ANCILLARY INFLUENZA A&B (PB) NARES Specimen T ype: NARES Comment: Test performed by: Benito Coronado [id number] Meter #: [id number] Ordering Provider: DAKOTAH INFANTE Report Released Date/Time: Jun 21, 2024 01:29 PM Reporting Lab: [facility] [address] [facility] [address] Performing Lab: [facility] [address] [facility] [address] INFLUENZA A negative Negative INFLUENZA B negative Negative Social History: Smoking Status (Most current) and Tobacco Use (All prior to encounter date) This section includes the most current, and the historical, smoking and tobacco- related health factors from the [place] facility where the Encounter took place. Current Smoking Status This section includes the most current smoking, or tobacco-related health factor, from the [place] facility where the Encounter took place. Date/Time Current Smoking Status Comment Facil ity Aug 23, 2023 11:00 AM VA-TOBACCO USER EVERY DAY [facility] Tobacco Use History This section includes a history of the smoking, or tobacco-related health factors, that were collected on or before the date of the Encounter. The data comes from the [place] facility where the Encounter took place. 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 [facility] Aug 23, 2023 11:00 AM VA-TOBACCO USE MED NO [facility] Aug 23, 2023 11:00 AM VA-TOBACCO USE WI 30 MIN OF WAKE UP [facility] Aug 23, 2023 11:00 AM VA-TOBACCO USER EVERY DAY [facility] Aug 24, 2022 01:30 PM VA-TOBACCO DOESNT USE WI 30 MIN WAKEUP [place] [facility] Aug 24, 2022 01:30 PM VA-TOBACCO USE > 1 5 LESS THAN 30 YEARS [place] [facility] Aug 24, 2022 01:30 PM VA-TOBACCO USE ADVICE [facility] Aug 24, 2022 01:30 PM VA-TOBACCO USE 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 NO [facility] Aug 24, 2022 01:30 PM VA-TOBACCO USE MED NO [facility] Aug 24, 2022 01:30 PM VA-TOBACCO USER EVERY DAY [facility] Aug 30, 2021 01:30 PM VA-TOBACCO USE 30 YEARS OR MORE [facility] Aug 30, 2021 01:30 PM VA-TOBACCO USE ADVICE [facility] Aug 30, 2021 01:30 PM VA-TOBACCO USE 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 APPRENTICE NO [facility] Aug 30, 2021 01:30 PM VA-TOBACCO USE MED NOTIFY PROVID ER [facility] Aug 30, 2021 01:30 PM VA-TOBACCO USE WI 30 MIN OF WAKE UP [facility] Aug 30, 2021 01:30 PM VA-TOBACCO USER EVERY DAY [facility] Feb 17, 2020 02:00 PM VA-TOBACCO USE 30 YEARS OR MORE [place] [facility] Feb 17, 2020 02:00 PM VA-TOBACCO USE ADVICE [place] [facility] Feb 17, 2020 02:00 PM VA-TOBACCO USE 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 APPRENTICE NO [facility] Feb 17, 2020 02:00 PM VA-TOBACCO USE MED NO [facility] Feb 17, 2020 02:00 PM VA-TOBACCO USE WI 30 MIN OF WAKE UP [facility] Feb 17, 2020 02:00 PM VA-TOBACCO USER EVERY DAY [place] [facility] Jun 27, 2018 12:01 PM VA-TOBACCO USE 30 YEARS OR MORE [place] [facility] Jun 27, 2018 12:01 PM VA-TOBACCO USE ADVICE [place] [facility] Jun 27, 2018 12:01 PM VA-TOBACCO USE 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 APPRENTICE NO [facility] Jun 27, 2018 12:01 PM VA-TOBACCO USE MED NO [facility] Jun 27, 2018 12:01 PM VA-TOBACCO USE WI 30 MIN OF WAKE UP [facility] Jun 27, 2018 12:01 PM VA-TOBACCO USER EVERY DAY [facility] Jul 20, 2017 04:18 PM CURRENT TOBACCO USER [place] [facility] Jul 20, 2017 04:18 PM CURRENT TOBACCO US ER (NOT READY TO QUIT) [facility] Jul 20, 2017 04:18 PM TOBACCO CESSATION REFERRAL DECLI JENNIFFER [place] [facility] Jul 20, 2017 04:18 PM TOBACCO MEDS OFFERED BUT DECLINE D [facility] Jul 20, 2017 04:18 PM TOBACCO USER OFFERED MEDS [facility] Jul 20, 2017 04:00 PM CURRENT TOBACCO USER [facility] Jul 20, 2017 04:00 PM CURRENT TOBACCO US ER (NOT READY TO QUIT) [facility] Jul 20, 2017 04:00 PM TOBACCO CESSATION REFERRAL DECLI JENNIFFER [facility] Jul 20, 2017 04:00 PM TOBACCO MEDS OFFERED BUT DECLINE D [facility] Jul 20, 2017 04:00 PM TOBACCO USER OFFERED MEDS [facility] Advance Directives: All historical and current Section Date Range: From patient's date of to the date document was created. This section includes ALL of a patient's completed or amended [place] Advance and Rescinded Directives. The entries below indicate that a directive exists for the patient, but an actual copy is not included with this document. The data comes from all [place] facilities. Date Advance Directives Provider Source Dec 18, 2023 ADVANCE DIRECTIVE PETER BOWLING MARIVEL ST[facility] Radiology Reports: +/- 30 days of [...] the Encounter. The data comes from all [place] treatment facilities. Date/Time Radiology Report Provider Source Jul 04, 2024 01:52 PM CHEST X-RAY, 2 VIE WS: JAMI CASTELLANO [id number] -[id number] F Exm Date: JUL 04, 2024@13:52 Req Phys: DAKOTAH INFANTE Loc: PB-MAITE PACT [place] BUSINESS TECHNOLOGY PROFESSOR WH (Req Img Loc: PB-XRAY [place] Service: [place] [address] (Case [id number] COMPLETE) CHEST X-RAY, 2 VIEWS (RAD Detailed) CPT:92493 Reason for Study: follow up pneumonia Clinical History: Report Status: Verified Date Reported: JUL 04, 2024 Date Verified: JUL 04, 2024 Technical Solutions Consultant E-Sig: Report: PA and lateral views of the chest reveal minimal spinal curvature with no acute osseous abnormality. There is no infiltrate or effusion. Heart size is normal. There is a neurostimulator in the mid thoracic spinal canal. Impression: No acute process Primary Interpreting Staff: RADHA SMALL RADIOLOGIST (Technical Solutions Consultant, no e-sig) /RADHA Ramos [facility] Jun 27, 2024 01:42 PM CHEST X-RAY, 2 VIE WS: JAMI CASTELLANO [id number] -[id number] F Exm Date: JUN 27, 2024@13:42 Req Phys: DAKOTAH INFANTE Loc: PB-MAITE PACT [place] BUSINESS TECHNOLOGY PROFESSOR WH (Req Img Loc: PB-XRAY [place] Service: [place] [address] (Case [id number] COMPLETE) CHEST X-RAY, 2 VIEWS (RAD Detailed) CPT:42714 Reason for Study: cont cough with positive flu Clinical History: copd and current smoker Report Status: Verified Date Reported: JUN 27, 2024 Date Verified: JUN 27, 2024 Technical Solutions Consultant E-Sig: Report: Chest 2 views. Mild elevation [...] sooner if clinically indicated Primary Interpreting Staff: JOSE NÚÑEZ (Technical Solutions Consultant, no e-sig) /HUBERT Buck [facility] Encounter Notes: All associated encounter notes This section contains the clinical notes associated to the Encounter. Date/Time Encounter Note(s) Provider Source Jul 04, 2024 01:17 PM PHARMACY NOTE: LOCAL TITLE: PHARMACY CHRONIC DISEASE STATE MANAGEMENT PB STANDARD TITLE: PHARMACY NOTE DATE OF NOTE: JUL 04, 2024@13:17 ENTRY DATE: JUL 04, 2024@13:17:35 AUTHOR: LILIAM HARPER EXP LUBAIGNER: URGENCY: STATUS: COMPLETED GRAYJAMI PISANO is a 63 year old FEMALE [new pt.} monitored for dyslipidemia - T2D - GERD - gout - COPD - migraines - LBP - diabetic neuropathy - nicotine dep. - allergic rhinitis - bipolar d/o - somatoform pain d/o - mood d/o with depression - anxiety - neurocognitive d/o - female stress incontinence - CPTSD - obese [BMI over 34} Allergies: PENICILLIN, BEE STINGS, TRAMADOL, IODINE CONTRAST EVEN WITH PREP, BAND-AIDS PNEUMOCOCCAL VACCINE - verified personal appointment; identified pt. by social security and full name service connected status: not connected Was the personal/phone visit directly with the patient or immediate childcare aide: YES-patient Subjective: 1. Missed doses or extra doses or pt. stopping any medications: NO saw today to discuss recent lab values and prior reported continuing nausea and diarrhea which possibly led to a syncope episode with a fall and closed head injuries and other bruising and strain/sprain of upper torso; patient states she passed out in her kitchen and hit her head on counter where she sustained stated injuries; was taken to ED where two head CT's with and without contrast were done with normal imaging and also troponins were normal and was discharged; symptoms have not returned; patient also has an alpha-gal diagnosis, takes lamotrigine 25mg at bedtime, which is within range, also high-dose oxycodone/APAP, trazodone, duloxetine 60 mg, which the combination plus possibly semaglutide injectable could have an effect on a former syncope episode; pt. was already noted to be at fall risk; told patient to immediately discontinue semaglutide injectable, keep well-hydrated, use already ordered ondansetron, only make controlled movements very slowly, and monitor for continuing headaches; pt. states she is feeling beter and s/s have not returned; also discussed formal partial lab values, in which continuation of reduced hemoglobin A1c and B/G values from prior labs; no necessity to add additional medication, due to empagliflozin was not tolerated and both pioglitazone and alogliptin were also not tolerated due to stomach problems ; did cont. metformin 500 SA, which has been effective and reminded pt. to cont. to take 2 tabs. twice daily; so added glipizide 10mg 25 minutes before meals and may adjust concurrent with meal content and quantity, but was unable to remember, so d/c'ed; pt. did report BG's 130-150 currently but probably mostly due to decreased dietary intake; also explained to patient that fish oil was d/c'ed from the [place] formulary and patient would have to purchase OTC product, but patient stated recent alpha gal diagnosis and stopped fish oil; asked patient to obtain unscented liquid fish oil at equivalent of 2000 mg with meals; also checked pt's blood pressure values; reordered meds, but d/c'ed gabapentin, due to dizziness and fall precautions; to get consult with for neurology, since pt. has not been eval. in many years; conc. on more consistent and healthier meals and more exercise; keep all specialty appointments, sravanthi. pain mgt.; more closely watch diet and drink more water consistently; re-did labs for diag. with alpha- gal at next labs in clinic / started bupropion SA 150mg per. tit, tlyer. to help stop smoking / did get CXR at appt.; cont. all other spec. appts. 2. [-] med. compliance- [-} weight gain- [-] weight loss- [-] hypoglycemia symptoms or values <70 mg/dL- [-] hyperglycemia symptoms- [x] rule of 15 discussed/checked [-] hypotension symptoms or values <90/60 mmHg- [-] hypertension symptoms- [x] Dietary modifications made- discussed in detail [-] Changes in lifestyle or social history- [-] tobacco use disorder counseling- [x] Lung abnormalities: [x] COPD- older diag.-controlled on cetirizine 10mg, fluticasone nasal, and fexofenadine ans uses albuterol MDI only sparingly and also has a bearing on excess weight [-] emphysema [-] asthma [-] other related SOB issues [-] oxygen use at home [-] cancer [-] Adverse effects of antilipemic agents-muscle pain/weakness, GI upset, or flushing) [-] Mental Health med. evaluation- none [x] Shared medical decision making- occurred during this visit with the Objective: seemed alert and oriented; no headache, blurred vision, or extreme fatigue; denies chest pains, shortness of breath, or edema; reports she generally feels - sometimes disoriented and dizzy; pt. advised to move and change positions slowly; d/c gabapentin, due to increased drowsiness and replaced with duloxetine; cautioned about pain meds. and increased dizziness VITALS: Weight: Patient Weight History - Last Four 1. 185.0 lbs. / 83.9 kg. on JUN 27, 2024@13:37 2. 182.7 lbs. / 82.9 kg. on JUN 21, 2024@13:52:14 3. 187.9 lbs. / 85.2 kg. on JUN 17, 2024@13:42 4. 186.3 lbs. / 84.5 kg. on JUN 05, 2024@13:50 Height: 66 in [167.6 cm] (07/30/2019 13:13) BMI: 34.1 Pulse: 88 (03/14/2023 13:58) RR: 18 (03/14/2023 13:58) Pulse Ox:(L/MIN)(%) 03/14/2023 13:58 95 07/01/2022 13:17 95 08/30/2021 13:06 96 03/27/2020 10:49 97 TEMP:98.4 F [36.9 C] (03/14/2023 13:58) B/P-Latest:120/73 (09/04/2023 13:58) Pertinent Labs: HGB A1C Collection DT Specimen Test Name Result Units Ref Range 07/02/2024 12:44 BLOOD HGA1C 6.6 H % 4.0 - 6.0 04/02/2024 13:16 BLOOD HGA1C 6.6 H % 4.0 - 6.0 12/14/2023 15:21 BLOOD HGA1C 6.5 H % 4.0 - 6.0 10/09/2023 13:36 BLOOD HGA1C 6.9 H % 4.0 - 6.0 08/23/2023 11:44 BLOOD HGA1C 6.6 H % 4.0 - 6.0 02/21/2023 13:50 BLOOD HGA1C 9.1 H % 4.0 - 6.0 08/24/2022 14:28 BLOOD HGA1C 8.2 H % 4.0 - 6.0 LIVER FUNCTION PANEL Labs: triglyceride cholesterol LDL values are high TRIGLYCERIDE 164 H mg/dL 07/02/2024 12:44 CHOLESTEROL 120 mg/dL 07/02/2024 12:44 HDL(New) 26.0 L mg/dL 07/02/2024 12:44 DIRECT LDL 70.4 mg/dL 07/02/2024 12:44 CALCULATED LDL 61.2 mg/dL 07/02/2024 12:44 HDL % OF TOTAL CHOLESTEROL (PB) 21.7 % 07/02/2024 12:44 DIRECT LDL 70.4 mg/dL 07/02/2024 12:44 Liver Function Tests: values are within acceptable limit SGOT: 24 U/L (07/02/24 12:44) SGPT: 62 U/L H (07/02/24 12:44) Chemistry: Sodium: SODIUM 136 mEq/L 07/02/2024 12:44 POTASSIUM 4.5 mEq/L 07/02/2024 12:44 Chloride: 103 mEq/L (07/02/24 12:44) BUN: 13 mg/dL (07/02/24 12:44) Glucose: GLUCOSE 138 H mg/dL 07/02/2024 12:44 ALT/SGPT 62 H U/L 07/02/2024 12:44 AST/SGOT 24 U/L 07/02/2024 12:44 Renal function: Creatinine Clearance: 91.8mL/min CREATININE 0.66 mg/dL 07/02/2024 12:44 EGFR (CKD-EPI 2020) 99 07/02/2024 12:44 No MICRAL/CREAT RATIO (STL) data found Creatine phosphokinase test: not evaluated ____ Hepatitis C Antibody [facility] Hep C tests in last five years. HEPATITIS C AB (PB) Nonreactive (12/26/18 11:04) Calculated 10 year cardiovascular risk was: 28.6% orig., and now sl. reduced to 27.7% at last labs -- Physical monitoring parameters: B/P, edema, renal function, electrolytes, s/s of dizziness/drowsiness HTN: Assessment/Plan - older diagnosis - (evaluated at this time); Pt is monitored by PCP (consulted) Goal: per 2021 ACC/AHA guidelines; Recommendation 10.4 on blood pressure treatment goals in individuals with diabetes was revised to target a blood pressure of less than 130/80; Blood pressure target is usually below 140/90 for people with diabetes or below 150/90 if aged 80 years or above; for patients with kidney disease the target may be below 130/80 *Normal = less than 120 and less than 80 *Elevated = 120-129 and greater than 80 *High Blood Pressure Stage 1 = 130-139 or 80-89 *High Blood Pressure Stage 2 = 140 or higher or 90 or higher *Hypertensive Crisis (call provider immediately) = Higher than 180 and/or higher than 120 *Goal is reduced to <140/90 with accompanying T2D and > 60 years per VA/DOD guidelines *Per Up-To-Date for older adults: in most older adults (defined as age 65 years or older), suggest a less aggressive systolic goal blood pressure of 135 to 140 routinely -Pt. most recent blood pressure evaluation: 121/79 on Jun in clinic, 120/73 on 04 SEP 2023 in clinic, 119/78 on 14 Mar 2024 in clinic; patient states she monitors her blood pressure only every few weeks but highest range was the lower 130s to mid 70s -Pt. is on: Amlodipine 2.5 mg increased to twice daily and spironolactone 100 mg daily, but decreased now to 50mg daily, due to increased potassium on last labs; also stressed to pt. to avoid high potassium containing foods -Pt. blood pressure is barely controlled for age category to a goal of less than 130/75; asked patient to get blood pressure check at next clinic appointment DM: Assessment/Plan - older diagnosis - (evaluated at this time); Pt is monitored by PCP (consulted) -Glycemic goal: HA1C <7.5 w/o episode of hypoglycemia; fasting bg 90-130; 1.5 hours PP <180; 2 hours PP <140; Bedtime <150 -Contact the clinic if you have a blood glucose less than 70 (after you follow the rule of 15) or blood glucose greater than 300 -HYPOGLYCEMIC EPISODES: none stated in the last few weeks; but did reviewe rule of 15 with the and solutions to counter occurrences -Pt. most recent HA1c was 6.6 with B/G of 138 on Jun, same as 6.6 with B/G of 169 on 03 APR 2024, similar to 6.5[best ever] with B/G of 151 on 15 DEC 2023, slight decrease form 6.6 with B/G of 159 on 23 AUG 2023, vastly decreased from 9.1 with B/G of 320 on 21 FEB 2023 increased from 8.2 with B/G of 185 on 23 SEP 2022, increased from 7.8 with B/G of 169 on 30 JUN 2022 -Pt. is on: cannot tolerate empagliflozin; is on metformin 500mg SA x2 twice daily; added pioglitazone 30mg daily with morning meal and alogliptin 25mg daily in early am, but pt. states she cannot tolerate either due to stomach problems ; so added glipizide 10mg 25 minutes before meals and could adjust concurrent with meal content and quantity, but also had Gi issues and stopped; tried semaglutide inj at starting 0.25mg dose with upward titration at same day /time with all proper precautions and warnings and patient does understand the use and directions required, but also had GI issues, leading to increasing nausea and diarrhea and it was stopped after pt. finally notifing clinic of problems -Patient states B/G values have ranged from the 120s to 150s in the last several weeks; decreasing to first goal from 150-170, then try to reduce to 120- 130, thereafter -Non-medication therapy: was not keeping any type of B/G log, but will ask her to try to record daily blood glucose levels and coordinate with any type of dietary variance daily, to chaitanya continued glycemic progress with addition of new medications -Pt.'s support system in the event of hypoglycemia or hyperglycemia: No, patient lives alone -Patient was also told to check feet weekly; ask about diabetic socks or shoes requirement and none required at this time -Pave Foot Check-foot exam (including monofilament test for sensation) was performed in the past 2 year per [facility] clinician, about MAY 2021 with normal result per BUSINESS TECHNOLOGY PROFESSOR -Confirmed patient has had optometry appointment within the last year, but is due for next evaluation this summer -Patient to drink more water and avoid sweetened beverages and less coffee and tea and certainly no soda pop -Patient's diabetic situation is now adequately controlled to a goal of less than 7.5 to start, and now <7 for the last and prior labs Medication profile management and general reconciliation: patient did experience problems or side effects with alogliptin, glipizide, semaglutide inj. and pioglitazone due to GI problems and also with OTC fish oil due to alpha gal syndrome; pt. to continue all maintained meds., including albuterol MDI for shortness of breath on exertion, spironolactone 100 mg daily, decreased to 50mg, due to high potassium levels at last labs and stressed to pt. to avoid high potassium containing foods; d/c'ed gabapentin and added duloxetine at 60mg daily, cautioned pt. about taking 2 metformin 500 mg SA tablets daily, added hydroxyzine 25 mg 3 times daily, replace gabapentin with duloxetine, changed omeprazole to pantopropazole 40mg each morning, also renewed ophthalmic multivitamins, and cetirizine, fexofenadine, and albuterol metered-dose inhaler; made sure patient continues vitamin D3 supplement; also has oxycodone/APAP 7.5/325 per pain management, which is prob. adding to GI upset, but has reduced to 2-4 daily, added bupropion SA 150mg with tit. tyler. to decrease tobacc use Active and Recently Outpatient Medications (excluding Supplies): Active Outpatient Medications Status 1) ALBUTEROL 90MCG (CFC-F) 200D ORAL INHL INHALE 2 PUFFS ACTIVE (S) BY ORAL INHALATION FOUR TIMES A DAY NEEDED FOR BREATHING. SHAKE WELL. RINSE MOUTHPIECE FREQUENTLY TO PREVENT CLOGGING. 2) AMLODIPINE BESYLATE 2.5MG TAB TAKE ONE TABLET BY ACTIVE MOUTH TWICE A DAY 3) ATORVASTATIN CALCIUM 80MG TAB TAKE ONE-HALF TABLET BY ACTIVE (S) MOUTH EVERY EVENING FOR CHOLESTEROL. REPORT ANY UNEXPLAINED MUSCLE PAIN/WEAKNESS TO PROVIDER THIS TABLET IS TO BE CUT IN HALF FOR YOUR DOSE 4) CHOLECALCIF 50MCG (D3-2,000UNIT) TAB TAKE ONE TABLET ACTIVE BY MOUTH ONCE A DAY FOR VITAMIN D DEFICIENCY. 5) DULOXETINE HCL 60MG EC CAP TAKE ONE CAPSULE BY MOUTH ACTIVE (S) ONCE A DAY DO NOT ABRUPTLY DISCONTINUE MEDICATION. 6) FEXOFENADINE HCL 180MG TAB TAKE ONE TABLET BY MOUTH ACTIVE (S) EVERY MORNING FOR ALLERGIC RHINITIS 7) GABAPENTIN 300MG CAP TAKE TWO CAPSULES BY MOUTH THREE ACTIVE TIMES A DAY FOR PAIN 8) HYDROPHILIC (EQV EUCERIN) TOP CREAM APPLY LIGHTLY TO ACTIVE (S) AFFECTED AREA(S) ONCE A DAY FOR DRY SKIN (EXTERNAL USE ONLY) APPLY TO FEET NIGHTLY 9) LAMOTRIGINE 200MG TAB TAKE ONE TABLET BY MOUTH AT ACTIVE (S) BEDTIME FOR MOOD OR SEIZURES 10) LAMOTRIGINE 25MG TAB TAKE ONE TABLET BY MOUTH AT ACTIVE (S) BEDTIME FOR MOOD OR SEIZURES TAKE WITH THE 200MG 11) LIDOCAINE 5% OINT APPLY LIGHTLY TO AFFECTED AREA(S) ACTIVE (S) ONCE A DAY NEEDED 12) METFORMIN HCL 500MG 24HR SA TAB TAKE TWO TABLETS BY ACTIVE MOUTH ONCE A DAY FOR DIABETES TAKE WITH FOOD. AVOID ALCOHOL. DISCONTINUE BEFORE GETTING XRAY DYE. 13) MULTIVIT/OPHTH AREDS2/LUTE/ZEAX CAP/TAB TAKE 1 ACTIVE (S) CAP/TAB BY MOUTH TWICE A DAY WITH MEAL(S) FOR EYE HEALTH AVOID IF YOU HAVE PEANUT ALLERGY. 14) OMEPRAZOLE 20MG EC CAP TAKE ONE CAPSULE BY MOUTH ACTIVE EVERY MORNING TO LOWER STOMACH ACID. TAKE 30 MINUTES PRIOR TO FOOD. 15) ONDANSETRON HCL 8MG TAB TAKE ONE TABLET BY MOUTH ONCE ACTIVE (S) A DAY NEEDED FOR NAUSEA/VOMITING 16) OXYBUTYNIN CHLORIDE 5MG TAB TAKE ONE TABLET BY MOUTH ACTIVE (S) THREE TIMES A DAY FOR BLADDER 17) OXYCODONE 7.5MG/ACETAMINOPHEN 325MG TAB TAKE 1 TABLET ACTIVE BY MOUTH EVERY 4 TO 6 HOURS NEEDED FOR PAIN (MAX 3/DAY, HOLD WITHIN 4 HOURS OF PLANNED SLEEP) *MUST LAST 28 DAYS OR MORE* - NOTE: DO NOT EXCEED 4000MG PER DAY ACETAMINOPHEN (APAP) 18) SPIRONOLACTONE 100MG TAB TAKE ONE TABLET BY MOUTH ACTIVE (S) ONCE A DAY FOR EXCESSIVE FLUID 19) TRAZODONE HCL 100MG TAB TAKE ONE TABLET BY MOUTH AT ACTIVE BEDTIME FOR MOOD OR SLEEP. Inactive Outpatient Medications Status 1) ACCU-CHEK GUIDE (GLUCOSE) TEST STRIP USE 1 STRIP FOR BLOOD TEST ONCE A DAY FOR BLOOD SUGAR MONITORING *ORAL THERAPY* Jun PATIENT REQUIRES ADDITIONAL STRIPS DUE TO: INITIATION OR ADJUSTING ORAL AGENTS SCHEDULE: ONCE DAILY 2) OXYCODONE 7.5MG/ACETAMINOPHEN 325MG TAB TAKE 1 TABLET BY MOUTH EVERY 4 TO 6 HOURS NEEDED FOR PAIN. MAX OF 3 TABLETS PER DAY. HOLD WITHIN 4 HOURS OF PLANNED SLEEP. THIS QUANTITY MUST LAST 30 DAYS OR MORE NOTE: DO NOT EXCEED 4000MG PER DAY ACETAMINOPHEN (APAP) 21 Total Medications LIPID PROFILE - High cholesterol and triglycerides (lipids) are risk factors for heart disease. Cholesterol should fall between 140 and 200, and triglycerides levels should be less than or equal to 150. HDL is the good cholesterol and should ideally be greater than 40. LDL is the bad cholesterol and optimal levels should be less than 100 (near optimal is between 100 and 129) LIPID Therapeutic goals: (consulted) VA/DOD guideline; triglycerides <150 & cholesterol 140-200 & HDL > 40 & LDL <100 Assessment: 1. The pt is currently on lipid or other necessary medication? If so List: atorvastatin 40 mg every evening and patient had stopped taking fish oil due to not receiving supply from [place] 2. Compliance per pt response? YES Patient states she takes all of her many and varied medications as ordered and did try to comply with newly added blood glucose lowering oral medications and OTC fish oil, but had issues with all B/g meds. and fish oil, which were all discontinued and will try to substitute liquid fish oil and empagliflozin, but pt. had trouble with those, so started semaglutide injectable, but also GI problem and d/c'ed; Pt states she will not skip/miss doses Plan: --Lipid lowering agent and dose: per ACC/AHA guidelines for ASCVD, however shared decision making is a goal: triglycerides now controlled, cholesterol and LDL also controlled [moderate intensity statin]- continue atorvastatin 40 mg every evening and added OTC fish oil at 2000 mg and increased to with all meals, but patient has developed alpha gal syndrome and will ask patient to switch to OTC fish oil liquid at equiv. dose or even krill oil in future, but has not as yet; added OTC co-enzyme Q-10 daily at 100mg dose and OTC apple cider vinegar caps. 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 GI issues as well as empagliflozin and semaglutide inj., cont. metformin 500 mg SA tablets x2 twice daily, also had to stop OTC fish oil at 2000 with meals, due to newly diagnosed[non-VA]alpha gal syndrome and will try to convert to OTC fish oil liquid or krill oil, cont. amlodipine 2.5 mg twice daily, changed omeprazole to pantopropazole 40mg each morning, spironolactone 100 mg daily, was decreased to 50mg, due to high potassium levels at last labs and stressed to pt. to avoid high potassium containing foods, cont. vitamin D3 daily, ophth. multivit. daily, oxybutynin, trazodone, duloxetine, lamotrigine 25 mg at bedtime for mood and seizures, fexofenadine, lidocaine topical oint., hydrophilic topical cream, stopped ondansetron 8 mg daily, cont. albuterol MDI used only for rescue breathing, and oxycodone/APAP 7.5/325 every 4-6 hours as needed for pain, d/c'ed gabapentin; asked patient to monitor blood glucose values daily at same time early a.m. and to try to reach goal of 120 to 140 and also monitor weekly blood pressure to keep below goal of 135/75; and did get consult to neurology; more closely watch diet; continue all specialty appointments including pain management; pt. states she has been diag. with alpha-gal recently and did re- test at current labs in clinic, but found to be below threshold, so condition has resolved; cont. all other spec. appts.; did get CXR at appt.; started bupropion SA 150mg per. tit, tyler. to help stop smoking --Specific information about medication(s): discussed watching all meds. derived from any mammalian source, but informed pt. that recent lab test indicated immunoassay for alpha-gal was resolved, but pt. still has GI issues --Diet Interventions: discussed minimizing the intake of trans fats, processed meats, refined carbohydrates, and sweetened beverages as part of a heart healthy diet -Discussed with pt. the Nutrient basic Composition of the TLC Diet and pt. to choose a low fat/low carb diet, modeled after the my-plate model and concentrate on eating oatmeal, whole grains, bran flakes, beans, eggplant, okra, nuts, apples, grapes, strawberries, oranges and use vegetable oils; avoid red meat and more turkey, fish, sea food, chicken, and pork; avoid fried and any fatty foods and avoid sodas and alcohol -Encouraged low salt and decreased caffeine intake -Saturated fat < 7 percent of total calories. -Polyunsaturated fat Up to 10 percent of total calories. -Monounsaturated fat Up to 20 percent of total calories. -Total fat 25-35 percent of total calories. -Carbohydrate 50-60 percent of total calories. Carbohydrate should be derived predominantly from foods rich in complex carbohydrates including grains, especially whole grains, fruits, and vegetables -Fiber 20-30 g/day. -Protein Approximately 15 percent of total calories. -Cholesterol Less than 200 mg/day. --Weight management: Weight Loss: Plasma triglyceride and LDL tend to decrease and HDL levels tend to increase in obese persons who lose weight; pt. needs to lose at least a pound each month --Increased physical activity as indicated: Aerobic exercise has a modest elevating effect on plasma levels of HDL in most persons but has cardiovascular benefits that extend beyond the effects on plasma lipid levels. ADA recommends 150min/week (distributed over at least 3 days) of moderated aerobic physical activity); stressed to pt. that a routine daily exercise program consisting of 25 to 30 minutes of walking exercise should be started and maintained if at all possible daily --Future Appointments: 07/04/2024 14:00 [facility] --Precautions: patient was instructed to seek medical attention immediately if they experience any signs or symptoms of severe muscle pain/chest pain or gastrointestinal difficulties; patient did not report any side effects from diabetic/lipid/HTN medications; stressed the importance of medication adherence --Discrepancies: compared newly ordered medications and medication changes to pertinent active medications and non-VA medications and then reviewed medications with patient and/or caregiver; all discrepancies noted and reconciled; reviewed pertinent labs; potential adverse reactions of new medications were also discussed with the patient; all discrepancies noted and reconciled --Consult(s): will be placed to: neurology, cont. BUSINESS TECHNOLOGY PROFESSOR, BH/MH, pain management, dermatology -- in agreement with plan and voices understanding: yes --Next lab date: September; the patient repeat labs will be scheduled; pt understands labs are fasting; will alert hall clerk to schedule next lab and appointment --PID: Next follow up date: Oct; f/u to labs from 16 OCTOBER and for med. adj.; check B/G's; will alert hall clerk to schedule this check status appt. --Thanked for their time and expressed my pleasure to serve them-- I have communicated previous lab results to patient and the voiced understanding ---Please note that this dictation was completed with computer recognition software, often unanticipated grammatical, syntax and other interpretive errors are inadvertently transcribed by the computer software. Please disregard these errors--- Time spent: 49 minute(s)- TELEPHONE CONTACT NO - FACE TO FACE YES PBM PharmD Pharmacotherapy Rem V12: PHARMACIST INTERVENTIONS: TYPE 2 DIABETES MELLITUS Medication monitoring, no dosage change required, continue to monitor and assess Plan: patient to continue converted metformin to 500 mg SA at 2 tablets twice daily; d/c'ed glipizide 10mg 25 minutes before meals and could adjust concurret with meal content and quantity per individualized settings; stopped pioglitazone 30mg with morning meal, and also checked to see if pt. d/c'ed alogliptin 25mg daily, due to stomach problems , previously tried empagliflozin at 25mg daily, but increased urinary output was not acceptable, then tried semaglutide inj starting at 0.25mg dose and upward titration weekly at same day and time with all proper precautions and warnings and pt. did understand the use and directions required, but was d/c'ed due to more gastrointestinal problems with nausea and diarrhea; also patient stated she had a syncope episode and fall with open head injury after third week injection, but orig. started to have GI problems 3 to 4 days after first injection and failed to notify clinic of issues at that time; patient had been advised to contact clinic if she get any side effects, reactions or problems within the first week, but thought syms. were from other causes, stemming from pain mgt. additions; is feeling much better now and has had no lightheared bouts since, offered meclizine 25mg chew tabs., but pt. declined, but will cont. lamotrigine now and within req. level at last labs, pt. to also cont. atorvastatin 40 mg every evening, but could not tolerate OTC fish oil, due to alpha-gal diag.; continue amlodipine 2.5 mg but increased to twice daily, reduced spironolactone from 100 mg daily, decreased to 50mg, due to high potassium levels at last labs and stressed to pt. to avoid high potassium containing foods, continue vitamin D3 daily, multivit. daily, oxybutynin, changed omeprazole to pantopropazole 40mg each morning, trazodone, d/c'ed gabapentin, started duloxetine 60mg, cont. lamotrigine 225 mg at bedtime for mood and seizures, fexofenadine, lidocaine topical ointment, hydrophilic topical cream, ondansetron 8 mg daily for nausea, but states non-effectiveness and stopped, cont. albuterol metered-dose inhaler used only for rescue breathing, and oxycodone/APAP 7.5/325 every 4-6 hours as needed for pain[pt. uses 2-4 doses daily] / pt. to try to focus on a balanced and consistent diet modeled after the my plate method and try to avoid fatty, fried, fast, and sugary foodstuffs and try to avoid soda and decrease amount of tea and coffee and concentrate on drinking more water / try and get at least 20 minutes of walking exercise daily / try to focus on losing 1 pound each month / keep all specialty appointments / re-did labs for diag. with alpha-gal at next labs in clinic / started bupropion SA 150mg per. tit, tyler. to help stop smoking / did get CXR at appt. 

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
--- OUTSIDE RECORDS SUMMARY | 2024-07-30 06:32 | XMS_ITS | Encounter Summary ---
Author Name [facility] [place] [facility] [place] [facility] [facility] [place] Address [address] [place] [address] Care Team Providers Care Groundskeeper Name Role Phone DAKOTAH INFANTE Primary Care [...] CENTER (WNR) MEDICARE ADVANTAGE HUMAN A INSUR PenzataE Puuilo May 22, 2020 [id number] JAMI CASTELLANO PATIENT INNOVIANT E-PHARM PRESCRIPT ION SWEET WATER KANDI DIST Jan 20, 2007 [id number] [phone] JAMI CASTELLANO PATIENT MEDICARE (WNR) MEDICARE (M) PART A Nov 19, 2013 PART A [id number] JAMI CASTELLANO PATIENT MEDICARE (WNR) MEDICARE (M) PART B Nov 19, 2013 PART B [id number] JAMI CASTELLANO PATIENT MEDICARE (WNR) MEDICARE (M) PART A Nov 19, 2013 PART A [id number] JAMI CASTELLANO PATIENT MEDICARE (WNR) MEDICARE (M) PART B Nov 19, 2013 PART B [id number] JAMI CASTELLANO PATIENT MEDICARE (WNR) MEDICARE (M) PART A Nov 19, 2013 PART A [id number] JAMI CASTELLANO PATIENT MEDICARE (WNR) MEDICARE (M) PART B Nov 19, 2013 PART B [id number] JAMI CASTELLANO PATIENT MEDICARE (WNR) MEDICARE (M) PART B Nov 19, 2013 PART B [id number] JAMI CASTELLANO PATIENT MEDICARE (WNR) MEDICARE (M) PART A Nov 19, 2013 PART A [id number] JAMI CASTELLANO PATIENT MEDICARE (WNR) MEDICARE (M) PART A Nov 19, 2013 PART A [id number] JAMI CASTELLANO PATIENT MEDICARE (WNR) MEDICARE (M) PART B Nov 19, 2013 PART B [id number] JAMI CASTELLANO PATIENT MEDICARE (WNR) MEDICARE (M) PART B Nov 19, 2013 PART B [id number] JAMI CASTELLANO PATIENT MEDICARE (WNR) MEDICARE (M) PART A Nov 19, 2013 PART A [id number] JAMI CASTELLANO PATIENT MEDICARE (WNR) MEDICARE (M) PART A Nov 19, 2013 PART A [id number] JAMI CASTELLANO PATIENT MEDICARE (WNR) MEDICARE (M) PART B Nov 19, 2013 PART B [id number] JAMI CASTELLANO PATIENT MEDICARE (WNR) MEDICARE (M) PART A Nov 19, 2013 PART A [id number] JAMI CASTELLANO PATIENT MEDICARE (WNR) MEDICARE (M) PART B Nov 19, 2013 PART B [id number] JAMI CASTELLANO PATIENT MEDICARE PART D (WNR) MEDICARE (M) PART D May 22, 2020 PART D [id number] JAMI CASTELLANO PATIENT MEDICARE PART D (WNR) MEDICARE (M) PART D Feb 19, 2014 PART D [id number] JAMI CASTELALNO PATIENT OFF OF REG EXCELLENCE LEADER BURDICK TORT FEASOR TORT Nov 26, 2017 TORT [id number] JAMI CASTELLANO PATIENT OPTUM RX PRESCRIPT ION SWEET WATER SCHOO L #1 September 19, 2008 [id number] [phone] JAMI CASTELLANO PATIENT UMR COMPREHEN SIVE MAJOR MEDICAL SWEET WATER COUNT Y SC Jan 20, 2014 [id number] [phone] JAMI CASTELLANO PATIENT UMR PREFERRED PROVIDER ORGANIZAT ION (PPO) TAWANNA SS ROEL HEALT H Jan 20, 2007 [id number] [phone] JAMI CASTELLANO PATIENT Selected Encounter This section includes the information on record at [place] for the Encounter. Date/Time Encounter Type Encounter Description Reason Pro vider Source Jul 30, 2024 11:32 AM Outpatient Encounter ADMIN PAT ACTIVTIES (MASNONCT) IHE Encounter Template Text not used by [place] Plan of Treatment: Future Appointments (+ 6 [...] 31, 2024 12:30 PM AMBULATORY - [facility]ICINE [facility] Jul 31, 2024 12:32 PM [facility] - MEDICINE [facility] Aug 13, 2024 03:00 PM AMBULATORY - PSYCHIATRY [facility] September 19, 2024 01:30 PM [facility] - MEDICINE [place] [facility] September 26, 2024 11:45 AM AMBULATORY - PS[facility]CHIATRY [facility] September 26, 2024 11:46 AM [facility]IC[place] [facility] October 01, 2024 12:00 PM AMBULATORY - MEDICINE [facility] October 01, 2024 12:01 PM [facility]IC[place] [facility] October 01, 2024 12:30 PM AMBULATORY - MEDICINE [facility] October 08, 2024 02:00 PM AMBULATORY - MEDICINE [facility] Oct 21, 2024 01:00 PM AMBULATORY - MEDICINE [facility] Oct 22, 2024 01:00 PM AMBULATORY - MEDICINE [facility] Oct 30, 2024 12:00 PM AMBULATORY - NONE [place] [facility] Dec 19, 2024 12:15 PM AMBULATORY - PS[facility]CHIATRY [facility] Dec 19, 2024 12:16 PM AMBULATORY - MEDICINE [place] [facility] Dec 31, 2024 01:00 PM AMBULATORY - PSYCHIATRY [facility] Jan 08, 2025 02:40 PM [facility] [place] [facility] Jan 21, 2025 01:00 PM [facility]AT[facility] - PS[facility]CHIATRY [facility] Active, Pending, and Scheduled Orders This [...] Order ANCILLARY INFLUENZA A&B (PB) NARES SP [facility] Lab Results: +/- 30 days [...] Type Comment Jul 04, 2024 01:47 PM [facility] [id number]-4,3-GALACTOSE IGE SERUM Speci men Type: SERUM Comment: REFERENCE RANGE: <0.10 kU/L Results above 0.1 kU/L indicate an allergen-specific IgE sensitization to hiyywveve-w-1,3-g alactose, and such patients are at risk [...] method. Additional information can be found at [email or web address] Liens Test performed by [employer] [address]to [address] [address] Alteration Manager: Loni Landis MD,PHD,SANCHO Test Reported by [facility], [employer] [facility], [address] [place] [address] Wilfred Velásquez M.D., Ph.D., Director of Laboratories , [facility] [id number] Ordering Provider: LILIAM HARPER Report Released Date/Time: Jul 04, 2024 01:45 PM Reporting Lab: [place] [facility] [address] [place] [address] Performing Lab: [place] [facility] [address] [facility] [id number]-3,3-GALACTOSE IGE <0.10 kU/L SEE BELOW Jul 04, 2024 01:47 PM [facility] FOLATE (PB) SERUM Specimen Typ e: SERUM No comment entered. Ordering Provider: LILIAM HARPER Report Released Date/Time: Jul 04, 2024 01:45 PM Reporting Lab: [place] [facility] [address] [place] [address] Performing Lab: [place] [facility] [address] [place] [address] FOLATE (PB) 15.7 ng/mL 7-20 Jul 04, 2024 01:47 PM [facility] VITAMIN D, 25-HYDROXY SERUM Specimen Type: SE RUM No comment entered. Ordering Provider: LILIAM HARPER Report Released Date/Time: Jul 04, 2024 01:45 PM Reporting Lab: [place] [facility] [address] [place] [address] Performing Lab: [place] [facility] [address] [place] [address] VITAMIN D, 25-HYDROXY 31.5 ng/mL 30-96 Jul 04, 2024 01:47 PM [facility] B12 SERUM Specimen Type: SERUM No comment entered. Ordering Provider: LILIAM HARPER Report Released Date/Time: Jul 04, 2024 01:45 PM Reporting Lab: [place] [facility] [address] [place] [address] Performing Lab: [place] [facility] [address] [place] [address] B12 673 pg/mL 213-816 Jul 02, 2024 12:44 PM [facility] [place] [facility] HGA1C BLOOD Specimen Type: BLOOD No comment entered. Ordering Provider: LILIAM HARPER Report Released Date/Time: Apr 09, 2024 03:26 PM Reporting Lab: [place] [facility] [address] [place] [address] Performing Lab: [place] [facility] [address] [place] [address] HGA1C 6.6 H 4.0-6.0 Jul 02, 2024 12:44 PM [facility] DIRECT LDL (MA-PB) PLASMA Specimen Type: PLASM A No comment entered. Ordering Provider: LILIAM HARPER Report Released Date/Time: Apr 09, 2024 03:26 PM Reporting Lab: [place] [facility] [address] [place] [address] Performing Lab: [place] [facility] [address] [place] [address] DIRECT LDL 70.4 mg/dL 0-99.9 Jul 02, 2024 12:44 PM [facility] CHOLESTEROL PANEL (PB) PLASMA Specimen Type: P LASMA No comment entered. Ordering Provider: LILIAM HARPER Report Released Date/Time: Apr 09, 2024 03:26 PM Reporting Lab: [place] [facility] [address] [place] [address] Performing Lab: [place] [facility] [address] [place] [address] CHOLESTEROL 120 mg/dL 0-200 TRIGLYCERIDE 164 mg/dL H 0-150 CALCULATED LDL 61.2 mg/dL HDL(New) 26.0 mg/dL L >40 HDL % OF TOTAL CHOLESTEROL (PB) 21.7 >25 Jul 02, 2024 12:44 PM [facility] COMPREHENSIVE METABOLIC PANEL PLASMA Specimen Type: PLASMA No comment entered. Ordering Provider: LILIAM HARPER Report Released Date/Time: Apr 09, 2024 03:26 PM Reporting Lab: [place] [facility] [address] [place] [address] Performing Lab: [place] [facility] [address] [place] [address] CREATININE 0.66 mg/dL 0.6-1.1 UREA NITROGEN 13 [...] U/L H 8-40 EGFR (CKD-EPI 2020) 99 Social History: Smoking Status (Most current) and [...] place. Date/Time Current Smoking Status Comment Gustavo hathaway Aug 23, 2023 11:00 AM VA-TOBACCO USER EVERY DAY [place] [place] [facility] Tobacco Use History This section includes a history of the smoking, or tobacco-related health factors, that were collected on or before the date of the Encounter. The data comes from the [place] facility where the Encounter took place. 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 LEADER NO [place] [facility] Aug 23, 2023 11:00 AM VA-TOBACCO USE MED NO [place] [facility] Aug 23, 2023 11:00 AM VA-TOBACCO USE WI 30 MIN OF WAKE UP [place] [facility] Aug 23, 2023 11:00 AM VA-TOBACCO USER EVERY DAY [place] [facility] Aug 24, 2022 01:30 PM VA-TOBACCO DOESNT USE WI 30 MIN WAKEUP [place] [facility] Aug 24, 2022 01:30 PM VA-TOBACCO USE > 1 5 LESS THAN 30 YEARS [place] [facility] Aug 24, 2022 01:30 PM VA-TOBACCO USE ADVICE [place] [facility] Aug 24, 2022 01:30 PM VA-TOBACCO USE 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 LEADER NO [place] [facility] Aug 24, 2022 01:30 PM VA-TOBACCO USE MED NO [place] [facility] Aug 24, 2022 01:30 PM VA-TOBACCO USER EVERY DAY [place] [facility] Aug 30, 2021 01:30 PM VA-TOBACCO USE 30 YEARS OR MORE [place] [facility] Aug 30, 2021 01:30 PM VA-TOBACCO USE ADVICE [place] [facility] Aug 30, 2021 01:30 PM VA-TOBACCO USE 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 LEADER NO [place] [facility] Aug 30, 2021 01:30 PM VA-TOBACCO USE MED NOTIFY PROVID ER [place] [facility] Aug 30, 2021 01:30 PM VA-TOBACCO USE WI 30 MIN OF WAKE UP [place] [facility] Aug 30, 2021 01:30 PM VA-TOBACCO USER EVERY DAY [place] [facility] Feb 17, 2020 02:00 PM VA-TOBACCO USE 30 YEARS OR MORE [place] [facility] Feb 17, 2020 02:00 PM VA-TOBACCO USE ADVICE [place] [facility] Feb 17, 2020 02:00 PM VA-TOBACCO USE EXCELLENCE LEADER NO [facility] Feb 17, 2020 02:00 PM VA-TOBACCO USE MED NO [place] [facility] Feb 17, 2020 02:00 PM VA-TOBACCO USE WI 30 MIN OF WAKE UP [facility] Feb 17, 2020 02:00 PM VA-TOBACCO USER EVERY DAY [facility] Jun 27, 2018 12:01 PM VA-TOBACCO USE 30 YEARS OR MORE [facility] [place] [facility] Jun 27, 2018 12:01 PM VA-TOBACCO USE ADVICE [place] [facility] Jun 27, 2018 12:01 PM VA-TOBACCO USE EXCELLENCE LEADER NO [facility] Jun 27, 2018 12:01 PM VA-TOBACCO USE MED NO [place] [facility] Jun 27, 2018 12:01 PM VA-TOBACCO USE WI 30 MIN OF WAKE UP [facility] [place] [facility] Jun 27, 2018 12:01 PM VA-TOBACCO USER EVERY DAY [facility] Jul 20, 2017 04:18 PM CURRENT TOBACCO USER [place] [facility] Jul 20, 2017 04:18 PM CURRENT TOBACCO US ER (NOT READY TO QUIT) [facility] Jul 20, 2017 04:18 PM TOBACCO CESSATION REFERRAL DECLI JENNIFFER [facility] Jul 20, 2017 04:18 PM TOBACCO MEDS OFFERED BUT DECLINE D [facility] Jul 20, 2017 04:18 PM TOBACCO USER OFFERED MEDS [facility] Jul 20, 2017 04:00 PM CURRENT TOBACCO USER [facility] Jul 20, 2017 04:00 PM CURRENT TOBACCO US ER (NOT READY TO QUIT) [place] [facility] Jul 20, 2017 04:00 PM TOBACCO CESSATION REFERRAL DECLI JENNIFFER [facility] Jul 20, 2017 04:00 PM TOBACCO MEDS OFFERED BUT DECLINE D [facility] Jul 20, 2017 04:00 PM TOBACCO USER OFFERED MEDS [facility] Advance Directives: All [...] Dec 18, 2023 ADVANCE DIRECTIVE PETER BOW[facility]ING [facility] Radiology Reports: +/- 30 days of [...] CHEST X-RAY, 2 VIE WS: JAMI CASTELLANO [id number] -[id number] F Exm Date: JUL 04, 2024@13:52 Req Phys: DAKOTAH INFANTE Loc: PB-MAITE PACT [place] SALES SUPPORT REP WH (Req Img Loc: PB-XRAY [place] Service: [place] [address] (Case [id number] COMPLETE) CHEST X-RAY, 2 VIEWS (RAD Detailed) CPT:77926 Reason for Study: follow up pneumonia Clinical History: Report Status: Verified Date Reported: JUL 04, 2024 Date Verified: JUL 04, 2024 Manufacturing Laborer E-Sig: Report: PA and lateral views of the chest reveal minimal spinal curvature with no acute osseous abnormality. There is no infiltrate or effusion. Heart size is normal. There is a neurostimulator in the mid thoracic spinal canal. Impression: No acute process Primary Interpreting Staff: RADHA SMALL, RADIOLOGIST (Manufacturing Laborer, no e-sig) /RADHA Ramos [facility] Encounter Notes: All associated encounter notes This section contains the clinical notes associated to the Encounter. Date/Time Encounter Note(s) Provider Source Jul 30, 2024 11:32 AM GENERAL MEDICINE N OTE: LOCAL TITLE: General Note PB STANDARD TITLE: GENERAL MEDICINE NOTE DATE OF NOTE: JUL 30, 2024@11:32 ENTRY DATE: JUL 30, 2024@11:32:42 AUTHOR: ROEL TOWNSEND EXP COSIGNER: URGENCY: STATUS: COMPLETED Spoke with , confirmed Audiology appt for 07/31/ RO[facility] TOWNSEND Telehealth Clinical Winder Fixer Signed: 07/30/2024 11:33 [facility] [facility]
--- OUTSIDE RECORDS SUMMARY | 2024-07-31 07:32 | XMS_ITS | Encounter Summary ---
Author Name [facility] [place] [facility] [place] Address [address] [place] [address] Care Team Providers Care End Maker Name Role Phone DAKOTAH INFANTE Primary Care [...] Name Patient's Relationship to Policy Palmer HUMANA [facility] (WNR) MEDICARE ADVANTAGE HUMAN A INSUR City [facility] May 22, 2020 [id number] JAMI CASTELLANO PATIENT INNOVIANT E-PHARM PRESCRIPT ION SWEET WATER KANDI DIST Jan 20, 2007 [id number] [phone] JAMI CASTELLANO PATIENT MEDICARE (WNR) MEDICARE (M) PART A Nov 19, 2013 PART A [id number] JAMI CASTELLANO PATIENT MEDICARE (WNR) MEDICARE (M) PART B Nov 19, 2013 PART B [id number] JAMI CASTELLANO PATIENT MEDICARE (WNR) MEDICARE (M) PART A Nov 19, 2013 PART A [id number] JAMI CASTELLANO PATIENT MEDICARE (WNR) MEDICARE (M) PART B Nov 19, 2013 PART B [id number] [id number] JAMI CASTELLANO PATIENT MEDICARE (WNR) MEDICARE (M) PART A Nov 19, 2013 PART A [id number] JAMI CASTELLANO PATIENT MEDICARE (WNR) MEDICARE (M) PART B Nov 19, 2013 PART B [id number] JAMI CASTELLANO PATIENT MEDICARE (WNR) MEDICARE (M) PART B Nov 19, 2013 PART B [id number] JAMI CASTELLANO PATIENT MEDICARE (WNR) MEDICARE (M) PART A Nov 19, 2013 PART A [id number] JAMI CASTELLANO PATIENT MEDICARE (WNR) MEDICARE (M) PART A Nov 19, 2013 PART A [id number] JAMI CASTELLANO PATIENT MEDICARE (WNR) MEDICARE (M) PART B Nov 19, 2013 PART B [id number] JAMI CASTELLANO PATIENT MEDICARE (WNR) MEDICARE (M) PART B Nov 19, 2013 PART B [id number] JAMI CASTELLANO PATIENT MEDICARE (WNR) MEDICARE (M) PART A Nov 19, 2013 PART A [id number] JAMI CASTELLANO PATIENT MEDICARE (WNR) MEDICARE (M) PART A Nov 19, 2013 PART A [id number] JAMI CASTELLANO PATIENT MEDICARE (WNR) MEDICARE (M) PART B Nov 19, 2013 PART B [id number] JAMI CASTELLANO PATIENT MEDICARE (WNR) MEDICARE (M) PART A Nov 19, 2013 PART A [id number] JAMI CASTELLANO PATIENT MEDICARE (WNR) MEDICARE (M) PART B Nov 19, 2013 PART B [id number] JAMI CASTELLANO PATIENT MEDICARE PART D (WNR) MEDICARE (M) PART D May 22, 2020 PART D [id number] JAMI CASTELLANO PATIENT MEDICARE PART D (WNR) MEDICARE (M) PART D Feb 19, 2014 PART D [id number] JAMI CASTELLANO PATIENT 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 Date/Time Encounter Type Encounter Description Reason Provider Source Jul 31, 2024 12:32 PM HEARING SERVICE AUDIOLOGY ICD-10-CM Z46.1 Encounter for fitting and adjustment of hearing aid SAURABH DURBIN RA [facility] Encounter Template Text not used by [place] Assessments - Encounter Diagnoses This section includes the primary and secondary diagnoses documented for the Encounter. Date/Time Primary/Secondary Diagnosis Diagnosis Name Provider Source Jul 31, 2024 12:47 PM PRIMARY Encounter for fitting and adjustment of hearing aid SAURABH DURBIN RAAR [facility] Jul 31, 2024 12:47 PM SECONDARY Sensorineural hearing loss, bilateral SAURABH DURBIN RA [place] [facility] Jul 31, 2024 12:47 PM SECONDARY Tinnitus, bilateral SAURABH DURBIN RA [place] [facility] Plan of Treatment: Future Appointments (+ 6 months) and Future Tests (+/- 45 days) The Plan of Treatment section includes future care activities for the patient from all [place] treatmentfacilities. This section includes future appointments and future orders which are active, pending or scheduled. Future Appointments This section includes appointments that were scheduled to occur 6 months from the date of the Encounter, up to a maximum of 20 appointments. The data comes from all [facility]. Appointment Date/Time Appointment Type Appointme nt Facility Name Aug 13, 2024 03:00 PM AMBULATORY - PSYCHIATRY [facility] September 19, 2024 01:30 PM AMBULATORY - MEDICINE [place] [facility] September 26, 2024 11:45 AM AMBULATORY - PSYCHIATRY [facility] September 26, 2024 11:46 AM AMBULATORY - MEDICINE [place] [facility] October 01, 2024 12:00 PM AMBULATORY - MEDICINE [facility] October 01, 2024 12:01 PM AMBULATORY - MEDICINE [place] [facility] October 01, 2024 12:30 PM AMBULATORY - MEDICINE [facility] October 08, 2024 02:00 PM AMBULATORY - MEDICINE [facility] Oct 21, 2024 01:00 PM AMBULATORY - MEDICINE [facility] Oct 22, 2024 01:00 PM AMBULATORY - MEDICINE [facility] Oct 30, 2024 12:00 PM AMBULATORY - NONE [place] [facility] Dec 19, 2024 12:15 PM AMBULATORY - PSYCHIATRY [facility] Dec 19, 2024 12:16 PM AMBULATORY - MEDICINE [place] [facility] Dec 31, 2024 01:00 PM AMBULATORY - PSYCHIATRY [facility] Jan 08, 2025 02:40 PM AMBULATORY - MEDICINE [place] [facility] Jan 21, 2025 01:00 PM AMBULATORY - PSYCHIATRY [facility] Active, Pending, and Scheduled Orders This section includes a listing of several types of active, pending, and scheduled orders, including clinic medications orders, diagnostic test orders, procedure orders and consult orders; where the start date of the order is 45 days before the date of the Encounter or 45 days after the date of theEncounter. The data comes from all [facility]. Test Date/Time Test Type Test Details Facility Name Jun 21, 2024 01:06 PM Laboratory - Chemi stry Order ANCILLARY INFLUENZA A&B (PB) [facility] Lab Results: +/- 30 days [...] Type Comment Jul 04, 2024 01:47 PM [place] [facility] BLOLMPRXR-TBIEE-1,3-GALACTOSE IGE SERUM Speci men Type: SERUM Comment: REFERENCE RANGE: <0.10 kU/L Results above 0.1 kU/L indicate an allergen-specific IgE sensitization to bkubhwzii-t-3,3-g alactose, and such patients are at risk [...] method. Additional information can be found at [email or web address] Test performed by [facility] [address] [place], [place] [id number] Senior Partner: Loni Landis MD,PHD,SANCHO Test Reported by [facility] [place], [id number] [place] [address] Wilfred Velásquez M.D., Ph.D., Director of Laboratories , [facility] [id number] Ordering Provider: LILIAM HAPRER Report Released Date/Time: Jul 04, 2024 01:45 PM Reporting Lab: [place] [facility] [address] [place] [address] Performing Lab: [place] [facility] [address] [facility] VGTRGEEHX-BWXVU-7,3-GALACTOSE IGE <0.10 kU/L SEE BELOW Jul 04, 2024 01:47 PM [place] [facility] FOLATE (PB) SERUM Specimen Typ e: SERUM No comment entered. Ordering Provider: LILIAM HARPER Report Released Date/Time: Jul 04, 2024 01:45 PM Reporting Lab: [place] [facility] [address] [place] [address] Performing Lab: [place] [facility] [address] [place] [address] FOLATE (PB) 15.7 ng/mL 7-20 Jul 04, 2024 01:47 PM [place] [facility] VITAMIN D, 25-HYDROXY SERUM Specimen Type: SE RUM No comment entered. Ordering Provider: LILIAM HARPER Report Released Date/Time: Jul 04, 2024 01:45 PM Reporting Lab: [place] [facility] [address] [place] [address] Performing Lab: [place] [facility] [address] [place] [address] VITAMIN D, 25-HYDROXY 31.5 ng/mL 30-96 Jul 04, 2024 01:47 PM [place] [place] [facility] B12 SERUM Specimen Type: SERUM No comment entered. Ordering Provider: LILIAM HARPER Report Released Date/Time: Jul 04, 2024 01:45 PM Reporting Lab: [place] [facility] [address] [place] [address] Performing Lab: [place] [facility] [address] [place] [address] B12 673 pg/mL 213-816 Jul 02, 2024 12:44 PM [place] [place] [facility] HGA1C BLOOD Specimen Type: BLOOD No comment entered. Ordering Provider: LILIAM HARPER Report Released Date/Time: Apr 09, 2024 03:26 PM Reporting Lab: [place] [facility] [address] [place] [address] Performing Lab: [place] [facility] [address] [place] [address] HGA1C 6.6 H 4.0-6.0 Jul 02, 2024 12:44 PM [facility] [place] [facility] DIRECT LDL (MA-PB) PLASMA Specimen Type: PLASM A No comment entered. Ordering Provider: LILIAM HARPER Report Released Date/Time: Apr 09, 2024 03:26 PM Reporting Lab: [place] [facility] [address] [place] [address] Performing Lab: [place] [facility] [address] [place] [address] DIRECT LDL 70.4 mg/dL 0-99.9 Jul 02, 2024 12:44 PM [facility] CHOLESTEROL PANEL (PB) PLASMA Specimen Type: P LEONIDAS No comment entered. Ordering Provider: LILIAM HARPER Report Released Date/Time: Apr 09, 2024 03:26 PM Reporting Lab: [place] [facility] [address] [place] [address] Performing Lab: [place] [facility] [address] [place] [address] CHOLESTEROL 120 mg/dL 0-200 TRIGLYCERIDE 164 mg/dL H 0-150 CALCULATED LDL 61.2 mg/dL HDL(New) 26.0 mg/dL L >40 HDL % OF TOTAL CHOLESTEROL (PB) 21.7 >25 Jul 02, 2024 12:44 PM [facility] COMPREHENSIVE METABOLIC PANEL PLASMA Specimen Type: PLASMA No comment entered. Ordering Provider: LILIAM HARPER Report Released Date/Time: Apr 09, 2024 03:26 PM Reporting Lab: [place] [facility] [address] [place] [address] Performing Lab: [place] [facility] [address] [place] [address] CREATININE 0.66 mg/dL 0.6-1.1 UREA NITROGEN 13 [...] U/L H 8-40 EGFR (CKD-EPI 2020) 99 Advance Directives: All historical and current Section Date Range: From patient's date of to the date document was created. This section includes ALL of a patient's completed or amended [place] Advance and Rescinded Directives. The entries below indicate that a directive exists for the patient, but an actual copy is not included with this document. The data comes from all [place] facilities. Date Advance Directives Provider Source Dec 18, 2023 ADVANCE DIRECTIVE TAWNYAPETER MARIVEL FF [facility] Radiology Reports: +/- 30 days of the [...] the Encounter. The data comes from all [place] treatment facilities. Date/Time Radiology Report Provider Source Jul 04, 2024 01:52 PM CHEST X-RAY, 2 VIE WS: JAMI CASTELLANO [id number] -[id number] F Exm Date: JUL 04, 2024@13:52 Req Phys: DAKOTAH INFANTE Loc: PB-MAITE PACT [employer] CHANNEL REBUILDER WH (Req Img Loc: PB-XRAY GEARY Service: [place] [address] (Case [id number] COMPLETE) CHEST X-RAY, 2 VIEWS (RAD Detailed) CPT:70302 Reason for Study: follow up pneumonia Clinical History: Report Status: Verified Date Reported: JUL 04, 2024 Date Verified: JUL 04, 2024 Supervisor Stitching Department E-Sig: Report: PA and lateral views of the chest reveal minimal spinal curvature with no acute osseous abnormality. There is no infiltrate or effusion. Heart size is normal. There is a neurostimulator in the mid thoracic spinal canal. Impression: No acute process Primary Interpreting Staff: RADHA SMALL RADIOLOGIST (Supervisor Stitching Department, no e-sig) /RADHA Ramos [facility] CB Encounter Notes: All associated encounter notes This section contains the clinical notes associated to the Encounter. Date/Time Encounter Note(s) Provider Source Jul 31, 2024 07:17 AM AUDIOLOGY NOTE: LOCAL TITLE: HEARING CLINIC PB STANDARD TITLE: AUDIOLOGY NOTE DATE OF NOTE: JUL 31, 2024@07:17 ENTRY DATE: JUL 31, 2024@07:17:24 AUTHOR: ALEJANDRO DURBIN COSIGNER: URGENCY: STATUS: COMPLETED Diagnosis: Sensorineural Hearing Loss, Bilateral and Tinnitus, Bilateral Treatment: Hearing Aid Follow Up Time spent with : 30 minutes seen for a hearing aid check via Audio Telehealth and verbally consented to the Telehealth modality. Multi-factor personally identifiable information of the was obtained verbally (full name and date of ). [place] accompanied by: none Patient site: [facility] ____ HISTORY: was previously seen for the fitting of new hearing aids. Patient returns today for follow up. Patient reports difficulty inserting hearing aids. She also reports difficulty remembering to wear devices. [place] reports acclimating well to the hearing aids and feels they are beneficial although she has not noticed improvement with tinnitus. [place] reports receiving the first shipment of supplies in the mail. 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 Educated on proper insertion. Removed retention tails for ease of insertion. Practiced proper insertion and she demonstrated success. Patient was re-instructed on hearing aid maintenance and re-educated on ordering more supplies when needed. Connected hearing aids to software. Datalogging showed four daily use. Created white noise program. Educated patient on accessing white noise through long push rocker up or via remote control. International Outcome Inventory for Hearing Aids administered and saved in [employer]. The was counseled/educated on services provided today and is in agreement with the plan. PLAN: Return to clinic for second follow-up by request of patient /matt/ Carmen French [facility] Signed: 07/31/2024 12:53 ALEJANDRO DURBIN [facility]
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
--- OUTSIDE RECORDS SUMMARY | 2024-09-26 06:45 | XMS_ITS | Encounter Summary ---
Author Name [facility] [facility] [place] [facility] [place] [facility] [place] Address [address] [place] [address] Care Team Providers Care Sweet Goods Machine Operator Name Role Phone DAKOTAH INFANTE Primary [...] Name Patient's Relationship to Policy Palmer [facility] (WNR) MEDICARE ADVANTAGE HUMAN A INSUR ANCE Hitmeister May 22, 2020 [id number] JAMI CASTELLANO PATIENT INNOVIANT E-PHARM PRESCRIPT ION SWEET WATER KANDI DIST Jan 20, 2007 [id number] [phone] JAMI CASTELLANO PATIENT MEDICARE (WNR) MEDICARE (M) PART A Nov 19, 2013 PART A [id number] JAMI CASTELLANO PATIENT MEDICARE (WNR) MEDICARE (M) PART B Nov 19, 2013 PART B [id number] JAMI CASTELLANO PATIENT MEDICARE (WNR) MEDICARE (M) PART A Nov 19, 2013 PART A [id number] JAMI CASTELLANO PATIENT MEDICARE (WNR) MEDICARE (M) PART B Nov 19, 2013 PART B [id number] JAMI CASTELLANO PATIENT MEDICARE (WNR) MEDICARE (M) PART A Nov 19, 2013 PART A [id number] JAMI CASTELLANO PATIENT MEDICARE (WNR) MEDICARE (M) PART B Nov 19, 2013 PART B [id number] JAMI CASTELLANO PATIENT MEDICARE (WNR) MEDICARE (M) PART B Nov 19, 2013 PART B [id number] JAMI CASTELLANO PATIENT MEDICARE (WNR) MEDICARE (M) PART A Nov 19, 2013 PART A [id number] JAMI CASTELLANO PATIENT MEDICARE (WNR) MEDICARE (M) PART A Nov 19, 2013 PART A [id number] JAMI CASTELLANO PATIENT MEDICARE (WNR) MEDICARE (M) PART B Nov 19, 2013 PART B [id number] JAMI CASTELLANO PATIENT MEDICARE (WNR) MEDICARE (M) PART A Nov 19, 2013 PART A [id number] JAMI CASTELLANO PATIENT MEDICARE (WNR) MEDICARE (M) PART B Nov 19, 2013 PART B [id number] JAMI CASTELLANO PATIENT MEDICARE (WNR) MEDICARE (M) PART B Nov 19, 2013 PART B [id number] JAMI CASTELLANO PATIENT MEDICARE (WNR) MEDICARE (M) PART A Nov 19, 2013 PART A [id number] JAMI CASTELLANO PATIENT MEDICARE (WNR) MEDICARE (M) PART A Nov 19, 2013 PART A [id number] JAMI CASTELLANO PATIENT MEDICARE (WNR) MEDICARE (M) PART B Nov 19, 2013 PART B [id number] JAMI CASTELLANO PATIENT MEDICARE PART D (WNR) MEDICARE (M) PART D May 22, 2020 PART D [id number] JAMI CASTELLANO PATIENT MEDICARE PART D (WNR) MEDICARE (M) PART D Feb 19, 2014 PART D [id number] JAMI CASTELLANO PATIENT 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 Date/Time Encounter Type Encounter Description Reason Provider Source September 26, 2024 11:45 AM [facility] F[facility] - IND ICD-10-CM F31.9 Bipolar disorder, unspecified [facility] Encounter Template Text not used by [place] Assessments - Encounter Diagnoses This section includes the primary and secondary diagnoses documented for the Encounter. Date/Time Primary/Secondary Diagnosis Diagnosis Name Provider Source September 26, 2024 01:00 PM PRIMARY Bipolar disorder, unspecified [facility] September 26, 2024 01:00 PM SECONDARY Generalized anxiety disorder [facility] September 26, 2024 01:00 PM SECONDARY Post-traumatic stress disorder, chronic [facility] Plan of Treatment: Future Appointments (+ 6 months) and Future Tests (+/- 45 days) The Plan of Treatment section includes future care activities for the patient from all [place] treatmentfacilities. This section includes future appointments and future orders which are active, pending or scheduled. Future Appointments This section includes appointments that were scheduled to occur 6 months from the date of the Encounter, up to a maximum of 20 appointments. The data comes from all [facility]. Appointment Date/Time Appointment Type Appointme nt Facility Name October 01, 2024 12:00 PM AMBULATORY - MEDICINE [facility] October 01, 2024 12:01 PM [facility] - MEDICINE [facility] [facility] October 01, 2024 12:30 PM [facility] October 08, 2024 02:00 PM [facility] Oct 21, 2024 01:00 PM AMBULATORY - MEDICINE [facility] Oct 22, 2024 01:00 PM AMBULATORY - MEDICINE [facility] Oct 30, 2024 12:00 PM AMBULATORY - NONE [facility] Dec 19, 2024 12:15 PM AMBULATORY - PS[facility]CHIATRY [facility] Dec 19, 2024 12:16 PM AMBULATORY - MEDICINE [facility] Dec 31, 2024 01:00 PM AMBULATORY - PS[facility]CHIATRY [facility] Jan 08, 2025 02:40 PM [facility]ULATORY - MEDICINE [facility] Jan 21, 2025 01:00 PM AMBULATORY - PSYCHIATRY [facility] Active, Pending, and Scheduled Orders This section includes a listing of several types of active, pending, and scheduled orders, including clinic medications orders, diagnostic test orders, procedure orders and consult orders; where the start date of the order is 45 days before the date of the Encounter or 45 days after the date of theEncounter. The data comes from all [facility]. Test Date/Time Test Type Test Details Facility Name October 09, 2024 09:32 PM Consult Order COMMUNITY [facility]ARE-PAIN [id number] Cons Fuel Yard Operator's Choice [facility] Lab Results: +/- 30 days of the encounter This section includes the Chemistry and Hematology Lab Results on record with [place] for the patient. Radiology Reports and Pathology Reports are provided separately, in subsequent sections. Lab Results This section contains the Chemistry/Hematology Results that were resulted 30 days before or 30 daysafter the date of the Encounter. Date/Time Source Result Type Result - Unit Interpretation Reference Range Specimen Type Comment Oct 21, 2024 01:02 PM [facility] TSH (MA-PB) SERUM Specimen Type: SERUM No comment entered. Ordering Provider: DAKOTAH INFANTE Report Released Date/Time: October 08, 2024 02:34 PM Reporting Lab: [facility] [address] [place] [address] Performing Lab: [facility] [place] [facility] [address] [place] [address] TSH 1.583 u[IU]/mL 0.47-5 Oct 21, 2024 01:02 PM [facility] CBC BLOOD Specimen Type: BLOOD Comment: SCAN OF SLIDE AGREES WITH AUTOMATED DIFF PLT Suspect Result. Interpret result with other clinical findings. See PLT Smear Estimate. MPV Suspect Result. Interpret result with other clinical findings. Ordering Provider: DAKOTAH INFANTE Report Released Date/Time: October 08, 2024 02:23 PM Reporting Lab: [facility] [place] [facility] [address] [place] [place] [address] Performing Lab: [facility] [place] [facility] [address] [place] [address] WBC 8.4 10*3/uL 3.6-11.2 RBC 4.29 10*6/uL 3.60-5.00 HGB 13.6 g/dL 11.0-14.9 HCT 40.4 32.6-43.4 MCV 94.2 fL 80.0-100.0 MCH 31.7 pg 27.0-34.0 MCHC 33.7 g/dL 33.0-36.0 PLT 239 10*3/uL 150-400 MPV 9.6 fL 7.5-11.2 PLT. (SMEAR EST.) ADEQUATE ADEQUATE RDW 12.6 11.8-15.1 LYMPHOCYTES, AUTO % 33.9 MONOCYTES, AUTO % 8.5 NEUTROPHILS, AUTO % 52.2 EOSINOPHILS, AUTO % 3.2 BASOPHILS, AUTO % 0.8 LYMPHOCYTES, ABSOLUTE 2.83 10*3/uL 0.77- 4.50 MONOCYTES, ABSOLUTE 0.71 10*3/uL 0.19-0. 8 NEUTROPHILS, ABSOLUTE 4.36 10*3/uL 2.10- 8.00 EOSINOPHILS, ABSOLUTE 0.27 10*3/uL 0.00- 0.60 BASOPHILS, ABSOLUTE 0.07 10*3/uL 0.00-0. 20 IMMATURE PLT FRACTION 1.3 1.0-7.0 IMMATURE GRANS, AUTO % 1.4 IMMATURE GRANS, AUTO ABS 0.12 10*3/uL H 0. 00-0.05 THROMBOCYTE AGGREGATE 1+ NORMRBC YES SCRNPERF YES Oct 21, 2024 01:02 PM [facility] LAMOTRIGINE SERUM Specimen Typ e: SERUM Comment: This test was developed and its analytical performance characteristics have been determined by [facility] [place], [place]. It has not been cleared or approved by the U.S. Food and Drug Administration. This assay has been validated pursuant to the CLIA regulations and is used for clinical purposes. Test Performed by [facility], [facility], [address] [place], [place] Wilfred Velásquez M.D., Ph.D., Director of Laboratories , CLIA [id number] Ordering Provider: LILIAM HARPER Report Released Date/Time: Jul 04, 2024 03:05 PM Reporting Lab: [place] [facility] [address] [place] [address] Performing Lab: [place] [facility] [address] [facility] LAMOTRIGINE 4.8 ug/mL 2.5-15.0 Oct 21, 2024 01:02 PM [facility] DIRECT LDL (MA-PB) PLASMA Specimen Type: PLASM A No comment entered. Ordering Provider: LILIAM HARPER Report Released Date/Time: Jul 04, 2024 03:05 PM Reporting Lab: [place] [facility] [address] [place] [address] Performing Lab: [place] [facility] [address] [place] [address] DIRECT LDL 70.7 mg/dL 0-99.9 Oct 21, 2024 01:02 PM [facility] [place] [facility] VITAMIN D, 25-HYDROXY SERUM Specimen Type: SE RUM No comment entered. Ordering Provider: LILIAM HARPER Report Released Date/Time: Jul 04, 2024 03:05 PM Reporting Lab: [place] [facility] [address] [place] [address] Performing Lab: [place] [facility] [address] [place] [address] VITAMIN D, 25-HYDROXY 29.2 ng/mL L 30-96 Oct 21, 2024 01:02 PM [facility] CHOLESTEROL PANEL (PB) PLASMA Specimen Type: P LASMA No comment entered. Ordering Provider: LILIAM HARPER Report Released Date/Time: Jul 04, 2024 03:05 PM Reporting Lab: [place] [facility] [address] [place] [address] Performing Lab: [place] [facility] [address] [place] [address] CHOLESTEROL 138 mg/dL 0-200 TRIGLYCERIDE 223 mg/dL H 0-150 CALCULATED LDL 68.4 mg/dL HDL(New) 25.0 mg/dL L >40 HDL % OF TOTAL CHOLESTEROL (PB) 18.1 >25 Oct 21, 2024 01:02 PM [facility] IRON PLASM A Specimen Type: PLASMA No comment entered. Ordering Provider: LILIAM HARPER Report Released Date/Time: Jul 04, 2024 03:05 PM Reporting Lab: [place] [facility] [address] [place] [address] Performing Lab: [place] [facility] [address] [place] [address] IRON 82 ug/dL 50-170 Oct 21, 2024 01:02 PM [facility] FOLATE (PB) SERUM Specimen Typ e: SERUM No comment entered. Ordering Provider: LILIAM HARPER Report Released Date/Time: Jul 04, 2024 03:05 PM Reporting Lab: [place] [facility] [address] [place] [address] Performing Lab: [place] [facility] [address] [place] [address] FOLATE (PB) 14.5 ng/mL 7-20 Oct 21, 2024 01:02 PM [facility] B12 SERUM Specimen Type: SERUM No comment entered. Ordering Provider: LILIAM HARPER Report Released Date/Time: Jul 04, 2024 03:05 PM Reporting Lab: [place] [facility] [address] [place] [address] Performing Lab: [place] [facility] [address] [place] [address] B12 862 pg/mL H 213-816 Oct 21, 2024 01:02 PM [facility] HGA1C BLOOD Specimen Type: BLOOD No comment entered. Ordering Provider: LILIAM HARPER Report Released Date/Time: Jul 04, 2024 03:05 PM Reporting Lab: [place] [facility] [address] [place] [address] Performing Lab: [place] [facility] [address] [place] [address] HGA1C 6.7 H 4.0-6.0 Oct 21, 2024 01:02 PM [facility] COMPREHENSIVE METABOLIC PANEL PLASMA Specimen Type: PLASMA No comment entered. Ordering Provider: LILIAM HARPER Report Released Date/Time: Jul 04, 2024 03:05 PM Reporting Lab: [place] [facility] [address] [place] [address] Performing Lab: [place] [facility] [address] [place] [address] CREATININE 0.67 mg/dL 0.6-1.1 UREA NITROGEN 9 mg/dL 9-25 GLUCOSE 130 mg/dL H 72-99 SODIUM 139 meq/L 136-145 POTASSIUM 4.4 meq/L 3.5-5 CHLORIDE 105 meq/L 98-107 CARBON DIOXIDE 25 meq/L 22-31 CALCIUM 9.1 mg/dL 8.4-10.4 PROTEIN 7.0 g/dL 6-8.6 ALBUMIN 4.4 g/dL 3.4-5 TOTAL BILIRUBIN 0.7 mg/dL 0.2-1.2 ALKALINE PHOSPHATASE 93 U/L 40-150 AST/SGOT 18 U/L 5-34 ALT/SGPT 20 U/L 8-40 EGFR (CKD-EPI 2020) 98 Vital Signs: All taken on the encounter date This section contains inpatient and outpatient Vital Signs collected on the date of the Encounter. Date/Time Temperature Pulse Blood Pressure Respiratory Rate SP02 Pain Height Weight Body Mass Index Source September 26, 2024 11:56 AM 97.6 78 114/67 20 97 3 185.2 30 [facility] Social History: Smoking Status (Most current) and Tobacco Use (All prior to encounter date) This section includes the most current, and the historical, smoking and tobacco- related health factors from the [place] facility where the Encounter took place. Current Smoking Status This section includes the most current smoking, or tobacco-related health factor, from the [place] facility where the Encounter took place. Date/Time Current Smoking Status Comment Facil ity Aug 23, 2023 11:00 AM VA-TOBACCO USE [place] 30 MIN OF WAKE UP [facility] Tobacco Use History This section includes a history of the smoking, or tobacco-related health factors, that were collected on or before the date of the Encounter. The data comes from the [place] facility where the Encounter took place. Date/Time Smoking Status/Tobacco Use Comment F acility Aug 23, 2023 11:00 AM VA-TOBACCO USE ADVICE [facility] Aug 23, 2023 11:00 AM VA-TOBACCO USE MEASUREMENT SUPERVIS[facility] [place] [facility] Aug 23, 2023 11:00 AM [place]-TO[place]ACCO USE MED [place] [facility] Aug 23, 2023 11:00 AM VA-TOBACCO USE WI 30 MIN OF WAKE UP [facility] Aug 23, 2023 11:00 AM VA-TOBACCO USER EVERY DAY [facility] Aug 24, 2022 01:30 PM VA-TOBACCO DOESNT USE WI 30 MIN WAKEUP [facility] Aug 24, 2022 01:30 PM VA-TOBACCO USE > 1 5 LESS THAN 30 YEARS [facility] Aug 24, 2022 01:30 PM VA-TOBACCO USE ADVICE [facility] Aug 24, 2022 01:30 PM VA-TOBACCO USE MEASUREMENT SUPERVISOR NO [facility] Aug 24, 2022 01:30 PM VA-TOBACCO USE MED NO [facility] Aug 24, 2022 01:30 PM VA-TOBACCO USER EVERY DAY [facility] Aug 30, 2021 01:30 PM VA-TOBACCO USE 30 YEARS OR MORE [facility] Aug 30, 2021 01:30 PM VA-TOBACCO USE ADVICE [facility] Aug 30, 2021 01:30 PM VA-TOBACCO USE MEASUREMENT SUPERVISOR NO [facility] Aug 30, 2021 01:30 PM VA-TOBACCO USE MED NOTIFY PROVID ER [facility] Aug 30, 2021 01:30 PM VA-TOBACCO USE WI 30 MIN OF WAKE UP [facility] Aug 30, 2021 01:30 PM VA-TOBACCO USER EVERY DAY [facility] Feb 17, 2020 02:00 PM VA-TOBACCO USE 30 YEARS OR MORE [facility] Feb 17, 2020 02:00 PM VA-TOBACCO USE ADVICE [facility] Feb 17, 2020 02:00 PM VA-TOBACCO USE MEASUREMENT SUPERVISOR NO [facility] Feb 17, 2020 02:00 PM VA-TOBACCO USE MED NO [facility] Feb 17, 2020 02:00 PM VA-TOBACCO USE WI 30 MIN OF WAKE UP [facility] Feb 17, 2020 02:00 PM VA-TOBACCO USER EVERY DAY [facility] Jun 27, 2018 12:01 PM VA-TOBACCO USE 30 YEARS OR MORE [facility] Jun 27, 2018 12:01 PM VA-TOBACCO USE ADVICE [facility] Jun 27, 2018 12:01 PM VA-TOBACCO USE MEASUREMENT SUPERVISOR [place] [facility] Jun 27, 2018 12:01 PM VA-TOBACCO USE MED NO [facility] [facility] Jun 27, 2018 12:01 PM VA-TOBACCO USE WI 30 MIN OF WAKE UP [facility] Jun 27, 2018 12:01 PM VA-TOBACCO USER EVERY DAY [facility] Jul 20, 2017 04:18 PM CURRENT TOBACCO USER [facility] Jul 20, 2017 04:18 PM CURRENT TOBACCO US ER (NOT READY TO QUIT) [facility] Jul 20, 2017 04:18 PM TOBACCO CESSATION REFERRAL DECLI [facility] Jul 20, 2017 04:18 PM TOBACCO MEDS OFFERED BUT DECLINE D [facility] Jul 20, 2017 04:18 PM TOBACCO USER OFFERED MEDS [facility] Jul 20, 2017 04:00 PM CURRENT TOBACCO USER [facility] Jul 20, 2017 04:00 PM CURRENT TOBACCO US ER (NOT READY TO QUIT) [facility] Jul 20, 2017 04:00 PM TOBACCO CESSATION REFERRAL DECLI [facility] Jul 20, 2017 04:00 PM TOBACCO MEDS OFFERED BUT DECLINE D [facility] Jul 20, 2017 04:00 PM TOBACCO USER OFFERED MEDS [facility] Advance Directives: All historical and current Section Date Range: From patient's date of to the date document was created. This section includes ALL of a patient's completed or amended [place] Advance and Rescinded Directives. The entries below indicate that a directive exists for the patient, but an actual copy is not included with this document. The data comes from all [place] facilities. Date Advance Directives Provider Source Dec 18, 2023 ADVANCE DIRECTIVE BOWLINGPETER HANKS [facility] Radiology Reports: +/- 30 days of the [...] the Encounter. The data comes from all [place] treatment facilities. Date/Time Radiology Report Provider Source October 09, 2024 01:51 PM SPINE LUMBOSACRAL 2 OR 3 VIEWS: CASTELLANO,JAMI JEA [id number] -[id number] F Exm Date: OCTOBER 09, 2024@13:51 Req Phys: DAKOTAH INFANTE Loc: PB-MAITE PACT [place] HEL[facility] DESK AGENT [facility] (Req Img Loc: PB-XRAY [place] Service: [place] [address] (Case [id number] COMPLETE) SPINE LUMBOSACRAL 2 OR 3 VIEWS (RAD Detailed) CPT:57665 Reason for Study: low back pain Clinical History: new pain management consult Report Status: Verified Date Reported: OCTOBER 09, 2024 Date Verified: OCTOBER 09, 2024 Coat Tailor E-Sig: Report: EXAM: Lumbar spine AP, lateral, and coned lateral views. FINDINGS: There is no acute fracture or dislocation. There are osseous degenerative changes. There is narrowing of the disc spaces at the L2-3, L3-4, L4-5, and L5-S1 levels along with minimal narrowing of the L1-2 disc space. There is very mild retrolisthesis at the L1-2, L2-3, and L3-4. There is calcified atherosclerotic change involving the abdominal aorta. There is a power pack within the subcutaneous soft tissue of the right lower back. There is scoliosis convex to the left. There is degenerative change involving the pelvis. Impression: 1. No evidence of acute osseous injury involving the lumbar spine. 2. Osseous degenerative changes. 3. Narrowing of each of the disc spaces of the lumbar spine. 4. Scoliosis. 5. Very mild retrolisthesis at the L1-2, L2-3, and L3-4 levels. Primary Interpreting Staff: Alejandra Moseley M.D., Radiology (Coat Tailor, no e-sig) /ALEJANDRA SEPULVEDA [facility] Encounter Notes: All associated encounter notes This section contains the clinical notes associated to the Encounter. Date/Time Encounter Note(s) Provider Source September 26, 2024 12:30 PM NURSING NOTE: LOCAL TITLE: [facility] NURSING EXIT NOTE PB STANDARD TITLE: NURSING NOTE DATE OF NOTE: SEPTEMBER 26, 2024@12:30 ENTRY DATE: SEPTEMBER 26, 2024@12:30:22 AUTHOR: BRITTAYN DELGADO COSIGNER: URGENCY: STATUS: COMPLETED EXIT INTERVIEW Location: [facility] Ambulatory Appointment Reviewed: Instructions: CLINIC: Sent to Pharmacy for medications and instructions: Lab Instructions: Special Instructions: Verbalized understanding of today's visit: Patient Is patient's pain under control at time of exit? Yes Discussed walk-in and after-hour services. [place] verbalized understanding. Encouraged to seek treatment if change in status. Contact information and hours of operation given. Kulwinder voiced no questions or concerns and was [facility] in satisfactory condition, scheduling for her next appt. /matt/ ROBERT BATES, RN [facility] Signed: 09/26/2024 12:31 BRITTANY DELGADO [facility] September 26, 2024 11:42 AM NURSING PROGRESS N OTE: LOCAL TITLE: NURSING NOTE PB STANDARD TITLE: NURSING PROGRESS NOTE DATE OF NOTE: SEPTEMBER 26, 2024@11:42 ENTRY DATE: SEPTEMBER 26, 2024@11:42:42 AUTHOR: BRITTANY DELGADO EXP COSIGNER: URGENCY: STATUS: COMPLETED Kulwinder is here for her scheduled telemed psychiatry appt. She is alert and oriented, resps even and unlabored, gait steady. Kulwinder is pleasant and conversational, states she is doing alright. Explained to this nurse had spoken with pharmacy yesterday and the Zofran does not come from the pharmacy and they had no control of how the med came. verbalized understanding. She commented it is difficult to get the med out of the bubble pack and by the time she does get it out she has already vomited. She continues to talk about having nausea for years and was told it was caused by a bacteria. Pain Assessment: - PAIN ASSESSMENT: .. Patient is reporting some pain. PAIN SCORE TODAY: 3 Patient's self-identified pain level: 3 [place] was escorted to room 128 for her appt with Dr Troy, receiving good telemed transmission. /matt/ ROBERT BATSE, RN [facility] Signed: 09/26/2024 12:18 BRITTANY DELGADO [facility]
--- OUTSIDE RECORDS SUMMARY | 2024-09-26 06:46 | XMS_ITS | Encounter Summary ---
Author Name [facility] [place] Organization [facility] [place] Address [address] [place] [address] Care Team Providers Care Composing Machine Operator/Tender Name Role Phone DAKOTAH INFANTE Primary Care [...] Patient's Relationship to Policy Palmer [facility] (WNR) MEDICARE ADVANTAGE HUMAN A INSUR [employer] [place] May 22, 2020 [id number] [phone] JAMI CASTELLANO PATIENT INNOVIANT E-PHARM PRESCRIPT ION SWEET WATER KANDI DIST Jan 20, 2007 [id number] [phone] JAMI CASTELLANO PATIENT MEDICARE (WNR) MEDICARE (M) PART A Nov 19, 2013 PART A [id number] JAMI CASTELLANO PATIENT MEDICARE (WNR) MEDICARE (M) PART B Nov 19, 2013 PART B [id number] JAMI CASTELLANO PATIENT MEDICARE (WNR) MEDICARE (M) PART B Nov 19, 2013 PART B [id number] [phone] JAMI CASTELLANO PATIENT MEDICARE (WNR) MEDICARE (M) PART A Nov 19, 2013 PART A [id number] [id number] JAMI CASTELLANO PATIENT MEDICARE (WNR) MEDICARE (M) PART A Nov 19, 2013 PART A [id number] JAMI CASTELLANO PATIENT MEDICARE (WNR) MEDICARE (M) PART B Nov 19, 2013 PART B [id number] JAMI CASTELLANO PATIENT MEDICARE (WNR) MEDICARE (M) PART A Nov 19, 2013 PART A [id number] JAMI CASTELLANO PATIENT MEDICARE (WNR) MEDICARE (M) PART B Nov 19, 2013 PART B [id number] JAMI CASTELLANO PATIENT MEDICARE (WNR) MEDICARE (M) PART A Nov 19, 2013 PART A [id number] JAMI CASTELLANO PATIENT MEDICARE (WNR) MEDICARE (M) PART B Nov 19, 2013 PART B [id number] JAMI CASTELLANO PATIENT MEDICARE (WNR) MEDICARE (M) PART A Nov 19, 2013 PART A [id number] JAMI CASTELLANO PATIENT MEDICARE (WNR) MEDICARE (M) PART B Nov 19, 2013 PART B [id number] JAMI CASTELLANO PATIENT MEDICARE (WNR) MEDICARE (M) PART B Nov 19, 2013 PART B [id number] JAMI CASTELLANO PATIENT MEDICARE (WNR) MEDICARE (M) PART A Nov 19, 2013 PART A [id number] JAMI CASTELLANO PATIENT MEDICARE (WNR) MEDICARE (M) PART A Nov 19, 2013 PART A [id number] [phone] JAMI CASTELLANO PATIENT MEDICARE (WNR) MEDICARE (M) PART B Nov 19, 2013 PART B [id number] JAMI CASTELLANO PATIENT MEDICARE PART D (WNR) MEDICARE (M) PART D May 22, 2020 PART D [id number] JAMI CASTELLANO PATIENT MEDICARE PART D (WNR) MEDICARE (M) PART D Feb 19, 2014 PART D [id number] JAMI CASTELLANO PATIENT OFF OF REG ETCHER ELECTROLYTIC BURDICK TORT FEASOR TORT Nov 26, 2017 TORT [id number] JAMI CASTELLANO PATIENT OPTUM RX PRESCRIPT ION SWEET WATER SCHOO L #1 September 19, 2008 [id number] [phone] JAMI CASTELLANO PATIENT UMR COMPREHEN SIVE MAJOR MEDICAL SWEET WATER COUNT Y SC Jan 20, 2014 [id number] [phone] JAMI CASTELLANO PATIENT UMR PREFERRED PROVIDER ORGANIZAT ION (PPO) TAWANNA SS ROEL HEALT H Jan 20, 2007 [id number] [phone] JAMI CASTELLANO PATIENT Selected Encounter This section includes the information on record at [place] for the Encounter. Date/Time Encounter Type Encounter Description Reason Provider Source September 26, 2024 11:46 AM SYNCH AUDIO-VIDEO [address] [facility] - IND ICD-10-CM F31.9 Bipolar disorder, unspecified REMA TROY Encounter Template Text not used by [place] Assessments - Encounter Diagnoses This section includes the primary and secondary diagnoses documented for the Encounter. Date/Time Primary/Secondary Diagnosis Diagnosis Name Provider Source September 26, 2024 12:58 PM PRIMARY Bipolar disorder, unspecified REMA TROY [facility] September 26, 2024 12:58 PM SECONDARY Generalized anxiety disorder REMA TROY [facility] September 26, 2024 12:58 PM SECONDARY Post-traumatic stress disorder, chronic REMA TROY [facility] Plan of Treatment: Future Appointments (+ 6 months) and Future Tests (+/- 45 days) The Plan of Treatment section includes future care activities for the patient from all [place] treatmentfacilities. This section includes future appointments and [...] 01, 2024 12:00 PM AMBULATORY - MEDICINE [facility] October 01, 2024 12:01 PM AMBULATORY - MEDICINE [place] [facility] October 01, 2024 12:30 PM AMBULATORY - MEDICINE [facility] October 08, 2024 02:00 PM AMBULATORY - MEDICINE [facility] Oct 21, 2024 01:00 PM AMBULATORY - MEDICINE [facility] Oct 22, 2024 01:00 PM AMBULATORY - MEDICINE [facility] Oct 30, 2024 12:00 PM AMBULATORY - NONE [place] [facility] Dec 19, 2024 12:15 PM AMBULATORY - PSYCHIATRY [facility] Dec 19, 2024 12:16 PM AMBULATORY - MEDICINE [place] [facility] Dec 31, 2024 01:00 PM AMBULATORY - PSYCHIATRY [facility] Jan 08, 2025 02:40 PM AMBULATORY - MEDICINE [place] [facility] Jan 21, 2025 01:00 PM AMBULATORY - PS[facility]CH[facility]ATRY [facility] Active, Pending, and Scheduled Orders This [...] 09, 2024 09:32 PM Consult Order [facility] [id number] Cons Forest Pathology Professor's Choice [facility] Lab Results: +/- 30 days of the encounter This section includes the Chemistry and Hematology Lab Results on record with [place] for the patient. Radiology Reports and Pathology Reports are provided separately, in subsequent sections. Lab Results This section contains the Chemistry/Hematology Results that were resulted 30 days before or 30 daysafter the date of the Encounter. Date/Time Source Result Type Result - Unit Interpretation Reference Range Specimen Type Comment Oct 21, 2024 01:02 PM [facility] TSH (MA-PB) SERUM Specimen Type: SERUM No comment entered. Ordering Provider: DAKOTAH INFANTE Report Released Date/Time: October 08, 2024 02:34 PM Reporting Lab: [place] [facility] [address] [place] [address] Performing Lab: [facility] [address] [place] [address] TSH 1.583 u[IU]/mL 0.47-5 Oct 21, 2024 01:02 PM [facility] CBC BLOOD Specimen Type: BLOOD Comment: SCAN OF SLIDE AGREES WITH AUTOMATED DIFF PLT Suspect Result. Interpret result with other clinical findings. See PLT Smear Estimate. MPV Suspect Result. Interpret result with other clinical findings. Ordering Provider: DAKOTAH INFANTE Report Released Date/Time: October 08, 2024 02:23 PM Reporting Lab: [facility] [address] [place] [address] Performing Lab: [facility] [address] [facility] [address] WBC 8.4 10*3/uL 3.6-11.2 RBC 4.29 10*6/uL [...] YES Oct 21, 2024 01:02 PM [facility] LAMOTRIGINE SERUM Specimen Typ e: SERUM Comment: This test was developed and its analytical performance characteristics have been determined by [email or web address] [place], [place]. It has not been cleared or approved by the U.S. Food and Drug Administration. This assay has been validated pursuant to the CLIA regulations and is used for clinical purposes. Test Performed by [facility], [email or web address], [address] [place], [place] Wilfred Velásquez M.D., Ph.D., Director of Laboratories , CLIA [id number] Ordering Provider: LILIAM HARPER Report Released Date/Time: Jul 04, 2024 03:05 PM Reporting Lab: [place] [facility] [address] [place] [address] Performing Lab: [place] [facility] [id number] [facility] LAMOTRIGINE 4.8 ug/mL 2.5-15.0 Oct 21, 2024 01:02 PM [facility] DIRECT LDL (MA-PB) PLASMA Specimen Type: PLASM A No comment entered. Ordering Provider: LILIAM HARPER Report Released Date/Time: Jul 04, 2024 03:05 PM Reporting Lab: [place] [facility] [address] [place] [address] Performing Lab: [place] [facility] [address] [place] [address] DIRECT LDL 70.7 mg/dL 0-99.9 Oct 21, 2024 01:02 PM [facility] [place] [facility] VITAMIN D, 25-HYDROXY SERUM Specimen Type: SE RUM No comment entered. Ordering Provider: LILIAM HARPER Report Released Date/Time: Jul 04, 2024 03:05 PM Reporting Lab: [place] [facility] [address] [place] [address] Performing Lab: [place] [facility] [address] [place] [address] VITAMIN D, 25-HYDROXY 29.2 ng/mL L 30-96 Oct 21, 2024 01:02 PM [facility] CHOLESTEROL PANEL (PB) PLASMA Specimen Type: P LASMA No comment entered. Ordering Provider: LILIAM HARPER Report Released Date/Time: Jul 04, 2024 03:05 PM Reporting Lab: [place] [facility] [address] [place] [address] Performing Lab: [place] [facility] [address] [place] [address] CHOLESTEROL 138 mg/dL 0-200 TRIGLYCERIDE 223 mg/dL H 0-150 CALCULATED LDL 68.4 mg/dL HDL(New) 25.0 mg/dL L >40 HDL % OF TOTAL CHOLESTEROL (PB) 18.1 >25 Oct 21, 2024 01:02 PM [facility] IRON PLASM A Specimen Type: PLASMA No comment entered. Ordering Provider: LILIAM HARPER Report Released Date/Time: Jul 04, 2024 03:05 PM Reporting Lab: [place] [facility] [address] [place] [address] Performing Lab: [place] [facility] [address] [place] [address] IRON 82 ug/dL 50-170 Oct 21, 2024 01:02 PM [facility] FOLATE (PB) SERUM Specimen Typ e: SERUM No comment entered. Ordering Provider: LILIAM HARPER Report Released Date/Time: Jul 04, 2024 03:05 PM Reporting Lab: [place] [facility] [address] [place] [address] Performing Lab: [place] [facility] [address] [place] [address] FOLATE (PB) 14.5 ng/mL 7-20 Oct 21, 2024 01:02 PM [facility] [place] [facility] B12 SERUM Specimen Type: SERUM No comment entered. Ordering Provider: LILIAM HARPER Report Released Date/Time: Jul 04, 2024 03:05 PM Reporting Lab: [place] [facility] [address] [place] [address] Performing Lab: [place] [facility] [address] [place] [address] B12 862 pg/mL H 213-816 Oct 21, 2024 01:02 PM [facility] HGA1C BLOOD Specimen Type: BLOOD No comment entered. Ordering Provider: LILIAM HARPER Report Released Date/Time: Jul 04, 2024 03:05 PM Reporting Lab: [place] [facility] [address] [place] [address] Performing Lab: [place] [facility] [address] [place] [address] HGA1C 6.7 H 4.0-6.0 Oct 21, 2024 01:02 PM [facility] COMPREHENSIVE METABOLIC PANEL PLASMA Specimen Type: PLASMA No comment entered. Ordering Provider: LILIAM HARPER Report Released Date/Time: Jul 04, 2024 03:05 PM Reporting Lab: [place] [facility] [address] [place] [address] Performing Lab: [place] [facility] [address] [place] [address] CREATININE 0.67 mg/dL 0.6-1.1 UREA NITROGEN 9 [...] 20 U/L 8-40 EGFR (CKD-EPI 2020) 98 Advance Directives: All historical and current Section Date Range: From patient's date of to the date document was created. This section includes ALL of a patient's completed or amended [place] Advance and Rescinded Directives. The entries below indicate that a directive exists for the patient, but an actual copy is not included with this document. The data comes from all [place] facilities. Date Advance Directives Provider Source Dec 18, 2023 ADVANCE DIRECTIVE PETER BOWLING [place] [facility] Radiology Reports: +/- 30 days of the [...] the Encounter. The data comes from all [place] treatment facilities. Date/Time Radiology Report Provider Source October 09, 2024 01:51 PM SPINE LUMBOSACRAL 2 OR 3 VIEWS: JAMI CASTELLANO [id number] [id number] F Exm Date: OCTOBER 09, 2024@13:51 Req Phys: DAKOTAH INFANTE Loc: PB-[facility]ITE PACT [place] [facility] (Req Img Loc: PB-XRAY [facility] Service: [place] [address] (Case [id number] COMPLETE) SPINE LUMBOSACRAL 2 OR 3 VIEWS (RAD Detailed) CPT:10267 Reason for Study: low back pain Clinical History: new pain management consult Report Status: Verified Date Reported: OCTOBER 09, 2024 Date Verified: OCTOBER 09, 2024 [employer] E-Sig: Report: EXAM: Lumbar spine AP, lateral, [...] Primary Interpreting Staff: Alejandra Moseley M.D., Radiology ([employer], no e-sig) /ALEJANDRA SEPULVEDA [facility] Encounter Notes: All associated encounter notes This section contains the clinical notes associated to the Encounter. Date/Time Encounter Note(s) Provider Source September 26, 2024 12:44 PM MENTAL HEALTH CONS ULT: LOCAL TITLE: BHIP CONSULT STL STANDARD TITLE: MENTAL HEALTH CONSULT DATE OF NOTE: SEPTEMBER 26, 2024@12:44 ENTRY DATE: SEPTEMBER 26, 2024@12:44:49 AUTHOR: REMA TROY COSIGNER: URGENCY: STATUS: COMPLETED Consent: provided verbal consent for receiving care through the modality of [place] Vte. Patient verified date of and full name. JAMI CASTELLANO is a 63 y/o FEMALE Note from previous visit was reviewed: Yes Reviewed progress notes of last visit by the therapist Denies any SI/HI plans or intent Chief Complaint: Med Management History of Present Illness: She states she is coming to psychiatry because she is not sleeping well. She states she never knows if she is going to go to sleep or if she is going to wake up. She states sometimes she will fall back to sleep and will sleep for 12 hours. She states she is feeling depressed. The would currently rate depression to be 6-7/10 with 10 being the worst. Endorses anhedonia and states she just watches the world go by. She states this has gone on for years where it gets better then worse. She states right now she is kind of okay and states she is only in bed for 11 hours right now. She states she is struggling with getting house stuff done and showering. She states low appetite. Low energy. Denies any Suicidal Ideations plans or intent. [place] denies any feelings of hopelessness. She states she just feels it is what it is. She states she is a worrier. would currently rate anxiety to be 5 /10 with 10 being the worst. She states anxiety stops her from doing things. She endorses physical sx from the anxiety. She states sometimes the racing thoughts keep her up at night. Her PTSD is from MST. She states sometimes when she tries to go sleep she will get these thoughts and cant place back in box. Gets these thoughts a lot during the day too. She endorses nightmares 1x every 10 days. She states she will get up and watch TV after she has one. She states it always messes up her day. She states sometimes she feels irritable but does not act on it. She states she is not taking the Wellbutrin as it made her have GI sx. She states she has never had a seizure and takes Lamictal for mood. She states in 1984 she was admitted to the hospital for mixed episode. She states when she was younger they did mention Bipolar but not recently. She states she went a few days without sleep, racing thoughts, grandiose and states she felt she could do anything, was more irritable. She states she has not had manic episodes in years. 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 [place] is aware this narrator recommends firearm be in a locked safe and stored away from ammunition. At any point in time if experiences SI or HI firearms should be removed from access. Medications: All active medications reviewed with patient Psychiatric Examination: General Appearance: Appears stated age, normal body habitus, dressed appropriately, well groomed Gait: Stable Behavior: Calm and Cooperative Eye Contact: Good eye contact Speech: Regular rate, regular volume, coherent, regular articulation, spontaneous, no perseveration or paucity Thought Process: no racing thoughts, logical thought process, goal directed Thought Content: Denies any Suicidal ideations, denies any homicidal ideations, denies any auditory or visual hallucinations, denies any delusions, denies any paranoia, denies any obsessions or compulsions, is not actively responding to stimuli Mood: Down Affect: Congruent Orientation: Oriented to self, place and time Insight: Intact Judgement: Intact Prognosis: Fair Safety- is not a safety risk to self or others at this time. Capable of making practice safe judgment and perform ADLs. Assessment: Bipolar Type 2, currently in a major depressive episode moderate KAVITHA PTSD, secondary to MST Plan: 1. Medications: Discussed medication in detail with the [place]. Discussed potentially changing the lamictal to latuda but at this time she would like to stay on lamictal. After much discussion will continue lamictal 225mg. 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 Will increase Cymblata to 40mg BID to see if this helps more with depression. Discussed to monitor BP with this medication. Will continue trazodone 100mg for insomnia. Discussed side effects, risks, benefits and alternatives. Patient voiced understanding and was in agreement with this plan. Advised not to mix prescription medications with illicit substances or alcohol and not to drive if sedated. [place] also warned of risks of treatment noncompliance and/or refusal. Informed consent obtained and med reconciliation completed. 2. Labs: None ordered 3. Consults/Medical: None ordered at this time. Cont ind therapy 4. Safety Planning was reviewed with the patient. [place] is aware if patient begins having any suicidal or homicidal ideations this is an emergency and [place] needs to call 9-11 or go to the nearest ED. Discussed [facility] [phone]. 5. Patient should follow-up in 2 months Patient is encouraged to call with any questions or concerns. Instructed to follow up with his primary care provider routinely and as needed for wellness and any medical concerns. [facility] [place] [facility] [place] medication management, psychoeducation and supportive psychotherapy. May return sooner if needed Encouraged patient to follow up with primary care & other specialty clinical services as indicated. Patient educated regarding tobacco, alcohol, illicit substance usage and their associated harmful effects. Encouraged to cut-down and abstain from use; encouraged participation in 12 step, ADTP where applicable. Patient instructed to access 911 or to go to the emergency room if psychiatric or medical symptoms worsen and is in need of immediate medical attention. National Suicide Prevention Hotline, mental health walk-in clinic information provided. Medication list was reviewed and reconciled with (including VA, Non-VA, remote and recently medications). Time: 65 minutes with 50minutes spent with [place] and 15 minutes chart reviewing and charting /matt/ Rema Troy DO, MA John J Pershing [facility] Signed: 09/26/2024 12:59 REMA TROY [facility] September 26, 2024 12:19 PM PRIMARY CARE EDUCA TION NOTE: LOCAL TITLE: OPT PHY INSTR AUTO PB STANDARD TITLE: PRIMARY CARE EDUCATION NOTE DATE OF NOTE: SEPTEMBER 26, 2024@12:19 ENTRY DATE: SEPTEMBER 26, 2024@12:19:39 AUTHOR: REMA TROY EXP COSIGNER: URGENCY: STATUS: COMPLETED This documentation is related to: . F/U Visit Description of Today's Injury/Illness: Bipolar, KAVITHA, PTSD Mental Health Testing: RETURN TO CLINIC: Return appointment is needed. . Special Instructions: . MEDICATION REVIEW/ASSESSMENT & PLAN: Increase Cymbalta to 40mg bid rtc 2 months Allergies/ADRs (Tool #5) FACILITY ALLERGY/ADR -------- [facility] BEE STINGS [facility] IODINE CONTRAST EVEN WITH PREP [facility] PENICILLIN [facility] CODEINE [facility] LATEX MALCOL[facility] PENICILLIN [facility] BEE STINGS [facility] CODEINE [facility] GLOVE [facility] IODINE CONTRAST EVEN WITH PREP [facility] PENICILLIN [facility] TRAMADOL [facility] BAND-AIDS [facility] BEE ST[facility] IODINE CONTRAST EVEN WITH PREP [facility] PENICILLIN [facility] PNEUMOCOCCAL VACCINE . [facility] SEMAGLUTIDE . [facility] TRAMADOL Med. Reconciliation (Tool #1) INCLUDED IN THIS LIST: Alphabetical list of active outpatient prescriptions dispensed from this [place] (local) and dispensed from another [place] or [facility] facility (remote) as well as inpatient orders (local pending and active), local clinic medications, locally documented non-VA medications, and local prescriptions that have or been discontinued in the past 90 days. Non-VA Meds Last Documented On: Jul 04, 2024 NOTE The display of VA prescriptions dispensed from another PR or [facility] facility (remote) is limited to active outpatient prescription entries matched to National Drug File at the originating site and may not include some items such as investigational drugs, compounds, etc. NOT INCLUDED IN THIS LIST: Medications self-entered by the patient into personal health records (i.e. [email or web address]) are NOT included in this list. Non-VA medications documented outside this [place], remote inpatient orders (regardless of status) and [...] RINSE MOUTHPIECE FREQUENTLY TO PREVENT CLOGGING. Rx# [id number] Last Released: 08/19/24 Qty/Days Supply: Rx Expiration Date: 03/06/25 Refills Remainin OUTPT AMLODIPINE BESYLATE 2.5MG TAB (Status = Discontinued) TAKE ONE TABLET BY MOUTH TWICE A DAY FOR HIGH BLOOD PRESSURE Rx# [id number] Last Released: 05/06/24 Qty/Days Supply: Rx Expiration Date: 03/06/25 Refills Remainin Indication: FOR HIGH BLOOD PRESSURE OUTPT AMLODIPINE BESYLATE 2.5MG TAB (Status = Active/Suspended) TAKE ONE TABLET BY MOUTH TWICE A DAY FOR HIGH BLOOD PRESSURE Rx# [id number] Last Released: 07/25/24 Qty/Days Supply: 180/90 Rx Expiration Date: 06/28/25 Refills Remainin Indication: FOR HIGH BLOOD PRESSURE Non-VA APPLE CIDER VINEGAR CAP/TAB TAKE 1 CAP/TAB BY MOUTH ONCE A DAY Mar 28, 2024 PR RX: Non-VA medication recommended by PR provider PR RX: Patient wants to buy from Non-VA pharmacy Indication: supplement OUTPT ATORVASTATIN CALCIUM 80MG TAB (Status = Active) TAKE ONE-HALF TABLET BY MOUTH EVERY EVENING FOR CHOLESTEROL. REPORT ANY UNEXPLAINED MUSCLE PAIN/WEAKNESS TO PROVIDER THIS TABLET IS TO BE CUT IN HALF FOR YOUR DOSE Rx# [id number] Last Released: 09/19/24 Qty/Days Supply: 45/ Rx Expiration Date: 01/01/25 Refills Remainin OUTPT BUPROPION HCL 150MG 12HR SA TAB (Status = Discontinued) TAKE ONE TABLET BY MOUTH EVERY MORNING FOR 3 DAYS, THEN TAKE ONE TABLET TWICE A DAY FOR 87 DAYS FOR SMOKING CESSATION SWALLOW WHOLE - DO NOT CRUSH OR CHEW. FOR REFILL CONTACT YOUR CLINIC, YOU MAY CONTACT FOR ADDITIONAL SUPPORT. Rx# [id number] Last Released: 07/09/24 Qty/Days Supply: 177/90 Rx Expiration Date: 10/02/24 Refills Remainin Indication: FOR SMOKING CESSATION OUTPT CETIRIZINE HCL 10MG TAB (Status = Active) TAKE ONE TABLET BY MOUTH ONCE A DAY FOR ALLERGY SYMPTOMS Rx# [id number] Last Released: 06/27/24 Qty/Days Supply: 90/90 Rx Expiration Date: 03/06/25 Refills Remainin Indication: FOR ALLERGY SYMPTOMS OUTPT CHOLECALCIF 50MCG (D3-2,000UNIT) TAB (Status = Active) TAKE TWO TABLETS BY MOUTH ONCE A DAY FOR VITAMIN D DEFICIENCY Rx# [id number] Last Released: 09/14/24 Qty/Days Supply: 200/90 Rx Expiration Date: 04/10/25 Refills Remainin Indication: FOR VITAMIN D DEFICIENCY OUTPT CYANOCOBALAMIN 500MCG TAB (Status = Discontinued) TAKE ONE TABLET BY MOUTH ONCE A DAY FOR VITAMIN B12 SUPPLEMENTATION Rx# [id number] Last Released: 04/12/24 Qty/Days Supply: 100/ Rx Expiration Date: 07/08/24 Refills Remainin Indication: FOR VITAMIN B12 SUPPLEMENTATION OUTPT CYANOCOBALAMIN 500MCG TAB (Status = ) TAKE ONE TABLET BY MOUTH ONCE A DAY FOR VITAMIN B12 SUPPLEMENTATION Rx# [id number] Last Released: 07/06/24 Qty/Days Supply: 100/ Rx Expiration Date: 09/25/24 Refills Remainin Indication: FOR VITAMIN B12 SUPPLEMENTATION OUTPT DULOXETINE HCL 20MG EC CAP (Status = Pending) TAKE 2 CAPSULES BY MOUTH TWICE A DAY DO NOT ABRUPTLY DISCONTINUE MEDICATION. Login Date: 09/26/24 Qty/Days Supply: 360/90 Refills Ordered: 3 OUTPT DULOXETINE HCL 60MG EC CAP (Status = Discontinued) TAKE ONE CAPSULE BY MOUTH ONCE A DAY DO NOT ABRUPTLY DISCONTINUE MEDICATION. Rx# [id number] Last Released: 06/26/24 Qty/Days Supply: 90 Rx Expiration Date: 11/30/24 Refills Remainin OUTPT DULOXETINE HCL 60MG EC CAP (Status = Discontinued) TAKE ONE CAPSULE BY MOUTH ONCE A DAY DO NOT ABRUPTLY DISCONTINUE MEDICATION. Rx# [id number] Last Released: 09/24/24 Qty/Days Supply: 90 Rx Expiration Date: 06/28/25 Refills Remainin OUTPT EPI(EQV-ADRENACLICK)0.3MG/0.3 ML INJCTR (Status = Discontinued) INJECT 1 PEN (0.3MG/0.3ML) INTRAMUSCULARLY ONE-TIME FOR ALLERGIC REACTION Rx# [id number] Last Released: 03/26/24 Qty/Days Supply: 2 Rx Expiration Date: 03/06/25 Refills Remainin Indication: FOR ALLERGIC REACTION OUTPT EPI(EQV-ADRENACLICK)0.3MG/0.3 ML INJCTR (Status = Active) INJECT 1 PEN (0.3MG/0.3ML) INTRAMUSCULARLY ONE-TIME FOR ALLERGIC REACTION Rx# [id number] Last Released: 09/11/24 Qty/Days Supply: 2 Rx Expiration Date: 09/10/25 Refills Remainin Indication: FOR ALLERGIC REACTION OUTPT FEXOFENADINE HCL 180MG TAB (Status = Active/Suspended) TAKE ONE TABLET BY MOUTH EVERY MORNING FOR ALLERGIC RHINITIS Rx# [id number] Last Released: 07/18/24 Qty/Days Supply: 90/90 Rx Expiration Date: 05/03/25 Refills Remainin Indication: FOR ALLERGIC RHINITIS OUTPT FLUTICASONE PROP 50MCG 120D NASAL INHL (Status = Active) INSTILL 1 SPRAY IN NOSTRIL(S) ONCE A DAY FOR RHINITIS (MUST BE USED DIRECTED FOR MINIMUM OF 21 DAYS TO PROVIDE ADEQUATE BENEFITS) Rx# [id number] Last Released: 09/04/24 Qty/Days Supply: Rx Expiration Date: 06/28/25 Refills Remainin Indication: FOR RHINITIS OUTPT HYDROPHILIC (EQV EUCERIN) TOP CREAM (Status = Active/Suspended) APPLY LIGHTLY TO AFFECTED AREA(S) ONCE A DAY FOR DRY SKIN (EXTERNAL USE ONLY) APPLY TO FEET NIGHTLY Rx# [id number] Last Released: 07/18/24 Qty/Days Supply: 454/90 Rx Expiration Date: 11/30/24 Refills Remainin Indication: FOR DRY SKIN OUTPT HYDROXYZINE HCL 25MG TAB (Status = Discontinued) TAKE ONE TABLET BY MOUTH THREE TIMES A DAY NEEDED FOR URTICARIA *MAY CAUSE DROWSINESS* Rx# [id number] Last Released: Qty/Days Supply: 270/90 Rx Expiration Date: 07/31/24 Refills Remainin Indication: FOR URTICARIA OUTPT HYDROXYZINE HCL 25MG TAB (Status = ) TAKE ONE TABLET BY MOUTH THREE TIMES A DAY NEEDED FOR URTICARIA *MAY CAUSE DROWSINESS* Rx# [id number] Last Released: 07/09/24 Qty/Days Supply: 270/90 Rx Expiration Date: 09/25/24 Refills Remainin Indication: FOR URTICARIA OUTPT ISOSORBIDE DINITRATE 30MG ORAL TAB (Status = Discontinued) TAKE ONE TABLET BY MOUTH ONCE A DAY ALLOW 10 TO 12 HOURS BETWEEN NIGHT AND MORNING DOSE. Rx# [id number] Last Released: 06/27/24 Qty/Days Supply: 90/90 Rx Expiration Date: 05/03/25 Refills Remainin OUTPT ISOSORBIDE DINITRATE 30MG ORAL TAB (Status = Active/Suspended) TAKE ONE TABLET BY MOUTH TWICE A DAY ALLOW 10 TO 12 HOURS BETWEEN NIGHT AND MORNING DOSE. Rx# [id number] Last Released: 07/31/24 Qty/Days Supply: 180/90 Rx Expiration Date: 06/27/25 Refills Remainin OUTPT LAMOTRIGINE 200MG TAB (Status = Active/Suspended) TAKE ONE TABLET BY MOUTH AT BEDTIME FOR MOOD OR SEIZURES Rx# [id number] Last Released: 07/18/24 Qty/Days Supply: 90 Rx Expiration Date: 05/03/25 Refills Remainin OUTPT LAMOTRIGINE 25MG TAB (Status = Active/Suspended) TAKE ONE TABLET BY MOUTH AT BEDTIME FOR MOOD OR SEIZURES TAKE WITH THE 200MG Rx# [id number] Last Released: 07/23/24 Qty/Days Supply: 90/ Rx Expiration Date: 03/06/25 Refills Remainin OUTPT LIDOCAINE 5% OINT (Status = Active/Suspended) APPLY LIGHTLY TO AFFECTED AREA(S) ONCE A DAY NEEDED Rx# [id number] Last Released: 07/12/24 Qty/Days Supply: 105/90 Rx Expiration Date: 03/06/25 Refills Remainin OUTPT METFORMIN HCL 500MG 24HR SA TAB (Status = Discontinued) TAKE TWO TABLETS BY MOUTH TWICE A DAY WITH MEALS FOR DIABETES TAKE WITH FOOD. AVOID ALCOHOL. DISCONTINUE BEFORE GETTING XRAY DYE. Rx# [id number] Last Released: 04/30/24 Qty/Days Supply: 120/30 Rx Expiration Date: 07/04/24 Refills Remainin Indication: FOR DIABETES OUTPT METFORMIN HCL 500MG 24HR SA TAB (Status = Active) TAKE TWO TABLETS BY MOUTH TWICE A DAY WITH MEALS FOR DIABETES TAKE WITH FOOD. AVOID ALCOHOL. DISCONTINUE BEFORE GETTING XRAY DYE. Rx# [id number] Last Released: 09/04/24 Qty/Days Supply: 360/90 Rx Expiration Date: 06/28/25 Refills Remainin Indication: FOR DIABETES OUTPT MULTIVIT/OPHTH AREDS2/LUTE/ZEAX CAP/TAB (Status = Discontinued) TAKE 1 CAP/TAB BY MOUTH TWICE A DAY WITH MEAL(S) FOR EYE HEALTH AVOID IF YOU HAVE PEANUT ALLERGY. Rx# [id number] Last Released: 04/12/24 Qty/Days Supply: 240/90 Rx Expiration Date: 08/23/24 Refills Remainin Indication: FOR EYE HEALTH OUTPT MULTIVIT/OPHTH AREDS2/LUTE/ZEAX CAP/TAB (Status = Active) TAKE 1 CAP/TAB BY MOUTH TWICE A DAY WITH MEAL(S) FOR EYE HEALTH AVOID IF YOU HAVE PEANUT ALLERGY. Rx# [id number] Last Released: 09/25/24 Qty/Days Supply: 240/90 Rx Expiration Date: 06/28/25 Refills Remainin Indication: FOR EYE HEALTH Non-VA MULTIVITAMIN/MINERAL ANTIOXIDANT CAP/TAB ANTIOXIDANT CAP/TAB TAKE 1 CAP/TAB BY MOUTH ONCE A DAY Mar 28, 2024 [place] RX: Non-[facility] medication recommended by [place] provider [facility]: Patient wants to buy from Non-[facility] pharmacy Indication: FOR NUTRITION/DIETARY SUPPLEMENTATION OUTPT NITROGLYCERIN 0.4MG SL TAB (Status = Active) DISSOLVE ONE TABLET UNDER THE TONGUE ONE-TIME FOR CHEST PAIN NEEDED ; IF NO IMPROVEMENT AFTER FIRST DOSE CALL [id number]. MAY TAKE 2 ADDITIONAL DOSES, 5 MINUTES APART. TAKE WHILE SITTING. Rx# [id number] Last Released: 08/19/24 Qty/Days Supply: 100/90 Rx Expiration Date: 12/07/24 Refills Remainin Indication: FOR CHEST PAIN OUTPT ONDANSETRON 4MG ORAL DISINTEGRATING TAB (Status = Active) TAKE ONE TABLET UNDER THE TONGUE ONCE A DAY NEEDED FOR NAUSEA/VOMITING Rx# [id number] Last Released: 08/28/24 Qty/Days Supply: Rx Expiration Date: 08/19/25 Refills Remainin Indication: FOR NAUSEA/VOMITING OUTPT OXYBUTYNIN CHLORIDE 5MG TAB (Status = Active/Suspended) TAKE ONE TABLET BY MOUTH THREE TIMES A DAY FOR BLADDER Rx# [id number] Last Released: 07/10/24 Qty/Days Supply: 270/90 Rx Expiration Date: 04/10/25 Refills Remainin OUTPT OXYCODONE 7.5MG/ACETAMINOPHEN 325MG TAB (Status = Discontinued) TAKE 1 TABLET BY MOUTH EVERY 4 HOURS NEEDED FOR PAIN (MAX 4 TAB/DAY; HOLD WITHIN 4 HOURS OF PLANNED SLEEP) MUST LAST 28 DAYS OR MORE NOTE: DO NOT EXCEED 4000MG PER DAY ACETAMINOPHEN (APAP) Rx# [id number] Last Released: 06/26/24 Qty/Days Supply: Rx Expiration Date: 07/24/24 Refills Remainin OUTPT OXYCODONE 7.5MG/ACETAMINOPHEN 325MG TAB (Status = Discontinued) TAKE 1 TABLET BY MOUTH EVERY 4 HOURS NEEDED FOR PAIN (MAX 4 TABLETS PER DAY; HOLD WITHIN 4 HOURS OF PLANNED SLEEP) THIS QUANTITY MUST LAST 28 DAYS OR MORE NOTE: DO NOT EXCEED 4000MG PER DAY ACETAMINOPHEN (APAP) Rx# [id number] Last Released: 07/22/24 Qty/Days Supply: Rx Expiration Date: 08/17/24 Refills Remainin OUTPT OXYCODONE 7.5MG/ACETAMINOPHEN 325MG TAB (Status = ) TAKE 1 TABLET BY MOUTH EVERY 4 HOURS NEEDED FOR PAIN (MAX 4 TABLETS PER DAY; HOLD WITHIN 4 HOURS OF PLANNED SLEEP) THIS QUANTITY MUST LAST 28 DAYS OR MORE NOTE: DO NOT EXCEED 4000MG PER DAY ACETAMINOPHEN (APAP) Rx# [id number] Last Released: 08/16/24 Qty/Days Supply: Rx Expiration Date: 09/14/24 Refills Remainin OUTPT OXYCODONE 7.5MG/ACETAMINOPHEN 325MG TAB (Status = Active) TAKE 1 TABLET BY MOUTH EVERY 4 HOURS NEEDED FOR PAIN (MAX 4 TABLETS PER DAY; HOLD WITHIN 4 HOURS OF PLANNED SLEEP) THIS QUANTITY MUST LAST 28 DAYS OR MORE NOTE: DO NOT EXCEED 4000MG PER DAY ACETAMINOPHEN (APAP) Rx# [id number] Last Released: 09/23/24 Qty/Days Supply: Rx Expiration Date: 10/19/24 Refills Remainin OUTPT PANTOPRAZOLE NA 40MG EC TAB (Status = Discontinued) TAKE ONE TABLET BY MOUTH EVERY MORNING BEFORE A MEAL FOR GASTROESOPHAGEAL REFLUX DISEASE TAKE 30 MINUTES BEFORE MEAL(S) Rx# [id number] Last Released: 05/24/24 Qty/Days Supply: Rx Expiration Date: 12/11/24 Refills Remainin Indication: FOR GASTROESOPHAGEAL REFLUX DISEASE OUTPT PANTOPRAZOLE NA 40MG EC TAB (Status = Active/Suspended) TAKE ONE TABLET BY MOUTH EVERY MORNING BEFORE A MEAL FOR GASTROESOPHAGEAL REFLUX DISEASE TAKE 30 MINUTES BEFORE MEAL(S) Rx# [id number] Last Released: 08/14/24 Qty/Days Supply: Rx Expiration Date: 06/28/25 Refills Remainin Indication: FOR GASTROESOPHAGEAL REFLUX DISEASE OUTPT PSYLLIUM ORAL PWD (Status = Active) MIX AND DRINK 1 TEASPOONFUL BY MOUTH ONCE A DAY FOR FIBER SUPPLEMENTATION MIX IN GLASS OF WATER/JUICE. FLAVOR SUBSTITUTIONS MAY/WILL OCCUR AND SPECIFIC VARIETIES WILL NOT BE PROVIDED. Rx# [id number] Last Released: 06/28/24 Qty/Days Supply: Rx Expiration Date: 06/22/25 Refills Remainin Indication: FOR FIBER SUPPLEMENTATION OUTPT RANOLAZINE 500MG SA TAB (Status = Discontinued) TAKE ONE TABLET BY MOUTH TWICE A DAY *SWALLOW WHOLE- DO NOT CRUSH,BREAK OR CHEW* Rx# [id number] Last Released: 06/28/24 Qty/Days Supply: 180 Rx Expiration Date: 01/16/25 Refills Remainin OUTPT RANOLAZINE 500MG SA TAB (Status = Active) TAKE ONE TABLET BY MOUTH TWICE A DAY *SWALLOW WHOLE- DO NOT CRUSH,BREAK OR CHEW* Rx# [id number] Last Released: 09/20/24 Qty/Days Supply: Rx Expiration Date: 06/28/25 Refills Remainin OUTPT SPIRONOLACTONE 50MG TAB (Status = Active/Suspended) TAKE ONE TABLET BY MOUTH ONCE A DAY FOR HEART FAILURE AND EXCESSIVE FLUID. DOSE DECREASE Rx# [id number] Last Released: 07/22/24 Qty/Days Supply: Rx Expiration Date: 03/06/25 Refills Remainin Indication: FOR HEART FAILURE OUTPT TRAZODONE HCL 100MG TAB (Status = Active) TAKE ONE TABLET BY MOUTH AT BEDTIME FOR MOOD OR SLEEP. Rx# [id number] Last Released: 09/04/24 Qty/Days Supply: Rx Expiration Date: 01/16/25 Refills Remainin SUPPLIES OUTPT LANCET,SOFTCLIX (Status = ) USE LANCET FOR BLOOD TEST ONCE A DAY FOR BLOOD SUGAR MONITORING USE DIRECTED. Rx# [id number] Last Released: 01/31/24 Qty/Days Supply: 100/90 Rx Expiration Date: 08/23/24 Refills Remainin Indication: FOR BLOOD SUGAR MONITORING PHARMACY TERMS AND POSSIBLE PATIENT ACTIONS INPT = [place] inpatient order IV = [place] intravenous medication OUTPT = [place] outpatient prescription PHARMACY POSSIBLE PATIENT TERMS EXPLANATION ACTIONS -------- --- ACTIVE A prescription that can be If you have refills, filled at the local [place] pharmacy. you may request a refill of this prescription from your [place] pharmacy. CLINIC A medication you received during If you have questions a visit to a [place] clinic or about this medication emergency department. contact your [place] healthcare team. DISCONTINUED A prescription your provider has Contact your [facility] stopped. It is no longer healthcare team if you available to be sent to you or need more of this picked up at the [place] pharmacy medication. window. A prescription which is [...] the [facility]. Or, it may be an [id number] (OTC), herbal, dietary supplements or sample medication. [...] before this medication now. you run out. ======== Medication reconciliation performed with confirmed /caregiver and /caregiver voiced an understanding of current medications? Yes [place]/caregiver were provided an updated medication list. Following results reviewed and discussed with patient: Future Appointments: 10/01/2024 12:00 [facility] CVT AUDIO CHECK 3( 10/01/2024 12:01 [facility] AUDIO CHECK 3(PRO) 10/08/2024 14:00 [facility] PACT [facility] 10/21/2024 13:00 [facility] ( 10/25/2024 13:30 [facility] PACT PHARM 11/25/2024 13:00 [facility] MHC IND SWS CRI /es/ Rema Troy DO, MA [facility] Pers[facility] Signed: 09/26/2024 12:23 [facility]
--- OUTSIDE RECORDS SUMMARY | 2024-09-30 08:08 | XMS_ITS ---
Author Name [facility] [place] Address [address] [place] [address] Care Team Providers Care Manager Life Insurance Name Role Phone DAKOTAH INFANTE Primary Care [...] Name Patient's Relationship to Policy Palmer HUMANA [facility] (WNR) MEDICARE ADVANTAGE HUMAN A INSUR [employer] May 22, 2020 [id number] JAMI CASTELLANO PATIENT INNOVIANT E-PHARM PRESCRIPT ION SWEET WATER KANDI DIST Jan 20, 2007 [id number] [phone] JAMI CASTELLANO PATIENT MEDICARE (WNR) MEDICARE (M) PART A Nov 19, 2013 PART A [id number] JAMI CASTELLANO PATIENT MEDICARE (WNR) MEDICARE (M) PART B Nov 19, 2013 PART B [id number] JAMI CASTELLANO PATIENT MEDICARE (WNR) MEDICARE (M) PART B Nov 19, 2013 PART B [id number] JAMI CASTELLANO PATIENT MEDICARE (WNR) MEDICARE (M) PART A Nov 19, 2013 PART A [id number] JAMI CASTELLANO PATIENT MEDICARE (WNR) MEDICARE (M) PART A Nov 19, 2013 PART A [id number] JAMI CASTELLANO PATIENT MEDICARE (WNR) MEDICARE (M) PART B Nov 19, 2013 PART B [id number] JAMI CASTELLANO PATIENT MEDICARE (WNR) MEDICARE (M) PART A Nov 19, 2013 PART A [id number] JAMI CASTELLANO PATIENT MEDICARE (WNR) MEDICARE (M) PART B Nov 19, 2013 PART B [id number] JAMI CASTELLANO PATIENT MEDICARE (WNR) MEDICARE (M) PART A Nov 19, 2013 PART A [id number] JAMI CASTELLANO PATIENT MEDICARE (WNR) MEDICARE (M) PART B Nov 19, 2013 PART B [id number] JAMI CASTELLANO PATIENT MEDICARE (WNR) MEDICARE (M) PART A Nov 19, 2013 PART A [id number] JAMI CASTELLANO PATIENT MEDICARE (WNR) MEDICARE (M) PART B Nov 19, 2013 PART B [id number] JAMI CASTELLANO PATIENT MEDICARE (WNR) MEDICARE (M) PART A Nov 19, 2013 PART A [id number] JAMI CASTELLANO PATIENT MEDICARE (WNR) MEDICARE (M) PART B Nov 19, 2013 PART B [id number] JAMI CASTELLANO PATIENT MEDICARE (WNR) MEDICARE (M) PART A Nov 19, 2013 PART A [id number] JAMI CASTELLANO PATIENT MEDICARE (WNR) MEDICARE (M) PART B Nov 19, 2013 PART B [id number] JAMI CASTELLANO PATIENT MEDICARE PART D (WNR) MEDICARE (M) PART D May 22, 2020 PART D [id number] JAMI CASTELLANO PATIENT MEDICARE PART D (WNR) MEDICARE (M) PART D Feb 19, 2014 PART D [id number] JAMI CASTELLANO 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 Date/Time Encounter Type Encounter Description Reason Pro vider Source September 30, 2024 01:08 PM Outpatient Encounter ADMIN PAT ACTIVTIES (MASNONCT) IHE Encounter Template Text not used by MS Plan of Treatment: Future Appointments (+ 6 months) and Future Tests (+/- 45 days) The Plan of Treatment section includes future care activities for the patient from all [place] treatmentfacilities. This section includes future appointments and future orders which are active, pending or scheduled. Future Appointments This section includes appointments that were scheduled to occur 6 months from the date of the Encounter, up to a maximum of 20 appointments. The data comes from all MS treatment facilities. Appointment Date/Time Appointment Type Appointme nt Facility Name October 01, 2024 12:00 PM AMBULATORY - MEDICINE [facility] October 01, 2024 12:01 PM AMBULATORY - MEDICINE [facility] October 01, 2024 12:30 PM AMBULATORY - MEDICINE [facility] October 08, 2024 02:00 PM AMBULATORY - MEDICINE [facility] Oct 21, 2024 01:00 PM AMBULATORY - MEDICINE [facility] Oct 22, 2024 01:00 PM AM[facility]ULAT[facility] MED[facility] Oct 30, 2024 12:00 PM AMBULATORY - NONE [place] [facility] Dec 19, 2024 12:15 PM AMBULATORY - PSYCHIATRY [facility] Dec 19, 2024 12:16 PM AMBULATORY - MEDICINE [place] Dec 31, 2024 01:00 PM AMBULATORY - PSYCHIATRY [facility] Jan 08, 2025 02:40 PM AMBULATORY - MEDICINE [place] [facility] Jan 21, 2025 01:00 PM AMBULATORY - PSYCHIATRY [facility] Active, Pending, and Scheduled Orders This section includes a listing of several types of active, pending, and scheduled orders, including clinic medications orders, diagnostic test orders, procedure orders and consult orders; where the start date of the order is 45 days before the date of the Encounter or 45 days after the date of theEncounter. The data comes from all [place] treatment facilities. Test Date/Time Test Type Test Details Facility Name October 09, 2024 09:32 PM Consult Order COUNTS INCLUDE 234 BEDS AT THE [facility] [id number] Cons University Counselor's Choice [facility] Lab Results: +/- 30 days of the encounter This section includes the Chemistry and Hematology Lab Results on record with MS for the patient. Radiology Reports and Pathology Reports are provided separately, in subsequent sections. Lab Results This section contains the Chemistry/Hematology Results that were resulted 30 days before or 30 daysafter the date of the Encounter. Date/Time Source Result Type Result - Unit Interpretation Reference Range Specimen Type Comment Oct 21, 2024 01:02 PM [facility] TSH (MA-PB) SERUM Specimen Type: SERUM No comment entered. Ordering Provider: DAKOTAH INFANTE Report Released Date/Time: October 08, 2024 02:34 PM Reporting Lab: [place] [facility] [address] [place] [address] Performing Lab: [place] [facility] [address] [place] [address] TSH 1.583 u[IU]/mL 0.47-5 Oct 21, 2024 01:02 PM [facility] CBC BLOOD Specimen Type: BLOOD Comment: SCAN OF SLIDE AGREES WITH AUTOMATED DIFF PLT Suspect Result. Interpret result with other clinical findings. See PLT Smear Estimate. MPV Suspect Result. Interpret result with other clinical findings. Ordering Provider: DAKOTAH INFANTE Report Released Date/Time: October 08, 2024 02:23 PM Reporting Lab: [facility] [facility] [address] [facility] [address] Performing Lab: [facility] [address] [place] [address] WBC 8.4 10*3/uL 3.6-11.2 RBC 4.29 10*6/uL [...] SCRNPERF YES Oct 21, 2024 01:02 PM [facility] LAMOTRIGINE SERUM Specimen Typ e: SERUM Comment: This test was developed and its analytical performance characteristics have been determined by [employer] [place] It has not been cleared or approved by the U.S. Food and Drug Administration. This assay has been validated pursuant to the CLIA regulations and is used for clinical purposes. Test Performed by [facility], [place] [facility], [address] [place], [place] Wilfred Velásquez M.D., Ph.D., Director of Laboratories , [facility] [id number] Ordering Provider: LILIAM HARPER Report Released Date/Time: Jul 04, 2024 03:05 PM Reporting Lab: [place] [facility] [address] [place] [address] Performing Lab: [place] [facility] [address] [facility] LAMOTRIGINE 4.8 ug/mL 2.5-15.0 Oct 21, 2024 01:02 PM [facility] DIRECT LDL (MA-PB) PLASMA Specimen Type: PLASM A No comment entered. Ordering Provider: LILIAM HARPER Report Released Date/Time: Jul 04, 2024 03:05 PM Reporting Lab: [place] [facility] [address] [place] [address] Performing Lab: [place] [facility] [address] [place] [address] DIRECT LDL 70.7 mg/dL 0-99.9 Oct 21, 2024 01:02 PM [facility] VITAMIN D, 25-HYDROXY SERUM Specimen Type: SE RUM No comment entered. Ordering Provider: LILIAM HARPER Report Released Date/Time: Jul 04, 2024 03:05 PM Reporting Lab: [place] [facility] [address] [place] [address] Performing Lab: [place] [facility] [address] [place] [address] VITAMIN D, 25-HYDROXY 29.2 ng/mL L 30-96 Oct 21, 2024 01:02 PM [facility] CHOLESTEROL PANEL (PB) PLASMA Specimen Type: P LASMA No comment entered. Ordering Provider: LILIAM HARPER Report Released Date/Time: Jul 04, 2024 03:05 PM Reporting Lab: [place] [facility] [address] [place] [address] Performing Lab: [place] [facility] [address] [place] [address] CHOLESTEROL 138 mg/dL 0-200 TRIGLYCERIDE 223 mg/dL H 0-150 CALCULATED LDL 68.4 mg/dL HDL(New) 25.0 mg/dL L >40 HDL % OF TOTAL CHOLESTEROL (PB) 18.1 >25 Oct 21, 2024 01:02 PM [facility] IRON PLASM A Specimen Type: PLASMA No comment entered. Ordering Provider: LILIAM HARPER Report Released Date/Time: Jul 04, 2024 03:05 PM Reporting Lab: [place] [facility] [address] [place] [address] Performing Lab: [place] [facility] [address] [place] [address] IRON 82 ug/dL 50-170 Oct 21, 2024 01:02 PM [facility] FOLATE (PB) SERUM Specimen Typ e: SERUM No comment entered. Ordering Provider: LILIAM HARPER Report Released Date/Time: Jul 04, 2024 03:05 PM Reporting Lab: [place] [facility] [address] [place] [address] Performing Lab: [place] [facility] [address] [place] [address] FOLATE (PB) 14.5 ng/mL 7-20 Oct 21, 2024 01:02 PM [facility] B12 SERUM Specimen Type: SERUM No comment entered. Ordering Provider: LILIAM HARPER Report Released Date/Time: Jul 04, 2024 03:05 PM Reporting Lab: [place] [facility] [address] [place] [address] Performing Lab: [place] [facility] [address] [place] [address] B12 862 pg/mL H 213-816 Oct 21, 2024 01:02 PM [facility] HGA1C BLOOD Specimen Type: BLOOD No comment entered. Ordering Provider: LILIAM HARPER Report Released Date/Time: Jul 04, 2024 03:05 PM Reporting Lab: [place] [facility] [address] [place] [address] Performing Lab: [place] [facility] [address] [place] [address] HGA1C 6.7 H 4.0-6.0 Oct 21, 2024 01:02 PM [facility] COMPREHENSIVE METABOLIC PANEL PLASMA Specimen Type: PLASMA No comment entered. Ordering Provider: LILIAM HARPER Report Released Date/Time: Jul 04, 2024 03:05 PM Reporting Lab: [place] [facility] [address] [place] [address] Performing Lab: [place] [facility] [address] [place] [facility] [address] CREATININE 0.67 mg/dL 0.6-1.1 UREA NITROGEN 9 [...] 20 U/L 8-40 EGFR (CKD-EPI 2020) 98 Social History: Smoking Status (Most current) and Tobacco Use (All prior to encounter date) This section includes the most current, and the historical, smoking and tobacco- related health factors from the [place] facility where the Encounter took place. Current Smoking Status This section includes the most current smoking, or tobacco-related health factor, from the MS facility where the Encounter took place. Date/Time Current Smoking Status Comment Gustavo ity Aug 23, 2023 11:00 AM VA-TOBACCO USER EVERY DAY [facility] Tobacco Use History This section includes a history of the smoking, or tobacco-related health factors, that were collected on or before the date of the Encounter. The data comes from the MS facility where the Encounter took place. 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 [facility] Aug 23, 2023 11:00 AM [facility] Aug [facility], 2023 11:00 AM VA-TOBACCO USE WI 30 MIN OF WAKE UP [facility] [place] [facility] Aug 23, 2023 11:00 AM VA-TOBACCO USER EVERY DAY [facility] Aug 24, 2022 01:30 PM VA-TOBACCO DOESNT USE WI 30 MIN WAKEUP [facility] Aug 24, 2022 01:30 PM VA-TOBACCO USE > 1 5 LESS THAN 30 YEARS [facility] Aug 24, 2022 01:30 PM VA-TOBACCO USE ADVICE [facility] Aug 24, 2022 01:30 PM 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 [place] [facility] Aug 24, 2022 01:30 PM VA-TOBACCO USE MED NO [place] [facility] Aug 24, 2022 01:30 PM VA-TOBACCO USER EVERY DAY [place] [facility] Aug 30, 2021 01:30 PM VA-TOBACCO USE 30 YEARS OR MORE [place] [facility] Aug 30, 2021 01:30 PM VA-TOBACCO USE ADVICE [place] [facility] Aug 30, 2021 01:30 PM 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 [place] [facility] Aug 30, 2021 01:30 PM VA-TOBACCO USE MED NOTIFY PROVID ER [place] [facility] Aug 30, 2021 01:30 PM VA-TOBACCO USE WI 30 MIN OF WAKE UP [facility] Aug 30, 2021 01:30 PM VA-TOBACCO USER EVERY DAY [place] [facility] Feb 17, 2020 02:00 PM VA-TOBACCO USE 30 YEARS OR MORE [place] [facility] Feb 17, 2020 02:00 PM VA-TOBACCO USE ADVICE [place] [facility] Feb 17, 2020 02:00 PM 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 [facility] Feb 17, 2020 02:00 PM VA-TOBACCO USE MED NO [facility] Feb 17, 2020 02:00 PM VA-TOBACCO USE WI 30 MIN OF WAKE UP [facility] Feb 17, 2020 02:00 PM VA-TOBACCO USER EVERY DAY [place] [facility] Jun 27, 2018 12:01 PM VA-TOBACCO USE 30 YEARS OR MORE [place] [facility] Jun 27, 2018 12:01 PM VA-TOBACCO USE ADVICE [place] [facility] Jun 27, 2018 12:01 PM 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 [place] [facility] Jun 27, 2018 12:01 PM VA-TOBACCO USE MED NO [facility] Jun 27, 2018 12:01 PM VA-TOBACCO USE WI 30 MIN OF WAKE UP [facility] Jun 27, 2018 12:01 PM VA-TOBACCO USER EVERY DAY [facility] Jul 20, 2017 04:18 PM CURRENT TOBACCO USER [facility] Jul 20, 2017 04:18 PM CURRENT TOBACCO US ER (NOT READY TO QUIT) [facility] Jul 20, 2017 04:18 PM TOBACCO CESSATION REFERRAL DECLI JENNIFFER [facility] Jul 20, 2017 04:18 PM TOBACCO MEDS OFFERED BUT DECLINE D [facility] Jul 20, 2017 04:18 PM TOBACCO USER OFFERED MEDS [facility] Jul 20, 2017 04:00 PM CURRENT TOBACCO USER [facility] Jul 20, 2017 04:00 PM CURRENT TOBACCO US ER (NOT READY TO QUIT) [facility] Jul 20, 2017 04:00 PM TOBACCO CESSATION REFERRAL DECLI JENNIFFER [facility] Jul 20, 2017 04:00 PM TOBACCO MEDS OFFERED BUT DECLINE D [facility] Jul 20, 2017 04:00 PM TOBACCO USER OFFERED MEDS [facility] Advance Directives: All historical and current Section Date Range: From patient's date of to the date document was created. This section includes ALL of a patient's completed or amended [place] Advance and Rescinded Directives. The entries below indicate that a directive exists for the patient, but an actual copy is not included with this document. The data comes from all [place] facilities. Date Advance Directives Provider Source Dec 18, 2023 ADVANCE DIRECTIVE PETER BOWLINGU [facility] Radiology Reports: +/- 30 days of [...] the Encounter. The data comes from all [place] treatment facilities. Date/Time Radiology Report Provider Source Oct 30, 2024 12:02 PM LDCT LUNG CANCER S CREENING: JAMI CASTELLANO [id number] -[id number] F Exm Date: OCT 30, 2024@12:02 Req Phys: DAKOTAH INFANTE Loc: PB-MAITE PACT [place] JAIME WH (Req Img Loc: PB-CT IMAGING Service: Unknown [facility]IP[facility] ANA [place], [place] [address] (Case [id number] COMPLETE) LDCT LUNG CANCER SCREENING (CT Detailed) CPT:85924 Reason for Study: screening Clinical History: Responsible Attending: Sheeba Attending Contact Number: [phone] Resident Contact Number: Report Status: Verified Date Reported: OCT 31, 2024 Date Verified: OCT 31, 2024 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 Additional coronal and sagittal reconstructions. MIP reconstructions were reviewed. 2589 images were received by the [place] National Teleradiology Program (NTP) for interpretation. RADIATION DOSE: CTDI(vol): 2.8 mGy DLP: 114.3 mGy*cm INDEX NODULE: No suspicious pulmonary nodule. OTHER NODULES: Left apical 3 mm groundglass nodule (image 150, series 8) unchanged. No new or enlarging pulmonary nodule. LUNG/AIRWAY FINDINGS: Minimal patchy linear atelectasis in the lingula and left lower lobe. No consolidation or pulmonary fibrosis. Central airways are clear. EMPHYSEMA: Mild HEART, MEDIASTINUM AND LYMPH NODES: No thoracic lymphadenopathy by size criteria. A few borderline size mediastinal lymph nodes similar to prior. Thoracic aorta and main pulmonary artery normal in caliber. Heart size normal. No pericardial effusion. Thoracic esophagus is somewhat patulous as before. VISUAL CORONARY ARTERY CALCIFICATIONS: Mild UPPER ABDOMEN: Unremarkable. BONES, SOFT TISSUES, AND ADDITIONAL FINDINGS: No acute or suspicious osseous abnormality. Spinal stimulator remains in place. Impression: LUNG-RADS: 2: Benign. RECOMMENDATION: [address] follow-up, if patient meets screening criteria. LUNG-RADS MODIFIER: N/A. READING PHYSICIAN: Alton Willis MD -[id number] 10/31/2024 8:01 PDT [facility] National Teleradiology Program [phone] (For Medical Practitioner Use Only) Attention Patients / Veterans: If you have questions or concerns about these test results, please contact your ordering provider or primary care team. Primary Interpreting Staff: RADIOLOGY,OUTSIDE SERVICE, Staff Physician / RADIOLOGY,OUTSIDE SERVICE ANA BLAN[facility] October 09, 2024 01:51 PM SPINE LUMBOSACRAL 2 OR 3 VIEWS: JAMI CASTELLANO [id number] -[id number] F Exm Date: OCTOBER 09, 2024@13:51 Req Phys: DAKOTAH INFANTE Pat Loc: PB-MAITE PACT [place] [employer] SPINNER WH (Req Img Loc: PB-XRAY [place] Service: [place] [address] (Case [id number] COMPLETE) SPINE LUMBOSACRAL 2 OR 3 VIEWS (RAD Detailed) CPT:56358 Reason for Study: low back pain Clinical History: new pain management consult Report Status: Verified Date Reported: OCTOBER 09, 2024 Date Verified: OCTOBER 09, 2024 Coal Chute Worker E-Sig: Report: EXAM: Lumbar spine AP, lateral, [...] Primary Interpreting Staff: Alejandra Moseley M.D., Radiology (Coal Chute Worker, no e-sig) /ALEJANDRA SEPULVEDA [facility] Encounter Notes: All associated encounter notes This section contains the clinical notes associated to the Encounter. Date/Time Encounter Note(s) Provider Source September 30, 2024 01:08 PM GENERAL MEDICINE N OTE: LOCAL TITLE: General Note PB STANDARD TITLE: GENERAL MEDICINE NOTE DATE OF NOTE: SEPTEMBER 30, 2024@13:08 ENTRY DATE: SEPTEMBER 30, 2024@13:08:06 AUTHOR: GIL UP EXP COSIGNER: URGENCY: STATUS: COMPLETED Confirmed audio appt with [place] for 10/01. /matt/ [facility] [place] [facility] Signed: 09/30/2024 13:08 GIL UP [facility]
--- OUTSIDE RECORDS SUMMARY | 2024-10-01 07:01 | XMS_ITS | Encounter Summary ---
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 Custom Tailor Apprentice Name Role Phone DAKOTAH INFANTE Primary Care [...] Relationship to Policy Palmer [facility] (WNR) MEDICARE ADVANTAGE HUMAN A INSUR ANCE COM May 22, 2020 [id number] [phone] JAMI CASTELLANO PATIENT INNOVIANT E-PHARM PRESCRIPT ION SWEET WATER KANDI DIST Jan 20, 2007 [id number] [phone] JAMI CASTELLANO PATIENT MEDICARE (WNR) MEDICARE (M) PART A Nov 19, 2013 PART A [id number] JAMI CASTELLANO PATIENT MEDICARE (WNR) MEDICARE (M) PART B Nov 19, 2013 PART B [id number] JAMI CASTELLANO PATIENT MEDICARE (WNR) MEDICARE (M) PART A Nov 19, 2013 PART A [id number] JAMI CASTELLANO PATIENT MEDICARE (WNR) MEDICARE (M) PART B Nov 19, 2013 PART B [id number] JAMI CASTELLANO PATIENT MEDICARE (WNR) MEDICARE (M) PART A Nov 19, 2013 PART A [id number] JAMI CASTELLANO PATIENT MEDICARE (WNR) MEDICARE (M) PART B Nov 19, 2013 PART B [id number] JAMI CASTELLANO PATIENT MEDICARE (WNR) MEDICARE (M) PART B Nov 19, 2013 PART B [id number] JAMI CASTELLANO PATIENT MEDICARE (WNR) MEDICARE (M) PART A Nov 19, 2013 PART A [id number] JAMI CASTELLANO PATIENT MEDICARE (WNR) MEDICARE (M) PART A Nov 19, 2013 PART A [id number] JAMI CASTELLANO PATIENT MEDICARE (WNR) MEDICARE (M) PART B Nov 19, 2013 PART B [id number] JAMI CASTELLANO PATIENT MEDICARE (WNR) MEDICARE () PART A Nov 19, 2013 PART A [id number] JAMI CASTELLANO PATIENT MEDICARE (WNR) MEDICARE (M) PART B Nov 19, 2013 PART B [id number] JAMI CASTELLANO PATIENT MEDICARE (WNR) MEDICARE (M) PART B Nov 19, 2013 PART B [id number] JAMI CASTELLANO PATIENT MEDICARE (WNR) MEDICARE (M) PART A Nov 19, 2013 PART A [id number] JAMI CASTELLANO PATIENT MEDICARE (WNR) MEDICARE (M) PART A Nov 19, 2013 PART A [id number] JAMI CASTELLANO PATIENT MEDICARE (WNR) MEDICARE (M) PART B Nov 19, 2013 PART B [id number] JAMI CASTELLANO PATIENT MEDICARE PART D (WNR) MEDICARE (M) PART D May 22, 2020 PART D [id number] JAMI CASTELLANO PATIENT MEDICARE PART D (WNR) MEDICARE (M) PART D Feb 19, 2014 PART D [id number] JAMI CASTELLANO PATIENT 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 Date/Time Encounter Type Encounter Description Reason Provider Source October 01, 2024 12:01 PM HEARING AID FITTING/CHECKIN G AUDIOLOGY ICD-10-CM Z46.1 Encounter for fitting and adjustment of hearing aid SAURABH DURBIN RA [facility] Encounter Template Text not used by [place] Assessments - Encounter Diagnoses This section includes the primary and secondary diagnoses documented for the Encounter. Date/Time Primary/Secondary Diagnosis Diagnosis Name Provider Source October 01, 2024 12:00 PM PRIMARY Encounter for fitting and adjustment of hearing aid SAURABH DURBIN RA [facility] October 01, 2024 12:00 PM SECONDARY Sensorineural hearing loss, bilateral SAURABH DURBIN RA [facility] [facility] [facility] October 01, 2024 12:00 PM SECONDARY Tinnitus, bilateral SAURABH DURBIN RA [facility] Plan of Treatment: Future Appointments (+ [...] The data comes from all [place] treatment [facility]. Appointment Date/Time Appointment Type Appointme nt Facility Name October 08, 2024 02:00 PM AMBULATORY - MEDICINE [facility] Oct 21, 2024 01:00 PM AMBULATORY - MEDICINE [facility] Oct 22, 2024 01:00 PM AMBULATORY - MEDICINE [facility] Oct 30, 2024 12:00 PM AMBULATORY - NONE [place] [facility] Dec 19, 2024 12:15 PM AMBULATORY - PSYCHIATRY [facility] Dec 19, 2024 12:16 PM [facility] - MEDICINE [place] [facility] Dec 31, 2024 01:00 PM AMBULATORY - PSYCHIATRY [facility] Jan 08, 2025 02:40 PM AMBULATORY - MEDICINE [place] [facility] Jan 21, 2025 01:00 PM AMBULATORY - PSYCHIATRY [facility] Active, Pending, and Scheduled Orders This section includes a listing of several types of active, pending, and scheduled orders, including clinic medications orders, diagnostic test orders, procedure orders and consult orders; where the start date of the order is 45 days before the date of the Encounter or 45 days after the date of theEncounter. The data comes from all [facility]. Test Date/Time Test Type Test Details Facility Name October 09, 2024 09:32 PM Consult Order [facility] [id number] Cons [employer] Production Operator's Choice [facility] Lab Results: +/- 30 days of the encounter This section includes the Chemistry and Hematology Lab Results on record with [place] for the patient. Radiology Reports and Pathology Reports are provided separately, in subsequent sections. Lab Results This section contains the Chemistry/Hematology Results that were resulted 30 days before or 30 daysafter the date of the Encounter. Date/Time Source Result Type Result - Unit Interpretation Reference Range Specimen Type Comment Oct 21, 2024 01:02 PM [facility] TSH (MA-PB) SERUM Specimen Type: SERUM No comment entered. Ordering Provider: DAKOTAH INFANTE Report Released Date/Time: October 08, 2024 02:34 PM Reporting Lab: [facility] [facility] [address] [place] [address] Performing Lab: [place] [facility] [address] [place] [address] TSH 1.583 u[IU]/mL 0.47-5 Oct 21, 2024 01:02 PM [facility] CBC BLOOD Specimen Type: BLOOD Comment: SCAN OF SLIDE AGREES WITH AUTOMATED DIFF PLT Suspect Result. Interpret result with other clinical findings. See PLT Smear Estimate. MPV Suspect Result. Interpret result with other clinical findings. Ordering Provider: DAKOTAH INFANTE Report Released Date/Time: October 08, 2024 02:23 PM Reporting Lab: [facility] [address] [facility] [address] Performing Lab: [facility] [address] [facility] [address] WBC 8.4 10*3/uL 3.6-11.2 RBC 4.29 10*6/uL [...] SCRNPERF YES Oct 21, 2024 01:02 PM [facility] LAMOTRIGINE SERUM Specimen Typ e: SERUM Comment: This test was developed and its analytical performance characteristics have been determined by [facility] [place] [place]. It has not been cleared or approved by the U.S. Food and Drug Administration. This assay has been validated pursuant to the CLIA regulations and is used for clinical purposes. Test Performed by [facility], [facility], [address] [place], [place] Wilfred Velásquez M.D., Ph.D., Director of Laboratories , CLIA [id number] Ordering Provider: LILIAM HARPER Report Released Date/Time: Jul 04, 2024 03:05 PM Reporting Lab: [place] [facility] [address] [place] [address] Performing Lab: [place] [facility] [address] [facility] LAMOTRIGINE 4.8 ug/mL 2.5-15.0 Oct 21, 2024 01:02 PM [facility] DIRECT LDL (MA-PB) PLASMA Specimen Type: PLASM A No comment entered. Ordering Provider: LILIAM HARPER Report Released Date/Time: Jul 04, 2024 03:05 PM Reporting Lab: [place] [facility] [address] [place] [address] Performing Lab: [place] [facility] [address] [place] [address] DIRECT LDL 70.7 mg/dL 0-99.9 Oct 21, 2024 01:02 PM [facility] VITAMIN D, 25-HYDROXY SERUM Specimen Type: SE RUM No comment entered. Ordering Provider: LILIAM HARPER Report Released Date/Time: Jul 04, 2024 03:05 PM Reporting Lab: [place] [facility] [address] [place] [address] Performing Lab: [place] [facility] [address] [place] [address] VITAMIN D, 25-HYDROXY 29.2 ng/mL L 30-96 Oct 21, 2024 01:02 PM [facility] CHOLESTEROL PANEL (PB) PLASMA Specimen Type: P LASMA No comment entered. Ordering Provider: LILIAM HARPER Report Released Date/Time: Jul 04, 2024 03:05 PM Reporting Lab: [place] [facility] [address] [place] [address] Performing Lab: [place] [facility] [address] [place] [address] CHOLESTEROL 138 mg/dL 0-200 TRIGLYCERIDE 223 mg/dL H 0-150 CALCULATED LDL 68.4 mg/dL HDL(New) 25.0 mg/dL L >40 HDL % OF TOTAL CHOLESTEROL (PB) 18.1 >25 Oct 21, 2024 01:02 PM [facility] IRON PLASM A Specimen Type: PLASMA No comment entered. Ordering Provider: LILIAM HARPER Report Released Date/Time: Jul 04, 2024 03:05 PM Reporting Lab: [place] [facility] [address] [place] [address] Performing Lab: [place] [facility] [address] [place] [address] IRON 82 ug/dL 50-170 Oct 21, 2024 01:02 PM [facility] FOLATE (PB) SERUM Specimen Typ e: SERUM No comment entered. Ordering Provider: LILIAM HARPER Report Released Date/Time: Jul 04, 2024 03:05 PM Reporting Lab: [place] [facility] [address] [place] [address] Performing Lab: [place] [facility] [address] [place] [address] FOLATE (PB) 14.5 ng/mL 7-20 Oct 21, 2024 01:02 PM [place] [facility] B12 SERUM Specimen Type: SERUM No comment entered. Ordering Provider: LILIAM HARPER Report Released Date/Time: Jul 04, 2024 03:05 PM Reporting Lab: [place] [facility] [address] [place] [address] Performing Lab: [place] [facility] [address] [place] [address] B12 862 pg/mL H 213-816 Oct 21, 2024 01:02 PM [place] [facility] HGA1C BLOOD Specimen Type: BLOOD No comment entered. Ordering Provider: LILIAM HARPER Report Released Date/Time: Jul 04, 2024 03:05 PM Reporting Lab: [facility] [facility] [address] [place] [address] Performing Lab: [facility] [place] [facility] [address] [place] [address] HGA1C 6.7 H 4.0-6.0 Oct 21, 2024 01:02 PM [facility] COMPREHENSIVE METABOLIC PANEL PLASMA Specimen Type: PLASMA No comment entered. Ordering Provider: LILIAM HARPER Report Released Date/Time: Jul 04, 2024 03:05 PM Reporting Lab: [facility] [facility] [address] [place] [address] Performing Lab: [facility] [facility] [address] [place] [address] CREATININE 0.67 mg/dL 0.6-1.1 UREA NITROGEN 9 [...] 18, 2023 ADVANCE DIRECTIVE PETER BOWLING [facility] Radiology Reports: +/- 30 days [...] the Encounter. The data comes from all [place] treatment facilities. Date/Time Radiology Report Provider Source Oct 30, 2024 12:02 PM LDCT LUNG CANCER S CREENING: JAMI CASTELLANO [id number] -[id number] F Exm Date: OCT 30, 2024@12:02 Req Phys: DAKOTAH INFANTE Loc: PB-[facility] [place] [facility] (Req Img Loc: PB-CT IMAGING Service: Unknown DIPAK VERDE [facility] [place] [address] (Case [id number] COMPLETE) LDCT LUNG CANCER SCREENING (CT Detailed) CPT:34651 Reason for Study: screening Clinical History: Responsible Attending: Sheeba Attending Contact Number: [phone] Resident Contact Number: Report Status: Verified Date Reported: OCT 31, 2024 Date Verified: OCT 31, 2024 Rn Ent E-Sig: Report: EXAM: LDCT LUNG CANCER SCREENING ADDITIONAL HISTORY: Annual Screening COMPARISON: 02/22/2023 PROTOCOL: Screening protocol, low dose, non-contrast CT chest was performed at the local [place] facility in accordance with Lung-Rads 2022. Additional coronal and sagittal reconstructions. MIP reconstructions were reviewed. 2589 images were received by the [place] National Teleradiology Program (NTP) for interpretation. RADIATION [...] MODIFIER: N/A. READING PHYSICIAN: Alton Willis MD -[id number] 10/31/2024 8:01 PDT [facility] [place] National Teleradiology Program [phone] (For Medical Practitioner Use Only) Attention Patients / Veterans: If you have questions or concerns about these test results, please contact your ordering provider or primary care team. Primary Interpreting Staff: RADIOLOGY,OUTSIDE SERVICE, Staff Physician / RADIOLOGY,OUTSIDE SERVICE ANA BLANCO [facility] October 09, 2024 01:51 PM SPINE LUMBOSACRAL 2 OR 3 VIEWS: JAMI CASTELLANO [id number] -[id number] F Exm Date: OCTOBER 09, 2024@13:51 Req Phys: DAKOTAH INFANTE Loc: [facility] [place] [facility] (Req Img Loc: PB-XRAY [place] Service: [place] [address] (Case [id number] COMPLETE) SPINE LUMBOSACRAL 2 OR 3 VIEWS (RAD Detailed) CPT:20156 Reason for Study: low back pain Clinical History: new pain management consult Report Status: Verified Date Reported: OCTOBER 09, 2024 Date Verified: OCTOBER 09, 2024 Rn Ent E-Sig: Report: EXAM: Lumbar spine AP, lateral, [...] Primary Interpreting Staff: Alejandra Moseley M.D., Radiology (Rn Ent, no e-sig) /ALEJANDRA SEPULVEDA [facility] Encounter Notes: All associated encounter notes This section contains the clinical notes associated to the Encounter. Date/Time Encounter Note(s) Provider Source October 01, 2024 07:11 AM AUDIOLOGY NOTE: LOCAL TITLE: HEARING CLINIC STANDARD TITLE: AUDIOLOGY NOTE DATE OF NOTE: OCTOBER 01, 2024@07:11 ENTRY DATE: OCTOBER 01, 2024@07:12 AUTHOR: ALEJANDRO DURBIN COSIGNER: URGENCY: STATUS: COMPLETED Diagnosis: Sensorineural Hearing Loss, Bilateral and Tinnitus, Bilateral Treatment: Hearing Aid Follow Up Time spent with [place]: 30 minutes seen for a hearing aid check via Audio Telehealth and verbally consented to the Telehealth modality. Multi-factor personally identifiable information of the was obtained verbally (full name and date of ). accompanied by: none Patient site: [place] ____ HISTORY: Patient is here today for second follow-up after being fit with amplification. reports acclimating well to the hearing aids and feels they are beneficial. She is requesting to decrease volume of white noise program and requesting to review use of rocker. HEARING DEVICES: 06/2024 [employer] [place] I90-R MARCELLO L [id number] 06/19/27 11/16/2406/2024 [employer] I90-R MARCELLO R [id number] 06/19/27 11/16/24 - 1S DIRECTOR FAMILY 6.0 - OPEN DOME - SMALL - CERUSTOP - NO RETENTION TAILS Accessories: [employer]ONTROL Phone Connectivity: streaming Other: Automatic, White Noise Note: Patient reports difficulties with fine motor OBJECTIVE/ASSESSMENT: Otoscopy was performed by collaboration of telehealth clinical fiscal technician and provider via telehealth technology/video otoscope which revealed: Right ear: minimal non-occluding cerumen Left ear: minimal non-occluding cerumen Devices cleaned and a listening check performed by TCT revealed proper function. Patient was re-instructed on hearing aid maintenance and re-educated on ordering more supplies when needed. Connected hearing aids to software. Datalogging showed about 2 hours of daily use. Decreased white noise signal 2 steps. Reviewed use of rocker for volume vontrol and white noise. The was counseled/educated on services provided today and is in agreement with the plan. PLAN: Return to clinic as needed. /matt/ Carmen French [facility] Signed: 10/01/2024 12:07 ALEJANDRO DURBIN [facility]
--- OUTSIDE RECORDS SUMMARY | 2024-10-08 09:00 | XMS_ITS | Encounter Summary ---
Author Name [facility] [place] [facility] [place] Address [address] [place] [address] Care Team Providers Care Eligibility Counselor Name Role Phone DAKOTAH INFANTE Primary Care [...] Relationship to Policy Palmer [facility] (WNR) MEDICARE ADVANTAGE HUMAN A INSUR ANCE [employer] May 22, 2020 [id number] [phone] JAMI CASTELLANO PATIENT INNOVIANT E-PHARM PRESCRIPT ION SWEET WATER KANDI DIST Jan 20, 2007 [id number] [phone] JAMI CASTELLANO PATIENT MEDICARE (WNR) MEDICARE (M) PART A Nov 19, 2013 PART A [id number] JAMI CASTELLANO PATIENT MEDICARE (WNR) MEDICARE () PART B Nov 19, 2013 PART B [id number] JAMI CASTELLANO PATIENT MEDICARE (WNR) MEDICARE () PART A Nov 19, 2013 PART A [id number] [id number] JAMI CASTELLANO PATIENT MEDICARE (WNR) MEDICARE (M) PART B Nov 19, 2013 PART B [id number] JAMI CASTELLANO PATIENT MEDICARE (WNR) MEDICARE (M) PART B Nov 19, 2013 PART B [id number] JAMI CASTELLANO PATIENT MEDICARE (WNR) MEDICARE (M) PART A Nov 19, 2013 PART A [id number] JAMI CASTELLANO PATIENT MEDICARE (WNR) MEDICARE () PART A Nov 19, 2013 PART A [id number] JAMI CASTELLANO PATIENT MEDICARE (WNR) MEDICARE (M) PART B Nov 19, 2013 PART B [id number] JAMI CASTELLANO PATIENT MEDICARE (WNR) MEDICARE () PART A Nov 19, 2013 PART A [id number] JAMI CASTELLANO PATIENT MEDICARE (WNR) MEDICARE () PART B Nov 19, 2013 PART B [id number] JAMI CASTELLANO PATIENT MEDICARE (WNR) MEDICARE () PART A Nov 19, 2013 PART A [id number] JAMI CASTELLANO PATIENT MEDICARE (WNR) MEDICARE (M) PART B Nov 19, 2013 PART B [id number] JAMI CASTELLANO PATIENT MEDICARE (WNR) MEDICARE (M) PART A Nov 19, 2013 PART A [id number] JAMI CASTELLANO PATIENT MEDICARE (WNR) MEDICARE (M) PART B Nov 19, 2013 PART B [id number] JAMI CASTELLANO PATIENT MEDICARE (WNR) MEDICARE (M) PART A Nov 19, 2013 PART A [id number] JAMI CASTELLANO PATIENT MEDICARE (WNR) MEDICARE () PART B Nov 19, 2013 PART B [id number] JAMI CASTELLANO PATIENT MEDICARE PART D (WNR) MEDICARE (M) PART D May 22, 2020 PART D [id number] JAMI CASTELLANO PATIENT MEDICARE PART D (WNR) MEDICARE (M) PART D Feb 19, 2014 PART D [id number] JAMI CASTELLANO PATIENT OFF OF REG PICKLING SOLUTION MAKER BURDICK TORT FEASOR TORT Nov 26, 2017 TORT [id number] JAMI CASTELLANO PATIENT OPTUM RX PRESCRIPT ION SWEET WATER SCHOO L #1 September 19, 2008 [id number] [phone] JAMI CASTELLANO PATIENT UMR COMPREHEN SIVE MAJOR MEDICAL SWEET WATER COUNT Y SC Jan 20, 2014 [id number] [phone] JAMI CASTELLANO PATIENT UMR PREFERRED PROVIDER ORGANIZAT ION (PPO) TAWANNA SS ROEL HEALT H Jan 20, 2007 [id number] [phone] JAMI CASTELLANO PATIENT Selected Encounter This section includes the information on record at [place] for the Encounter. Date/Time Encounter Type Encounter Description Reason Provider Source October 08, 2024 02:00 PM OFFICE O/P EST MOD 30 MIN PRIMARY CARE/MEDICINE ICD-10-CM E11.9 Type 2 diabetes mellitus without complications LUDWIN INFANTE Bruna Encounter Template Text not used by [place] Assessments - Encounter Diagnoses This section includes the primary and secondary diagnoses documented for the Encounter. Date/Time Primary/Secondary Diagnosis Diagnosis Name Provider Source Oct 20, 2024 02:45 PM PRIMARY Type 2 diabetes mellitus without complications CAMRYN INFANTE [facility] Oct 20, 2024 02:45 PM SECONDARY Chronic obstructive pulmonary disease, unspecified CAMRYN INFANTE R [facility] Oct 20, 2024 02:45 PM SECONDARY Low back pain, unspecified CAMRYN INFANTE [facility] Oct 20, 2024 02:45 PM SECONDARY Major depressive disorder, single episode, unspecified CAMRYN INFANTE R [facility] Oct 20, 2024 02:45 PM SECONDARY Nicotine dependence, cigarettes, uncomplicated CAMRYN INFANTE [facility] Oct 20, 2024 02:45 PM SECONDARY Type 2 diabetes mellitus with diabetic neuropathy, unsp CAMRYN INFANTE [facility] Plan of Treatment: Future Appointments (+ 6 months) and Future Tests (+/- 45 days) The Plan of Treatment section includes future care activities for the patient from all [place] [facility]. This section includes future appointments and future orders which are active, pending or scheduled. Future Appointments This section includes appointments that were scheduled to occur 6 months from the date of the Encounter, up to a maximum of 20 appointments. The [facility] Appointment Date/Time Appointment Type Appointme nt Facility Name Oct 21, 2024 01:00 PM AMBULATORY - MEDICINE [facility] Oct 22, 2024 01:00 PM AMBULATORY - MEDICINE [facility] Oct 30, 2024 12:00 PM AMBULATORY - NONE [place] [facility] Dec 19, 2024 12:15 PM AMBULATORY - PSYCHIATRY [facility] Dec 19, 2024 12:16 PM AMBULATORY - MEDICINE [place] [facility] Dec 31, 2024 01:00 PM AMBULATORY - PSYCHIATRY [facility] Jan 08, 2025 02:40 PM AMBULATORY - MEDICINE [place] [facility] Jan 21, 2025 01:00 PM AMBULATORY - PSYCHIATRY [facility] Apr 10, 2025 01:00 PM AMBULATORY - MEDICINE [facility] Active, Pending, and Scheduled Orders This section includes a listing of several types of active, pending, and scheduled orders, including clinic medications orders, diagnostic test orders, procedure orders and consult orders; where the start date of the order is 45 days before the date of the Encounter or 45 days after the date of theEncounter. The [facility] from [facility] Test Date/Time Test Type Test Details Facility Name October 09, 2024 09:32 PM Consult Order [facility] [id number] Cons Medical Services Assistant's Choice [facility] Lab Results: +/- 30 days of [...] Type Comment Oct 21, 2024 01:02 PM [facility] TSH (MA-PB) SERUM Specimen Type: SERUM No comment entered. Ordering Provider: DAKOTAH INFANTE Report Released Date/Time: October 08, 2024 02:34 PM Reporting Lab: [place] [facility] [address] [place] [address] Performing Lab: ANA SMITH [facility] [address] [facility] [place] [id number] TSH 1.583 u[IU]/mL 0.47-5 Oct 21, 2024 01:02 PM [facility] CBC BLOOD Specimen Type: BLOOD Comment: SCAN OF SLIDE AGREES WITH AUTOMATED DIFF PLT Suspect Result. Interpret result with other clinical findings. See PLT Smear Estimate. MPV Suspect Result. Interpret result with other clinical findings. Ordering Provider: DAKOTAH INFANTE Report Released Date/Time: October 08, 2024 02:23 PM Reporting Lab: [place] [facility] [address] [address] Performing Lab: ANA SMITH [facility] [address] [facility] [place] [id number] WBC 8.4 10*3/uL 3.6-11.2 RBC 4.29 10*6/uL [...] SCRNPERF YES Oct 21, 2024 01:02 PM [facility] LAMOTRIGINE SERUM Specimen Typ e: SERUM Comment: This test was developed and its analytical performance characteristics have been determined by [employer] [place], [place]. It has not been cleared or approved by the U.S. Food and Drug Administration. This assay has been validated pursuant to the CLIA regulations and is used for clinical purposes. Test Performed by [facility], [employer] [facility], [address] [place] [address] Wilfred Velásquez M.D., Ph.D., Director of Laboratories , CLIA [id number] Ordering Provider: LILIAM HARPER Report Released Date/Time: Jul 04, 2024 03:05 PM Reporting Lab: [place] [facility] [address] [place] [address] Performing Lab: [place] [facility] [address] [facility] LAMOTRIGINE 4.8 ug/mL 2.5-15.0 Oct 21, 2024 01:02 PM [facility] DIRECT LDL (MA-PB) PLASMA Specimen Type: PLASM A No comment entered. Ordering Provider: LILIAM HARPER Report Released Date/Time: Jul 04, 2024 03:05 PM Reporting Lab: [place] [facility] [address] [place] [address] Performing Lab: [place] [facility] [address] [place] [address] DIRECT LDL 70.7 mg/dL 0-99.9 Oct 21, 2024 01:02 PM [facility] CHOLESTEROL PANEL (PB) PLASMA Specimen Type: P LASMA No comment entered. Ordering Provider: LILIAM HARPER Report Released Date/Time: Jul 04, 2024 03:05 PM Reporting Lab: [place] [facility] [address] [place] [address] Performing Lab: [place] [facility] [address] [place] [address] CHOLESTEROL 138 mg/dL 0-200 TRIGLYCERIDE 223 mg/dL H 0-150 CALCULATED LDL 68.4 mg/dL HDL(New) 25.0 mg/dL L >40 HDL % OF TOTAL CHOLESTEROL (PB) 18.1 >25 Oct 21, 2024 01:02 PM [place] [facility] VITAMIN D, 25-HYDROXY SERUM Specimen Type: SE RUM No comment entered. Ordering Provider: LILIAM HARPER Report Released Date/Time: Jul 04, 2024 03:05 PM Reporting Lab: [place] [facility] [address] [place] [address] Performing Lab: [place] [facility] [address] [place] [address] VITAMIN D, 25-HYDROXY 29.2 ng/mL L 30-96 Oct 21, 2024 01:02 PM [facility] IRON PLASM A Specimen Type: PLASMA No comment entered. Ordering Provider: LILIAM HARPER Report Released Date/Time: Jul 04, 2024 03:05 PM Reporting Lab: [place] [facility] [address] [place] [address] Performing Lab: [place] [facility] [address] [place] [address] IRON 82 ug/dL 50-170 Oct 21, 2024 01:02 PM [facility] FOLATE (PB) SERUM Specimen Typ e: SERUM No comment entered. Ordering Provider: LILIAM HARPER Report Released Date/Time: Jul 04, 2024 03:05 PM Reporting Lab: [place] [facility] [address] [place] [address] Performing Lab: [place] [facility] [address] [place] [address] FOLATE (PB) 14.5 ng/mL 7-20 Oct 21, 2024 01:02 PM [place] [facility] B12 SERUM Specimen Type: SERUM No comment entered. Ordering Provider: LILIAM HARPER Report Released Date/Time: Jul 04, 2024 03:05 PM Reporting Lab: [place] [facility] [address] [place] [address] Performing Lab: [place] [facility] [address] [place] [address] B12 862 pg/mL H 213-816 Oct 21, 2024 01:02 PM [facility] HGA1C BLOOD Specimen Type: BLOOD No comment entered. Ordering Provider: LILIAM HARPER Report Released Date/Time: Jul 04, 2024 03:05 PM Reporting Lab: [place] [facility] [address] [place] [address] Performing Lab: [place] [facility] [address] [place] [address] HGA1C 6.7 H 4.0-6.0 Oct 21, 2024 01:02 PM [facility] COMPREHENSIVE METABOLIC PANEL PLASMA Specimen Type: PLASMA No comment entered. Ordering Provider: LILIAM HARPER Report Released Date/Time: Jul 04, 2024 03:05 PM Reporting Lab: [place] [facility] [address] [place] [address] Performing Lab: [place] [facility] [address] [place] [address] CREATININE 0.67 mg/dL 0.6-1.1 UREA NITROGEN 9 [...] Pain Height Weight Body Mass Index Source October 08, 2024 02:20 PM 83 108/74 16 95 66.0 184.7 30 [place] [facility] Social History: Smoking Status (Most current) and [...] Date/Time Current Smoking Status Comment Facil ity October 08, 2024 02:00 PM VA-TOBACCO SCREEN FOLLOW-UP [facility] Tobacco Use History This section includes a history of the smoking, or tobacco-related health factors, that were collected on or before the date of the Encounter. The data comes from the [place] facility where the Encounter took place. Date/Time Smoking Status/Tobacco Use Comment F acility October 08, 2024 02:00 PM VA-TOBACCO USE ADVICE [facility] October 08, 2024 02:00 PM VA-TOBACCO USE PICKLING SOLUTION MAKER NO [facility] October 08, 2024 02:00 PM VA-TOBACCO USE MED NO [facility] Aug 23, 2023 11:00 AM VA-TOBACCO USE 30 YEARS OR MORE [facility] [place] [facility] Aug 23, 2023 11:00 AM VA-TOBACCO USE ADVICE [facility] Aug 23, 2023 11:00 AM VA-TOBACCO USE PICKLING SOLUTION MAKER NO [facility] Aug 23, 2023 11:00 AM VA-TOBACCO USE MED NO [facility] Aug 23, 2023 11:00 AM VA-TOBACCO USE WI 30 MIN OF WAKE UP [facility] Aug 23, 2023 11:00 AM VA-TOBACCO USER EVERY DAY [facility] [place] [facility] Aug 24, 2022 01:30 PM VA-TOBACCO DOESNT USE WI 30 MIN WAKEUP [facility] [place] [facility] Aug 24, 2022 01:30 PM VA-TOBACCO USE > 1 5 LESS THAN 30 YEARS [facility] [place] Aug 24, 2022 01:30 PM VA-TOBACCO USE ADVICE [facility] Aug 24, 2022 01:30 PM VA-TOBACCO USE PICKLING SOLUTION MAKER NO [facility] Aug 24, 2022 01:30 PM VA-TOBACCO USE MED NO [facility] Aug 24, 2022 01:30 PM VA-TOBACCO USER EVERY DAY [facility] [place] [facility] Aug 30, 2021 01:30 PM VA-TOBACCO USE 30 YEARS OR MORE [facility] Aug 30, 2021 01:30 PM VA-TOBACCO USE ADVICE [facility] Aug 30, 2021 01:30 PM VA-TOBACCO USE PICKLING SOLUTION MAKER NO [facility] Aug 30, 2021 01:30 PM VA-TOBACCO USE MED NOTIFY PROVID ER [facility] Aug 30, 2021 01:30 PM VA-TOBACCO USE WI 30 MIN OF WAKE UP [facility] Aug 30, 2021 01:30 PM VA-TOBACCO USER EVERY DAY [facility] Feb 17, 2020 02:00 PM VA-TOBACCO USE 30 YEARS OR MORE [facility] Feb 17, 2020 02:00 PM VA-TOBACCO USE ADVICE [facility] Feb 17, 2020 02:00 PM VA-TOBACCO USE PICKLING SOLUTION MAKER NO [facility] Feb 17, 2020 02:00 PM VA-TOBACCO USE MED NO [place] [facility] Feb 17, 2020 02:00 PM VA-TOBACCO USE WI 30 MIN OF WAKE UP [facility] Feb 17, 2020 02:00 PM VA-TOBACCO USER EVERY DAY [place] [facility] Jun 27, 2018 12:01 PM VA-TOBACCO USE 30 YEARS OR MORE [place] [facility] Jun 27, 2018 12:01 PM VA-TOBACCO USE ADVICE [place] [facility] Jun 27, 2018 12:01 PM VA-TOBACCO USE PICKLING SOLUTION MAKER NO [place] [facility] Jun 27, 2018 12:01 PM VA-TOBACCO USE MED NO [place] [facility] Jun 27, 2018 12:01 PM VA-TOBACCO USE WI 30 MIN OF WAKE UP [place] [facility] Jun 27, 2018 12:01 PM VA-TOBACCO USER EVERY DAY [place] [facility] Jul 20, 2017 04:18 PM CURRENT TOBACCO USER [facility] Jul 20, 2017 04:18 PM CURRENT TOBACCO US ER (NOT READY TO QUIT) [facility] Jul 20, 2017 04:18 PM TOBACCO CESSATION REFERRAL DECLI JENNIFFER [facility] Jul 20, 2017 04:18 PM TOBACCO MEDS OFFERED BUT DECLINE D [facility] [facility] Jul 20, 2017 04:18 PM TOBACCO USER OFFERED MEDS [place] [facility] Jul 20, 2017 04:00 PM CURRENT TOBACCO USER [facility] Jul 20, 2017 04:00 PM CURRENT TOBACCO US ER (NOT READY TO QUIT) [facility] Jul 20, 2017 04:00 PM TOBACCO CESSATION REFERRAL DECLI JENNIFFER [facility] Jul 20, 2017 04:00 PM TOBACCO MEDS OFFERED BUT DECLINE D [facility] Jul 20, 2017 04:00 PM TOBACCO USER OFFERED MEDS [facility] Advance Directives: All historical [...] Dec 18, 2023 ADVANCE DIRECTIVE PETER BOWLING [facility] Radiology Reports: +/- 30 days of [...] LDCT LUNG CANCER S CREENING: JAMI CASTELLANO [id number] -1960 F Exm Date: OCT 30, 2024@12:02 Req Phys: DAKOTAH INFANTE Loc: PB-MAITE PACT [place] LEASE BUYER WH (Req Img Loc: PB-CT IMAGING Service: Unknown DIPAK VERDE [facility] [place] [id number] (Case [id number] COMPLETE) LDCT LUNG CANCER SCREENING (CT Detailed) CPT:30095 Reason for Study: screening Clinical History: Responsible Attending: Sheeba Attending Contact Number: [phone] Resident Contact Number: Report Status: Verified Date Reported: OCT 31, 2024 Date Verified: OCT 31, 2024 Meat Cutting Block Repairer E-Sig: Report: EXAM: LDCT LUNG CANCER SCREENING ADDITIONAL HISTORY: Annual Screening COMPARISON: 02/22/2023 PROTOCOL: Screening protocol, low dose, non-contrast CT chest was performed at the local [place] facility in accordance with Lung-Rads 2. Additional coronal and sagittal reconstructions. MIP reconstructions [...] MODIFIER: N/A. READING PHYSICIAN: Alton Willis MD -[id number] 10/31/2024 8:01 [facility] National Teleradiology Program [phone] (For Medical Practitioner Use Only) Attention Patients / Veterans: If you have questions or concerns about these test results, please contact your ordering provider or primary care team. Primary Interpreting Staff: RADIOLOGY,OUTSIDE SERVICE, Staff Physician / RADIOLOGY,OUTSIDE SERVICE ANA BLANCO [facility] October 09, 2024 01:51 PM SPINE LUMBOSACRAL 2 OR 3 VIEWS: JAMI CASTELLANO [id number] -1960 F Exm Date: OCTOBER 09, 2024@13:51 Req Phys: DAKOTAH INFANTE Loc: PB-MAITE PACT [place] JAIME WH (Req Img Loc: PB-XRAY [place] Service: [place] [address] (Case [id number] COMPLETE) SPINE LUMBOSACRAL 2 OR 3 VIEWS (RAD Detailed) CPT:41286 Reason for Study: low back pain Clinical History: new pain management consult Report Status: Verified Date Reported: OCTOBER 09, 2024 Date Verified: OCTOBER 09, 2024 Meat Cutting Block Repairer E-Sig: Report: EXAM: Lumbar spine AP, lateral, [...] Primary Interpreting Staff: Alejandra Moseley M.D., Radiology (Meat Cutting Block Repairer, no e-sig) /ALEJANDRA SEPULVEDA [facility] Encounter Notes: All associated encounter notes This section contains the clinical notes associated to the Encounter. Date/Time Encounter Note(s) Provider Source Oct 20, 2024 02:45 PM PHYSICIAN LETTERS: LOCAL TITLE: TEST RESULT GENERAL LETTER STL STANDARD TITLE: PHYSICIAN LETTERS DATE OF NOTE: OCT 20, 2024@14:45 ENTRY DATE: OCT 20, 2024@14:45:42 AUTHOR: DAKOTAH INFANTE COSIGNER: URGENCY: STATUS: COMPLETED [facility] [address] [place] [address] OCT 20, 2024 JAMI CASTELLANO [address] [place], [place] [address] Dear Jami Castellano, I would like to update you on your recent test results. OTHER TEST RESULTS RADIOLOGY (NON-INVASIVE TEST RESULTS): Lumbar Xray: Impression: 1. No evidence of acute osseous injury involving the lumbar spine. 2. Osseous degenerative changes. 3. Narrowing of each of the disc spaces of the lumbar spine. 4. Scoliosis. 5. Very mild retrolisthesis at the L1-2, L2-3, and L3-4 levels. Your pain consult was placed. FUTURE APPOINTMENTS: 10/21/2024 13:00 [facility] [facility] ( 10/22/2024 13:00 V15 [facility] PACT CPS 01 PH 11/25/2024 13:00 PB-[facility] MHC IND SWS CRI 12/19/2024 12:15 PB-[facility] CVT BH PSI [place] 12/19/2024 12:16 PB-CVT BH PSI IND [place] 04/10/2025 13:00 PB-MAITE PACT FOXTROT LEASE BUYER WH Sincerely, Dakotah Infante [facility], JAMI GAITAN CATHERINE R [facility] October 08, 2024 04:24 PM GENERAL MEDICINE N OTE: LOCAL TITLE: General Note PB STANDARD TITLE: GENERAL MEDICINE NOTE DATE OF NOTE: OCTOBER 08, 2024@16:24 ENTRY DATE: OCTOBER 08, 2024@16:24:47 AUTHOR: DAKOTAH INFANTE EXP COSIGNER: URGENCY: STATUS: COMPLETED General Note PB Has ADDENDA Please ask Franco to come back for her lumbar xray so I can place her new pain management consult. I forgot to send her to xray while she was here. thank you, /antonio [facility]ante [facility] Signed: 10/08/2024 16:25 Receipt Acknowledged By: 10/09/2024 09:04 /matt/ ELA DU LPN 10/09/2024 ADDENDUM STATUS: COMPLETED Called , RICHARD for her to r/t to clinic for xrays. /antonio DU LPN Signed: 10/09/2024 09:03 DAKOTAH INFANTE [facility] October 08, 2024 02:26 PM PRIMARY CARE PROGR ESS NOTE: LOCAL TITLE: PRIMARY CARE CLINIC PROGRESS NOTE PB STANDARD TITLE: PRIMARY CARE PROGRESS NOTE DATE OF NOTE: OCTOBER 08, 2024@14:26 ENTRY DATE: OCTOBER 08, 2024@14:26:38 AUTHOR: DAKOTAH INFANTE EXP COSIGNER: URGENCY: STATUS: COMPLETED PROVIDER ASSESSMENT DATE & TIME:September@14:26 CHIEF COMPLAINT: 6 month follow up for chronic illness. HISTORY OF PRESENT ILLNESS: is being seen for her 6 month follow up on chronic illness. [place] states she is over all doing well. She is due for her LDCT scan. She is compliant with medications. She has not had any falls. She continues to use nicotine in the form of cigarettes and is not interested in quitting at this time. Active problems/med list pull through hooker: 1) Diabetes Mellitus Type 2 ([facility] [id number]) 2) GERD - Gastro-Esophageal Reflux Disease ([facility] [id number]) 3) Gout ([facility] [id number]) 4) Depression ([facility] [id number]) 5) Bipolar disorder 6) Migraine 7) Low back pain 8) Cervicalgia 9) Somatoform pain disorder 10) Mood disorder with depressive features due to general medical condition 11) Generalized anxiety disorder 12) Housing problem 13) Neurocognitive disorder 14) Nicotine dependence ([facility] [id number]) 15) Chronic obstructive lung disease 16) Allergic Rhinitis ([facility] [id number]) 17) Chronic post-traumatic stress disorder 18) Female stress incontinence 19) Diabetic neuropathy 20) Chronic tremor 21) Cyst of pineal gland 22) Bilateral tinnitus 23) Sensorineural hearing loss of bilateral ears Active Outpatient Medications (including Supplies): Active Outpatient Medications Status 1) ALBUTEROL 90MCG (CFC-F) 200D ORAL INHL INHALE 2 PUFFS BY ACTIVE (S) ORAL INHALATION FOUR TIMES A DAY NEEDED FOR BREATHING. SHAKE WELL. RINSE MOUTHPIECE FREQUENTLY TO PREVENT CLOGGING. 2) AMLODIPINE BESYLATE 2.5MG TAB TAKE ONE TABLET BY MOUTH TWICE ACTIVE A DAY Indication: FOR HIGH BLOOD PRESSURE [...] DAY Indication: FOR VITAMIN D DEFICIENCY 6) DULOXETINE HCL 20MG EC CAP TAKE TWO CAPSULES BY MOUTH TWICE ACTIVE A DAY DO NOT ABRUPTLY DISCONTINUE MEDICATION. Indication: FOR MOOD 7) EPI(EQV-ADRENACLICK)0.3MG/0. 3ML INJCTR INJECT 1 PEN ACTIVE (0.3MG/0.3ML) INTRAMUSCULARLY ONE-TIME Indication: FOR ALLERGIC REACTION 8) FEXOFENADINE HCL 180MG TAB TAKE ONE TABLET BY MOUTH EVERY ACTIVE MORNING Indication: FOR ALLERGIC RHINITIS 9) FLUTICASONE PROP 50MCG 120D NASAL INHL INSTILL 1 SPRAY IN ACTIVE NOSTRIL(S) ONCE A DAY (MUST BE USED DIRECTED FOR MINIMUM OF 21 DAYS TO PROVIDE ADEQUATE BENEFITS) Indication: FOR RHINITIS 10) HYDROPHILIC (EQV EUCERIN) TOP CREAM APPLY LIGHTLY TO ACTIVE (S) AFFECTED AREA(S) ONCE A DAY (EXTERNAL USE ONLY) APPLY TO FEET NIGHTLY Indication: FOR DRY SKIN 11) ISOSORBIDE DINITRATE 30MG ORAL TAB TAKE ONE TABLET BY MOUTH ACTIVE (S) TWICE A DAY ALLOW 10 TO 12 HOURS BETWEEN NIGHT AND MORNING DOSE. 12) LAMOTRIGINE 200MG TAB TAKE ONE TABLET BY MOUTH AT BEDTIME ACTIVE FOR MOOD OR SEIZURES 13) LAMOTRIGINE 25MG TAB TAKE ONE TABLET BY MOUTH AT BEDTIME FOR ACTIVE (S) MOOD OR SEIZURES TAKE WITH THE 200MG 14) LIDOCAINE 5% OINT APPLY LIGHTLY TO AFFECTED AREA(S) ONCE A ACTIVE DAY NEEDED 15) METFORMIN HCL 500MG 24HR SA TAB TAKE TWO TABLETS BY MOUTH ACTIVE TWICE A DAY WITH MEALS TAKE WITH FOOD. AVOID ALCOHOL. DISCONTINUE BEFORE GETTING XRAY DYE. Indication: FOR DIABETES 16) MULTIVIT/OPHTH AREDS2/LUTE/ZEAX CAP/TAB TAKE 1 CAP/TAB BY ACTIVE MOUTH TWICE A DAY WITH MEAL(S) AVOID IF YOU HAVE PEANUT ALLERGY. Indication: FOR EYE HEALTH 17) NITROGLYCERIN 0.4MG SL TAB DISSOLVE ONE TABLET UNDER THE ACTIVE TONGUE ONE-TIME NEEDED ; IF NO IMPROVEMENT AFTER FIRST DOSE CALL --. MAY TAKE 2 ADDITIONAL DOSES, 5 MINUTES APART. TAKE WHILE SITTING. Indication: FOR CHEST PAIN 18) ONDANSETRON 4MG ORAL DISINTEGRATING TAB TAKE ONE TABLET ACTIVE UNDER THE TONGUE ONCE A DAY NEEDED Indication: FOR NAUSEA/VOMITING 19) OXYBUTYNIN CHLORIDE 5MG TAB TAKE ONE TABLET BY MOUTH THREE ACTIVE TIMES A DAY FOR BLADDER 20) OXYCODONE 7.5MG/ACETAMINOPHEN 325MG TAB TAKE 1 TABLET BY ACTIVE MOUTH EVERY 4 HOURS NEEDED FOR PAIN (MAX 4 TABLETS PER DAY; HOLD WITHIN 4 HOURS OF PLANNED SLEEP) THIS QUANTITY MUST LAST 28 DAYS OR MORE NOTE: DO NOT EXCEED 4000MG PER DAY ACETAMINOPHEN (APAP) 21) PANTOPRAZOLE NA 40MG EC TAB TAKE ONE TABLET BY MOUTH EVERY ACTIVE (S) MORNING BEFORE A MEAL TAKE 30 MINUTES BEFORE MEAL(S) Indication: FOR GASTROESOPHAGEAL REFLUX DISEASE 22) PSYLLIUM ORAL PWD MIX AND DRINK 1 TEASPOONFUL BY MOUTH ONCE ACTIVE A DAY MIX IN GLASS OF WATER/JUICE. FLAVOR SUBSTITUTIONS MAY/WILL OCCUR AND SPECIFIC VARIETIES WILL NOT BE PROVIDED. Indication: FOR FIBER SUPPLEMENTATION 23) RANOLAZINE 500MG SA TAB TAKE ONE TABLET BY MOUTH TWICE A DAY ACTIVE *SWALLOW WHOLE- DO NOT CRUSH,BREAK OR CHEW* 24) SPIRONOLACTONE 50MG TAB TAKE ONE TABLET BY MOUTH ONCE A DAY ACTIVE (S) AND EXCESSIVE FLUID. DOSE DECREASE Indication: FOR HEART FAILURE 25) TRAZODONE HCL 100MG TAB TAKE ONE TABLET BY MOUTH AT BEDTIME ACTIVE FOR MOOD OR SLEEP. Active Non-VA Medications Status 1) Non-VA APPLE CIDER VINEGAR CAP/TAB 1 CAP/TAB BY MOUTH ONCE A ACTIVE DAY Indication: supplement 2) Non-VA MULTIVITAMIN/MINERAL ANTIOXIDANT CAP/TAB 1 CAP/TAB BY ACTIVE MOUTH ONCE A DAY Indication: FOR NUTRITION/DIETARY SUPPLEMENTATION 27 Total Medications REVIEW OF SYSTEMS: HEENT: No Headache. No blurry vision, vision loss, eye pain, red eyes, or foreign body. No runnynose, congestion, or nose bleed. No hearing loss, ringing in the ears, or vertigo. No sore throat or dental pain. RESPIRATORY: Chronic cough. CARDIOVASCULAR: No chest pain, palpitations, tachycardia, PND, or orthopnea. GI: No abdominal pain, nausea, vomiting, diarrhea, constipation, melena, or hematochezia. : No dysuria, hematuria, urinary frequency, weak stream, or post-void dribbling. MUSCULOSKELETAL:No muscle or joint pain. SKIN: No rash, lesions, or infection PSYCH: No Depression or Anxiety. Not suicidal. PHYSICAL ASSESSMENT: VITAL SIGNS Pulse: 83 (10/08/2024 14:20) Blood Pressure: 108/74 (10/08/2024 14:20) Respiratory Rate: 16 (10/08/2024 14:20) Temperature: 97.6 F [36.4 C] (09/26/2024 11:56) Weight: 184.7 lb [83.78 kg] (10/08/2024 14:20) Height: 66.0 in [167.6 cm] (10/08/2024 14:20) Pain: 3 (09/26/2024 11:56) HEENT:PERRL, EOMI, Fundi benign, TM's clear, Pharynx not red and without exudate, tonsils normal size. NECK: Supple, no lymhadenopathy, thyroid normal. CARDIAC: Regular rate and rhythm without murmur. No edema. RESPIRATORY: CTA upper lobes, lower lobes diminished bilaterally. GI: Abdomen soft,with ABS, no HSM, no guarding or rebound. MUSCULOSKELETAL:Chronic joint pain with no acute change. FROM. SKIN: [place] without rash or lesions. NEUROLOGICAL: The [place] is alert and oriented without distress. Affect appropriate. IMPRESSION: Diabetes Mellitus Type II with Neuropathy-stable COPD-chronic GERD-stable Nicotine Dependence-current Depression-stable Low Back Pain-chronic PLAN: Increase water intake. Continue current medications. Consider smoking cessation. Labs today. Will order LDCT scan. RTC in 6 months or sooner if [...] the After Visit Summary was reviewed with [place]; opportunity provided to report concerns and ask [...] assistance with smoking cessation at this time. Weight Control/Nutrition Counseling: * The patient received the following counseling at this encounter: Patient was encouraged to restrict fat, especially saturated fats, in a normal diet. Benefit of a diet high in fiber was discussed. Patient was advised to include 5 or more servings of fruit and vegetables and six or more servings of grains as a well balanced diet. Patient was advised to consume 7436-2867 mg/day of dietary Calcium. Patient is overweight, normotensive. The value of reduced caloric intake and increased activity to reduce weight was discussed. /matt/ KAREN Cronin CBOC Signed: 10/20/2024 14:44 DAKOTAH INFANTE October 08, 2024 02:23 PM PRIMARY CARE NURSI NG NOTE: LOCAL TITLE: PRIMARY CARE NURSING PROGRESS NOTE (TEXT) NURSING P STANDARD TITLE: PRIMARY CARE NURSING NOTE DATE OF NOTE: OCTOBER 08, 2024@14:23 ENTRY DATE: OCTOBER 08, 2024@14:23:52 AUTHOR: ELA DU EXP COSIGNER: URGENCY: STATUS: COMPLETED Established Patient JAMI CASTELLANO IS A 63 YEAR OLD FEMALE BEING SEEN IN CLINIC OCTOBER 08, 2024. = = REASON FOR VISIT: [place] here today for 6 month appt with provider. Are you receiving care any where other than the [place]? No HEALTH AND SURGICAL HISTORY: Does patient report using home oxygen? No CURRENT ACTIVE MEDICATIONS FOR REVIEW: If the list for review does not include a component, then it was not applicable to this patient. Allergies/ADRs (Tool #5) FACILITY ALLERGY/ADR -------- [facility] IODINE CONTRAST EVEN WITH PREP [facility], [facility]EX [facility] PENICILLIN [facility] IODINE CONTRAST EVEN WITH PREP [facility]EN[facility] BAND-[facility] IODINE CONTRAST EVEN WITH PREP [facility] PENICILLIN [facility] PNEUMOCOCCAL VACCINE . [facility] SEMAGLUTIDE . [facility] TRAMADOL Med. Reconciliation (Tool #1) INCLUDED IN THIS LIST: Alphabetical list of active outpatient prescriptions dispensed from this [facility] (local) and dispensed from another VA or DoD facility (remote) as well as inpatient orders (local pending and active), local clinic medications, locally documented non-VA medications, and local prescriptions that have or been discontinued in the past 90 days. Non-VA Meds Last Documented On: Jul 04, 2024 NOTE The display of VA prescriptions dispensed from another VA or DoD facility (remote) is limited to active outpatient prescription entries matched to National Drug File at the originating site and may not include some items such as investigational drugs, compounds, etc. NOT INCLUDED IN THIS LIST: Medications self-entered by the patient into personal health records (i.e. [employer]) are NOT included in this list. Non-VA medications documented outside this [facility], remote inpatient orders (regardless of status) and [...] RINSE MOUTHPIECE FREQUENTLY TO PREVENT CLOGGING. Rx# [id number] Last Released: 08/19/24 Qty/Days Supply: Rx Expiration Date: 03/06/25 Refills Remainin OUTPT AMLODIPINE BESYLATE 2.5MG TAB (Status = Active) TAKE ONE TABLET BY MOUTH TWICE A DAY FOR HIGH BLOOD PRESSURE Rx# [id number] Last Released: 10/08/24 Qty/Days Supply: Rx Expiration Date: 06/28/25 Refills Remainin Indication: FOR HIGH BLOOD PRESSURE Non-VA APPLE CIDER VINEGAR CAP/TAB TAKE 1 CAP/TAB BY MOUTH ONCE A DAY Mar 28, 2024 MS RX: Non-VA medication recommended by MS provider MS RX: Patient wants to buy from Non-VA pharmacy Indication: supplement OUTPT ATORVASTATIN CALCIUM 80MG TAB (Status = Active) TAKE ONE-HALF TABLET BY MOUTH EVERY EVENING FOR CHOLESTEROL. REPORT ANY UNEXPLAINED MUSCLE PAIN/WEAKNESS TO PROVIDER THIS TABLET IS TO BE CUT IN HALF FOR YOUR DOSE Rx# [id number] Last Released: 09/19/24 Qty/Days Supply: 45/ Rx [...] YOU MAY CONTACT FOR ADDITIONAL SUPPORT. Rx# [id number] Last Released: 07/09/24 Qty/Days Supply: 177/90 Rx Expiration Date: 10/02/24 Refills Remainin Indication: FOR SMOKING CESSATION OUTPT CETIRIZINE HCL 10MG TAB (Status = Active) TAKE ONE TABLET BY MOUTH ONCE A DAY FOR ALLERGY SYMPTOMS Rx# [id number] Last Released: 09/26/24 Qty/Days Supply: 90/90 Rx Expiration Date: 03/06/25 Refills Remainin Indication: FOR ALLERGY SYMPTOMS OUTPT CHOLECALCIF 50MCG (D3-2,000UNIT) TAB (Status = Active) TAKE TWO TABLETS BY MOUTH ONCE A DAY FOR VITAMIN D DEFICIENCY Rx# [id number] Last Released: 09/14/24 Qty/Days Supply: 200/90 Rx Expiration Date: 04/10/25 Refills Remainin Indication: FOR VITAMIN D DEFICIENCY OUTPT CYANOCOBALAMIN 500MCG TAB (Status = ) TAKE ONE TABLET BY MOUTH ONCE A DAY FOR VITAMIN B12 SUPPLEMENTATION Rx# [id number] Last Released: 07/06/24 Qty/Days Supply: 100/90 Rx Expiration Date: 09/25/24 Refills Remainin Indication: FOR VITAMIN B12 SUPPLEMENTATION OUTPT DULOXETINE HCL 20MG EC CAP (Status = Active) TAKE TWO CAPSULES BY MOUTH TWICE A DAY FOR MOOD DO NOT ABRUPTLY DISCONTINUE MEDICATION. Rx# [id number] Last Released: 10/01/24 Qty/Days Supply: Rx Expiration Date: 09/27/25 Refills Remainin Indication: FOR MOOD OUTPT DULOXETINE HCL 60MG EC CAP (Status = Discontinued) TAKE ONE CAPSULE BY MOUTH ONCE A DAY DO NOT ABRUPTLY DISCONTINUE MEDICATION. Rx# [id number] Last Released: 09/24/24 Qty/Days Supply: Rx Expiration Date: 06/28/25 Refills Remainin OUTPT EPI(EQV-ADRENACLICK)0.3MG/0. 3ML INJCTR (Status = Discontinued) INJECT 1 PEN (0.3MG/0.3ML) INTRAMUSCULARLY ONE-TIME FOR ALLERGIC REACTION Rx# [id number] Last Released: 03/26/24 Qty/Days Supply: 06/22 Rx Expiration Date: 03/06/25 Refills Remainin Indication: FOR ALLERGIC REACTION OUTPT EPI(EQV-ADRENACLICK)0.3MG/0. 3ML INJCTR (Status = Active) INJECT 1 PEN (0.3MG/0.3ML) INTRAMUSCULARLY ONE-TIME FOR ALLERGIC REACTION Rx# [id number] Last Released: 09/11/24 Qty/Days Supply: 06/22 Rx Expiration Date: 09/10/25 Refills Remainin Indication: FOR ALLERGIC REACTION OUTPT FEXOFENADINE HCL 180MG TAB (Status = Active) TAKE ONE TABLET BY MOUTH EVERY MORNING FOR ALLERGIC RHINITIS Rx# [id number] Last Released: 10/02/24 Qty/Days Supply: Rx Expiration Date: 05/03/25 Refills Remainin Indication: FOR ALLERGIC RHINITIS OUTPT FLUTICASONE PROP 50MCG 120D NASAL INHL (Status = Active) INSTILL 1 SPRAY IN NOSTRIL(S) ONCE A DAY FOR RHINITIS (MUST BE USED DIRECTED FOR MINIMUM OF 21 DAYS TO PROVIDE ADEQUATE BENEFITS) Rx# [id number] Last Released: 09/04/24 Qty/Days Supply: Rx Expiration Date: 06/28/25 Refills Remainin Indication: FOR RHINITIS OUTPT HYDROPHILIC (EQV EUCERIN) TOP CREAM (Status = Active/Suspended) APPLY LIGHTLY TO AFFECTED AREA(S) ONCE A DAY FOR DRY SKIN (EXTERNAL USE ONLY) APPLY TO FEET NIGHTLY Rx# [id number] Last Released: 07/18/24 Qty/Days Supply: 454/90 Rx Expiration Date: 11/30/24 Refills Remainin Indication: FOR DRY SKIN OUTPT HYDROXYZINE HCL 25MG TAB (Status = ) TAKE ONE TABLET BY MOUTH THREE TIMES A DAY NEEDED FOR URTICARIA *MAY CAUSE DROWSINESS* Rx# [id number] Last Released: 07/09/24 Qty/Days Supply: 270/90 Rx Expiration Date: 09/25/24 Refills Remainin Indication: FOR URTICARIA OUTPT ISOSORBIDE DINITRATE 30MG ORAL TAB (Status = Active/Suspended) TAKE ONE TABLET BY MOUTH TWICE A DAY ALLOW 10 TO 12 HOURS BETWEEN NIGHT AND MORNING DOSE. Rx# [id number] Last Released: 07/31/24 Qty/Days Supply: 180 Rx Expiration Date: 06/27/25 Refills Remainin OUTPT LAMOTRIGINE 200MG TAB (Status = Discontinued) TAKE ONE TABLET BY MOUTH AT BEDTIME FOR MOOD OR SEIZURES Rx# [id number] Last Released: 07/18/24 Qty/Days Supply: Rx Expiration Date: 05/03/25 Refills Remainin OUTPT LAMOTRIGINE 200MG TAB (Status = Active) TAKE ONE TABLET BY MOUTH AT BEDTIME FOR MOOD OR SEIZURES Rx# [id number] Last Released: 10/03/24 Qty/Days Supply: Rx Expiration Date: 09/27/25 Refills Remainin OUTPT LAMOTRIGINE 25MG TAB (Status = Discontinued) TAKE ONE TABLET BY MOUTH AT BEDTIME FOR MOOD OR SEIZURES TAKE WITH THE 200MG Rx# [id number] Last Released: 07/23/24 Qty/Days Supply: Rx Expiration Date: 03/06/25 Refills Remainin OUTPT LAMOTRIGINE 25MG TAB (Status = Active/Suspended) TAKE ONE TABLET BY MOUTH AT BEDTIME FOR MOOD OR SEIZURES TAKE WITH THE 200MG Rx# [id number] Last Released: Qty/Days Supply: Rx Expiration Date: 09/27/25 Refills Remainin OUTPT LIDOCAINE 5% OINT (Status = Active) APPLY LIGHTLY TO AFFECTED AREA(S) ONCE A DAY NEEDED Rx# [id number] Last Released: 10/07/24 Qty/Days Supply: 105/90 Rx Expiration Date: 03/06/25 Refills Remainin OUTPT METFORMIN HCL 500MG 24HR SA TAB (Status = Active) TAKE TWO TABLETS BY MOUTH TWICE A DAY WITH MEALS FOR DIABETES TAKE WITH FOOD. AVOID ALCOHOL. DISCONTINUE BEFORE GETTING XRAY DYE. Rx# [id number] Last Released: 09/04/24 Qty/Days Supply: 360/ Rx Expiration Date: 06/28/25 Refills Remainin Indication: FOR DIABETES OUTPT MULTIVIT/OPHTH AREDS2/LUTE/ZEAX CAP/TAB (Status = Active) TAKE 1 CAP/TAB BY MOUTH TWICE A DAY WITH MEAL(S) FOR EYE HEALTH AVOID IF YOU HAVE PEANUT ALLERGY. Rx# [id number] Last Released: 09/25/24 Qty/Days Supply: 240/90 Rx Expiration Date: 06/28/25 Refills Remainin Indication: FOR EYE HEALTH Non-VA MULTIVITAMIN/MINERAL ANTIOXIDANT CAP/TAB ANTIOXIDANT CAP/TAB TAKE 1 CAP/TAB BY MOUTH ONCE A DAY Mar 28, 2024 [place] RX: Non-VA medication recommended by VA provider VA RX: Patient wants to buy from Non-VA pharmacy Indication: FOR NUTRITION/DIETARY SUPPLEMENTATION OUTPT NITROGLYCERIN 0.4MG SL TAB (Status = Active) DISSOLVE ONE TABLET UNDER THE TONGUE ONE-TIME FOR CHEST PAIN NEEDED ; IF NO IMPROVEMENT AFTER FIRST DOSE CALL 9-1-1. MAY TAKE 2 ADDITIONAL DOSES, 5 MINUTES APART. TAKE WHILE SITTING. Rx# [id number] Last Released: 08/19/24 Qty/Days Supply: 100/ Rx Expiration Date: 12/07/24 Refills Remainin Indication: FOR CHEST PAIN OUTPT ONDANSETRON 4MG ORAL DISINTEGRATING TAB (Status = Active) TAKE ONE TABLET UNDER THE TONGUE ONCE A DAY NEEDED FOR NAUSEA/VOMITING Rx# [id number] Last Released: 08/28/24 Qty/Days Supply: Rx Expiration Date: 08/19/25 Refills Remainin Indication: FOR NAUSEA/VOMITING OUTPT OXYBUTYNIN CHLORIDE 5MG TAB (Status = Active) TAKE ONE TABLET BY MOUTH THREE TIMES A DAY FOR BLADDER Rx# [id number] Last Released: 10/03/24 Qty/Days Supply: 270/ Rx Expiration Date: 04/10/25 Refills Remainin OUTPT OXYCODONE 7.5MG/ACETAMINOPHEN 325MG TAB (Status = Discontinued) TAKE 1 TABLET BY MOUTH EVERY 4 HOURS NEEDED FOR PAIN (MAX 4 TAB/DAY; HOLD WITHIN 4 HOURS OF PLANNED SLEEP) MUST LAST 28 DAYS OR MORE NOTE: DO NOT EXCEED 4000MG PER DAY ACETAMINOPHEN (APAP) Rx# [id number] Last Released: 06/26/24 Qty/Days Supply: Rx Expiration Date: 07/24/24 Refills Remainin OUTPT OXYCODONE 7.5MG/ACETAMINOPHEN 325MG TAB (Status = Discontinued) TAKE 1 TABLET BY MOUTH EVERY 4 HOURS NEEDED FOR PAIN (MAX 4 TABLETS PER DAY; HOLD WITHIN 4 HOURS OF PLANNED SLEEP) THIS QUANTITY MUST LAST 28 DAYS OR MORE NOTE: DO NOT EXCEED 4000MG PER DAY ACETAMINOPHEN (APAP) Rx# [id number] Last Released: 07/22/24 Qty/Days Supply: Rx Expiration Date: 08/17/24 Refills Remainin OUTPT OXYCODONE 7.5MG/ACETAMINOPHEN 325MG TAB (Status = ) TAKE 1 TABLET BY MOUTH EVERY 4 HOURS NEEDED FOR PAIN (MAX 4 TABLETS PER DAY; HOLD WITHIN 4 HOURS OF PLANNED SLEEP) THIS QUANTITY MUST LAST 28 DAYS OR MORE NOTE: DO NOT EXCEED 4000MG PER DAY ACETAMINOPHEN (APAP) Rx# [id number] Last Released: 08/16/24 Qty/Days Supply: Rx Expiration Date: 09/14/24 Refills Remainin OUTPT OXYCODONE 7.5MG/ACETAMINOPHEN 325MG TAB (Status = Active) TAKE 1 TABLET BY MOUTH EVERY 4 HOURS NEEDED FOR PAIN (MAX 4 TABLETS PER DAY; HOLD WITHIN 4 HOURS OF PLANNED SLEEP) THIS QUANTITY MUST LAST 28 DAYS OR MORE NOTE: DO NOT EXCEED 4000MG PER DAY ACETAMINOPHEN (APAP) Rx# [id number] Last Released: 09/23/24 Qty/Days Supply: Rx Expiration Date: 10/19/24 Refills Remainin OUTPT PANTOPRAZOLE NA 40MG EC TAB (Status = Active/Suspended) TAKE ONE TABLET BY MOUTH EVERY MORNING BEFORE A MEAL FOR GASTROESOPHAGEAL REFLUX DISEASE TAKE 30 MINUTES BEFORE MEAL(S) Rx# [id number] Last Released: 08/14/24 Qty/Days Supply: Rx Expiration Date: 06/28/25 Refills Remainin Indication: FOR GASTROESOPHAGEAL REFLUX DISEASE OUTPT PSYLLIUM ORAL PWD (Status = Active) MIX AND DRINK 1 TEASPOONFUL BY MOUTH ONCE A DAY FOR FIBER SUPPLEMENTATION MIX IN GLASS OF WATER/JUICE. FLAVOR SUBSTITUTIONS MAY/WILL OCCUR AND SPECIFIC VARIETIES WILL NOT BE PROVIDED. Rx# [id number] Last Released: 06/28/24 Qty/Days Supply: / Rx Expiration Date: 06/22/25 Refills Remainin Indication: FOR FIBER SUPPLEMENTATION OUTPT RANOLAZINE 500MG SA TAB (Status = Active) TAKE ONE TABLET BY MOUTH TWICE A DAY *SWALLOW WHOLE- DO NOT CRUSH,BREAK OR CHEW* Rx# [id number] Last Released: 09/20/24 Qty/Days Supply: 180/ Rx Expiration Date: 06/28/25 Refills Remainin OUTPT SPIRONOLACTONE 50MG TAB (Status = Active/Suspended) TAKE ONE TABLET BY MOUTH ONCE A DAY FOR HEART FAILURE AND EXCESSIVE FLUID. DOSE DECREASE Rx# [id number] Last Released: 07/22/24 Qty/Days Supply: Rx Expiration Date: 03/06/25 Refills Remainin Indication: FOR HEART FAILURE OUTPT TRAZODONE HCL 100MG TAB (Status = Active) TAKE ONE TABLET BY MOUTH AT BEDTIME FOR MOOD OR SLEEP. Rx# [id number] Last Released: 09/04/24 Qty/Days Supply: Rx Expiration Date: 01/16/25 Refills Remainin SUPPLIES OUTPT LANCET,SOFTCLIX (Status = ) USE LANCET FOR BLOOD TEST ONCE A DAY FOR BLOOD SUGAR MONITORING USE DIRECTED. Rx# [id number] Last Released: 01/31/24 Qty/Days Supply: 100/90 Rx Expiration Date: 08/23/24 Refills Remainin Indication: FOR BLOOD SUGAR MONITORING PHARMACY TERMS AND POSSIBLE PATIENT ACTIONS INPT = MS inpatient order IV = MS intravenous medication OUTPT = MS outpatient prescription PHARMACY POSSIBLE PATIENT TERMS EXPLANATION ACTIONS -------- ---- ACTIVE A prescription that can be If you have refills, filled at the local [place] pharmacy. you may request a refill of this prescription from your [place] pharmacy. CLINIC A medication you received during If you have questions a visit to a MS clinic or about this medication emergency department. contact your VA healthcare team. DISCONTINUED A prescription your provider has Contact your [facility] stopped. It is no longer healthcare team if you available to be sent to you or need more of this picked up at the MS pharmacy medication. window. A prescription which is [...] the VA. Or, it may be an [id number] (OTC), herbal, dietary supplements or sample medication. [...] ready yet. this medication now, contact your [facility] pharmacy. SUSPENDED An active prescription that is Contact your VA not scheduled to be filled yet. pharmacy if you need You should receive it before this medication now. you run out. Medication list reviewed with Patient Patient/Caregiver reports taking medications as ordered. IS PATIENT TAKING ANY OVER THE COUNTER MEDICATIONS, SUCH VITAMINS OR HERBAL SUPPLEMENTS, INCLUDING ANY MEDICATIONS PRESCRIBED BY ANOTHER PHYSICIAN? No Does patient have any new allergies to report since last visit? NO VITALS: TEMPERATURE: 97.6 F [36.4 C] (09/26/2024 11:56) BP: 108/74 (10/08/2024 14:20) RESP: 16 (10/08/2024 14:20) PULSE: 83 (10/08/2024 14:20) HT: 66.0 in [167.6 cm] (10/08/2024 14:20) WT: 184.7 lb [83.78 kg] (10/08/2024 14:20) BMI: 29.9 PAIN ASSESSMENT: (Most Recent Pain Score in Vitals Package: 3 (09/26/2024 11:56) ) The patient indicated that they and [...] chickenpox, or zoster in last 30 days. This patient's last pain assessment score was: 3 (09/26/2024 11:56). A detailed pain assessment showed the following: Pain characteristics (per patient's own words) Constant, Aching STRESS: Thank you for your service. Now let us serve you. At the [facility], we strive to provide you with exceptional [...] Not At All SPIRITUAL ASSESSMENT: Are there voodoo practices or spiritual concerns you want the song and dance performer, your physician, and other health care team members to immediately know about? No Patient advised to call the clinic for any concerns, questions, or symptoms. Patient and/or caregiver verbalized understanding of plan of care. Tobacco Use Follow-Up - AT,DE,M,N,P,PH,PS,RT,S: Patient was advised to stop smoking and/or using other tobacco products. Advised patient that a combination of behavioral counseling and FDA-approved cessation medications is the most effective way to ensure their success in stopping to smoke and/or using other tobacco products. The patient was not interested in additional information about behavioral counseling and other support strategies discussed. Informed patient that medications can help with cravings and withdrawal symptoms, and they greatly increase the chances of successfully stopping your tobacco use. The patient was not interested in a prescription for tobacco cessation medications. URINE DRUG SCREEN: Patients on chronic opioid therapy for chronic non-malignant pain are required to have an UDS at least every 6 months. In addition, documentation of verbal consent for ongoing UDS is required at least every 6 months Patient is receiving opioid from non-MS provider and is therefore excluded from having to obtain a bi-annual UDS at this facility Herpes Zoster (Shingles) Vaccine - L,N,P,PH,U: The patient declines to receive the recommended dose of zoster (shingles) vaccine. Immunization: ZOSTER RECOMBINANT Refusal Reason: PATIENT DECISION Patient refuses all immunization(s) in the ZOSTER group Date Documented: 10/08/24 14:25 [facility] DIGITAL DIVIDE CAPABILITY REMINDER: Patient is not interested in [facility] at this time. 'S RIGHT TO DECLINE STATEMENT [place] understands they have the right to decline the use of [employer] at any time without adverse affects on their continued access to healthcare. /matt/ ELA DU LPN Signed: 10/08/2024 14:26 [facility]
--- OUTSIDE RECORDS SUMMARY | 2024-10-08 10:30 | XMS_ITS | Encounter Summary ---
Author Name [facility] [place] [facility] [place] Address [address] [place] [address] Care Team Providers Care Substation Wireman Name Role Phone DAKOTAH INFANTE Primary Care [...] HOSPITAL (WNR) MEDICARE ADVANTAGE HUMAN A INSUR [employer] May 22, 2020 [id number] JAMI CASTELLANO PATIENT INNOVIANT E-PHARM PRESCRIPT ION SWEET WATER KANDI DIST Jan 20, 2007 [id number] [phone] JAMI CASTELLANO PATIENT MEDICARE (WNR) MEDICARE (M) PART A Nov 19, 2013 PART A [id number] JAMI CASTELLANO PATIENT MEDICARE (WNR) MEDICARE (M) PART B Nov 19, 2013 PART B [id number] JAMI CASTELLANO PATIENT MEDICARE (WNR) MEDICARE (M) PART A Nov 19, 2013 PART A [id number] JAMI CASTELLANO PATIENT MEDICARE (WNR) MEDICARE (M) PART B Nov 19, 2013 PART B [id number] JAMI CASTELLANO PATIENT MEDICARE (WNR) MEDICARE (M) PART A Nov 19, 2013 PART A [id number] JAMI CASTELLANO PATIENT MEDICARE (WNR) MEDICARE (M) PART B Nov 19, 2013 PART B [id number] JAMI CASTELLANO PATIENT MEDICARE (WNR) MEDICARE (M) PART B Nov 19, 2013 PART B [id number] JAMI CASTELLANO PATIENT MEDICARE (WNR) MEDICARE (M) PART A Nov 19, 2013 PART A [id number] JAMI CASTELLANO PATIENT MEDICARE (WNR) MEDICARE (M) PART A Nov 19, 2013 PART A [id number] JAMI CASTELLANO PATIENT MEDICARE (WNR) MEDICARE (M) PART B Nov 19, 2013 PART B [id number] JAMI CASTELLANO PATIENT MEDICARE (WNR) MEDICARE (M) PART B Nov 19, 2013 PART B [id number] JAMI CASTELLANO PATIENT MEDICARE (WNR) MEDICARE (M) PART A Nov 19, 2013 PART A [id number] JAMI CASTELLANO PATIENT MEDICARE (WNR) MEDICARE (M) PART A Nov 19, 2013 PART A [id number] JAMI CASTELLANO PATIENT MEDICARE (WNR) MEDICARE (M) PART B Nov 19, 2013 PART B [id number] JAMI CASTELLANO PATIENT MEDICARE (WNR) MEDICARE (M) PART A Nov 19, 2013 PART A [id number] JAMI CASTELLANO PATIENT MEDICARE (WNR) MEDICARE (M) PART B Nov 19, 2013 PART B [id number] JAMI CASTELLANO PATIENT MEDICARE PART D (WNR) MEDICARE (M) PART D May 22, 2020 PART D [id number] JAMI CASTELLANO PATIENT MEDICARE PART D (WNR) MEDICARE (M) PART D Feb 19, 2014 PART D [id number] JAMI CASTELLANO PATIENT OFF OF REG TITLE I ASSISTANT BURDICK TORT FEASOR TORT Nov 26, 2017 TORT [id number] [phone] JAMI CASTELLANO PATIENT OPTUM RX PRESCRIPT ION SWEET WATER SCHOO L #1 September 19, 2008 [id number] [phone] JAMI CASTELLANO PATIENT [facility]MR COMPREHEN SIVE MAJOR MEDICAL SWEET WATER COUNT Y SC Jan 20, 2014 [id number] [phone] JAMI CASTELLANO PATIENT [facility]MR PREFERRED PROVIDER ORGANIZAT ION (PPO) TAWANNA SS ROEL HEALT H Jan 20, 2007 [id number] [phone] JAMI CASTELLANO PATIENT Selected Encounter This section includes the information on record at [place] for the Encounter. Date/Time Encounter Type Encounter Description Reason Provider Source October 08, 2024 03:30 PM Outpatient Encounter ADMIN PAT ACTIVTIES (MASNONCT) FLORENCIA DRIVER Encounter Template Text not used by [place] Plan of Treatment: Future Appointments (+ 6 months) and Future Tests (+/- 45 days) The Plan of Treatment section includes future care activities for the patient from all [place] treatmentfacilities. This section includes future appointments and future orders which are active, pending or scheduled. Future Appointments This section includes appointments that were scheduled to occur 6 months from the date of the Encounter, up to a maximum of 20 appointments. The data comes from all [place] treatment facilities. Appointment Date/Time Appointment Type Appointme nt Facility Name Oct 21, 2024 01:00 PM AMBULATORY - MEDICINE [facility] Oct 22, 2024 01:00 PM AMBULATORY - MEDICINE [facility] Oct 30, 2024 12:00 PM AMBULATORY - NONE [place] [facility] Dec 19, 2024 12:15 PM AMBULATORY - PSYCHIATRY [facility] Dec 19, 2024 12:16 PM AMBULATORY - MEDICINE [place] [facility] Dec 31, 2024 01:00 PM AMBULATORY - PSYCHIATRY [facility] Jan 08, 2025 02:40 PM AMBULATORY - MEDICINE [place] [facility] Jan 21, 2025 01:00 PM AMBULATORY - PSYCHIATRY [facility] Apr 10, 2025 01:00 PM AMBULATORY - MEDICINE [facility] Active, Pending, and Scheduled Orders This section includes a listing of several types of active, pending, and scheduled orders, including clinic medications orders, diagnostic test orders, procedure orders and consult orders; where the start date of the order is 45 days before the date of the Encounter or 45 days after the date of theEncounter. The data comes from all [place] treatment facilities. Test Date/Time Test Type Test Details Facility Name October 09, 2024 09:32 PM Consult Order [facility] [id number] Cons [place] Floor [facility] Lab Results: +/- 30 days of the encounter This section includes the Chemistry and Hematology Lab Results on record with [place] for the patient. Radiology Reports and Pathology Reports are provided separately, in subsequent sections. Lab Results This section contains the Chemistry/Hematology Results that were resulted 30 days before or 30 daysafter the date of the Encounter. Date/Time Source Result Type Result - Unit Interpretation Reference Range Specimen Type Comment Oct 21, 2024 01:02 PM [facility] TSH (MA-PB) SERUM Specimen Type: SERUM No comment entered. Ordering Provider: DAKOTAH INFANTE Report Released Date/Time: October 08, 2024 02:34 PM Reporting Lab: [place] [facility] [address] [place] [address] Performing Lab: [place] [facility] [address] [place] [address] TSH 1.583 u[IU]/mL 0.47-5 Oct 21, 2024 01:02 PM [facility] CBC BLOOD Specimen Type: BLOOD Comment: SCAN OF SLIDE AGREES WITH AUTOMATED DIFF PLT Suspect Result. Interpret result with other clinical findings. See PLT Smear Estimate. MPV Suspect Result. Interpret result with other clinical findings. Ordering Provider: DAKOTAH INFANTE Report Released Date/Time: October 08, 2024 02:23 PM Reporting Lab: [place] [facility] [address] [place] [address] Performing Lab: [place] [facility] [address] [place] [address] WBC 8.4 10*3/uL 3.6-11.2 RBC 4.29 10*6/uL [...] SCRNPERF YES Oct 21, 2024 01:02 PM [facility] LAMOTRIGINE SERUM Specimen Typ e: SERUM Comment: This test was developed and its analytical performance characteristics have been determined by [employer], [place]. It has not been cleared or approved by the U.S. Food and Drug Administration. This assay has been validated pursuant to the CLIA regulations and is used for clinical purposes. Test Performed by [employer] [facility], [address] [place] [address] Wilfred Velásquez M.D., Ph.D., Director of Laboratories , CLIA [id number] Ordering Provider: LILIAM HARPER Report Released Date/Time: Jul 04, 2024 03:05 PM Reporting Lab: [place] [facility] [address] [place] [address] Performing Lab: [place] [facility] [address] [facility] LAMOTRIGINE 4.8 ug/mL 2.5-15.0 Oct 21, 2024 01:02 PM [facility] DIRECT LDL (MA-PB) PLASMA Specimen Type: PLASM A No comment entered. Ordering Provider: LILIAM HARPER Report Released Date/Time: Jul 04, 2024 03:05 PM Reporting Lab: [place] [facility] [address] [place] [address] Performing Lab: [place] [facility] [address] [place] [address] DIRECT LDL 70.7 mg/dL 0-99.9 Oct 21, 2024 01:02 PM [facility] VITAMIN D, 25-HYDROXY SERUM Specimen Type: SE RUM No comment entered. Ordering Provider: LILIAM HARPER Report Released Date/Time: Jul 04, 2024 03:05 PM Reporting Lab: [place] [facility] [address] [place] [address] Performing Lab: [place] [facility] [address] [place] [address] VITAMIN D, 25-HYDROXY 29.2 ng/mL L 30-96 Oct 21, 2024 01:02 PM [facility] CHOLESTEROL PANEL (PB) PLASMA Specimen Type: P LASMA No comment entered. Ordering Provider: LILIAM HARPER Report Released Date/Time: Jul 04, 2024 03:05 PM Reporting Lab: [place] [facility] [address] [place] [address] Performing Lab: [place] [facility] [address] [place] [address] CHOLESTEROL 138 mg/dL 0-200 TRIGLYCERIDE 223 mg/dL H 0-150 CALCULATED LDL 68.4 mg/dL HDL(New) 25.0 mg/dL L >40 HDL % OF TOTAL CHOLESTEROL (PB) 18.1 >25 Oct 21, 2024 01:02 PM [facility] IRON PLASM A Specimen Type: PLASMA No comment entered. Ordering Provider: LILIAM HARPER Report Released Date/Time: Jul 04, 2024 03:05 PM Reporting Lab: [place] [facility] [address] [place] [address] Performing Lab: [place] [facility] [address] [place] [address] IRON 82 ug/dL 50-170 Oct 21, 2024 01:02 PM [facility] FOLATE (PB) SERUM Specimen Typ e: SERUM No comment entered. Ordering Provider: LILIAM HARPER Report Released Date/Time: Jul 04, 2024 03:05 PM Reporting Lab: [place] [facility] [address] [place] [address] Performing Lab: [place] [facility] [address] [place] [address] FOLATE (PB) 14.5 ng/mL 7-20 Oct 21, 2024 01:02 PM [facility] HGA1C BLOOD Specimen Type: BLOOD No comment entered. Ordering Provider: LILIAM HARPER Report Released Date/Time: Jul 04, 2024 03:05 PM Reporting Lab: [place] [facility] [address] [place] [address] Performing Lab: [place] [facility] [address] [place] [address] HGA1C 6.7 H 4.0-6.0 Oct 21, 2024 01:02 PM [facility] B12 SERUM Specimen Type: SERUM No comment entered. Ordering Provider: LILIAM HARPER Report Released Date/Time: Jul 04, 2024 03:05 PM Reporting Lab: [place] [facility] [address] [place] [address] Performing Lab: [place] [facility] [address] [place] [address] B12 862 pg/mL H 213-816 Oct 21, 2024 01:02 PM [facility] COMPREHENSIVE METABOLIC PANEL PLASMA Specimen Type: PLASMA No comment entered. Ordering Provider: LILIAM HARPER Report Released Date/Time: Jul 04, 2024 03:05 PM Reporting Lab: [place] [facility] [address] [place] [address] Performing Lab: [place] [facility] [address] [place] [address] CREATININE 0.67 mg/dL 0.6-1.1 UREA NITROGEN 9 [...] ALL of a patient's completed or amended [place] Advance and Rescinded Directives. The entries below indicate that a directive exists for the patient, but an actual copy is not included with this document. The data comes from all [place] facilities. Date Advance Directives Provider Source Dec 18, 2023 ADVANCE DIRECTIVE PETER BOWLING ANA MARIVEL FF [facility] Radiology Reports: +/- 30 days [...] the Encounter. The data comes from all [place] treatment facilities. Date/Time Radiology Report Provider Source Oct 30, 2024 12:02 PM LDCT LUNG CANCER S CREENING: JAMI CASTELLANO [id number] -1960 F Exm Date: OCT 30, 2024@12:02 Req Phys: DAKOTAH INFANTE Pat Loc: PB-[facility]CT [place] JAIME WH (Req Img Loc: PB-CT IMAGING Service: Unknown DIPAK VERDE [facility] [address] (Case [id number] COMPLETE) LDCT LUNG CANCER SCREENING (CT Detailed) CPT:97499 Reason for Study: screening Clinical History: Responsible Attending: Naresh Attending Contact Number: [id number] Resident Contact Number: Report Status: Verified Date Reported: OCT 31, 2024 Date Verified: OCT 31, 2024 Devops Architect E-Sig: Report: EXAM: LDCT LUNG CANCER SCREENING ADDITIONAL HISTORY: Annual Screening COMPARISON: 02/22/2023 PROTOCOL: Screening protocol, low dose, non-contrast CT chest was performed at the local [place] facility in accordance with Lung-Rads 2021. Additional coronal and sagittal reconstructions. MIP reconstructions were reviewed. 2589 images were received by the [place] National Teleradiology Program (NTP) for interpretation. RADIATION [...] MODIFIER: N/A. READING PHYSICIAN: Alton Willis MD -[id number] 10/31/2024 8:01 PDT [facility] National Teleradiology Program [phone] (For Medical Practitioner Use Only) Attention Patients / Veterans: If you have questions or concerns about these test results, please contact your ordering provider or primary care team. Primary Interpreting Staff: RADIOLOGY,OUTSIDE SERVICE, Staff Physician / RADIOLOGY,OUTSIDE SERVICE ANA BLANCO 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 WH (Req Img Loc: PB-XRAY EN[place] Service: [place] [address] (Case [id number] COMPLETE) SPINE LUMBOSACRAL 2 OR 3 VIEWS (RAD Detailed) CPT:29067 Reason for Study: low back pain Clinical History: new pain management consult Report Status: Verified Date Reported: OCTOBER 09, 2024 Date Verified: OCTOBER 09, 2024 Devops Architect E-Sig: Report: EXAM: Lumbar spine AP, lateral, [...] Primary Interpreting Staff: Alejandra Moseley M.D., Radiology (Devops Architect, no e-sig) /[facility] Encounter Notes: All associated encounter notes This section contains the clinical notes associated to the Encounter. Date/Time Encounter Note(s) Provider Source October 08, 2024 03:30 PM GENERAL MEDICINE N OTE: LOCAL TITLE: General Note PB STANDARD TITLE: GENERAL MEDICINE NOTE DATE OF NOTE: OCTOBER 08, 2024@15:30 ENTRY DATE: OCTOBER 08, 2024@15:30:44 AUTHOR: FLORENCIA DRIVER EXP COSIGNER: URGENCY: STATUS: COMPLETED Phone contact to Regina regarding overdue LCS f/u; reports does not wish to participate in program at this time. Informed to contact PCP if becomes willing to partipate in program in the future. Regina agreeable and has no further questions/concerns. UNABLE TO TRACK NODULE: Tracking of lung nodule IS indicated per guidelines but cannot be done due to patient declines at this time. Date of most recent follow-up image: Date: February 22, 2023 Most Recent Lung RADS Score: 1 Incidental Findings: No incidental findings were noted. Reason lung nodule will not be tracked: UNABLE TO TRACK PULMONARY NODULE: Patient has declined or failed to respond to scheduling attempts for recommended follow up chest CT for pulmonary nodule(s), but REMAINS ELIGIBLE FOR LUNG CANCER SCREENING AT THIS TIME. Plan: Patient will be discharged from screening program at this time, can be enrolled in the future if eligible and patient wishes to participate in lung cancer screening. Referring provider has been notified. /matt/ ROBERT Buhs, RN LCS Program Signed: 10/08/2024 15:36 Receipt Acknowledged By: 10/08/2024 16:22 /matt/ MARYJO [facility] FLORENCIA DRIVER [facility]
--- OUTSIDE RECORDS SUMMARY | 2024-10-28 10:43 | XMS_ITS | Encounter Summary ---
Author Name [facility] [facility] [place] [facility] [place] [facility] [place] Address [address] [place] [address] Care Team Providers Care Adviser Sales Name Role Phone DAKOTAH INFANTE Primary Care [...] Name Patient's Relationship to Policy Palmer [employer] (WNR) MEDICARE ADVANTAGE HUMAN A INSUR ANCE [facility] May 22, 2020 [id number] JAMI CASTELLANO PATIENT INNOVIANT E-PHARM PRESCRIPT ION SWEET WATER KANDI DIST Jan 20, 2007 [id number] [phone] JAMI CASTELLANO PATIENT MEDICARE (WNR) MEDICARE (M) PART A Nov 19, 2013 PART A [id number] JAMI CASTELLANO PATIENT MEDICARE (WNR) MEDICARE (M) PART B Nov 19, 2013 PART B [id number] JAMI CASTELLANO PATIENT MEDICARE (WNR) MEDICARE (M) PART A Nov 19, 2013 PART A [id number] JAMI CASTELLANO PATIENT MEDICARE (WNR) MEDICARE (M) PART B Nov 19, 2013 PART B [id number] JAMI CASTELLANO PATIENT MEDICARE (WNR) MEDICARE (M) PART A Nov 19, 2013 PART A [id number] JAMI CASTELLANO PATIENT MEDICARE (WNR) MEDICARE (M) PART B Nov 19, 2013 PART B [id number] JAMI CASTELLANO PATIENT MEDICARE (WNR) MEDICARE (M) PART B Nov 19, 2013 PART B [id number] JAMI CASTELLANO PATIENT MEDICARE (WNR) MEDICARE (M) PART A Nov 19, 2013 PART A [id number] JAMI CASTELLANO PATIENT MEDICARE (WNR) MEDICARE (M) PART A Nov 19, 2013 PART A [id number] JAMI CASTELLANO PATIENT MEDICARE (WNR) MEDICARE (M) PART B Nov 19, 2013 PART B [id number] JAMI CASTELLANO PATIENT MEDICARE (WNR) MEDICARE (M) PART B Nov 19, 2013 PART B [id number] JAMI CASTELLANO PATIENT MEDICARE (WNR) MEDICARE (M) PART A Nov 19, 2013 PART A [id number] JAMI CASTELLANO PATIENT MEDICARE (WNR) MEDICARE (M) PART A Nov 19, 2013 PART A [id number] JAMI CASTELLANO PATIENT MEDICARE (WNR) MEDICARE (M) PART B Nov 19, 2013 PART B [id number] JAMI CASTELLANO PATIENT MEDICARE (WNR) MEDICARE (M) PART A Nov 19, 2013 PART A [id number] JAMI CASTELLANO PATIENT MEDICARE (WNR) MEDICARE (M) PART B Nov 19, 2013 PART B [id number] JAMI CASTELLANO PATIENT MEDICARE PART D (WNR) MEDICARE (M) PART D May 22, 2020 PART D [id number] JAMI CASTELLANO PATIENT MEDICARE PART D (WNR) MEDICARE (M) PART D Feb 19, 2014 PART D [id number] JAMI CASTELLANO PATIENT OFF OF REG HOST COORDINATOR BURDICK TORT FEASOR TORT Nov 26, 2017 TORT [id number] JAMI CASTELLANO PATIENT OPTUM RX PRESCRIPT ION SWEET WATER SCHOO L #1 September 19, 2008 [id number] [phone] JAMI CASTELLANO PATIENT UMR COMPREHEN SIVE MAJOR MEDICAL SWEET WATER COUNT Y SC Jan 20, 2014 [id number] [phone] JAMI CASTELLANO PATIENT UMR PREFERRED PROVIDER ORGANIZAT ION (PPO) TAWANNA SS ROEL HEALT H Jan 20, 2007 [id number] JAMI CASTELLANO PATIENT Selected Encounter This section includes the information on record at [place] for the Encounter. Date/Time Encounter Type Encounter Description Reason Provider Source Oct 28, 2024 03:43 PM Outpatient Encounter PAIN CLINIC ICD-10-CM Z79.891 assisted (current) use of opiate analgesic GOGINENI,ADRIÁN IHE Encounter Template Text not used by [place] Assessments - Encounter Diagnoses This section includes the primary and secondary diagnoses documented for the Encounter. 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 This section includes future appointments and future orders which are active, pending or scheduled. Future Appointments This section includes appointments that were scheduled to occur 6 months from the date of the Encounter, up to a maximum of 20 appointments. The data comes from all [place] treatment facilities. Appointment Date/Time Appointment Type Appointme nt Facility Name Oct 30, 2024 12:00 PM AMBULATORY - NONE [facility] Dec 19, 2024 12:15 PM AMBULATORY - PSYCHIATRY [facility] Dec 19, 2024 12:16 PM AMBULATORY - MEDICINE [place] [facility] Dec 31, 2024 01:00 PM AMBULATORY - PSYCHIATRY [facility] Jan 08, 2025 02:40 PM AMBULATORY - MEDICINE [place] [facility] Jan 21, 2025 01:00 PM AMBULATORY - PSYCHIATRY [facility] Apr 10, 2025 01:00 PM AMBULATORY - MEDICINE [facility] Apr 22, 2025 02:00 PM AMBULATORY - MEDICINE [facility] Active, Pending, and Scheduled Orders This section includes a listing of several types of active, pending, and scheduled orders, including clinic medications orders, diagnostic test orders, procedure orders and consult orders; where the start date of the order is 45 days before the date of the Encounter or 45 days after the date of theEncounter. The data comes from all [place] treatment facilities. Test Date/Time Test Type Test Details Facility Name October 09, 2024 09:32 PM Consult Order [facility], [facility] [id number] Cons Glass Furnace Operator's Choice [facility] Lab Results: +/- 30 days of the encounter This section includes the Chemistry and Hematology Lab Results on record with [place] for the patient. Radiology Reports and Pathology Reports are provided separately, in subsequent sections. Lab Results This section contains the Chemistry/Hematology Results that were resulted 30 days before or 30 daysafter the date of the Encounter. Date/Time Source Result Type Result - Unit Interpretation Reference Range Specimen Type Comment Oct 21, 2024 01:02 PM [facility] TSH (MA-PB) SERUM Specimen Type: SERUM No comment entered. Ordering Provider: DAKOTAH INFANTE Report Released Date/Time: October 08, 2024 02:34 PM Reporting Lab: [place] [facility] [address] [place] [address] Performing Lab: [place] [facility] [address] [place] [address] TSH 1.583 u[IU]/mL 0.47-5 Oct 21, 2024 01:02 PM [facility] CBC BLOOD Specimen Type: BLOOD Comment: SCAN OF SLIDE AGREES WITH AUTOMATED DIFF PLT Suspect Result. Interpret result with other clinical findings. See PLT Smear Estimate. MPV Suspect Result. Interpret result with other clinical findings. Ordering Provider: DAKOTAH INFANTE Report Released Date/Time: October 08, 2024 02:23 PM Reporting Lab: [place] [facility] [address] [place] [address] Performing Lab: [facility] [address] [facility] [place] [place] [address] WBC 8.4 10*3/uL 3.6-11.2 RBC 4.29 10*6/uL [...] SCRNPERF YES Oct 21, 2024 01:02 PM [facility] LAMOTRIGINE SERUM Specimen Typ e: SERUM Comment: This test was developed and its analytical performance characteristics have been determined by [facility] [place], [place]. It has not been cleared or approved by the U.S. Food and Drug Administration. This assay has been validated pursuant to the CLIA regulations and is used for clinical purposes. Test Performed by [facility], [place], [facility], [address] [place], [place] Wilfred Velásquez M.D., Ph.D., Director of Laboratories , [facility] [id number] Ordering Provider: LILIAM HARPER Report Released Date/Time: Jul 04, 2024 03:05 PM Reporting Lab: [place] [facility] [address] [place] [address] Performing Lab: [place] [facility] [address] [facility] LAMOTRIGINE 4.8 ug/mL 2.5-15.0 Oct 21, 2024 01:02 PM [facility] DIRECT LDL (MA-PB) PLASMA Specimen Type: PLASM A No comment entered. Ordering Provider: LILIAM HARPER Report Released Date/Time: Jul 04, 2024 03:05 PM Reporting Lab: [place] [facility] [address] [place] [address] Performing Lab: [place] [facility] [address] [place] [address] DIRECT LDL 70.7 mg/dL 0-99.9 Oct 21, 2024 01:02 PM [facility] VITAMIN D, 25-HYDROXY SERUM Specimen Type: SE RUM No comment entered. Ordering Provider: LILIAM HARPER Report Released Date/Time: Jul 04, 2024 03:05 PM Reporting Lab: [place] [facility] [address] [place] [address] Performing Lab: [place] [facility] [address] [place] [address] VITAMIN D, 25-HYDROXY 29.2 ng/mL L 30-96 Oct 21, 2024 01:02 PM [facility] CHOLESTEROL PANEL (PB) PLASMA Specimen Type: P LASMA No comment entered. Ordering Provider: LILIAM HARPER Report Released Date/Time: Jul 04, 2024 03:05 PM Reporting Lab: [place] [facility] [address] [place] [address] Performing Lab: [place] [facility] [address] [place] [address] CHOLESTEROL 138 mg/dL 0-200 TRIGLYCERIDE 223 mg/dL H 0-150 CALCULATED LDL 68.4 mg/dL HDL(New) 25.0 mg/dL L >40 HDL % OF TOTAL CHOLESTEROL (PB) 18.1 >25 Oct 21, 2024 01:02 PM [facility] IRON PLASM A Specimen Type: PLASMA No comment entered. Ordering Provider: LILIAM HARPER Report Released Date/Time: Jul 04, 2024 03:05 PM Reporting Lab: [place] [facility] [address] [place] [address] Performing Lab: [place] [facility] [address] [place] [address] IRON 82 ug/dL 50-170 Oct 21, 2024 01:02 PM [place] [facility] FOLATE (PB) SERUM Specimen Typ e: SERUM No comment entered. Ordering Provider: LILIAM HARPER Report Released Date/Time: Jul 04, 2024 03:05 PM Reporting Lab: [place] [facility] [address] [place] [address] Performing Lab: [place] [facility] [address] [place] [address] FOLATE (PB) 14.5 ng/mL 7-20 Oct 21, 2024 01:02 PM [place] [facility] HGA1C BLOOD Specimen Type: BLOOD No comment entered. Ordering Provider: LILIAM HARPER Report Released Date/Time: Jul 04, 2024 03:05 PM Reporting Lab: [place] [facility] [address] [place] [address] Performing Lab: [place] [facility] [address] [place] [address] HGA1C 6.7 H 4.0-6.0 Oct 21, 2024 01:02 PM [place] [facility] B12 SERUM Specimen Type: SERUM No comment entered. Ordering Provider: LILIAM HARPER Report Released Date/Time: Jul 04, 2024 03:05 PM Reporting Lab: [place] [facility] [address] [place] [address] Performing Lab: [place] [facility] [address] [place] [address] B12 862 pg/mL H 213-816 Oct 21, 2024 01:02 PM [facility] COMPREHENSIVE METABOLIC PANEL PLASMA Specimen Type: PLASMA No comment entered. Ordering Provider: LILIAM HARPER Report Released Date/Time: Jul 04, 2024 03:05 PM Reporting [facility] [address] [place] [address] Performing Lab[facility] [address] [facility] [address] CREATININE 0.67 mg/dL 0.6-1.1 UREA NITROGEN 9 [...] ALL of a patient's completed or amended [place] Advance and Rescinded Directives. The entries below indicate that a directive exists for the patient, but an actual copy is not included with this document. The data comes from all [place] facilities. Date Advance Directives Provider Source Dec 18, 2023 ADVANCE DIRECTIVE PETER BOWLING MARIVEL FF [facility] Radiology Reports: +/- 30 days of [...] the Encounter. The data comes from all [place] treatment facilities. Date/Time Radiology Report Provider Source Oct 30, 2024 12:02 PM LDCT LUNG CANCER S CREENING: JAMI CASTELLANO [id number] -[id number] F Exm Date: OCT 30, 2024@12:02 Req Phys: DAKOTAH INFANTE Loc: PB-MAITE PACT [place] JAIME WH (Req Img Loc: PB-CT IMAGING Service: Unknown DIPAK VERDE [facility] FRANCIS ALEXANDER [id number] (Case [id number] COMPLETE) LDCT LUNG CANCER SCREENING (CT Detailed) CPT:75263 Reason for Study: screening Clinical History: Responsible Attending: Sheeba Attending Contact Number: [phone] Resident Contact Number: Report Status: Verified Date Reported: OCT 31, 2024 Date Verified: OCT 31, 2024 Spectrograph Operator E-Sig: Report: EXAM: LDCT LUNG CANCER SCREENING ADDITIONAL HISTORY: Annual Screening COMPARISON: 02/22/2023 PROTOCOL: Screening protocol, low dose, non-contrast CT chest was performed at the local [place] facility in accordance with Lung-Rads 2021. Additional coronal and sagittal reconstructions. MIP reconstructions were reviewed. 2589 images were received by the [place] National Teleradiology Program (NTP) for interpretation. RADIATION [...] MODIFIER: N/A. READING PHYSICIAN: Alton Willis MD -[id number] 10/31/2024 8:01 PDT [facility] National Teleradiology Program [phone] (For Medical Practitioner Use Only) Attention Patients / Veterans: If you have questions or concerns about these test results, please contact your ordering provider or primary care team. Primary Interpreting Staff: RADIOLOGY,OUTSIDE SERVICE, Staff Physician / RADIOLOGY,OUTSIDE SERVICE ANA BLANCO [facility] October 09, 2024 01:51 PM SPINE LUMBOSACRAL 2 OR 3 VIEWS: JAMI CASTELLANO [id number] -[id number] F Exm Date: OCTOBER 09, 2024@13:51 Req Phys: DAKOTAH INFANTE Loc: PB-MAITE PACT [employer] STEWARDESS WH (Req Img Loc: PB-XRAY [place] Service: [place] [address] (Case [id number] COMPLETE) SPINE LUMBOSACRAL 2 OR 3 VIEWS (RAD Detailed) CPT:36083 Reason for Study: low back pain Clinical History: new pain management consult Report Status: Verified Date Reported: OCTOBER 09, 2024 Date Verified: OCTOBER 09, 2024 Spectrograph Operator E-Sig: Report: EXAM: Lumbar spine AP, lateral, [...] Primary Interpreting Staff: Alejandra Moseley M.D., Radiology (Spectrograph Operator, no e-sig) /ALEJANDRA SEPULVEDA [facility] Encounter Notes: All associated encounter notes This section contains the clinical notes associated to the Encounter. Date/Time Encounter Note(s) Provider Source Oct 28, 2024 03:44 PM MEDICATION MGT NOT E: LOCAL TITLE: OPIOID RISK REVIEW DATA-BASED PB STANDARD TITLE: MEDICATION MGT NOTE DATE OF NOTE: OCT 28, 2024@15:44 ENTRY DATE: OCT 28, 2024@15:44:04 AUTHOR: LESTER BATRES COSIGNER: URGENCY: STATUS: COMPLETED The following Opioid Safety Initiative Case Review, as required by the Opioid Safety Initiative and Title IX, Subtitle A, Section 911(a)(2) of the Comprehensive Addiction and Recovery Act (ANA ROSA), was completed during Oct Pain Management Team Meeting that met to develop recommendations to mitigate [facility] [place]'s risk of Suicide or Overdose. Attendance: PACT Pain [place], Pharmacy, Addiction Medicine, Behavioral Medicine, Rehabilitation Medicine, Suicide Prevention, Truck Headlight Assembler This patient was identified as being very high risk for opioid Overdose / suicide-related adverse events using the Stratification Tool for Opioid Risk Mitigation (STORM) Report. The following recommendations are intended to improve the safety of the by increasing our overall opioid risk mitigation strategies. 63yo male on LTOT from [facility] provider, Dr. Gianni Archer is retiring and has been consult to alternative [facility] pain management, [facility]. has co morbid Diabetes, GERD, Gout, Migraine, and low back pain. [place] was initially seen by Dr. Alarcon on 09/26/24 and treated Bipolar type II depression and PTSD. Continues to be depressed and anxious. Duloxetine was increased to 40mg bid. Lamictal and Trazadone were continued. No Alcohol or illicit drug use. Continues to smoke 10-15 cig/day and refused tobacco cessation. Has f/u appointment with Dr. Alarcon on 12/19/24. RISK OF ADVERSE EVENTS & CLINICAL FACTORS THAT INCREASE RISK FOR PATIENT +++++++++++++++++++++++++++++++ +++++++++++++++++++++++++++++++ ++ Stratified Tool for Opioid Risk Mitigation(YENI) Review Note +++++++++++++++++++++++++++++++ +++++++++++++++++++++++++++++++ ++ Date: 10/28/2024 3:45:23 PM Name: JAMI CASTELLANO Last Four: [id number] Age: 63 Woman Address: [address] [place] [address] PATIENT'S CURRENT RISK LEVEL AND CURRENT HIGH RISK FLAGS STORM Model Risk Estimates Risk of suicide-related event or overdose in the next year: 7% (Very High - Active Opioid Rx) Risk of suicide-related event, overdose, fall or accident in the next 3 years: 37% (Medium - Active Opioid Rx) RIOSORD Risk Class: 2 RIOSORD Score: 27 REACH VET Currently Identified in REACH VET: No In REACH VET in the past 24 months: No High Risk Flags High Risk For Suicide: No Behavioral: No Missing Patient: No FACTORS CONTRIBUTING TO PATIENT'S RISK Diagnosis Medical: - Chronic Pulmonary Disease - Diabetes, Complicated - Diabetes, Uncomplicated Mental Health: - Bipolar and Related Disorders - Major Depressive Disorder - Mental Health Other - Post-Traumatic Stress Disorder Substance Use Disorder: - Nicotine use disorder Medications Opioid: - ACETAMINOPHEN/OXYCODONE [place]([facility]) Pain Medications (Sedating): - DULOXETINE Dakotah Infante([facility]) [facility]) ========= METHODS TO REDUCE PATIENT'S RISK ========= Risk Mitigation Strategies: [X] MEDD < 90 (30 Day Avg) 45 [ ] Naloxone Kit (365 Days) [ ] Informed Consent for Long-Term Opioid Therapy [X] Timely Follow-up (90 Days) 10/22/2024 [ ] Drug Screen (365 Days) [ ] Psychosocial Assessment (365 Days) [X] Psychosocial Tx (365 Days) 08/13/2024 [X] Bowel Regimen (365 Days) [X] PDMP (90 Days) 10/18/2024 [ ] Data-based Risk Review (365 Days) [ ] Suicide Safety Plan (365 Days) [ ] Mandated Risk Mitigations Met Non-pharmacological Pain Treatments: [ ] Active Therapies [ ] CIH Therapies [ ] White Metal Caster [ ] Occupational Therapy [ ] Pain Clinic [ ] Physical Therapy/PM&R [ ] Specialty Therapy [ ] Other Therapy ========= APPOINTMENTS ========= Last [facility] Contact FRANCIS Alexander [facility] - Emergency Room - [place], [place] 01/22/2024 12:00 AM - Appointment [facility] - IND 09/26/2024 11:46 AM [facility] - Any Clinical Appointment TELEPHONE PRIMARY CARE 10/22/2024 01:00 PM - Other Appointment TELEPHONE PRIMARY CARE 10/22/2024 01:00 PM - Primary Care Appointment TELEPHONE PRIMARY CARE 10/22/2024 01:00 PM Future Appointments FRANCIS Alexander [facility] - Other Appointment COMPUTERIZED TOMOGRAPHY (CT) 10/30/2024 12:00 PM - Appointment [facility] - IND 11/25/2024 01:00 PM - Primary Care Appointment PRIMARY CARE/MEDICINE 04/10/2025 01:00 PM ========= ASSIGNED PROVIDERS ========= [place], [place] H[facility] Daniel,Chrissom J - ([facility]ht[facility]) Licensed Professional Counselor [facility] SARKIS BE TEAM Dakotah Infante Primary Care Provider -[facility] BARTOLOME GOFF ========= SUPPLEMENTAL MEDICATION INFORMATION ========= Non-VA Controlled Substance Prescriptions: This risk assessment is based on available information in the corporate data warehouse which may lag from CPRS (usually 1-2 days) and only includes information previously documented in the medical record. This risk assessment should be used as one element to inform an overall clinical treatment plan. Further assessment, reassessment, and treatment planning should be completed as clinically indicated by this 's established care teams. The calculated risk score is determined by both static and dynamic factors. Treatment planning should focus on providing the best whole person clinical care while aiming to reduce the risk of adverse events and should not aim at reducing the calculated risk score. +++++++++++++++++++++++++++++++ +++++++++++++++++++++++++++++++ + Stratified Tool for Opioid Risk Mitigation (STORM) Review Note +++++++++++++++++++++++++++++++ +++++++++++++++++++++++++++++++ + CURRENT MEDICATIONS: Active and Recently Outpatient Medications (including Supplies): Active Outpatient Medications [...] FOR VITAMIN B12 SUPPLEMENTATION 7) DULOXETINE HCL 20MG EC CAP TAKE TWO CAPSULES BY MOUTH TWICE ACTIVE A DAY DO NOT ABRUPTLY DISCONTINUE MEDICATION. Indication: FOR MOOD 8) EPI(EQV-ADRENACLICK)0.3MG/0.3ML INJCTR INJECT 1 PEN ACTIVE (0.3MG/0.3ML) INTRAMUSCULARLY ONE-TIME Indication: FOR ALLERGIC REACTION 9) FEXOFENADINE HCL 180MG TAB TAKE ONE TABLET BY MOUTH EVERY ACTIVE MORNING Indication: FOR ALLERGIC RHINITIS 10) FLUTICASONE PROP 50MCG 120D NASAL INHL INSTILL 1 SPRAY IN ACTIVE NOSTRIL(S) ONCE A DAY (MUST BE USED DIRECTED FOR MINIMUM OF 21 DAYS TO PROVIDE ADEQUATE BENEFITS) Indication: FOR RHINITIS 11) HYDROPHILIC (EQV EUCERIN) TOP CREAM APPLY LIGHTLY TO ACTIVE AFFECTED AREA(S) ONCE A DAY (EXTERNAL USE ONLY) APPLY TO FEET NIGHTLY Indication: FOR DRY SKIN 12) HYDROXYZINE HCL 25MG TAB TAKE ONE TABLET BY MOUTH THREE ACTIVE TIMES A DAY NEEDED *MAY CAUSE DROWSINESS* Indication: FOR URTICARIA 13) ISOSORBIDE DINITRATE 30MG ORAL TAB TAKE ONE TABLET BY MOUTH ACTIVE TWICE A DAY ALLOW 10 TO 12 HOURS BETWEEN NIGHT AND MORNING DOSE. 14) LAMOTRIGINE 200MG TAB TAKE ONE TABLET BY MOUTH AT BEDTIME ACTIVE FOR MOOD OR SEIZURES 15) LAMOTRIGINE 25MG TAB TAKE ONE TABLET BY MOUTH AT BEDTIME FOR ACTIVE MOOD OR SEIZURES TAKE WITH THE 200MG 16) LIDOCAINE 5% OINT APPLY LIGHTLY TO AFFECTED AREA(S) ONCE A ACTIVE DAY NEEDED 17) METFORMIN HCL 500MG 24HR SA TAB TAKE ONE TABLET BY MOUTH ACTIVE (S) TWICE A DAY WITH MEALS TAKE WITH [...] SITTING. Indication: FOR CHEST PAIN 20) ONDANSETRON 4MG ORAL DISINTEGRATING TAB TAKE ONE TABLET ACTIVE UNDER THE TONGUE ONCE A DAY NEEDED Indication: FOR NAUSEA/VOMITING 21) OXYBUTYNIN CHLORIDE 5MG TAB TAKE ONE TABLET BY MOUTH THREE ACTIVE TIMES A DAY FOR BLADDER 22) OXYCODONE 7.5MG/ACETAMINOPHEN 325MG TAB TAKE 1 TABLET BY ACTIVE MOUTH EVERY 4 HOURS NEEDED FOR PAIN (MAX 4 TABS/DAY, HOLD WITHIN 4 HOURS OF PLANNED SLEEP) THIS QUANTITY MUST LAST 28 DAYS OR MORE NOTE: DO NOT EXCEED 4000MG PER DAY ACETAMINOPHEN (APAP) 23) PANTOPRAZOLE NA 40MG EC TAB TAKE ONE TABLET BY MOUTH EVERY ACTIVE (S) MORNING BEFORE A MEAL TAKE 30 MINUTES BEFORE MEAL(S) Indication: FOR GASTROESOPHAGEAL REFLUX DISEASE 24) PSYLLIUM ORAL PWD MIX AND DRINK 1 TEASPOONFUL BY MOUTH ONCE ACTIVE A DAY MIX IN GLASS OF WATER/JUICE. FLAVOR SUBSTITUTIONS MAY/WILL OCCUR AND SPECIFIC VARIETIES WILL NOT BE PROVIDED. Indication: FOR FIBER SUPPLEMENTATION 25) RANOLAZINE 500MG SA TAB TAKE ONE TABLET BY MOUTH TWICE A DAY ACTIVE *SWALLOW WHOLE- DO NOT CRUSH,BREAK OR CHEW* 26) SPIRONOLACTONE 50MG TAB TAKE ONE TABLET BY MOUTH ONCE A DAY ACTIVE AND EXCESSIVE FLUID. DOSE DECREASE Indication: FOR HEART FAILURE 27) TRAZODONE HCL 100MG TAB TAKE ONE TABLET BY MOUTH AT BEDTIME ACTIVE FOR MOOD OR SLEEP. Active Non-VA Medications Status 1) Non-VA APPLE CIDER VINEGAR CAP/TAB 1 CAP/TAB BY MOUTH ONCE A ACTIVE DAY Indication: supplement 2) Non-VA MULTIVITAMIN/MINERAL ANTIOXIDANT CAP/TAB 1 CAP/TAB BY ACTIVE MOUTH ONCE A DAY Indication: FOR NUTRITION/DIETARY SUPPLEMENTATION 29 Total Medications Allergies: PENICILLIN, BEE STINGS, TRAMADOL, IODINE CONTRAST EVEN WITH PREP, BAND-AIDS PNEUMOCOCCAL VACCINE, SEMAGLUTIDE Current medical problems: 1) Diabetes Mellitus Type 2 ([facility] [id number]) 2) GERD - Gastro-Esophageal Reflux Disease ([facility] [id number]) 3) Gout ([facility] [id number]) 4) Depression ([facility] [id number]) 5) Bipolar disorder 6) Migraine 7) Low back pain 8) Cervicalgia 9) Somatoform pain disorder 10) Mood disorder with depressive features due to general medical condition 11) Generalized anxiety disorder 12) Housing problem 13) Neurocognitive disorder 14) Nicotine dependence (SNOMED CT 17544914) 15) Chronic obstructive lung disease 16) Allergic Rhinitis (SCT 88384207) 17) Chronic post-traumatic stress disorder 18) Female stress incontinence 19) Diabetic neuropathy 20) Chronic tremor 21) 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 22) Bilateral tinnitus 23) Sensorineural hearing loss of bilateral ears Recent labs: SODIUM 139 mEq/L 10/21/2024 13:02 POTASSIUM 4.4 mEq/L 10/21/2024 13:02 CHLORIDE 105 mEq/L 10/21/2024 13:02 UREA NITROGEN 9 mg/dL 10/21/2024 13:02 CREATININE 0.67 mg/dL 10/21/2024 13:02 CALCIUM 9.1 mg/dL 10/21/2024 13:02 CARBON DIOXIDE 25 mEq/L 10/21/2024 13:02 GLUCOSE 130 H mg/dL 10/21/2024 13:02 EGFR (CKD-EPI 2020) 98 10/21/2024 13:02 AKP: 93 (10/21/24 13:02) ALB: 4.4 (10/21/24 13:02) GOT/AST: 18 (10/21/24 13:02) GPT/ALT: 20 (10/21/24 13:02) T.Prot: 7.0 (10/21/24 13:02) TBIL: 0.7 (10/21/24 13:02) B12 862 H pg/mL 10/21/2024 13:02 VITAMIN D, 25-HYDROXY 29.2 L ng/mL 10/21/2024 13:02 VITAMIN D, 25-HYDROXY 31.5 ng/mL 07/04/2024 13:47 VITAMIN D, 25-HYDROXY 26.6 L ng/mL 04/02/2024 13:16 Magnesium ____ No URINE DRUG SCREEN EO data found No METHADONE PANEL EO data found No data available for: TRAMADOL No data available for: TRAMADOL No BUPRENORPHINE EO data found REVIEW OF OTHER TREATMENT OPTIONS: 1. Recommend Mg labs. Low vitamin D, B12, and Mg can impact chronic pain. B12 wnl, vitd insufficiency noted with current supplementation. 2. Non-pharmacologic recommendations: -Recommend offering treatment for smoking cessation and considering a consult to the Smoking Cessation clinic. *Of note, patient recently declined tobacco cessation. -Recommend offering CBT-CP, PT, chiro/acupuncture, and encourage exercise routine which may include yoga, rita chi, Pilates, or a walking routine. 3. Recommend whole health referral if not previously offered and if clinically appropriate. 4. [place] consulted to [facility] pain management in scheduling process w/Gus d/t Dr. Arhcer retiring 5. MH f/u scheduled as appropriate, [place] is in transition between pain management providers and may be at risk for opioid taper/discontinuation. Close f/u may be warranted during this period of time. PLANS FOR RISK MITIGATION & USE OF UNIVERSAL PRECAUTIONS (i.e. drug screening, prescription drug monitoring program checks): 1. OEND: - Pt is considered very high risk for opioid overdose per STORM and is currently on full mu-opioid. Recommend completion of overdose education and naloxoke kit offered. 2. PDMP query: PDMP completed 10/18/24 and no activity in the [place] PDMP. Details in separate note. 3. Urine Drug Screen: No [facility] UDS [facility] file. Non-[facility] provider, Dr. Archer, has documentation of completed UDS in 04/2024. No noted unexpected findings. 4. Recommend completion of suicide safety plan if clinically indicated. Suicide screen was last completed 07/16/24 and was negative. 5. Opioid consent previously completed by Dr. Archer. /matt/ LESTER BATRES PHARMD CLINICAL HOSE BUILDER Signed: 11/01/2024 12:33 Receipt Acknowledged By: 11/04/2024 10:48 /es/ SABINA BARRON WARD ATTENDANT, OCCUPATIONAL HEALTH NURSING DIRECTOR 11/01/2024 12:49 /es/ CARISSA NELSON DPT [facility] 11/01/2024 13:57 /es/ Pam Alarcon DO, MA [facility] 11/01/2024 13:19 /es/ ADRIÁN LICONA M.D STAFF PSYCHIATRIST,[facility] 11/02/2024 22:36 /es/ MARYJO [facility] 11/01/2024 15:48 /es/ Brook Mckeon,PhD,MSCP Clinical Psychologist LESTER BATRES [facility]
--- OUTSIDE RECORDS SUMMARY | 2024-10-31 07:02 | XMS_ITS ---
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 Name Role Phone DAKOTAH INFANTE Primary Care [...] REGION (WNR) MEDICARE ADVANTAGE HUMAN A INSUR Best Money DecisionsE Fidus Writer May 22, 2020 [id number] [phone] JAMI CASTELLANO PATIENT INNOVIANT E-PHARM PRESCRIPT ION SWEET WATER KANDI DIST Jan 20, 2007 [id number] [phone] JAMI CASTELLANO PATIENT MEDICARE (WNR) MEDICARE (M) PART A Nov 19, 2013 PART A [id number] JAMI CASTELLANO PATIENT MEDICARE (WNR) MEDICARE (M) PART B Nov 19, 2013 PART B [id number] JAMI CASTELLANO PATIENT MEDICARE (WNR) MEDICARE (M) PART A Nov 19, 2013 PART A [id number] JAMI CASTELLANO PATIENT MEDICARE (WNR) MEDICARE (M) PART B Nov 19, 2013 PART B [id number] JAMI CASTELLANO PATIENT MEDICARE (WNR) MEDICARE (M) PART A Nov 19, 2013 PART A [id number] JAMI CASTELLANO PATIENT MEDICARE (WNR) MEDICARE (M) PART B Nov 19, 2013 PART B [id number] JAMI CASTELLANO PATIENT MEDICARE (WNR) MEDICARE (M) PART A Nov 19, 2013 PART A [id number] JAMI CASTELLANO PATIENT MEDICARE (WNR) MEDICARE (M) PART B Nov 19, 2013 PART B [id number] JAMI CASTELLANO PATIENT MEDICARE (WNR) MEDICARE (M) PART A Nov 19, 2013 PART A [id number] JAMI CASTELLANO PATIENT MEDICARE (WNR) MEDICARE (M) PART B Nov 19, 2013 PART B [id number] JAMI CASTELLANO PATIENT MEDICARE (WNR) MEDICARE (M) PART A Nov 19, 2013 PART A [id number] JAMI CASTELLANO PATIENT MEDICARE (WNR) MEDICARE (M) PART B Nov 19, 2013 PART B [id number] JAMI CASTELLANO PATIENT MEDICARE (WNR) MEDICARE (M) PART A Nov 19, 2013 PART A [id number] JAMI CASTELLANO PATIENT MEDICARE (WNR) MEDICARE (M) PART B Nov 19, 2013 PART B [id number] JAMI CASTELLANO PATIENT MEDICARE (WNR) MEDICARE (M) PART A Nov 19, 2013 PART A [id number] JAMI CASTELLANO PATIENT MEDICARE (WNR) MEDICARE (M) PART B Nov 19, 2013 PART B [id number] JAMI CASTELLANO PATIENT MEDICARE PART D (WNR) MEDICARE (M) PART D May 22, 2020 PART D [id number] JAMI CASTELLANO PATIENT MEDICARE PART D (WNR) MEDICARE (M) PART D Feb 19, 2014 PART D [id number] JAMI CASTELLANO PATIENT OFF OF REG BIG DATA SOLUTIONS ARCHITECT BURDICK TORT FEASOR TORT Nov 26, 2017 TORT [id number] JAMI CASTELLANO PATIENT OPTUM RX PRESCRIPT ION SWEET WATER SCHOO L #1 September 19, 2008 [id number] [phone] JAMI CASTELLANO PATIENT [facility] COMPREHEN SIVE MAJOR MEDICAL SWEET WATER COUNT Y SC Jan 20, 2014 [id number] [phone] JAMI CASTELLANO PATIENT [facility] PREFERRED PROVIDER ORGANIZAT ION (PPO) TAWANNA SS ROEL HEALT H Jan 20, 2007 [id number] [phone] JAMI CASTELLANO PATIENT Selected Encounter This section includes the information on record at OR for the Encounter. Date/Time Encounter Type Encounter Description Reason Provider Source Oct 31, 2024 12:02 PM Outpatient Encounter ADMIN PAT ACTIVTIES (MASNONCT) FLORENCIA DRIVER Encounter Template Text not used by OR Plan of Treatment: Future Appointments (+ 6 months) and Future Tests (+/- 45 days) The Plan of Treatment section includes future care activities for the patient from all OR treatmentfacilities. This section includes future appointments and future orders which are active, pending or scheduled. Future Appointments This section includes appointments that were scheduled to occur 6 months from the date of the Encounter, up to a maximum of 20 appointments. The data comes from all OR treatment facilities. Appointment Date/Time Appointment Type Appointme nt Facility Name Dec 19, 2024 12:15 PM AMBULATORY - PS[facility]CHIATRY [facility] Dec 19, 2024 12:16 PM AMBULATORY - MEDICINE [facility] Dec 31, 2024 01:00 PM AMBULATORY - PS[facility]CHIATRY [facility] Jan 08, 2025 02:40 PM AMBULATORY - MEDICINE [facility] Jan 21, 2025 01:00 PM AMBULATORY - PS[facility]CHIATRY [facility] Apr 10, 2025 01:00 PM AMBULATORY - MEDICINE [facility] Apr 22, 2025 02:00 PM AMBULATORY - MEDICINE [facility] Active, Pending, and Scheduled Orders This section includes a listing of several types of active, pending, and scheduled orders, including clinic medications orders, diagnostic test orders, procedure orders and consult orders; where the start date of the order is 45 days before the date of the Encounter or 45 days after the date of theEncounter. The data comes from all [place] treatment facilities. Test Date/Time Test Type Test Details Facility Name October 09, 2024 09:32 PM Consult Order [facility] [id number] Cons [employer] Agent's Choice [facility] Lab Results: +/- 30 days of the encounter This section includes the Chemistry and Hematology Lab Results on record with OR for the patient. Radiology Reports and Pathology Reports are provided separately, in subsequent sections. Lab Results This section contains the Chemistry/Hematology Results that were resulted 30 days before or 30 daysafter the date of the Encounter. Date/Time Source Result Type Result - Unit Interpretation Reference Range Specimen Type Comment Oct 21, 2024 01:02 PM [facility] TSH (MA-PB) SERUM Specimen Type: SERUM No comment entered. Ordering Provider: DAKOTAH INFANTE Report Released Date/Time: October 08, 2024 02:34 PM Reporting Lab: [place] [facility] [address] [place] [address] Performing Lab: [place] [facility] [address] [place] [address] TSH 1.583 u[IU]/mL 0.47-5 Oct 21, 2024 01:02 PM [facility] CBC BLOOD Specimen Type: BLOOD Comment: SCAN OF SLIDE AGREES WITH AUTOMATED DIFF PLT Suspect Result. Interpret result with other clinical findings. See PLT Smear Estimate. MPV Suspect Result. Interpret result with other clinical findings. Ordering Provider: DAKOTAH INFANTE Report Released Date/Time: October 08, 2024 02:23 PM Reporting Lab: [place] [facility] [address] [place] [address] Performing Lab: [place] [facility] [address] [place] [address] WBC 8.4 10*3/uL 3.6-11.2 RBC 4.29 10*6/uL [...] SCRNPERF YES Oct 21, 2024 01:02 PM [facility] LAMOTRIGINE SERUM Specimen Typ e: SERUM Comment: This test was developed and its analytical performance characteristics have been determined by [employer] [place], [place]. It has not been cleared or approved by the U.S. Food and Drug Administration. This assay has been validated pursuant to the CLIA regulations and is used for clinical purposes. Test Performed by [facility], [employer] [place], [address] [place], [place] Wilfred Velásquez M.D., Ph.D., Director of Laboratories , CLIA [id number] Ordering Provider: LILIAM HARPER Report Released Date/Time: Jul 04, 2024 03:05 PM Reporting Lab: [place] [facility] [address] [place] [address] Performing Lab: [place] [facility] [address] [facility] LAMOTRIGINE 4.8 ug/mL 2.5-15.0 Oct 21, 2024 01:02 PM [facility] DIRECT LDL (MA-PB) PLASMA Specimen Type: PLASM A No comment entered. Ordering Provider: LILIAM HARPER Report Released Date/Time: Jul 04, 2024 03:05 PM Reporting Lab: [place] [facility] [address] [place] [address] Performing Lab: [place] [facility] [address] [place] [address] DIRECT LDL 70.7 mg/dL 0-99.9 Oct 21, 2024 01:02 PM [facility] VITAMIN D, 25-HYDROXY SERUM Specimen Type: SE RUM No comment entered. Ordering Provider: LILIAM HARPER Report Released Date/Time: Jul 04, 2024 03:05 PM Reporting Lab: [place] [facility] [address] [place] [address] Performing Lab: [place] [facility] [address] [place] [address] VITAMIN D, 25-HYDROXY 29.2 ng/mL L 30-96 Oct 21, 2024 01:02 PM [facility] CHOLESTEROL PANEL (PB) PLASMA Specimen Type: P LASMA No comment entered. Ordering Provider: LILIAM HARPER Report Released Date/Time: Jul 04, 2024 03:05 PM Reporting Lab: [place] [facility] [address] [place] [address] Performing Lab: [place] [facility] [address] [place] [address] CHOLESTEROL 138 mg/dL 0-200 TRIGLYCERIDE 223 mg/dL H 0-150 CALCULATED LDL 68.4 mg/dL HDL(New) 25.0 mg/dL L >40 HDL % OF TOTAL CHOLESTEROL (PB) 18.1 >25 Oct 21, 2024 01:02 PM [facility] IRON PLASM A Specimen Type: PLASMA No comment entered. Ordering Provider: LILIAM HARPER Report Released Date/Time: Jul 04, 2024 03:05 PM Reporting Lab: [place] [facility] [address] [place] [address] Performing Lab: [place] [facility] [address] [place] [address] IRON 82 ug/dL 50-170 Oct 21, 2024 01:02 PM [facility] FOLATE (PB) SERUM Specimen Typ e: SERUM No comment entered. Ordering Provider: LILIAM HARPER Report Released Date/Time: Jul 04, 2024 03:05 PM Reporting Lab: [place] [facility] [address] [place] [address] Performing Lab: [place] [facility] [address] [place] [address] FOLATE (PB) 14.5 ng/mL 7-20 Oct 21, 2024 01:02 PM [facility] B12 SERUM Specimen Type: SERUM No comment entered. Ordering Provider: LILIAM HARPER Report Released Date/Time: Jul 04, 2024 03:05 PM Reporting Lab: [place] [facility] [address] [place] [address] Performing Lab: [place] [facility] [address] [place] [address] B12 862 pg/mL H 213-816 Oct 21, 2024 01:02 PM [facility] HGA1C BLOOD Specimen Type: BLOOD No comment entered. Ordering Provider: LILIAM HARPER Report Released Date/Time: Jul 04, 2024 03:05 PM Reporting Lab: [place] [facility] [address] [place] [address] Performing Lab: [place] [facility] [address] [place] [address] HGA1C 6.7 H 4.0-6.0 Oct 21, 2024 01:02 PM [facility] COMPREHENSIVE METABOLIC PANEL PLASMA Specimen Type: PLASMA No comment entered. Ordering Provider: LILIAM HARPER Report Released Date/Time: Jul 04, 2024 03:05 PM Reporting Lab: [place] [facility] [address] [place] [address] Performing Lab: [place] [facility] [address] [place] [address] CREATININE 0.67 mg/dL 0.6-1.1 UREA NITROGEN 9 [...] ALL of a patient's completed or amended OR Advance and Rescinded Directives. The entries below indicate that a directive exists for the patient, but an actual copy is not included with this document. The data comes from all OR facilities. Date Advance Directives Provider Source Dec 18, 2023 ADVANCE DIRECTIVE PETER BOWLINGTONIA MARIVEL FF [facility] Radiology Reports: +/- 30 days of the [...] the Encounter. The data comes from all OR treatment facilities. Date/Time Radiology Report Provider Source Oct 30, 2024 12:02 PM LDCT LUNG CANCER S CREENING: JAMI CASTELLANO [id number] -[id number] F Exm Date: OCT 30, 2024@12:02 Req Phys: DAKOTAH INFANTE Loc: PB-MAITE PACT [place] PART TIME WH (Req Img Loc: PB-CT IMAGING Service: Unknown [facility] [place] [address] (Case [id number] COMPLETE) LDCT LUNG CANCER SCREENING (CT Detailed) CPT:81652 Reason for Study: screening Clinical History: Responsible Attending: Sheeba Attending Contact Number: [phone] Resident Contact Number: Report Status: Verified Date Reported: OCT 31, 2024 Date Verified: OCT 31, 2024 Java Websphere Developer E-Sig: Report: EXAM: LDCT LUNG CANCER SCREENING ADDITIONAL HISTORY: Annual Screening COMPARISON: 02/22/2023 PROTOCOL: Screening protocol, low dose, non-contrast CT chest was performed at the local OR facility in accordance with Lung-Rads 2021. Additional coronal and sagittal reconstructions. MIP reconstructions were reviewed. 2589 images were received by the OR National Teleradiology Program (NTP) for interpretation. RADIATION [...] MODIFIER: N/A. READING PHYSICIAN: Alton Willis MD -[id number] 10/31/2024 8:01 PDT [facility] National Teleradiology Program [phone] (For Medical Practitioner Use Only) Attention Patients / Veterans: If you have questions or concerns about these test results, please contact your ordering provider or primary care team. Primary Interpreting Staff: RADIOLOGY,OUTSIDE SERVICE, Staff Physician / RADIOLOGY,OUTSIDE SERVICE ANA BLANCO [facility] October 09, 2024 01:51 PM SPINE LUMBOSACRAL 2 OR 3 VIEWS: JAMI CASTELLANO [id number] -[id number] F Exm Date: OCTOBER 09, 2024@13:51 Req Phys: DAKOTAH INFANTE Loc: PB-MAITE PACT [place] JAIME WH (Req Img Loc: PB-XRAY [place] Service: [place] [address] (Case [id number] COMPLETE) SPINE LUMBOSACRAL 2 OR 3 VIEWS (RAD Detailed) CPT:36547 Reason for Study: low back pain Clinical History: new pain management consult Report Status: Verified Date Reported: OCTOBER 09, 2024 Date Verified: OCTOBER 09, 2024 Java Websphere Developer E-Sig: Report: EXAM: Lumbar spine AP, lateral, [...] Primary Interpreting Staff: Alejandra Moseley M.D., Radiology (Java Websphere Developer, no e-sig) /ALEJANDRA SEPULVEDA [facility] Encounter Notes: All associated encounter notes This section contains the clinical notes associated to the Encounter. Date/Time Encounter Note(s) Provider Source Oct 31, 2024 12:02 PM PRIMARY CARE DIAGN OSTIC STUDY NOTE: LOCAL TITLE: LDCT FOLLOW-UP NOTE PB STANDARD TITLE: PRIMARY CARE DIAGNOSTIC STUDY NOTE DATE OF NOTE: OCT 31, 2024@12:02 ENTRY DATE: OCT 31, 2024@12:02:27 AUTHOR: DRIVER,SONJIA EXP COSIGNER: URGENCY: STATUS: COMPLETED TRACKING OF NODULE INDICATED: Date of current image: Date: October 30, 2024 Lung RADS Score: 2 Incidental Findings: No incidental findings were noted. Plan: Interval until next LDCT scan is due: 12 months Patient Notification of results: Results letter sent to patient. Smoking history: 1 ppd x 40 years, current smoker. /matt/ ROBERT Bush, RN LCS Program Signed: 10/31/2024 12:09 FLORENCIA DRIVER [facility]
--- OUTSIDE RECORDS SUMMARY | 2024-10-31 07:05 | XMS_ITS | Encounter Summary ---
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 Name Role Phone DAKOTAH INFANTE [...] Name Patient's Relationship to Policy [facility] (WNR) MEDICARE ADVANTAGE HUMAN A INSUR Charge PaymentE SelStor May 22, 2020 [id number] JAMI CASTELLANO PATIENT INNOVIANT E-PHARM PRESCRIPT ION SWEET WATER KANDI DIST Jan 20, 2007 [id number] [phone] JAMI CASTELLANO PATIENT MEDICARE (WNR) MEDICARE (M) PART A Nov 19, 2013 PART A [id number] JAMI CASTELLANO PATIENT MEDICARE (WNR) MEDICARE (M) PART B Nov 19, 2013 PART B [id number] JAMI CASTELLANO PATIENT MEDICARE (WNR) MEDICARE (M) PART A Nov 19, 2013 PART A [id number] JAMI CASTELLANO PATIENT MEDICARE (WNR) MEDICARE (M) PART B Nov 19, 2013 PART B [id number] JAMI CASTELLANO PATIENT MEDICARE (WNR) MEDICARE (M) PART A Nov 19, 2013 PART A [id number] JAMI CASTELLANO PATIENT MEDICARE (WNR) MEDICARE (M) PART B Nov 19, 2013 PART B [id number] JAMI CASTELLANO PATIENT MEDICARE (WNR) MEDICARE (M) PART B Nov 19, 2013 PART B [id number] JAMI CASTELLANO PATIENT MEDICARE (WNR) MEDICARE (M) PART A Nov 19, 2013 PART A [id number] JAMI CASTELLANO PATIENT MEDICARE (WNR) MEDICARE (M) PART A Nov 19, 2013 PART A [id number] JAMI CASTELLANO PATIENT MEDICARE (WNR) MEDICARE (M) PART B Nov 19, 2013 PART B [id number] JAMI CASTELLANO PATIENT MEDICARE (WNR) MEDICARE (M) PART A Nov 19, 2013 PART A [id number] JAMI CASTELLANO PATIENT MEDICARE (WNR) MEDICARE (M) PART B Nov 19, 2013 PART B [id number] JAMI CASTELLANO PATIENT MEDICARE (WNR) MEDICARE (M) PART B Nov 19, 2013 PART B [id number] JAMI CASTELLANO PATIENT MEDICARE (WNR) MEDICARE (M) PART A Nov 19, 2013 PART A [id number] JAMI CASTELLANO PATIENT MEDICARE (WNR) MEDICARE (M) PART A Nov 19, 2013 PART A [id number] JAMI CASTELLANO PATIENT MEDICARE (WNR) MEDICARE (M) PART B Nov 19, 2013 PART B [id number] JAMI CASTELLANO PATIENT MEDICARE PART D (WNR) MEDICARE (M) PART D May 22, 2020 PART D [id number] JAMI CASTELLANO PATIENT MEDICARE PART D (WNR) MEDICARE (M) PART D Feb 19, 2014 PART D [id number] JAMI CASTELLANO PATIENT OFF OF REG RIGHT OF WAY BUYER BURDICK TORT FEASOR TORT Nov 26, 2017 TORT [id number] JAMI CASTELLANO PATIENT OPTUM RX PRESCRIPT ION SWEET WATER SCHOO L #1 September 19, 2008 [id number] [phone] JAMI CASTELLANO PATIENT UMR COMPREHEN SIVE MAJOR MEDICAL SWEET WATER COUNT Y SC Jan 20, 2014 [id number] [phone] JAMI CASTELLANO PATIENT [facility]MR PREFERRED PROVIDER ORGANIZAT ION (PPO) TAWANNA SS ROEL HEALT H Jan 20, 2007 [id number] [phone] JAMI CASTELLANO PATIENT Selected Encounter This section includes the information on record at [place] for the Encounter. Date/Time Encounter Type Encounter Description Reason Pro vider Source Oct 31, 2024 12:05 PM Outpatient Encounter ADMIN PAT ACTIVTIES (MASNONCT) IHE Encounter Template Text not used by [place] Plan of Treatment: Future Appointments (+ 6 [...] 2024 12:15 PM AMBULATORY - PSYCHIATRY [facility] Dec 19, 2024 12:16 PM AMBULATORY - MEDICINE [facility] Dec 31, 2024 01:00 PM AMBULATORY - PSYCHIATRY [facility] Jan 08, 2025 02:40 PM AMBULATORY - MEDICINE [facility] Jan 21, 2025 01:00 PM AMBULATORY - PSYCHIATRY [facility] Apr 10, 2025 01:00 PM AMBULATORY - MEDICINE [facility] Apr 22, 2025 02:00 PM AMBULATORY - MEDICINE [facility] Active, Pending, and Scheduled Orders This section includes a listing of several types of active, pending, and scheduled orders, including clinic medications orders, diagnostic test orders, procedure orders and consult orders; where the start date of the order is 45 days before the date of the Encounter or 45 days after the date of theEncounter. The data comes from all [place] treatment facilities. Test Date/Time Test Type Test Details Facility Name October 09, 2024 09:32 PM Consult Order [facility] [id number] Cons Social Media Project Manager's Choice [facility] Lab Results: +/- 30 days [...] Type Comment Oct 21, 2024 01:02 PM [facility] TSH (MA-PB) SERUM Specimen Type: SERUM No comment entered. Ordering Provider: DAKOTAH INFANTE Report Released Date/Time: October 08, 2024 02:34 PM Reporting Lab: [place] [facility] [address] [place] [address] Performing Lab: [place] [facility] [address] [place] [address] TSH 1.583 u[IU]/mL 0.47-5 Oct 21, 2024 01:02 PM [facility] CBC BLOOD Specimen Type: BLOOD Comment: SCAN OF SLIDE AGREES WITH AUTOMATED DIFF PLT Suspect Result. Interpret result with other clinical findings. See PLT Smear Estimate. MPV Suspect Result. Interpret result with other clinical findings. Ordering Provider: DAKOTAH INFANTE Report Released Date/Time: October 08, 2024 02:23 PM Reporting Lab: [place] [facility] [address] [place] [address] Performing Lab: [place] [facility] [address] [place] [address] WBC 8.4 10*3/uL 3.6-11.2 RBC 4.29 10*6/uL [...] SCRNPERF YES Oct 21, 2024 01:02 PM [facility] LAMOTRIGINE SERUM Specimen Typ e: SERUM Comment: This test was developed and its analytical performance characteristics have been determined by [employer]: turn off the lights [place], [place]. It has not been cleared or approved by the U.S. Food and Drug Administration. This assay has been validated pursuant to the CLIA regulations and is used for clinical purposes. Test Performed by [employer], [address] [place], [address] [place], [place] Wilfred Velásquez M.D., Ph.D., Director of Laboratories , CLIA [id number] Ordering Provider: LILIAM HARPER Report Released Date/Time: Jul 04, 2024 03:05 PM Reporting Lab: [place] [facility] [address] [place] [address] Performing Lab: [place] [facility] [address] [facility] LAMOTRIGINE 4.8 ug/mL 2.5-15.0 Oct 21, 2024 01:02 PM [facility] DIRECT LDL (MA-PB) PLASMA Specimen Type: PLASM A No comment entered. Ordering Provider: LILIAM HARPER Report Released Date/Time: Jul 04, 2024 03:05 PM Reporting Lab: [place] [facility] [address] [place] [address] Performing Lab: [place] [facility] [address] [place] [address] DIRECT LDL 70.7 mg/dL 0-99.9 Oct 21, 2024 01:02 PM [facility] VITAMIN D, 25-HYDROXY SERUM Specimen Type: SE RUM No comment entered. Ordering Provider: LILIAM HARPER Report Released Date/Time: Jul 04, 2024 03:05 PM Reporting Lab: [place] [facility] [address] [place] [address] Performing Lab: [place] [facility] [address] [place] [address] VITAMIN D, 25-HYDROXY 29.2 ng/mL L 30-96 Oct 21, 2024 01:02 PM [facility] CHOLESTEROL PANEL (PB) PLASMA Specimen Type: P LASMA No comment entered. Ordering Provider: LILIAM HARPER Report Released Date/Time: Jul 04, 2024 03:05 PM Reporting Lab: [place] [facility] [address] [place] [address] Performing Lab: [place] [facility] [address] [place] [address] CHOLESTEROL 138 mg/dL 0-200 TRIGLYCERIDE 223 mg/dL H 0-150 CALCULATED LDL 68.4 mg/dL HDL(New) 25.0 mg/dL L >40 HDL % OF TOTAL CHOLESTEROL (PB) 18.1 >25 Oct 21, 2024 01:02 PM [facility] IRON PLASM A Specimen Type: PLASMA No comment entered. Ordering Provider: LILIAM HARPER Report Released Date/Time: Jul 04, 2024 03:05 PM Reporting Lab: [place] [facility] [address] [place] [address] Performing Lab: [place] [facility] [address] [place] [address] IRON 82 ug/dL 50-170 Oct 21, 2024 01:02 PM [facility] FOLATE (PB) SERUM Specimen Typ e: SERUM No comment entered. Ordering Provider: LILIAM HARPER Report Released Date/Time: Jul 04, 2024 03:05 PM Reporting Lab: [place] [facility] [address] [place] [address] Performing Lab: [place] [facility] [address] [place] [address] FOLATE (PB) 14.5 ng/mL 7-20 Oct 21, 2024 01:02 PM [facility] B12 SERUM Specimen Type: SERUM No comment entered. Ordering Provider: LILIAM HARPER Report Released Date/Time: Jul 04, 2024 03:05 PM Reporting Lab: [place] [facility] [address] [place] [address] Performing Lab: [place] [facility] [address] [place] [address] B12 862 pg/mL H 213-816 Oct 21, 2024 01:02 PM [facility] HGA1C BLOOD Specimen Type: BLOOD No comment entered. Ordering Provider: LILIAM HARPER Report Released Date/Time: Jul 04, 2024 03:05 PM Reporting Lab: [place] [facility] [address] [place] [address] Performing Lab: [place] [facility] [address] [place] [address] HGA1C 6.7 H 4.0-6.0 Oct 21, 2024 01:02 PM [facility] COMPREHENSIVE METABOLIC PANEL PLASMA Specimen Type: PLASMA No comment entered. Ordering Provider: LILIAM HARPER Report Released Date/Time: Jul 04, 2024 03:05 PM Reporting Lab: [place] [facility] [address] [place] [address] Performing Lab: [place] [facility] [address] [place] [address] CREATININE 0.67 mg/dL 0.6-1.1 UREA NITROGEN 9 [...] Dec 18, 2023 ADVANCE DIRECTIVE PETER BOWLING [facility][NOTE 3] Radiology Reports: +/- 30 days of the [...] the Encounter. The data comes from all [place] treatment facilities. Date/Time Radiology Report Provider Source Oct 30, 2024 12:02 PM LDCT LUNG CANCER S CREENING: JAMI CASTELLANO [id number] -[id number] F Exm Date: OCT 30, 2024@12:02 Req Phys: DAKOTAH INFANTE Loc: PB-MAITE PACT [place] VERSE WRITER WH (Req Img Loc: PB-CT IMAGING Service: Unknown DIPAK [facility]STR[facility] [place] [address] (Case [id number] COMPLETE) LDCT LUNG CANCER SCREENING (CT Detailed) CPT:35278 Reason for Study: screening Clinical History: Responsible Attending: Naresh Attending Contact Number: [phone] Resident Contact Number: Report Status: Verified Date Reported: OCT 31, 2024 Date Verified: OCT 31, 2024 Health And Nutrition Specialist E-Sig: Report: EXAM: LDCT LUNG CANCER SCREENING ADDITIONAL HISTORY: Annual Screening COMPARISON: 02/22/2023 PROTOCOL: Screening protocol, low dose, non-contrast CT chest was performed at the local [place] facility in accordance with Lung-Rads 2021. Additional coronal and sagittal reconstructions. MIP reconstructions were reviewed. 2589 images were received by the [place] National Teleradiology Program (NTP) for interpretation. RADIATION [...] MODIFIER: N/A. READING PHYSICIAN: Alton Willis MD -[id number] 10/31/2024 8:[address] [facility] National Teleradiology Program [phone] (For Medical Practitioner Use Only) Attention Patients / Veterans: If you have questions or concerns about these test results, please contact your ordering provider or primary care team. Primary Interpreting Staff: RADIOLOGY,OUTSIDE SERVICE, Staff Physician / RADIOLOGY,OUTSIDE SERVICE ANA BLANCO [facility] October 09, 2024 01:51 PM SPINE LUMBOSACRAL 2 OR 3 VIEWS: JAMI CASTELLANO [id number] -[id number] F Exm Date: OCTOBER 09, 2024@13:51 Req Phys: NARESHDAKOTAHISAMAR Kramer Loc: PB-MAITE PACT [place] LEWIS (Req Img Loc: PB-XRAY [place] Service: [place] [address] (Case [id number] COMPLETE) SPINE LUMBOSACRAL 2 OR 3 VIEWS (RAD Detailed) CPT:73767 Reason for Study: low back pain Clinical History: new pain management consult Report Status: Verified Date Reported: OCTOBER 09, 2024 Date Verified: OCTOBER 09, 2024 Health And Nutrition Specialist E-Sig: Report: EXAM: Lumbar spine AP, lateral, [...] Primary Interpreting Staff: Alejandra Moseley M.D., Radiology (Health And Nutrition Specialist, no e-sig) /ALEJANDRA SEPULVEDA [facility] Encounter Notes: All associated encounter notes This section contains the clinical notes associated to the Encounter. Date/Time Encounter Note(s) Provider Source Oct 31, 2024 12:05 PM PRIMARY CARE KAIDEN RS: SHELLEY TITLE: TEST RESULT LETTER PB STANDARD TITLE: PRIMARY CARE LETTERS DATE OF NOTE: OCT 31, 2024@12:05 ENTRY DATE: OCT 31, 2024@12:05:25 AUTHOR: FLORENCIA DRIVER EXP COSIGNER: URGENCY: STATUS: COMPLETED [facility] [address] [place], [place] [address] OCT 31, 2024 JAMI PISANO CASTELLANO [address] [place], [place] [address] Dear Jami Castellano, Thank you for completing your Lung Cancer Screening Imaging. You are very important to us. Lung cancer is treatable, and patients do better if it is found early. The national recommendation for Lung Cancer Screening is to continue through age 80 and/or until you have been cigarette free for 15 years. RADIOLOGY(NON-INVASIVE TEST RESULTS: Low Dose CT for Lung Cancer Screening DATE of EXAM: 10/30/2024 Lung-RADS category 2: Benign appearance or behavior. Nodules with a very low likelihood of becoming a clinically active cancer due to size or lack of growth. MANAGEMENT RECOMMENDATION: Continue annual screening with low-dose CT in 12 months. You will be due for your next Lung Cancer Screen imaging October 2025. If you have a cold or any lung congestion when you are due for your next screen, it is best to reschedule for 3-4 weeks to allow time for potential mucous to clear. Lung cancer screening can detect lung cancer but it does not prevent it. Rarely, a CT scan can miss a small lung cancer. Contact your primary care provider if you develop new symptoms, such as worsening shortness of breath, change in a cough, or coughing up blood. Should you have any questions or need assistance with smoking cessation, please contact your Primary Care provider. [facility] SMOKING CESSATION: [phone] (group/individual support) and clinical pharmacy for smoking cessation medication modalities. OTHER SMOKING CESSATION RESOURCES: 9-837-DQFT-VET (1:1 coaching) and veterans.smokefree.gov We understand that quitting cigarette smoking is difficult, but it is the best way to improve your health. FUTURE APPOINTMENTS: 11/25/2024 13:00 PB-MAITE BH MHC IND SWS CRI 12/19/2024 12:15 PB-MAITE CVT BH PSI [place] 12/19/2024 12:16 PB-CVT BH PSI IND [place] 04/10/2025 13:00 PB-MAITE PACT [place] VERSE WRITER WH 04/22/2025 14:00 V15 [facility] PACT CPS 01 PH DRIVER,FLORENCIA SMITH [facility]
--- OUTSIDE RECORDS SUMMARY | 2024-12-15 18:34 | XMS_ITS | Continuity of Care Document ---
Author Name [facility] Organization [facility] Care Team Providers Care Porter Bath Name Role Phone [facility] Unavailable Unavailable Problems Combined list of problems from Department of Defense and [facility] Affairs facilities. It does not include entries that were removed or entered in error. Problem Status Onset Date Problem Type Date of Resolution Comments Source Adjustment Disorder Unspecified * (ICD-9-CM 309.9) Active Condition [facility] Allergic Rhinitis (SCT 91369837) Active Condition [facility] Allergic rhinitis * (ICD-9-CM 477.9) Active Condition [facility] Bilateral tinnitus Active Condition [facility] Bipolar disorder Active Condition [facility] Cervicalgia Active Condition [facility] Chronic obstructive lung disease Active Condition [facility] Chronic post-traumatic stress disorder Active Condition [facility] Chronic sinusitis (ICD-9-CM 473.9) Active Condition [facility] Chronic tremor Active Condition 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 Condition [facility] Cyst of pineal gland Active Condition Jul 24, 2023 Entered By: MANJINDER INFANTE Comment: pt reports found in 2011 [facility] Depression (SCT [id number]) Active Condition [facility] Diabetes mellitus Active Condition [facility] Diabetes Mellitus Type 2 (SCT [id number]) Active Condition [facility] Diabetes Mellitus Type II or unspecified Active Condition [facility] Diabetes Mellitus Type II or unspecified * (ICD-9-CM 250.00) Active Condition [facility] Diabetic neuropathy Active Condition [facility] Dyslipidemia (ICD-9-CM 272.4) Active Condition [facility] Esophagitis, unspecified (ICD-9-CM 530.10) Active Condition [facility] Female stress incontinence Active Condition [facility] Fibromyalgia * (ICD-9-CM 729.1) [facility] Generalized anxiety disorder Active Condition [facility] GERD - Gastro-Esophageal Reflux Disease ([facility] [id number]) Active [facility] Gout ([facility] [id number]) Active Condition [facility] Health maintenance alteration [facility] Condition [facility] Housing problem Active Condition [facility] Hyperlipidemia Active Condition [facility] Hyperlipidemia * (ICD-9-CM 272.4) Active Condition [facility] Hypertension Active Condition [facility] Hypertension * (ICD-9-CM 401.9) Active Condition [facility] Low back pain Active Condition [facility] Migraine Active Condition [facility] Mood disorder with depressive features due to general medical condition Active Condition [facility] Nausea Vomiting and Diarrhea (ICD-9-CM 787.99) Active Condition [facility] Neurocognitive disorder Active Condition [facility] Nicotine dependence (SNOMED CT [id number]) Active Condition [facility] Obstructive sleep apnea of adult Active Condition [facility] Osteoarthritis Active Condition [facility] Rosacea * (ICD-9-CM 695.3) Active Condition [facility] Sensorineural hearing loss of bilateral ears Active Condition [facility] Sleep Apnea Active Condition Aug 14, 2009 Entered By: HIMANSHU HENDERSON Comment: per sleep study report dated 07/29/09 [facility] Somatoform pain disorder Active Condition [facility] Sting of Hornets, Wasps, and Bees Causing Poisoning and Toxic Reactions Active Condition [facility] Tobacco Use Disorder Active Condition Aug 26, 2005 Entered By: JOSE DANIEL ROSARIO MD Comment: for 30 years [facility] Tobacco Use Disorder, Continuous (ICD-9-CM 305.1) Active Condition [facility] Diagnosis: ICD-10-CM 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 Active Diagnosis [facility] Diagnosis: ICD-10-CM E11.9 Type 2 diabetes mellitus without complications Active Diagnosis [facility] Diagnosis: ICD-10-CM J44.9 Chronic obstructive pulmonary disease, unspecified Active Diagnosis [facility] Diagnosis: ICD-10-CM Z46.1 Encounter for fitting and adjustment of hearing aid Active Diagnosis [facility] Diagnosis: ICD-10-CM F31.9 Bipolar disorder, unspecified Active Diagnosis [facility] Diagnosis: ICD-10-CM F43.12 Post-traumatic stress disorder, chronic Active Diagnosis [facility] Diagnosis: ICD-10-CM J18.8 Other pneumonia, unspecified organism Active Diagnosis [facility] Diagnosis: ICD-10-CM R05.1 Acute cough Active Diagnosis [facility] Diagnosis: ICD-10-CM Z71.89 Other specified counseling Active Diagnosis [facility] Diagnosis: ICD-10-CM H93.13 Tinnitus, bilateral Active Diagnosis [facility] Diagnosis: ICD-10-CM H93.19 Tinnitus, unspecified ear Active Diagnosis [facility] Diagnosis: ICD-10-CM I20.9 Angina pectoris, unspecified Active Diagnosis [facility] Diagnosis: ICD-10-CM I25.10 Athscl heart disease of [place] coronary artery w/o ang pctrs Active Diagnosis [facility] Diagnosis: ICD-10-CM R11.2 Nausea with vomiting, unspecified Active Diagnosis [facility] Diagnosis: ICD-10-CM L25.8 Unspecified contact dermatitis due to other agents Active Diagnosis [facility] Diagnosis: ICD-10-CM S50.362A Insect bite (nonvenomous) of left elbow, initial encounter Active Diagnosis [facility] Diagnosis: ICD-10-CM Z00.01 Encounter for general adult medical exam w abnormal findings Active Diagnosis [facility] Diagnosis: ICD-10-CM S90.562A Insect bite (nonvenomous), left ankle, initial encounter Active Diagnosis [facility] Diagnosis: ICD-10-CM L98.9 Disorder of the skin and subcutaneous tissue, unspecified Active Diagnosis [facility] Diagnosis: ICD-10-CM R25.1 Tremor, unspecified Active Diagnosis [facility] Medications Combined list of outpatient medications from Department of Defense and Veterans Affairs facilities.Medications provided include 1) outpatient medications from the last 15 months, and 2) patient-reported medications. Medication Details Route Status Patient Instructions Prescription Expires Prescription Number Last Dispense Date Ordering Provider Order Date Order Qty Source ALBUTEROL SO4 90MCG/ACTUA T (CFC-F) INHL,ORAL,8 .5GM INHALE 2 PUFFS BY ORAL INHALATI ON FOUR TIMES A DAY NEEDED FOR BREATHIN G. SHAKE WELL. RINSE MOUTHPIE CE FREQUENT LY TO PREVENT CLOGGING . RESPIR ATORY (INHAL ATION) SUSPEND ED 03/06/2025 [id number] 5 Oswaldo INFANTE R 2023 3 [facility] ALBUTEROL SO4 90MCG/ACTUA T (CFC-F) INHL,ORAL,8 .5GM INHALE 2 PUFFS BY ORAL INHALATI ON FOUR TIMES A DAY NEEDED FOR BREATHIN G. SHAKE WELL. RINSE MOUTHPIE CE FREQUENT LY TO PREVENT CLOGGING . RESPIR ATORY (INHAL ATION) DISCONT INUED 05/21/2024 [id number] 4 Oswaldo INFANTE R 2023 3 [facility] ALOGLIPTIN 25MG TAB TAKE ONE TABLET BY MOUTH EVERY MORNING FOR DIABETES ORAL DISCONT INUED BY PRINCE R 07/04/2024 [id number] LILIAM HARPER 2023 90 [facility] AMLODIPINE BESYLATE 2.5MG TAB TAKE ONE TABLET BY MOUTH TWICE A DAY FOR HIGH BLOOD PRESSURE ORAL SUSPEND ED 10/09/2025 [id number] 5 Oswaldo INFANTE R [address] [place] [address] [facility] AMLODIPINE BESYLATE 2.5MG TAB TAKE ONE TABLET BY MOUTH TWICE A DAY FOR HIGH BLOOD PRESSURE ORAL DISCONT INUED 06/28/2025 [id number] 5 Oswaldo INFANTE R 2024 180 [facility] AMLODIPINE BESYLATE 2.5MG TAB TAKE ONE TABLET BY MOUTH TWICE A DAY FOR HIGH BLOOD PRESSURE ORAL DISCONT INUED 03/06/2025 [id number] 4 Oswaldo INFANTE R 2023 180 [facility] AMLODIPINE BESYLATE 2.5MG TAB TAKE ONE TABLET BY MOUTH TWICE A DAY FOR HIGH BLOOD PRESSURE ORAL DISCONT INUED 01/16/2025 [id number] 4 Oswaldo INFANTE 2023 180 [facility] AMLODIPINE BESYLATE 2.5MG TAB TAKE ONE TABLET BY MOUTH TWICE A DAY FOR HIGH BLOOD PRESSURE ORAL DISCONT INUED 12/04/2024 [id number] YONI [place] IN 2023 180 [facility] AMLODIPINE BESYLATE 2.5MG TAB TAKE ONE TABLET BY MOUTH TWICE A DAY ORAL DISCONT INUED 11/30/2024 [id number] 4 Oswaldo INFANTE 2023 60 [facility] AMLODIPINE BESYLATE 2.5MG TAB TAKE ONE TABLET BY MOUTH TWICE A DAY ORAL DISCONT INUED 06/16/2024 [id number] YONI [place] IN 2023 60 [facility] APPLE CIDER VINEGAR CAP/TAB TAKE 1 CAP/TAB BY MOUTH ONCE A DAY ORAL ACTIVE LILIAM HARPER 2023 [facility] ATORVASTATI N CA 80MG TAB TAKE ONE-HALF TABLET BY MOUTH EVERY EVENING FOR CHOLESTE ROL. REPORT ANY UNEXPLAI JENNIFFER MUSCLE PAIN/WEA KNESS TO PROVIDER THIS TABLET IS TO BE CUT IN HALF FOR YOUR DOSE ORAL SUSPEND ED 10/09/2025 [id number] 5 Oswaldo INFANTE 2024 45 [facility] ATORVASTATI N CA 80MG TAB TAKE ONE-HALF TABLET BY MOUTH EVERY EVENING FOR CHOLESTE ROL. REPORT ANY UNEXPLAI JENNIFFER MUSCLE PAIN/WEA KNESS TO PROVIDER THIS TABLET IS TO BE CUT IN HALF FOR YOUR DOSE ORAL DISCONT INUED 01/01/2025 [id number] 5 Oswaldo INFANTE 2023 45 [facility] ATORVASTATI N CA 80MG TAB TAKE ONE-HALF TABLET BY MOUTH EVERY EVENING FOR CHOLESTE ROL. REPORT ANY UNEXPLAI JENNIFFER MUSCLE PAIN/WEA KNESS TO PROVIDER THIS TABLET IS TO BE CUT IN HALF FOR YOUR DOSE ORAL DISCONT INUED 11/30/2024 [id number] 4 Oswaldo INFANTE R 2023 45 [facility] ATORVASTATI N CA 80MG TAB TAKE ONE-HALF TABLET BY MOUTH EVERY EVENING FOR CHOLESTE ROL. REPORT ANY UNEXPLAI JENNIFFER MUSCLE PAIN/WEA KNESS TO PROVIDER THIS TABLET IS TO BE CUT IN HALF FOR YOUR DOSE ORAL DISCONT INUED 02/29/2024 [id number] 4 Oswaldo INFANTE R 2022 45 [facility] ATORVASTATI N CA 80MG TAB TAKE ONE-HALF TABLET BY MOUTH AT BEDTIME ORAL ACTIVE Frances CRUZ MD 2016 [facility] BACITRACIN 500UNT/GM OINT,TOP APPLY TO AFFECTED AREA(S) TWICE DAILY (EXTERNA L USE ONLY) TOPICA L 10/20/2023 [id number] PAULA COLEMAN VID B 2023 30 [facility] BUPROPION HCL 150MG 12HR TAB,SA TAKE ONE TABLET BY MOUTH EVERY MORNING FOR 3 DAYS, THEN TAKE ONE TABLET TWICE A DAY FOR 87 DAYS FOR SMOKING CESSATIO N SWALLOW WHOLE - DO NOT CRUSH OR CHEW. FOR REFILL CONTACT YOUR CLINIC, YOU MAY CONTACT [phone] FOR ADDITION AL SUPPORT. SWALLOW WHOLE - DO NOT CRUSH OR CHEW. FOR REFILL CONTACT YOUR CLINIC, YOU MAY CONTACT [phone] FOR ADDITION AL SUPPORT. ORAL DISCONT INUED BY PRINCE R 10/02/2024 [id number] LILIAM HARPER 2024 177 [facility] CETIRIZINE HCL 10MG TAB TAKE ONE TABLET BY MOUTH ONCE A DAY FOR ALLERGY SYMPTOMS ORAL SUSPEND ED 03/06/2025 [id number] 5 Oswaldo INFANTE 2023 90 [facility] CETIRIZINE HCL 10MG TAB TAKE ONE TABLET BY MOUTH ONCE A DAY FOR ALLERGY SYMPTOMS ORAL DISCONT INUED 01/31/2025 [id number] Oswaldo INFANTE R 2023 90 [facility] CHOLECALCIF ELIZABETH 50MCG (2,000UNIT) TAB TAKE TWO TABLETS BY MOUTH ONCE A DAY FOR VITAMIN D DEFICIEN CY ORAL ACTIVE 04/10/2025 [id number] LILIAM HARPER 2023 200 [facility] CHOLECALCIF ELIZABETH 50MCG (2,000UNIT) TAB TAKE ONE TABLET BY MOUTH ONCE A DAY FOR VITAMIN D DEFICIEN CY. ORAL DISCONT INUED (EDIT) 11/30/2024 [id number] 4 Oswaldo INFANTE [address] [place] [address] [facility] CHOLECALCIF ELIZABETH 50MCG (2,000UNIT) TAB TAKE ONE TABLET BY MOUTH ONCE A DAY FOR VITAMIN D DEFICIEN CY. ORAL DISCONT INUED 02/15/2024 [id number] 4 Oswaldo INFANTE [address] [place] [address] [facility] CIPROFLOXAC IN HCL 500MG TAB TAKE ONE-HALF TABLET BY MOUTH TWICE A DAY ORAL ACTIVE Frances CRUZ MD 2016 [facility] CYANOCOBALA MIN 500MCG TAB TAKE ONE TABLET BY MOUTH ONCE A DAY FOR VITAMIN B12 SUPPLEME NTATION ORAL ACTIVE 02/23/2025 [id number] 5 Oswaldo INFANTE [address] [place] [address] [facility] CYANOCOBALA MIN 500MCG TAB TAKE ONE TABLET BY MOUTH ONCE A DAY FOR VITAMIN B12 SUPPLEME NTATION ORAL DISCONT INUED 01/06/2025 [id number] 5 Oswaldo INFANTE [address] [place] [address] [facility] CYANOCOBALA MIN 500MCG TAB TAKE ONE TABLET BY MOUTH ONCE A DAY FOR VITAMIN B12 SUPPLEME NTATION ORAL DISCONT INUED 09/25/2024 [id number] 5 Oswaldo INFANTE R [address] [place] [address] [facility] CYANOCOBALA MIN 500MCG TAB TAKE ONE TABLET BY MOUTH ONCE A DAY FOR VITAMIN B12 SUPPLEME NTATION ORAL DISCONT INUED 07/08/2024 [id number] LILIAM HARPER [address] [place] [address] [facility] DULOXETINE HCL 20MG CAP,EC TAKE TWO CAPSULES BY MOUTH TWICE A DAY FOR MOOD DO NOT ABRUPTLY DISCONTI NUE MEDICATI ON. ORAL ACTIVE 09/27/2025 [id number] JADA TROY NDObi R 2024 360 [facility] DULOXETINE HCL 30MG CAP,EC TAKE 1 CAPSULE BY MOUTH TWICE A DAY ORAL ACTIVE DASH SMITH MD 2016 [facility] DULOXETINE HCL 60MG CAP,EC TAKE ONE CAPSULE BY MOUTH ONCE A DAY DO NOT ABRUPTLY DISCONTI NUE MEDICATI ON. ORAL DISCONT INUED (EDIT) 06/28/2025 [id number] 5 Oswaldo INFANTE [address] [place] [address] [facility] DULOXETINE HCL 60MG CAP,EC TAKE ONE CAPSULE BY MOUTH ONCE A DAY DO NOT ABRUPTLY DISCONTI NUE MEDICATI ON. ORAL DISCONT INUED 11/30/2024 [id number] 5 Oswaldo INFANTE R [address] [place] [address] [facility] DULOXETINE HCL 60MG CAP,EC TAKE ONE CAPSULE BY MOUTH ONCE A DAY DO NOT ABRUPTLY DISCONTI NUE MEDICATI ON. ORAL DISCONT INUED 02/29/2024 [id number] 4 Oswaldo INFANTE [address] [place] [address] [facility] EPINEPHRINE (EQV-ADRENA CLICK) 0.3MG/0.3ML INJECTOR INJECT 1 PEN (0.3MG/0 .3ML) INTRAMUS CULARLY ONE-TIME FOR ALLERGIC REACTION INTRAM USCULA R ACTIVE 11/26/2025 [id number] 5 Oswaldo INFANTE R [address] [place] [address] [facility] EPINEPHRINE (EQV-ADRENA CLICK) 0.3MG/0.3ML INJECTOR INJECT 1 PEN (0.3MG/0 .3ML) INTRAMUS CULARLY ONE-TIME FOR ALLERGIC REACTION INTRAM USCULA R DISCONT INUED 09/10/2025 [id number] 5 Oswaldo INFANTE R [address] [place] [address] [facility] EPINEPHRINE (EQV-ADRENA CLICK) 0.3MG/0.3ML INJECTOR INJECT 1 PEN (0.3MG/0 .3ML) INTRAMUS CULARLY ONE-TIME FOR ALLERGIC REACTION INTRAM USCULA R DISCONT INUED 03/06/2025 [id number] 4 Oswaldo INFANTE [address] [place] [address] [facility] EPINEPHRINE (EQV-ADRENA CLICK) 0.3MG/0.3ML INJECTOR INJECT 1 PEN (0.3MG/0 .3ML) INTRAMUS CULARLY ONE-TIME FOR ALLERGIC REACTION INTRAM USCULA R DISCONT INUED 01/17/2025 [id number] Oswaldo INFANTE [address] [place] [address] [facility] EPINEPHRINE (EQV-ADRENA CLICK) 0.3MG/0.3ML INJECTOR INJECT 1 PEN (0.3MG/0 .3ML) INTRAMUS CULARLY ONE-TIME FOR ALLERGIC REACTION INTRAM USCULA R 10/26/2023 [id number] Oswaldo INFANTE [address] [place] [address] [facility] FEXOFENADIN E HCL 180MG TAB TAKE ONE TABLET BY MOUTH EVERY MORNING FOR ALLERGIC RHINITIS ORAL SUSPEND ED 05/03/2025 [id number] 5 Oswaldo INFANTE [address] [place] [address] [facility] FEXOFENADIN E HCL 180MG TAB TAKE ONE TABLET BY MOUTH EVERY MORNING FOR ALLERGIC RHINITIS ORAL DISCONT INUED 08/23/2024 [id number] 4 Oswaldo INFANTE [address] [place] [address] [facility] FLUTICASONE PROPIONATE 50MCG/SPRAY SOLN,NASAL, 16GM INSTILL 1 SPRAY IN NOSTRIL( S) ONCE A DAY FOR RHINITIS (MUST BE USED DIRECTED FOR MINIMUM OF 21 DAYS TO PROVIDE ADEQUATE BENEFITS ) NASAL ACTIVE 06/28/2025 [id number] 5 Oswaldo INFANTE [address] [place] [address] [facility] GABAPENTIN 300MG CAP TAKE 2 CAPSULES BY MOUTH AT BEDTIME ORAL ACTIVE DASH SMITH MD 2016 [facility] GLIPIZIDE 10MG TAB TAKE ONE TABLET BY MOUTH THREE TIMES A DAY BEFORE MEALS FOR DIABETES TAKE 30 MINUTES BEFORE EATING. ORAL DISCONT INUED BY PRINCE Martel 10/05/2024 [id number] LILIAM HARPER [address] [place] [address] [facility] HYDROPHILIC (EQV EUCERIN) CREAM,TOP APPLY LIGHTLY TO AFFECTED AREA(S) ONCE A DAY FOR DRY SKIN (EXTERNA L USE ONLY) APPLY TO FEET NIGHTLY TOPICA L SUSPEND ED 10/09/2025 [id number] 5 Oswaldo INFANTE R [address] [place] [address] [facility] HYDROPHILIC (EQV EUCERIN) CREAM,TOP APPLY LIGHTLY TO AFFECTED AREA(S) ONCE A DAY FOR DRY SKIN (EXTERNA L USE ONLY) APPLY TO FEET NIGHTLY TOPICA L DISCONT INUED 11/30/2024 [id number] 5 Oswaldo INFANTE [address] [place] [address] [facility] HYDROPHILIC (EQV EUCERIN) CREAM,TOP APPLY LIGHTLY TO AFFECTED AREA(S) ONCE A DAY FOR DRY SKIN (EXTERNA L USE ONLY) APPLY TO FEET NIGHTLY TOPICA L DISCONT INUED 02/23/2024 [id number] Oswaldo INFANTE [address] [place] [address] [facility] HYDROXYZINE HCL 25MG TAB TAKE ONE TABLET BY MOUTH THREE TIMES A DAY NEEDED FOR URTICARI A *MAY CAUSE DROWSINE SS* ORAL ACTIVE 02/23/2025 [id number] 5 Oswaldo INFANTE [address] [place] [address] [facility] HYDROXYZINE HCL 25MG TAB TAKE ONE TABLET BY MOUTH THREE TIMES A DAY NEEDED FOR URTICARI A *MAY CAUSE DROWSINE SS* ORAL DISCONT INUED 01/06/2025 [id number] 5 Oswaldo INFANTE [address] [place] [address] [facility] HYDROXYZINE HCL 25MG TAB TAKE ONE TABLET BY MOUTH THREE TIMES A DAY NEEDED FOR URTICARI A *MAY CAUSE DROWSINE SS* ORAL DISCONT INUED 09/25/2024 [id number] 5 Oswaldo INFANTE 2024 [address] [place] [facility] HYDROXYZINE HCL 25MG TAB TAKE ONE TABLET BY MOUTH THREE TIMES A DAY NEEDED FOR URTICARI A *MAY CAUSE DROWSINE SS* ORAL DISCONT INUED 07/31/2024 [id number] 5 Oswaldo INFANTE R 2024 270 [facility] HYDROXYZINE HCL 25MG TAB TAKE ONE TABLET BY MOUTH THREE TIMES A DAY NEEDED FOR URTICARI A *MAY CAUSE DROWSINE SS* ORAL DISCONT INUED 07/08/2024 [id number] 4 Oswaldo INFANTE R 2023 270 [facility] HYDROXYZINE HCL 25MG TAB TAKE ONE TABLET BY MOUTH THREE TIMES A DAY NEEDED FOR URTICARI A *MAY CAUSE DROWSINE SS* ORAL DISCONT INUED 06/03/2024 [id number] Oswaldo INFANTE R 2023 270 [facility] HYDROXYZINE HCL 25MG TAB TAKE ONE TABLET BY MOUTH THREE TIMES A DAY NEEDED FOR URTICARI A *MAY CAUSE DROWSINE SS* ORAL DISCONT INUED 04/16/2024 [id number] 4 Oswaldo INFANTE R 2023 270 [facility] HYDROXYZINE HCL 25MG TAB TAKE ONE TABLET BY MOUTH THREE TIMES A DAY NEEDED FOR URTICARI A *MAY CAUSE DROWSINE SS* ORAL DISCONT INUED 04/15/2024 [id number] 4 Oswaldo INFANTE R 2023 90 [facility] HYDROXYZINE HCL 25MG TAB TAKE ONE TABLET BY MOUTH THREE TIMES A DAY NEEDED FOR URTICARI A *MAY CAUSE DROWSINE SS* ORAL DISCONT INUED 03/05/2024 [id number] Oswaldo INFANTE R 2023 90 [place] [facility] HYDROXYZINE HCL 25MG TAB TAKE ONE TABLET BY MOUTH THREE TIMES A DAY NEEDED FOR URTICARI A *MAY CAUSE DROWSINE SS* ORAL DISCONT INUED 11/30/2024 [id number] 4 Oswaldo INFANTE R 2023 60 [place] [facility] HYDROXYZINE HCL 25MG TAB TAKE ONE TABLET BY MOUTH THREE TIMES A DAY NEEDED FOR URTICARI A *MAY CAUSE DROWSINE SS* ORAL DISCONT INUED 08/23/2024 [id number] 4 Oswaldo INFANTE R 2023 60 [facility] ISOSORBIDE DINITRATE 30MG TAB,ORAL TAKE ONE TABLET BY MOUTH TWICE A DAY ALLOW 10 TO 12 HOURS BETWEEN NIGHT AND MORNING DOSE. ORAL SUSPEND ED 06/27/2025 [id number] FRANCOSONNY KEMPCARITO MMAD F 2024 180 [place] [facility] ISOSORBIDE DINITRATE 30MG TAB,ORAL TAKE ONE TABLET BY MOUTH ONCE A DAY ALLOW 10 TO 12 HOURS BETWEEN NIGHT AND MORNING DOSE. ORAL DISCONT INUED 05/03/2025 [id number] 5 Oswaldo INFANTE R 2024 90 [facility] ISOSORBIDE DINITRATE 30MG TAB,ORAL TAKE ONE TABLET BY MOUTH ONCE A DAY ALLOW 10 TO 12 HOURS BETWEEN NIGHT AND MORNING DOSE. ORAL DISCONT INUED 03/06/2025 [id number] 4 Oswaldo INFANTE R 2023 90 [facility] ISOSORBIDE DINITRATE 30MG TAB,ORAL TAKE ONE TABLET BY MOUTH ONCE A DAY ALLOW 10 TO 12 HOURS BETWEEN NIGHT AND MORNING DOSE. ORAL DISCONT INUED 01/16/2025 [id number] 4 Oswaldo INFANTE R 2023 90 [facility] ISOSORBIDE DINITRATE 30MG TAB,ORAL TAKE ONE TABLET BY MOUTH ONCE A DAY ALLOW 10 TO 12 HOURS BETWEEN NIGHT AND MORNING DOSE. ORAL DISCONT INUED 12/26/2024 [id number] YONI [place] IN 2023 90 [facility] LAMOTRIGINE 200MG TAB TAKE ONE TABLET BY MOUTH AT BEDTIME FOR MOOD OR SEIZURES ORAL SUSPEND ED 09/27/2025 [id number] 5 JADA TROY R 2024 90 [facility] LAMOTRIGINE 200MG TAB TAKE ONE TABLET BY MOUTH AT BEDTIME FOR MOOD OR SEIZURES ORAL DISCONT INUED 05/03/2025 [id number] 5 Oswaldo INFANTE R [address] [place] [address] [facility] LAMOTRIGINE 200MG TAB TAKE ONE TABLET BY MOUTH AT BEDTIME FOR MOOD OR SEIZURES ORAL DISCONT INUED 03/06/2025 [id number] 4 Oswaldo INFANTE R [address] [place] [address] [facility] LAMOTRIGINE 200MG TAB TAKE ONE TABLET BY MOUTH AT BEDTIME FOR MOOD OR SEIZURES ORAL DISCONT INUED 01/01/2025 [id number] 4 Oswaldo INFANTE R [address] [place] [address] [facility] LAMOTRIGINE 200MG TAB TAKE ONE TABLET BY MOUTH AT BEDTIME FOR MOOD OR SEIZURES ORAL DISCONT INUED 08/23/2024 [id number] 4 Oswaldo INFANTE R [address] [place] [address] [facility] LAMOTRIGINE 25MG TAB TAKE ONE TABLET BY MOUTH AT BEDTIME FOR MOOD OR SEIZURES TAKE WITH THE 200MG ORAL SUSPEND ED 09/27/2025 [id number] 5 JADA TROY R 2024 [facility] LAMOTRIGINE 25MG TAB TAKE ONE TABLET BY MOUTH AT BEDTIME FOR MOOD OR SEIZURES TAKE WITH THE 200MG ORAL DISCONT INUED 03/06/2025 [id number] 5 Oswaldo INFANTE R [address] [place] [address] [facility] LAMOTRIGINE 25MG TAB TAKE ONE TABLET BY MOUTH AT BEDTIME FOR MOOD OR SEIZURES TAKE WITH THE 200MG ORAL DISCONT INUED 05/21/2024 [id number] 4 Oswaldo INFANTE [address] [place] [address] [facility] LAMOTRIGINE 25MG TAB TAKE 9 TABLETS BY MOUTH AT BEDTIME ORAL ACTIVE DASH SMITH MD 2016 [facility] LEVOCETIRIZ INE DIHYDROCHLO RIDE 5MG TAB TAKE ONE TABLET BY MOUTH DAILY ORAL ACTIVE Frances CRUZ MD 2016 [facility] LIDOCAINE 5% OINT,TOP APPLY LIGHTLY TO AFFECTED AREA(S) ONCE A DAY NEEDED TOPICA L SUSPEND ED 03/06/2025 [id number] Oswaldo INFANTE 2023 105 [facility] LIDOCAINE 5% OINT,TOP APPLY LIGHTLY TO AFFECTED AREA(S) ONCE A DAY NEEDED TOPICA L DISCONT INUED 05/21/2024 [id number] Oswaldo INFANTE [address] [place] [address] CB LIDOCAINE 5% PATCH APPLY TO SKIN TOPICA L ACTIVE NAVEEN JOEL 2015 [facility] LISINOPRIL 5MG TAB TAKE ONE-HALF TABLET BY MOUTH EVERY DAY ORAL ACTIVE Frances CRUZ MD 2016 [facility] METFORMIN HCL 500MG 24HR TAB,SA TAKE ONE TABLET BY MOUTH TWICE A DAY WITH MEALS FOR DIABETES TAKE WITH FOOD. AVOID ALCOHOL. DISCONTI NUE BEFORE GETTING XRAY DYE. ORAL ACTIVE 10/24/2025 [id number] Oswaldo LI 2024 180 [facility] METFORMIN HCL 500MG 24HR TAB,SA TAKE TWO TABLETS BY MOUTH TWICE A DAY WITH MEALS FOR DIABETES TAKE WITH FOOD. AVOID ALCOHOL. DISCONTI NUE BEFORE GETTING XRAY DYE. ORAL DISCONT INUED (EDIT) 10/09/2025 [id number] Oswaldo INFANTE [address] [place] [address] [facility] METFORMIN HCL 500MG 24HR TAB,SA TAKE TWO TABLETS BY MOUTH TWICE A DAY WITH MEALS FOR DIABETES TAKE WITH FOOD. AVOID ALCOHOL. DISCONTI NUE BEFORE GETTING XRAY DYE. ORAL DISCONT INUED 06/28/2025 [id number] 5 Oswaldo INFANTE [address] [place] [address] [facility] METFORMIN HCL 500MG 24HR TAB,SA TAKE TWO TABLETS BY MOUTH TWICE A DAY WITH MEALS FOR DIABETES TAKE WITH FOOD. AVOID ALCOHOL. DISCONTI NUE BEFORE GETTING XRAY DYE. ORAL DISCONT INUED 07/04/2024 [id number] LILIAM HARPER 2023 120 [facility] METFORMIN HCL 500MG 24HR TAB,SA TAKE TWO TABLETS BY MOUTH TWICE A DAY WITH MEALS FOR DIABETES TAKE WITH FOOD. AVOID ALCOHOL. DISCONTI NUE BEFORE GETTING XRAY DYE. ORAL DISCONT INUED 07/04/2024 [id number] LILIAM HARPER Erich 2023 360 [facility] METFORMIN HCL 500MG TAB TAKE ONE TABLET BY MOUTH DAILY ORAL ACTIVE Frances CRUZ MD 2016 [facility] MORPHINE (SUSTAINED ACTION) TAB,SA TAKE BY MOUTH ORAL ACTIVE ATANGA,BE RNADETTE MUNJI 2015 [facility] MULTIVIT/OP HTH AREDS2/LUTE IN/ZEAXANTH IN CAP/TAB TAKE 1 CAP/TAB BY MOUTH TWICE A DAY WITH MEAL(S) FOR EYE HEALTH AVOID IF YOU HAVE PEANUT ALLERGY. ORAL SUSPEND ED 06/28/2025 [id number] 5 Oswaldo INFANTE 2024 240 [facility] MULTIVIT/OP HTH AREDS2/LUTE IN/ZEAXANTH IN CAP/TAB TAKE 1 CAP/TAB BY MOUTH TWICE A DAY WITH MEAL(S) FOR EYE HEALTH AVOID IF YOU HAVE PEANUT ALLERGY. ORAL DISCONT INUED 08/23/2024 [id number] 4 Oswaldo INFANTE 2023 240 [facility] MULTIVITAMI N/MINERALS ANTIOXIDANT CAP/TAB TAKE 1 CAP/TAB BY MOUTH ONCE A DAY ORAL ACTIVE LILIAM HARPER Erich 2023 [facility] NALOXEGOL TAB,ORAL TAKE ACTIVE ATANGA,BE RNADETTE MUNJI 2015 [facility] NITROGLYCER IN 0.4MG TAB,SUBLING UAL DISSOLVE ONE TABLET UNDER THE TONGUE ONE-TIME FOR CHEST PAIN NEEDED ; IF NO IMPROVEM ENT AFTER FIRST DOSE CALL 9-1-1. MAY TAKE 2 ADDITION AL DOSES, 5 MINUTES APART. TAKE WHILE SITTING. SUBLIN GUAL ACTIVE 11/26/2025 [id number] 5 Oswaldo INFANTE 2024 100 [facility] NITROGLYCER IN 0.4MG TAB,SUBLING UAL DISSOLVE ONE TABLET UNDER THE TONGUE ONE-TIME FOR CHEST PAIN NEEDED ; IF NO IMPROVEM ENT AFTER FIRST DOSE CALL 9-1-1. MAY TAKE 2 ADDITION AL DOSES, 5 MINUTES APART. TAKE WHILE SITTING. SUBLIN GUAL DISCONT INUED 12/07/2024 [id number] Oswaldo INFANTE 2023 100 [facility] OMEPRAZOLE 20MG CAP,EC TAKE ONE CAPSULE BY MOUTH EVERY MORNING TO LOWER STOMACH ACID. TAKE 30 MINUTES PRIOR TO FOOD. ORAL DISCONT INUED BY PROVIDE R 11/30/2024 [id number] 4 Oswaldo INFANTE R 2023 90 [facility] OMEPRAZOLE 20MG CAP,EC TAKE ONE CAPSULE BY MOUTH EVERY MORNING TO LOWER STOMACH ACID. TAKE 30 MINUTES PRIOR TO FOOD. ORAL DISCONT INUED 02/15/2024 [id number] 4 Oswaldo INFANTE R 2022 90 [facility] OMEPRAZOLE 20MG CAP,EC TAKE 1 CAPSULE BY MOUTH EVERY EVENING ORAL ACTIVE Frances CRUZ MD 2016 [facility] ONDANSETRON HCL 4MG TAB,ORALLY DISINTEGRAT ING TAKE ONE TABLET UNDER THE TONGUE ONCE A DAY NEEDED FOR NAUSEA/V OMITING SUBLIN GUAL ACTIVE 10/09/2025 [id number] 5 Oswaldo INFANTE R 2024 90 [facility] ONDANSETRON HCL 4MG TAB,ORALLY DISINTEGRAT ING TAKE ONE TABLET UNDER THE TONGUE ONCE A DAY NEEDED FOR NAUSEA/V OMITING SUBLIN GUAL DISCONT INUED (EDIT) 08/19/2025 [id number] Oswaldo INFANTE R 2024 30 [facility] ONDANSETRON HCL 8MG TAB TAKE ONE TABLET BY MOUTH ONCE A DAY NEEDED FOR NAUSEA/V OMITING ORAL DISCONT INUED 06/05/2024 [id number] 4 Oswaldo INFANTE R 2023 90 [facility] ONDANSETRON HCL 8MG TAB TAKE ONE TABLET BY MOUTH ONCE A DAY NEEDED FOR NAUSEA/V OMITING ORAL DISCONT INUED 04/28/2024 [id number] Oswaldo INFANTE R 2022 90 [facility] ONDANSETRON HCL 8MG TAB TAKE ONE-HALF TABLET BY MOUTH ONCE A DAY NEEDED FOR NAUSEA/V OMITING ORAL 06/08/2024 [id number] 4 Oswaldo INFANTE R 2023 30 [facility] ONDANSETRON HCL 8MG TAB,ORALLY DISINTEGRAT ING TAKE ONE TABLET UNDER THE TONGUE EVERY EIGHT(8) HOURS NEEDED FOR NAUSEA/V OMITING SUBLIN GUAL DISCONT INUED BY PROVIDE R 12/31/2023 [id number] Oswaldo INFANTE R 2023 60 [facility] OXYBUTYNIN CL 5MG TAB TAKE ONE TABLET BY MOUTH THREE TIMES A DAY FOR BLADDER ORAL SUSPEND ED 04/10/2025 [id number] 5 Oswaldo INFANTE R 2023 270 [facility] OXYBUTYNIN CL 5MG TAB TAKE ONE TABLET BY MOUTH THREE TIMES A DAY FOR BLADDER ORAL DISCONT INUED 05/21/2024 [id number] 4 Oswaldo INFANTE R 2023 270 [facility] OXYBUTYNIN CL 5MG TAB TAKE ONE TABLET BY MOUTH THREE TIMES A DAY ORAL ACTIVE Frances CRUZ MD 2016 [facility] OXYCODONE HCL 7.5MG/ACETA MINOPHEN 325MG TAB TAKE 1 TABLET BY MOUTH EVERY 4 HOURS NEEDED FOR PAIN (MAX 4 TABLETS PER DAY; HOLD WITHIN 4 HOURS OF PLANNED SLEEP) MUST LAST 28 DAYS OR MORE NOTE: DO NOT EXCEED 4000MG PER DAY ACETAMIN OPHEN (APAP) ORAL ACTIVE 12/16/2024 [id number] 5 Tahmina PETTY 2024 112 [place] [facility] OXYCODONE HCL 7.5MG/ACETA MINOPHEN 325MG TAB TAKE 1 TABLET BY MOUTH EVERY 4 HOURS NEEDED FOR PAIN (MAX 4 TABS/DAY , HOLD WITHIN 4 HOURS OF PLANNED SLEEP) THIS QUANTITY MUST LAST 28 DAYS OR MORE NOTE: DO NOT EXCEED 4000MG PER DAY ACETAMIN OPHEN (APAP) ORAL DISCONT INUED 11/16/2024 [id number] 5 Tahmina PETTY 2024 112 [place] [facility] OXYCODONE HCL 7.5MG/ACETA MINOPHEN 325MG TAB TAKE 1 TABLET BY MOUTH EVERY 4 HOURS NEEDED FOR PAIN (MAX 4 TABLETS PER DAY; HOLD WITHIN 4 HOURS OF PLANNED SLEEP) THIS QUANTITY MUST LAST 28 DAYS OR MORE NOTE: DO NOT EXCEED 4000MG PER DAY ACETAMIN OPHEN (APAP) ORAL DISCONT INUED 10/19/2024 [id number] 5 Tahmina PETTY 2024 112 [place] [facility] OXYCODONE HCL 7.5MG/ACETA MINOPHEN 325MG TAB TAKE 1 TABLET BY MOUTH EVERY 4 HOURS NEEDED FOR PAIN (MAX 4 TABLETS PER DAY; HOLD WITHIN 4 HOURS OF PLANNED SLEEP) THIS QUANTITY MUST LAST 28 DAYS OR MORE NOTE: DO NOT EXCEED 4000MG PER DAY ACETAMIN OPHEN (APAP) ORAL DISCONT INUED 08/17/2024 [id number] 5 Tahmina PETTY 2024 112 [place] [facility] OXYCODONE HCL 7.5MG/ACETA MINOPHEN 325MG TAB TAKE 1 TABLET BY MOUTH EVERY 4 HOURS NEEDED FOR PAIN (MAX 4 TAB/DAY; HOLD WITHIN 4 HOURS OF PLANNED SLEEP) MUST LAST 28 DAYS OR MORE NOTE: DO NOT EXCEED 4000MG PER DAY ACETAMIN OPHEN (APAP) ORAL DISCONT INUED 07/24/2024 [id number] 5 Tahmina PETTY 2024 112 [place] [facility] OXYCODONE HCL 7.5MG/ACETA MINOPHEN 325MG TAB TAKE 1 TABLET BY MOUTH EVERY 4 HOURS NEEDED FOR PAIN (MAX 4 TABLETS PER DAY; HOLD WITHIN 4 HOURS OF PLANNED SLEEP) THIS QUANTITY MUST LAST 28 DAYS OR MORE NOTE: DO NOT EXCEED 4000MG PER DAY ACETAMIN OPHEN (APAP) ORAL DISCONT INUED 06/27/2024 [id number] 5 Tahmina PETTY 2024 112 [place] [facility] OXYCODONE HCL 7.5MG/ACETA MINOPHEN 325MG TAB TAKE 1 TABLET BY MOUTH EVERY 4 HOURS NEEDED FOR PAIN (MAX 4 TAB/DAY; HOLD WITHIN 4 HOURS OF PLANNED SLEEP) MUST LAST 28 DAYS OR MORE NOTE: DO NOT EXCEED 4000MG PER DAY ACETAMIN OPHEN (APAP) ORAL DISCONT INUED 03/21/2024 [id number] 4 Tahmina PETTY 2023 112 [facility] [facility] OXYCODONE HCL 7.5MG/ACETA MINOPHEN 325MG TAB TAKE 1 TABLET BY MOUTH EVERY 4 HOURS NEEDED FOR PAIN (MAX 4 TABLETS PER DAY; HOLD WITHIN 4 HOURS OF PLANNED SLEEP) THIS QUANTITY MUST LAST 28 DAYS OR MORE NOTE: DO NOT EXCEED 4000MG PER DAY ACETAMIN OPHEN (APAP) ORAL DISCONT INUED 02/22/2024 [id number] 4 Tahmina PETTY 2023 112 [place] [facility] OXYCODONE HCL 7.5MG/ACETA MINOPHEN 325MG TAB TAKE 1 TABLET BY MOUTH EVERY 4 HOURS NEEDED FOR PAIN (MAX 4 TABLETS PER DAY; HOLD WITHIN 4 HOURS OF PLANNED SLEEP) THIS QUANTITY MUST LAST 28 DAYS OR MORE NOTE: DO NOT EXCEED 4000MG PER DAY ACETAMIN OPHEN (APAP) ORAL DISCONT INUED 01/25/2024 [id number] 4 Tahmina PETTY 2023 112 [place] [facility] OXYCODONE HCL 7.5MG/ACETA MINOPHEN 325MG TAB TAKE 1 TABLET BY MOUTH EVERY 4 HOURS NEEDED FOR PAIN (MAX 4 TABLETS PER DAY; HOLD WITHIN 4 HOURS OF PLANNED SLEEP) THIS QUANTITY MUST LAST 28 DAYS OR MORE NOTE: DO NOT EXCEED 4000MG PER DAY ACETAMIN OPHEN (APAP) ORAL DISCONT INUED 12/28/2023 [id number] 4 Tahmina PETTY 2023 112 [facility] [facility] OXYCODONE HCL 7.5MG/ACETA MINOPHEN 325MG TAB TAKE 1 TABLET BY MOUTH EVERY 4 TO 6 HOURS NEEDED FOR PAIN (MAX 3/DAY; HOLD WITHIN 4 HOURS OF PLANNED SLEEP) MUST LAST 28 DAYS OR MORE - NOTE: DO NOT EXCEED 4000MG PER DAY ACETAMIN OPHEN (APAP) ORAL DISCONT INUED 12/09/2023 [id number] 4 Tahmina PETTY 2023 84 [place] [facility] OXYCODONE HCL 7.5MG/ACETA MINOPHEN 325MG TAB TAKE 1 TABLET BY MOUTH EVERY 4 TO 6 HOURS NEEDED FOR PAIN (MAX 3/DAY, HOLD WITHIN 4 HOURS OF PLANNED SLEEP) MUST LAST 28 DAYS OR MORE - NOTE: DO NOT EXCEED 4000MG PER DAY ACETAMIN OPHEN (APAP) ORAL DISCONT INUED 11/11/2023 [id number] 4 Tahmina PETTY 2023 84 [place] [facility] OXYCODONE HCL 7.5MG/ACETA MINOPHEN 325MG TAB TAKE 1 TABLET BY MOUTH EVERY 4 TO 6 HOURS NEEDED FOR PAIN (MAX 3 TABLETS PER DAY; HOLD WITHIN 4 HOURS OF PLANNED SLEEP) THIS QUANTITY MUST LAST 28 DAYS OR MORE NOTE: DO NOT EXCEED 4000MG PER DAY ACETAMIN OPHEN (APAP) ORAL DISCONT INUED 10/14/2023 [id number] 4 Tahmina PETTY 2023 84 [facility] [facility] OXYCODONE HCL 7.5MG/ACETA MINOPHEN 325MG TAB TAKE 1 TABLET BY MOUTH EVERY 4 HOURS NEEDED FOR PAIN (MAX 4 TABLETS PER DAY; HOLD WITHIN 4 HOURS OF PLANNED SLEEP) THIS QUANTITY MUST LAST 28 DAYS OR MORE NOTE: DO NOT EXCEED 4000MG PER DAY ACETAMIN OPHEN (APAP) ORAL 09/14/2024 [id number] 5 Tahmina PETTY 2024 112 [place] [facility] OXYCODONE HCL 7.5MG/ACETA MINOPHEN 325MG TAB TAKE 1 TABLET BY MOUTH EVERY 4 HOURS NEEDED FOR PAIN MAX OF 4 TABLETS PER DAY. HOLD WITHIN 4 HOURS OF PLANNED SLEEP. *MUST LAST 28 DAYS OR MORE* NOTE: DO NOT EXCEED 4000MG PER DAY ACETAMIN OPHEN (APAP) ORAL 05/16/2024 [id number] 4 Tahmina PETTY 2023 112 [place] [facility] OXYCODONE HCL 7.5MG/ACETA MINOPHEN 325MG TAB TAKE 1 TABLET BY MOUTH EVERY 4 HOURS NEEDED FOR PAIN (MAX 4 TAB/DAY; HOLD WITHIN 4 HOURS OF PLANNED SLEEP) MUST LAST 28 DAYS OR MORE NOTE: DO NOT EXCEED 4000MG PER DAY ACETAMIN OPHEN (APAP) ORAL 04/18/2024 [id number] 4 Tahmina PETTY 2023 112 [place] [facility] OXYCODONE TAB,SA TAKE BY MOUTH ORAL ACTIVE NAVEEN JOEL 2015 [facility] PANTOPRAZOL E NA 40MG TAB,EC TAKE ONE TABLET BY MOUTH EVERY MORNING BEFORE A MEAL FOR GASTROES OPHAGEAL REFLUX DISEASE TAKE 30 MINUTES BEFORE MEAL(S) ORAL SUSPEND ED 06/28/2025 [id number] 5 Oswaldo INFANTE R [address] [place] [address] [facility] PANTOPRAZOL E NA 40MG TAB,EC TAKE ONE TABLET BY MOUTH EVERY MORNING BEFORE A MEAL FOR GASTROES OPHAGEAL REFLUX DISEASE TAKE 30 MINUTES BEFORE MEAL(S) ORAL DISCONT INUED 12/11/2024 [id number] 5 LILIAM HARPER 2023 90 [facility] PIOGLITAZON E HCL 30MG TAB TAKE ONE TABLET BY MOUTH ONCE A DAY FOR DIABETES TAKE WITH MORNING MEAL ORAL DISCONT INUED BY PROVIDE R 07/04/2024 [id number] 4 LILIAM HARPER [address] [place] [address] [facility] PSYLLIUM PWDR,ORAL MIX AND DRINK 1 TEASPOON FUL BY MOUTH ONCE A DAY FOR FIBER SUPPLEME NTATION MIX IN GLASS OF WATER/JU ICE. FLAVOR SUBSTITU TIONS MAY/WILL OCCUR AND SPECIFIC VARIETIE S WILL NOT BE PROVIDED . ORAL ACTIVE 06/22/2025 [id number] 5 Oswaldo INFANTE R [address] [place] [address] [facility] RANOLAZINE 500MG TAB,SA TAKE ONE TABLET BY MOUTH TWICE A DAY *SWALLOW WHOLE- DO NOT CRUSH,BR EAK OR CHEW* ORAL ACTIVE 06/28/2025 [id number] 5 Oswaldo INFANTE R 2024 180 [facility] RANOLAZINE 500MG TAB,SA TAKE ONE TABLET BY MOUTH TWICE A DAY *SWALLOW WHOLE- DO NOT CRUSH,BR EAK OR CHEW* ORAL DISCONT INUED 01/16/2025 [id number] 5 MADIALMAZ 2023 180 [place] [facility] SEMAGLUTIDE 0.25MG/0.37 5ML INJ,SOLN,PE N,3ML INJECT 0.5MG UNDER THE SKIN EVERY WEEK FOR DIABETES SUBCUT ANEOUS DISCONT INUED BY PROVIDE R 10/25/2024 [id number] 4 LILIAM HARPER 2023 1 [facility] SEMAGLUTIDE 0.25MG/0.37 5ML INJ,SOLN,PE N,3ML INJECT 0.25MG UNDER THE SKIN EVERY WEEK FOR 30 DAYS, THEN INJECT 0.5MG EVERY WEEK FOR DIABETES SUBCUT ANEOUS DISCONT INUED (EDIT) 10/05/2024 [id number] 4 LILIAM HARPER [address] [place] [address] [facility] SENNOSIDES 8.6MG TAB TAKE TWO TABLETS BY MOUTH EVERY DAY ORAL ACTIVE Frances CRUZ MD 2016 [facility] SPIRONOLACT ONE 50MG TAB TAKE ONE TABLET BY MOUTH ONCE A DAY FOR HEART FAILURE AND EXCESSIV E FLUID. DOSE DECREASE ORAL SUSPEND ED 03/06/2025 [id number] 5 Oswaldo INFANTE R 2023 90 [facility] SPIRONOLACT ONE 50MG TAB TAKE ONE TABLET BY MOUTH ONCE A DAY FOR HEART FAILURE AND EXCESSIV E FLUID. DOSE DECREASE ORAL DISCONT INUED 08/28/2024 [id number] 4 Oswaldo INFANTE R 2023 90 [facility] TRAZODONE HCL 100MG TAB TAKE ONE TABLET BY MOUTH AT BEDTIME FOR MOOD OR SLEEP. ORAL ACTIVE 01/16/2025 [id number] 5 Oswaldo INFANTE R 2023 90 [place] [facility] TRAZODONE HCL 100MG TAB TAKE ONE TABLET BY MOUTH AT BEDTIME FOR MOOD OR SLEEP. ORAL DISCONT INUED 05/21/2024 [id number] 4 Oswaldo INFANTE R 2023 90 [place] [facility] TRAZODONE HCL 100MG TAB TAKE ONE TABLET BY MOUTH AT BEDTIME ORAL ACTIVE DASH SMITH MD 2016 [facility] Allergies, Adverse Reactions, Alerts Combined list of allergies from Department of Defense and Veterans Affairs facilities. It does not include entries that were removed or entered in error. Substance Category Reaction Severity Reaction type Status Date Reported Comments Source BAND-AIDS Propensity to adverse reaction (finding) Skin irritation active 8 [facility] BEE STINGS Propensity to adverse reaction (finding) active 0 [facility] BEE STINGS Propensity to adverse reaction (finding) Anaphylaxis active 8 [facility] CODEINE Propensity to adverse reactions to drug (finding) Itching active 6 [facility] CODEINE Propensity to adverse reactions to drug (finding) Eruption, Urticaria active 9 [facility] CODEINE Propensity to adverse reactions to drug (finding) active 9 [facility] IODINE CONTRAST EVEN WITH PREP Propensity to adverse reactions to drug (finding) Eruption active 9 [facility] IODINE CONTRAST EVEN WITH PREP Propensity to adverse reactions to drug (finding) Urticaria active 8 [facility] LATEX Propensity to adverse reactions to drug (finding) Eruption active 9 [facility] LATEX Propensity to adverse reactions to drug (finding) active 9 [facility] LATEX GLOVE Propensity to adverse reactions to drug (finding) Eruption active 6 [facility] PENICILLIN Propensity to adverse reactions to drug (finding) Urticaria active 6 [facility] PENICILLIN Propensity to adverse reactions to drug (finding) Urticaria, Eruption active 9 [facility] PENICILLIN Propensity to adverse reactions to drug (finding) active 9 [facility] PENICILLIN Propensity to adverse reactions to drug (finding) Urticaria, Itching active 8 [facility] PNEUMOCOCCAL VACCINE Propensity to adverse reactions to drug (finding) Swelling, Eruption active 8 [facility] SEMAGLUTIDE Propensity to adverse reactions to drug (finding) Nausea and vomiting SEVERE active 4 [facility] TRAMADOL Propensity to adverse reactions to drug (finding) Urticaria, Anxiety active 0 [facility] TRAMADOL Propensity to adverse reactions to drug (finding) Urticaria active 8 [facility] Immunizations Combined list of available immunizations from the Department of Defense and Veterans Affairs facilities. Immunization Series Date Given Administered By Site Reaction Lot Number CVX Code Drug Student [employer] Consultant Status Comments Source COVID-19 (MODERNA), MRNA, LNP-S, PF, 100 MCG/0.5ML DOSE OR 50 MCG/0.25ML DOSE 2 2020 207 complet ed [facility] COVID-19 (MODERNA), MRNA, LNP-S, PF, 100 MCG/0.5ML DOSE OR 50 MCG/0.25ML DOSE 1 2020 207 complet ed [facility] TDAP 2017 115 complet ed [facility] INFLUENZA, UNSPECIFIED FORMULATION 2015 88 complet ed [id number] exp [id number] [facility] INFLUENZA, UNSPECIFIED FORMULATION 2008 88 complet ed [facility] PNEUMOCOCCAL, UNSPECIFIED FORMULATION 2005 109 complet ed [id number] exp date 10/27/06 [facility] TD(ADULT) UNSPECIFIED FORMULATION 2002 139 complet ed [facility] TD(ADULT) UNSPECIFIED FORMULATION 2002 139 complet ed [facility] Results Combined list of recent chemistry, hematology and other laboratory results from Department of Defense and Veterans Affairs, ranging from 15 months to all on record, depending upon the facility. Order Name Results Value Reference Range Date Interpretation Specimen Comments Source TSH (MA-PB) THYROTROPIN [UNITS/VOLU ME] IN SERUM OR PLASMA 1.583 u[IU]/mL 0.47 - 5 10/21 Specimen Type: SERUM No comment entered. Ordering Provider: MSAON INFANTE Report Released Date/Time: October 08, 2024 02:34 PM Reporting Lab: [place] [facility] [address] [place] [address] Performing Lab: [place] [facility] [address] [place] [address] [facility] CBC LEUKOCYTES [#/VOLUME] IN BLOOD BY AUTOMATED COUNT 8.4 10*3/uL 3.6 - 11.2 10/21 Specimen Type: BLOOD Comment: SCAN OF SLIDE AGREES WITH AUTOMATED DIFF PLT Suspect Result. Interpret result with other clinical findings. See PLT Smear Estimate. MPV Suspect Result. Interpret result with other clinical findings. Ordering Provider: MASON INFANTE Report Released Date/Time: October 08, 2024 02:23 PM Reporting Lab: [place] [facility] [address] [place] [address] Performing Lab: [place] [facility] [address] [place] [address] [facility] CBC ERYTHROCYTE S [#/VOLUME] IN BLOOD BY AUTOMATED COUNT 4.29 10*6/uL 3.60 - 5.00 10/21 Specimen Type: BLOOD Comment: SCAN OF SLIDE AGREES WITH AUTOMATED DIFF PLT Suspect Result. Interpret result with other clinical findings. See PLT Smear Estimate. MPV Suspect Result. Interpret result with other clinical findings. Ordering Provider: MASON INFANTE Report Released Date/Time: October 08, 2024 02:23 PM Reporting Lab: [place] [facility] [address] [place] [address] Performing Lab: [place] [facility] [address] [place] [address] [facility] CBC HEMOGLOBIN [MASS/VOLUM E] IN BLOOD 13.6 g/dL 11.0 - 14.9 10/21 Specimen Type: BLOOD Comment: SCAN OF SLIDE AGREES WITH AUTOMATED DIFF PLT Suspect Result. Interpret result with other clinical findings. See PLT Smear Estimate. MPV Suspect Result. Interpret result with other clinical findings. Ordering Provider: MASON INFANTE Report Released Date/Time: October 08, 2024 02:23 PM Reporting Lab: [place] [facility] [address] [place] [address] Performing Lab: [place] [facility] [address] [place] [address] [facility] CBC HEMATOCRIT [VOLUME FRACTION] OF BLOOD 40.4 32.6 - 43.4 10/21 Specimen Type: BLOOD Comment: SCAN OF SLIDE AGREES WITH AUTOMATED DIFF PLT Suspect Result. Interpret result with other clinical findings. See PLT Smear Estimate. MPV Suspect Result. Interpret result with other clinical findings. Ordering Provider: MASON INFANTE Report Released Date/Time: October 08, 2024 02:23 PM Reporting Lab: [place] [facility] [address] [place] [address] Performing Lab: [place] [facility] [address] [place] [address] [facility] CBC MCV [ENTITIC VOLUME] BY AUTOMATED COUNT 94.2 fL 80.0 - 100.0 10/21 Specimen Type: BLOOD Comment: SCAN OF SLIDE AGREES WITH AUTOMATED DIFF PLT Suspect Result. Interpret result with other clinical findings. See PLT Smear Estimate. MPV Suspect Result. Interpret result with other clinical findings. Ordering Provider: MASON INFANTE Report Released Date/Time: October 08, 2024 02:23 PM Reporting Lab: [place] [facility] [address] [place] [address] Performing Lab: [place] [facility] [address] [place] [address] [facility] CBC MCH [ENTITIC MASS] BY AUTOMATED COUNT 31.7 pg 27.0 - 34.0 10/21 Specimen Type: BLOOD Comment: SCAN OF SLIDE AGREES WITH AUTOMATED DIFF PLT Suspect Result. Interpret result with other clinical findings. See PLT Smear Estimate. MPV Suspect Result. Interpret result with other clinical findings. Ordering Provider: MASON INFANTE Report Released Date/Time: October 08, 2024 02:23 PM Reporting Lab: [place] [facility] [address] [place] [address] Performing Lab: [place] [facility] [address] [place] [address] [facility] CBC MCHC [MASS/VOLUM E] BY AUTOMATED COUNT 33.7 g/dL 33.0 - 36.0 10/21 Specimen Type: BLOOD Comment: SCAN OF SLIDE AGREES WITH AUTOMATED DIFF PLT Suspect Result. Interpret result with other clinical findings. See PLT Smear Estimate. MPV Suspect Result. Interpret result with other clinical findings. Ordering Provider: MASON INFANTE Report Released Date/Time: October 08, 2024 02:23 PM Reporting Lab: [place] [facility] [address] [place] [address] Performing Lab: [place] [facility] [address] [place] [address] [facility] CBC PLATELETS [#/VOLUME] IN BLOOD BY AUTOMATED COUNT 239 10*3/uL 150 - 400 10/21 Specimen Type: BLOOD Comment: SCAN OF SLIDE AGREES WITH AUTOMATED DIFF PLT Suspect Result. Interpret result with other clinical findings. See PLT Smear Estimate. MPV Suspect Result. Interpret result with other clinical findings. Ordering Provider: MASON INFANTE Report Released Date/Time: October 08, 2024 02:23 PM Reporting Lab: [place] [facility] [address] [place] [address] Performing Lab: [place] [facility] [address] [place] [address] [facility] CBC PLATELET MEAN VOLUME [ENTITIC VOLUME] IN BLOOD BY AUTOMATED COUNT 9.6 fL 7.5 - 11.2 10/21 Specimen Type: BLOOD Comment: SCAN OF SLIDE AGREES WITH AUTOMATED DIFF PLT Suspect Result. Interpret result with other clinical findings. See PLT Smear Estimate. MPV Suspect Result. Interpret result with other clinical findings. Ordering Provider: MASON INFANTE Report Released Date/Time: October 08, 2024 02:23 PM Reporting Lab: [place] [facility] [address] [place] [address] Performing Lab: [place] [facility] [address] [place] [address] [facility] CBC PLATELET ADEQUACY [PRESENCE] IN BLOOD BY LIGHT MICROSCOPY ADEQUATE 10/21 Specimen Type: BLOOD Comment: SCAN OF SLIDE AGREES WITH AUTOMATED DIFF PLT Suspect Result. Interpret result with other clinical findings. See PLT Smear Estimate. MPV Suspect Result. Interpret result with other clinical findings. Ordering Provider: MASON INFANTE Report Released Date/Time: October 08, 2024 02:23 PM Reporting Lab: [place] [facility] [address] [place] [address] Performing Lab: [place] [facility] [address] [place] [address] [facility] CBC ERYTHROCYTE DISTRIBUTIO N WIDTH [RATIO] BY AUTOMATED COUNT 12.6 11.8 - 15.1 10/21 Specimen Type: BLOOD Comment: SCAN OF SLIDE AGREES WITH AUTOMATED DIFF PLT Suspect Result. Interpret result with other clinical findings. See PLT Smear Estimate. MPV Suspect Result. Interpret result with other clinical findings. Ordering Provider: MASON INFANTE Report Released Date/Time: October 08, 2024 02:23 PM Reporting Lab: [place] [facility] [address] [place] [address] Performing Lab: [place] [facility] [address] [place] [address] [facility] CBC LYMPHOCYTES /100 LEUKOCYTES IN BLOOD BY AUTOMATED COUNT 33.9 10/21 Specimen Type: BLOOD Comment: SCAN OF SLIDE AGREES WITH AUTOMATED DIFF PLT Suspect Result. Interpret result with other clinical findings. See PLT Smear Estimate. MPV Suspect Result. Interpret result with other clinical findings. Ordering Provider: MASON INFANTE Report Released Date/Time: October 08, 2024 02:23 PM Reporting Lab: [place] [facility] [address] [place] [address] Performing Lab: [place] [facility] [address] [place] [address] [facility] CBC MONOCYTES/1 00 LEUKOCYTES IN BLOOD BY AUTOMATED COUNT 8.5 10/21 Specimen Type: BLOOD Comment: SCAN OF SLIDE AGREES WITH AUTOMATED DIFF PLT Suspect Result. Interpret result with other clinical findings. See PLT Smear Estimate. MPV Suspect Result. Interpret result with other clinical findings. Ordering Provider: MASON INFANTE Report Released Date/Time: October 08, 2024 02:23 PM Reporting Lab: [place] [facility] [address] [place] [address] Performing Lab: [place] [facility] [address] [place] [address] [facility] CBC NEUTROPHILS /100 LEUKOCYTES IN BLOOD BY AUTOMATED COUNT 52.2 10/21 Specimen Type: BLOOD Comment: SCAN OF SLIDE AGREES WITH AUTOMATED DIFF PLT Suspect Result. Interpret result with other clinical findings. See PLT Smear Estimate. MPV Suspect Result. Interpret result with other clinical findings. Ordering Provider: MASON INFANTE Report Released Date/Time: October 08, 2024 02:23 PM Reporting Lab: [place] [facility] [address] [place] [address] Performing Lab: [place] [facility] [address] [place] [address] [facility] CBC EOSINOPHILS /100 LEUKOCYTES IN BLOOD BY AUTOMATED COUNT 3.2 10/21 Specimen Type: BLOOD Comment: SCAN OF SLIDE AGREES WITH AUTOMATED DIFF PLT Suspect Result. Interpret result with other clinical findings. See PLT Smear Estimate. MPV Suspect Result. Interpret result with other clinical findings. Ordering Provider: MASON INFANTE Report Released Date/Time: October 08, 2024 02:23 PM Reporting Lab: [place] [facility] [address] [place] [address] Performing Lab: [place] [facility] [address] [place] [address] [facility] CBC BASOPHILS/1 00 LEUKOCYTES IN BLOOD BY AUTOMATED COUNT 0.8 10/21 Specimen Type: BLOOD Comment: SCAN OF SLIDE AGREES WITH AUTOMATED DIFF PLT Suspect Result. Interpret result with other clinical findings. See PLT Smear Estimate. MPV Suspect Result. Interpret result with other clinical findings. Ordering Provider: MASON INFANTE Report Released Date/Time: October 08, 2024 02:23 PM Reporting Lab: [place] [facility] [address] [place] [address] Performing Lab: [place] [facility] [address] [place] [address] [facility] CBC LYMPHOCYTES [#/VOLUME] IN BLOOD BY AUTOMATED COUNT 2.83 10*3/uL 0.77 - 4.50 10/21 Specimen Type: BLOOD Comment: SCAN OF SLIDE AGREES WITH AUTOMATED DIFF PLT Suspect Result. Interpret result with other clinical findings. See PLT Smear Estimate. MPV Suspect Result. Interpret result with other clinical findings. Ordering Provider: MASON INFANTE Report Released Date/Time: October 08, 2024 02:23 PM Reporting Lab: [place] [facility] [address] [place] [address] Performing Lab: [place] [facility] [address] [place] [address] [facility] CBC MONOCYTES [#/VOLUME] IN BLOOD BY AUTOMATED COUNT 0.71 10*3/uL 0.19 - 0.8 10/21 Specimen Type: BLOOD Comment: SCAN OF SLIDE AGREES WITH AUTOMATED DIFF PLT Suspect Result. Interpret result with other clinical findings. See PLT Smear Estimate. MPV Suspect Result. Interpret result with other clinical findings. Ordering Provider: MASON INFANTE Report Released Date/Time: October 08, 2024 02:23 PM Reporting Lab: [place] [facility] [address] [place] [phone] Performing Lab: [place] [facility] [address] [place] [address] [facility] CBC NEUTROPHILS [#/VOLUME] IN BLOOD BY AUTOMATED COUNT 4.36 10*3/uL 2.10 - 8.00 10/21 Specimen Type: BLOOD Comment: SCAN OF SLIDE AGREES WITH AUTOMATED DIFF PLT Suspect Result. Interpret result with other clinical findings. See PLT Smear Estimate. MPV Suspect Result. Interpret result with other clinical findings. Ordering Provider: MASON INFANTE Report Released Date/Time: October 08, 2024 02:23 PM Reporting Lab: [place] [facility] [address] [place] [phone] Performing Lab: [place] [facility] [address] [place] [address] [facility] CBC EOSINOPHILS [#/VOLUME] IN BLOOD BY AUTOMATED COUNT 0.27 10*3/uL 0.00 - 0.60 10/21 Specimen Type: BLOOD Comment: SCAN OF SLIDE AGREES WITH AUTOMATED DIFF PLT Suspect Result. Interpret result with other clinical findings. See PLT Smear Estimate. MPV Suspect Result. Interpret result with other clinical findings. Ordering Provider: MASON INFANTE Report Released Date/Time: October 08, 2024 02:23 PM Reporting Lab: [place] [facility] [address] [place] [phone] Performing Lab: [place] [facility] [address] [place] [phone] [place] [address] [facility] CBC BASOPHILS [#/VOLUME] IN BLOOD BY AUTOMATED COUNT 0.07 10*3/uL 0.00 - 0.20 10/21 Specimen Type: BLOOD Comment: SCAN OF SLIDE AGREES WITH AUTOMATED DIFF PLT Suspect Result. Interpret result with other clinical findings. See PLT Smear Estimate. MPV Suspect Result. Interpret result with other clinical findings. Ordering Provider: MASON INFANTE Report Released Date/Time: October 08, 2024 02:23 PM Reporting Lab: [place] [facility] [address] [place] [phone] Performing Lab: [place] [facility] [address] [place] [address] [facility] CBC PLATELETS RETICULATED /100 PLATELETS IN BLOOD BY AUTOMATED COUNT 1.3 1.0 - 7.0 10/21 Specimen Type: BLOOD Comment: SCAN OF SLIDE AGREES WITH AUTOMATED DIFF PLT Suspect Result. Interpret result with other clinical findings. See PLT Smear Estimate. MPV Suspect Result. Interpret result with other clinical findings. Ordering Provider: AMSON INFANTE Report Released Date/Time: October 08, 2024 02:23 PM Reporting Lab: [place] [facility] [address] [place] [address] Performing Lab: [place] [facility] [address] [place] [address] [facility] CBC IMMATURE GRANULOCYTE S/100 LEUKOCYTES IN BLOOD BY AUTOMATED COUNT 1.4 10/21 Specimen Type: BLOOD Comment: SCAN OF SLIDE AGREES WITH AUTOMATED DIFF PLT Suspect Result. Interpret result with other clinical findings. See PLT Smear Estimate. MPV Suspect Result. Interpret result with other clinical findings. Ordering Provider: MASON INFANTE Report Released Date/Time: October 08, 2024 02:23 PM Reporting Lab: [place] [facility] [address] [place] [address] Performing Lab: [place] [facility] [address] [place] [address] [place] [address] [facility] CBC IMMATURE GRANULOCYTE S [#/VOLUME] IN BLOOD BY AUTOMATED COUNT 0.12 10*3/uL 0.00 - 0.05 10/21 H Specimen Type: BLOOD Comment: SCAN OF SLIDE AGREES WITH AUTOMATED DIFF PLT Suspect Result. Interpret result with other clinical findings. See PLT Smear Estimate. MPV Suspect Result. Interpret result with other clinical findings. Ordering Provider: MASON INFANTE Report Released Date/Time: October 08, 2024 02:23 PM Reporting Lab: [place] [facility] [address] [place] [address] Performing Lab: [place] [facility] [address] [place] [address] [facility] CBC PLATELET CLUMP [PRESENCE] IN BLOOD BY AUTOMATED COUNT 1+ 10/21 Specimen Type: BLOOD Comment: SCAN OF SLIDE AGREES WITH AUTOMATED DIFF PLT Suspect Result. Interpret result with other clinical findings. See PLT Smear Estimate. MPV Suspect Result. Interpret result with other clinical findings. Ordering Provider: MASON INFANTE Report Released Date/Time: October 08, 2024 02:23 PM Reporting Lab: [place] [facility] [address] [place] [phone] Performing Lab: [place] [facility] [address] [place] [address] [facility] CBC MANUAL DIFFERENTIA L COMMENT [INTERPRETA TION] IN BLOOD NARRATIVE YES 10/21 Specimen Type: BLOOD Comment: SCAN OF SLIDE AGREES WITH AUTOMATED DIFF PLT Suspect Result. Interpret result with other clinical findings. See PLT Smear Estimate. MPV Suspect Result. Interpret result with other clinical findings. Ordering Provider: MASON INFANTE Report Released Date/Time: October 08, 2024 02:23 PM Reporting Lab: [place] [facility] [address] [place] [address] Performing Lab: [place] [facility] [address] [place] [address] [facility] CBC MANUAL DIFFERENTIA L PERFORMED [PRESENCE] IN BLOOD YES 10/21 Specimen Type: BLOOD Comment: SCAN OF SLIDE AGREES WITH AUTOMATED DIFF PLT Suspect Result. Interpret result with other clinical findings. See PLT Smear Estimate. MPV Suspect Result. Interpret result with other clinical findings. Ordering Provider: MASON INFANTE Report Released Date/Time: October 08, 2024 02:23 PM Reporting Lab: [place] [facility] [address] [place] [address] Performing Lab: [place] [facility] [address] [place] [address] [facility] LAMOTRIGI NE LAMOTRIGINE [MASS/VOLUM E] IN SERUM OR PLASMA 4.8 ug/mL 2.5 - 15.0 10/21 Specimen Type: SERUM Comment: This test was developed and its analytical performance characteris tics have been determined by [employer] [place], [place]. It has not been cleared or approved by the U.S. Food and Drug Administrat ion. This assay has been validated pursuant to the CLIA regulations and is used for clinical purposes. Test Performed by [facility], [employer] [facility], [id number] [place] [address] Wilfred Velásquez M.D., Ph.D., Director of Laboratorie s , CLIA [id number] Ordering Provider: JACINTO HARPER Report Released Date/Time: Jul 04, 2024 03:05 PM Reporting Lab: [place] [facility] [address] [place] [address] Performing Lab: [place] [facility] [address] [facility] DIRECT LDL (MA-PB) CHOLESTEROL IN LDL [MASS/VOLUM E] IN SERUM OR PLASMA BY DIRECT ASSAY 70.7 mg/dL 0 - 99.9 10/21 Specimen Type: PLASMA No comment entered. Ordering Provider: LEROY,JA MES W Report Released Date/Time: Jul 04, 2024 03:05 PM Reporting Lab: [place] [facility] [address] [place] [address] Performing Lab: [place] [facility] [address] [place] [address] [facility] VITAMIN D, 25-HYDROX Y 25-HYDROXYV ITAMIN D3 [MASS/VOLUM E] IN SERUM OR PLASMA 29.2 ng/mL 30 - 96 10/21 L Specimen Type: SERUM No comment entered. Ordering Provider: JACINTO HARPER W Report Released Date/Time: Jul 04, 2024 03:05 PM Reporting Lab: [place] [facility] [address] [place] [address] Performing Lab: [place] [facility] [address] [place] [address] [facility] CHOLESTER OL PANEL (PB) CHOLESTEROL [MASS/VOLUM E] IN SERUM OR PLASMA 138 mg/dL 0 - 200 10/21 Specimen Type: PLASMA No comment entered. Ordering Provider: JACINTO HARPER W Report Released Date/Time: Jul 04, 2024 03:05 PM Reporting Lab: [place] [facility] [address] [place] [address] Performing Lab: [place] [facility] [address] [place] [address] [facility] CHOLESTER OL PANEL (PB) TRIGLYCERID E [MASS/VOLUM E] IN SERUM OR PLASMA 223 mg/dL 0 - 150 10/21 H Specimen Type: PLASMA No comment entered. Ordering Provider: JACINTO HARPER W Report Released Date/Time: Jul 04, 2024 03:05 PM Reporting Lab: [place] [facility] [address] [place] [address] Performing Lab: [place] [facility] [address] [place] [address] [facility] CHOLESTER OL PANEL (PB) CHOLESTEROL IN LDL [MASS/VOLUM E] IN SERUM OR PLASMA BY CALCULATION 68.4 mg/dL 10/21 Specimen Type: PLASMA No comment entered. Ordering Provider: JACINTO HARPER W Report Released Date/Time: Jul 04, 2024 03:05 PM Reporting Lab: [place] [facility] [address] [place] [address] Performing Lab: [place] [facility] [address] [place] [address] [facility] CHOLESTER OL PANEL (PB) CHOLESTEROL IN HDL [MASS/VOLUM E] IN SERUM OR PLASMA 25.0 mg/dL 40 10/21 L Specimen Type: PLASMA No comment entered. Ordering Provider: JACINTO HARPER W Report Released Date/Time: Jul 04, 2024 03:05 PM Reporting Lab: [place] [facility] [address] [place] [address] Performing Lab: [place] [facility] [address] [place] [address] [facility] CHOLESTER OL PANEL (PB) CHOLESTEROL IN HDL/CHOLEST ELIZABETH.TOTAL [MASS RATIO] IN SERUM OR PLASMA 18.1 25 10/21 Specimen Type: PLASMA No comment entered. Ordering Provider: JACINTO HARPER W Report Released Date/Time: Jul 04, 2024 03:05 PM Reporting Lab: [place] [facility] [address] [place] [address] Performing Lab: [place] [facility] [address] [place] [address] [facility] FOLATE (PB) FOLATE [MASS/VOLUM E] IN SERUM OR PLASMA 14.5 ng/mL 7 - 20 10/21 Specimen Type: SERUM No comment entered. Ordering Provider: JACINTO HARPER W Report Released Date/Time: Jul 04, 2024 03:05 PM Reporting Lab: [place] [facility] [address] [place] [address] Performing Lab: [place] [facility] [address] [place] [address] [facility] B12 COBALAMIN (VITAMIN B12) [MASS/VOLUM E] IN SERUM OR PLASMA 862 pg/mL 213 - 816 10/21 H Specimen Type: SERUM No comment entered. Ordering Provider: JACINTO HARPER W Report Released Date/Time: Jul 04, 2024 03:05 PM Reporting Lab: [place] [facility] [address] [place] [address] Performing Lab: [place] [facility] [address] [place] [address] [facility] HGA1C HEMOGLOBIN A1C/HEMOGLO BIN.TOTAL IN BLOOD 6.7 4.0 - 6.0 10/21 H Specimen Type: BLOOD No comment entered. Ordering Provider: JACINTO HARPER W Report Released Date/Time: Jul 04, 2024 03:05 PM Reporting Lab: [place] [facility] [address] [place] [address] Performing Lab: [place] [facility] [address] [place] [address] [facility] IRON IRON [MASS/VOLUM E] IN SERUM OR PLASMA 82 ug/dL 50 - 170 10/21 Specimen Type: PLASMA No comment entered. Ordering Provider: JACINTO HARPER W Report Released Date/Time: Jul 04, 2024 03:05 PM Reporting Lab: [place] [facility] [address] [place] [address] Performing Lab: [place] [facility] [address] [place] [address] [facility] Vital Signs Combined list of inpatient and outpatient Vital Signs from Department of Defense and Veterans Affairs, ranging from 12 months to all on record, depending upon the facility. Vital Sign Value Date Comments Source SYSTOLIC BLOOD PRESSURE 108 10/08/2024 14:20:00 [facility] DIASTOLIC BLOOD PRESSURE 74 10/08/2024 14:20:00 [facility] PULSE OXIMETRY 95 10/08/2024 14:20:00 [facility] WEIGHT 184.7 10/08/2024 14:20:00 [facility] BMI 30 kg/m2 10/08/2024 14:20:00 [facility] HEIGHT 66.0 10/08/2024 14:20:00 [facility] PULSE 83 10/08/2024 14:20:00 [facility] RESPIRATION 16 10/08/2024 14:20:00 [place] [facility] SYSTOLIC BLOOD PRESSURE 114 09/26/2024 11:56:29 [place] [facility] DIASTOLIC BLOOD PRESSURE 67 09/26/2024 11:56:29 [place] [facility] PULSE OXIMETRY 97 09/26/2024 11:56:29 [facility] WEIGHT 185.2 09/26/2024 11:56:29 [place] [facility] BMI 30 kg/m2 09/26/2024 11:56:29 [facility] PAIN 3 09/26/2024 11:56:29 [place] [facility] TEMPERATURE 97.6 09/26/2024 11:56:29 [place] [facility] PULSE 78 09/26/2024 11:56:29 [place] [facility] RESPIRATION 20 09/26/2024 11:56:29 [place] [facility] SYSTOLIC BLOOD PRESSURE 121 06/27/2024 13:37:00 [place] [facility] DIASTOLIC BLOOD PRESSURE 79 06/27/2024 13:37:00 [place] [facility] PULSE OXIMETRY 95 06/27/2024 13:37:00 [facility] [place] [facility] WEIGHT 185.0 06/27/2024 13:37:00 [place] [facility] BMI 30 kg/m2 06/27/2024 13:37:00 [place] [facility] HEIGHT 66.0 06/27/2024 13:37:00 [place] [facility] PULSE 77 06/27/2024 13:37:00 [place] [facility] RESPIRATION 20 06/27/2024 13:37:00 [place] [facility] SYSTOLIC BLOOD PRESSURE 105 06/21/2024 13:52:14 [place] [facility] DIASTOLIC BLOOD PRESSURE 70 06/21/2024 13:52:14 [place] [facility] PULSE OXIMETRY 93 06/21/2024 13:52:14 [facility] [place] [facility] WEIGHT 182.7 06/21/2024 13:52:14 [place] [facility] BMI 30 kg/m2 06/21/2024 13:52:14 [place] [facility] TEMPERATURE 97.8 06/21/2024 13:52:14 [place] [facility] PULSE 78 06/21/2024 13:52:14 [place] [facility] RESPIRATION 18 06/21/2024 13:52:14 [place] [facility] SYSTOLIC BLOOD PRESSURE 108 06/17/2024 13:42:00 [place] [facility] DIASTOLIC BLOOD PRESSURE 74 06/17/2024 13:42:00 [place] [facility] PULSE OXIMETRY 94 06/17/2024 13:42:00 [facility] [place] [facility] WEIGHT 187.9 06/17/2024 13:42:00 [place] [facility] BMI 30 kg/m2 06/17/2024 13:42:00 [place] [facility] PAIN 7 06/17/2024 13:42:00 [place] [facility] TEMPERATURE 98.6 06/17/2024 13:42:00 [place] [facility] PULSE 86 06/17/2024 13:42:00 [place] [facility] RESPIRATION 8 06/17/2024 13:42:00 [place] [facility] Encounters Combined list of: 1) Encounters from Department of Veterans Affairs facilities going backup to the last 18 months, not all VA inpatient encounters are included; 2) Encounters from the Department of [facility] facilities going backup to 280 months. Location Location Details Encounter Type Encounter Number Reason For Visit Attending Provider ADM Date DC Date Status Disposition Source [facility] Outpatient Encounter [id number] 06/19 [facility] Outpatient Encounter [id number] 06/26 [facility] Outpatient Encounter [id number] 06/28 [facility] Outpatient Encounter [id number] 06/29 [facility] En[facility] [id number] 06/29 [place] [facility] Outpatient Encounter [id number] 06/29 [facility] PSYTX W PT 60 MINUTES [id number] Diagnos is: ICD-10- CM F43.12 Post-tr aumatic stress disorde r, chronic SHAYY HOLLAND L 06/30 [facility] MTMS BY PHARM ADDL 15 MIN [id number] Diagnos is: ICD-10- CM E11.9 Type 2 diabete s mellitu s without complic ations Herminia HARPER W 07/04 [facility] Outpatient Encounter [id number] 07/06 [facility] Outpatient Encounter [id number] 07/07 [facility] Outpatient Encounter [id number] 07/12 [facility] Outpatient Encounter [id number] 07/13 [facility] Outpatient Encounter [id number] [facility] Outpatient Encounter [id number] 07/20 [facility] Outpatient Encounter [id number] Herminia FENG 07/23 [facility] OFFICE O/P EST LOW 20 MIN [id number] Diagnos is: ICD-10- CM R25.1 Tremor, unspeci fied MELVIN INFANTEINE R 07/23 [facility] Outpatient Encounter [id number] 07/25 [facility] Outpatient Encounter [id number] 07/26 [facility] Outpatient Encounter [id number] 07/27 [facility] Outpatient Encounter [id number] 08/02 [facility] Outpatient Encounter [id number] 08/02 [facility] OFF/OP EST MAY X REQ PHY/QHP [id number] Diagnos is: ICD-10- CM L98.9 Disorde r of the skin and subcuta neous tissue, unspeci fied Herminia FENG 08/07 [facility] Outpatient Encounter [id number] 08/07 [facility] Outpatient Encounter [id number] MELVIN INFANTE R 08/07 [facility] OFFICE O/P EST MOD 30 MIN [id number] Diagnos is: ICD-10- CM S90.562 A Insect bite (nonven omous), left ankle, initial encount er MEGHA RODRIGUEZ 08/07 [facility] Outpatient Encounter [id number] 08/13 [facility] Outpatient Encounter [id number] 08/16 [facility] Outpatient Encounter [id number] 08/16 [facility] Outpatient Encounter [id number] Diagnos is: ICD-10- CM Z00.01 Encount er for general adult medical exam w MELVIN Rick 08/22 [facility] Outpatient Encounter [id number] 08/23 [facility] MTMS BY PHARM ADDL 15 MIN [id number] Diagnos is: ICD-10- CM E11.9 Type 2 diabete s mellitu s without complic ations Herminia HARPER 08/28 [facility] Outpatient Encounter [id number] 08/29 [facility] OFF/OP EST MAY X REQ PHY/QHP [id number] Diagnos is: ICD-10- CM S50.362 A Insect bite (nonven omous) of left elbow, initial encount er Herminia FENG 09/03 [facility] OFFICE O/P EST LOW 20 MIN [id number] Diagnos is: ICD-10- CM L25.8 Unspeci fied contact dermati tis due to other agents MEGHA RODRIGUEZ 09/03 [facility] Outpatient Encounter [id number] NATALYA POLANCO BARAK Martel 09/04 [facility] Outpatient Encounter [id number] 09/05 [facility] Outpatient Encounter [id number] 09/13 [facility] Outpatient Encounter [id number] 09/19 [facility] Outpatient Encounter [id number] SHANTA LANGSTON 09/19 [facility] Outpatient Encounter [id number] 09/24 [facility] Outpatient Encounter [id number] 09/25 [facility] Outpatient Encounter [id number] Herminia FENG 09/25 [facility] Outpatient Encounter [id number] 10/03 [facility] OFFICE O/P EST LOW 20 MIN [id number] Diagnos is: ICD-10- CM R11.2 Nausea with vomitin g, unspeci fied MELVIN INFANTE 10/04 [facility] MTMS BY PHARM ADDL 15 MIN [id number] Diagnos is: ICD-10- CM E11.9 Type 2 diabete s mellitu s without complic ations Herminia HARPER W 10/04 [facility] QNHP OL DIG ASSMT&MGMT 5-10 [id number] Diagnos is: ICD-10- CM E11.9 Type 2 diabete s mellitu s without complic ations CARINE JEFFERSON V 10/04 [facility] Outpatient Encounter [id number] 10/11 [facility] Outpatient Encounter [id number] 10/12 [facility] Outpatient Encounter 55656-5.65 [id number] 2 10/12 [facility] Outpatient Encounter 67188-8.65 [id number] 8 10/29 [facility] Outpatient Encounter 16510-3.65 [id number] 2 SHUBHAM ISAACS 10/29 [facility] Outpatient Encounter 00027-5.65 [id number] 2 11/05 [facility] Outpatient Encounter 31409-0.65 [id number] 8 11/08 [facility] Outpatient Encounter 59972-5.65 [id number] 2 11/12 [facility] Outpatient Encounter 35837-2.65 [id number] 5 11/13 [facility] Outpatient Encounter 48231-6.65 [id number] 2 11/20 [facility] Outpatient Encounter 52616-8.65 [id number] 1 11/26 [facility] Outpatient Encounter 88867-4.65 [id number] 8 11/27 [facility] Outpatient Encounter 62612-5.65 [id number] 4 11/27 [facility] Outpatient Encounter 75968-3.65 [id number] 7 11/29 [facility] Outpatient Encounter 99230-8.65 [id number] 7 Herminia FENG 11/29 [facility] Outpatient Encounter 97482-2.65 [id number] 1 Herminia FENG 11/29 [facility] Outpatient Encounter 02866-6.65 [id number] 5 Herminia FENG 11/30 [facility] En[facility] 22087-6.65 [id number] 11/30 [facility] MTMS BY PHARM ADDL 15 MIN [id number] [id number] Diagnos is: ICD-10- CM E11.9 Type 2 diabete s mellitu s without complic ations Herminia HARPER 11/[address] [facility] Out[facility] Encounter 30006-8.65 [id number] 6 12/05 [facility] MTMS BY PHARM ADDL 15 MIN 69245-5.65 [id number] 518 Diagnos is: ICD-10- CM E11.9 Type 2 diabete s mellitu s without complic ations Herminia HARPER KENNEDY W 12/10 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 Outpatient Encounter 85432-2.65 [id number] 3 12/24 [facility] Outpatient Encounter 70304-7.65 [id number] 2 12/26 [facility] Outpatient Encounter 55336-5.65 [id number] 4 01/01 [facility] Outpatient Encounter 65713-0.65 [id number] 6 01/03 [facility] Outpatient Encounter 36200-8.65 [id number] 3 01/14 [facility] Outpatient Encounter 18580-2.65 [id number] 5 01/15 [facility] QNHP OL DIG ASSMT&MGMT 5-10 61439-1.65 [id number] 732 Diagnos is: ICD-10- CM I20.9 Angina pectori s, unspeci fied CARINE JEFFERSON V 01/15 [facility] Outpatient Encounter 78556-9.65 [id number] 4 CHUCHO DU 01/17 [facility] Outpatient Encounter 82903-7. [id number] 5 SHANTA LANGSTON 01/21 [facility] Outpatient Encounter 19934-7.65 [id number] 1 01/22 [facility] Outpatient Encounter 47536-3.65 [id number] 7 01/23 [facility] MTMS BY PHARM ADDL 15 MIN 78198-3.65 [id number] Diagnos is: ICD-10- CM E11.9 Type 2 diabete s mellitu s without complic ations Herminia HARPER 01/24 [facility] Outpatient Encounter 34293-2.65 [id number] 0 01/25 [facility] Outpatient Encounter 97158-2.65 [id number] 1 01/28 [facility] Outpatient Encounter 56333-2.65 [id number] 3 Herminia FENG 01/28 [facility] Outpatient Encounter 62384-7.65 [id number] 5 Herminia FENG 01/28 [facility] MTMS BY PHARM ADDL 15 MIN [id number] [id number] Diagnos is: ICD-10- CM E11.9 Type 2 diabete s mellitu s without complic ations Herminia HARPER 01/29 [facility] Outpatient Encounter [id number] [id number] 9 NATALYA POLANCO 02/04 [facility] Outpatient Encounter 09280-8.65 [id number] 1 NATALYA POLANCO R 02/06 [facility] Outpatient Encounter 41837-3.65 [id number] 1 02/06 [facility] Outpatient Encounter 30758-5.65 [id number] 0 02/07 [facility] Outpatient Encounter 25156-2.65 [id number] 7 02/12 [facility] Outpatient Encounter 16417-7.65 [id number] 4 02/13 [facility] Out[facility] Encounter 41869-4.65 [id number] 7 02/19 [facility] Outpatient Encounter 93150-8.65 [id number] 420 03/01 [facility] NURSING ASSESSMENT /EVALUATN 06761-3.65 [id number] Diagnos is: ICD-10- CM H93.19 Tinnitu s, unspeci fied ear Herminia FENG 03/12 [facility] PS[facility] W PT 60 MINUTES 51984-4.65 [id number] 149 Diagnos is: ICD-10- CM F43.12 Post-tr aumatic stress disorde r, chronic DEB LOPEZ P 03/14 [facility] Outpatient Encounter 29517-9.65 [id number] 8 03/19 [facility] Outpatient Encounter 57795-9.65 [id number] 1 03/20 [facility] Outpatient Encounter 71574-1.65 [id number] 9 03/20 [facility] Outpatient Encounter 80089-8.65 [id number] 7 03/21 [facility] Outpatient Encounter 50472-6.65 [id number] 6 03/21 [facility] Outpatient Encounter 36247-8.65 [id number] 6 04/08 [facility] OFFICE O/P EST MOD 30 MIN [id number] [id number] Diagnos is: ICD-10- CM E11.9 Type 2 diabete s mellitu s without complic ations MELVIN INFANTE THERINE R 04/09 [facility] MTMS BY PHARM ADDL 15 MIN [id number] [id number] Diagnos is: ICD-10- CM E11.9 Type 2 diabete s mellitu s without complic ations Herminia HARPER W 04/09 [facility] En[facility] 23324-9.65 [id number] 0 COLLINNATALYAKAREN Martel 04/10 [facility] PSYTX W PT 60 MINUTES 61009-3.65 [id number] Diagnos is: ICD-10- CM F43.12 Post-tr aumatic stress disorde r, DEB William P 04/19 [facility] Outpatient Encounter 20566-0.65 [id number] 6 04/23 [facility] Outpatient Encounter 70483-5.65 [id number] 7 04/25 [facility] Outpatient Encounter 36484-5.65 [id number] 0 04/30 [facility] Outpatient Encounter 57748-3.65 [id number] 0 Herminia FENG 05/02 [facility] Outpatient Encounter 65476-2.65 [id number] 0 05/09 [facility] Outpatient Encounter 82782-1.65 [id number] 5 05/09 [facility] FAC[facility] FEE 58405-8.65 [id number] Diagnos is: ICD-10- CM H93.13 Tinnitu s, bilater al GRAVESOMAIRARA A 05/17 [facility] [place] [facility] HEARING AID EXAM BOTH EARS 31930-6.65 [id number] 402 Diagnos is: ICD-10- CM H93.13 isabel Sawyer ALE XANDRA A 05/17 [place] [facility] Outpatient Encounter 17740-0.65 [id number] 8 IVISSHANTA COWAN L 05/20 [facility] Outpatient Encounter 83069-8.65 [id number] 6 05/21 [facility] Outpatient Encounter 34722-2.65 [id number] 9 05/23 [facility] Outpatient Encounter 63942-3.65 [id number] 05/24 [facility] Encounter 64028-9.65 [id number] 05/28 [facility] Outpatient Encounter 80097-4.65 [id number] 1 05/28 [facility] OFFICE O/P EST MOD 30 MIN 60393-5.65 [id number] Diagnos is: ICD-10- CM 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 MELVIN Bocanegra R 06/05 [facility] Out[facility] Encounter 62669-3.65 [id number] 2 06/11 [facility] OFF/OP EST SEPTEMBER X REQ PHY/QHP 40579-1.65 [id number] Diagnos is: ICD-10- CM R05.1 Acute cough PHILIP SEE R 06/17 [facility] Outpatient Encounter 61875-0.65 [id number] DEB LOPEZ P 06/19 [facility] Outpatient Encounter 53158-3.65 [id number] 06/19 [facility] Outpatient Encounter 18044-7.65 [id number] 5 06/20 [facility] OFF[facility]OP EST MAY X REQ PHY/QHP 78337-0.65 [id number] Diagnos is: ICD-10- CM R05.1 Acute cough Herminia FENG 06/21 [facility] Outpatient Encounter 88245-6.65 [id number] 8 06/26 [facility] Outpatient Encounter 08230-5.65 [id number] 2 MELVIN INFANTE R 06/27 [facility] OFFICE O/P EST MOD 30 MIN [id number] [id number] Diagnos is: ICD-10- CM J18.8 Other pneumon ia, unspeci fied organis m MELVIN INFANTE R 06/27 [facility] Outpatient Encounter 29841-9.65 [id number] CHUCHO DU 06/27 [facility]HEALTH FACILITY FEE 52494-2.65 [id number] Diagnos is: ICD-10- CM Z46.1 Encount er for fitting and adjustm ent of hearing aid OMAIRA DURBIN A 07/01 [facility] CONFORMITY EVALUATION 06133-5.65 [id number] Diagnos is: ICD-10- CM Z46.1 Encount er for fitting and adjustm ent of hearing aid GRAVES,OMAIRA DAVIDE A 07/01 [place] [facility] Outpatient Encounter 59889-7.65 [id number] 4 07/01 [facility] Outpatient Encounter 03788-5.65 [id number] 4 07/02 [facility] Outpatient Encounter 14053-8.65 [id number] 07/02 [facility] MTMS BY PHARM ADDL 15 MIN 01227-2.65 [id number] Diagnos is: ICD-10- CM J44.9 Chronic obstruc tive pulmona ry disease , unspeci fied Herminia HARPER W 07/04 [facility] Outpatient Encounter 20779-5.65 [id number] 3 07/09 [facility] PSYTX W PT 60 MINUTES [id number] [id number] Diagnos is: ICD-10- CM F43.12 Post-tr aumatic stress disorde r, chronic DEB LOPEZ P 07/16 [facility] Outpatient Encounter 65492-1.65 [id number] 1 07/17 [facility] Outpatient Encounter 03007-0.65 [id number] 4 07/18 [facility] Outpatient Encounter 20343-3.65 [id number] 3 07/18 [facility] Outpatient Encounter 84725-3.65 [id number] 2 07/18 [facility] Outpatient Encounter 71690-3.65 [id number] 5 NATALYA POLANCO BARAK R 07/19 [facility] Outpatient Encounter 52968-7.65 [id number] 4 07/19 [facility] Outpatient Encounter 10450-8.65 [id number] 0 07/23 [facility] Outpatient Encounter 59355-7.65 [id number] 2 07/24 [facility] Outpatient Encounter 83774-2.65 [id number] 07/30 [facility] FEE 88996-3.65 [id number] Diagnos is: ICD-10- CM Z46.1 Encount er for fitting and adjustm ent of hearing aid [facility] 07/31 [facility]ARING SERVICE 33725-1.65 [id number] 770 Diagnos is: ICD-10- CM Z46.1 Encount er for fitting and adjustm ent of hearing aid OMAIRA DURBIN A 07/31 [facility] PSYTX W PT 60 MINUTES 23299-5.65 [id number] Diagnos is: ICD-10- CM F43.12 Post-tr aumatic stress disorde r, chronic DEB LOPEZ P 08/13 [facility] Outpatient Encounter 62069-8.65 [id number] 6 08/16 [facility] Outpatient Encounter 84188-8.65 [id number] 7 08/16 [facility] Outpatient Encounter 46674-3.65 [id number] 0 Herminia FENG 08/16 [facility] Outpatient Encounter 63764-3.65 [id number] 5 Herminia FENGEE 09/09 [facility] Outpatient Encounter 45998-1.65 [id number] 4 Herminia FENGEE 09/17 [facility] Encounter 72751-0.65 [id number] 8 09/19 [facility] Outpatient Encounter 14149-3.65 [id number] 8 09/23 [facility] Outpatient Encounter 11301-2.65 [id number] 2 09/23 [facility] Outpatient Encounter 57428-9.65 [id number] 6 09/23 [facility] Outpatient Encounter 15003-3.65 [id number] 7 FITO DELGADO 09/25 [facility] FAC[facility] FEE 92995-8.65 [id number] Diagnos is: ICD-10- CM F31.9 Bipolar disorde r, unspeci LORENZO Palmer 09/26 [facility] SYNCH AUDIO-[place] 60 58666-7.65 [id number] 037 Diagnos is: ICD-10- CM F31.9 Bipolar disorde r, unspeci LORENZO Palmer 09/26 [place] [facility] Outpatient Encounter 45852-1.65 [id number] 7 09/26 [facility] Outpatient Encounter 32269-9.65 [id number] 09/30 [facility] FEE 33997-5.65 [id number] 306 Diagnos is: ICD-10- CM Z46.1 Encount er for fitting and adjustm ent of hearing aid OMAIRA DURBIN A 10/01 [facility] HEARING AID FITTING/CH ECKING 37349-8.65 [id number] 349 Diagnos is: ICD-10- CM Z46.1 Encount er for fitting and adjustm ent of hearing aid OMAIRA DURBIN A 10/01 [facility] MTMS BY PHARM ADDL 15 MIN 72032-1.65 [id number] Diagnos is: ICD-10- CM J44.9 Chronic obstruc tive pulmona ry disease , unspeci fied Herminia HARPER W 10/01 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 Kandice LICONA ILIMihaela 10/28 [facility] Outpatient Encounter 29915-3.65 [id number] 4 10/30 [facility] Outpatient Encounter 80486-4.65 [id number] 1 10/31 [facility] Outpatient Encounter 90783-6.65 [id number] MELI DRIVER 10/31 [facility] Outpatient Encounter 28585-5.65 [id number] 879 10/31 [place] [facility] Outpatient Encounter 89008-8.65 [id number] 1 11/06 [facility] Outpatient Encounter 01375-5.65 [id number] 5 11/19 [facility] Outpatient Encounter 70864-3.65 [id number] CHUCHO DU M 11/25 [facility] N Social History Combined list of available smoking, tobacco, and other social history from Department of Defense and Veterans Affairs facilities. Social History Type Response Date Comment Sourc e Tobacco smoking status NHIS VA-TOBACCO SCREEN FOLLOW-UP 10/08/2024 [facility] History of tobacco use VA-TOBACCO USE ADVICE 10/08/2024 [facility] History of tobacco use VA-TOBACCO NEVER USED OTHER TYPE 09/25/2024 [facility] History of tobacco use VA-TOBACCO USER E VERY DAY 08[facility]23[facility]20[facility] History of tobacco use VA-TOBACCO USER E VERY DAY 08/24/2022 [facility] History of tobacco use VA-TOBACCO USER E VERY DAY 08/30/2021 [facility] History of tobacco use VA-TOBACCO USER E VERY DAY 02/17/2020 [facility] History of tobacco use VA-TOBACCO USER E VERY DAY 06/27/2018 [facility] History of tobacco use TOBACCO USER OFFE RED MEDS 07/20/2017 [facility] History of tobacco use TOBACCO USER OFFE RED MEDS 07/20/2017 [facility] History of tobacco use CURRENT TOBACCO USER 06/12/2017 [facility] History of tobacco use CURRENT TOBACCO USER 07/25/2016 [facility] History of tobacco use CURRENT TOBACCO USER 12/18/2015 [facility] History of tobacco use CURRENT TOBACCO USER 03/11/2009 [facility] History of tobacco use CURRENT TOBACCO USER 02/12/2009 [facility] History of tobacco use CURRENT SMOKER 08/11/2005 1/2ppd [facility] Plan of Care List of future care activities from Department of Veterans Affairs facilities. Additional future care activities may be listed in the Assessment and Plan section. Date/Time Care Activity Care Activity Detail Facili ty 12/19/2024 AMBULAT[facility] Advance Directives List of completed, amended, or rescinded Advance Directives on record at Department of Veterans Affairs facilities. An actual copy of the Directive is not included. Date Advance Directive Provider Source 12/18/2023 ADVANCE DIRECTIVE PETER BOWLING FF [facility]
[2024-12-15 23:26] VITALS: BP 96/60; PULSE 68; RESP 16; TEMP 36.5; O2SAT 96; BMI 29.0
--- OUTSIDE RECORDS SUMMARY | 2024-12-15 23:36 | XMS_ITS | Encounter Summary ---
Author Name [facility] [place] [facility] [place] Address [address] [place] [address] Care Team Providers Care Chuck Wagon Driver Name Role Phone DAKOTAH INFANTE Primary [...] Name Patient's Relationship to Policy Palmer [facility] (WNR) MEDICARE ADVANTAGE HUMAN A INSUR [employer] May 22, 2020 [id number] [phone] JAMI CASTELLANO PATIENT INNOVIANT E-PHARM PRESCRIPT ION SWEET WATER KANDI DIST Jan 20, 2007 [id number] [phone] JAMI CASTELLANO PATIENT MEDICARE (WNR) MEDICARE (M) PART A Nov 19, 2013 PART A [id number] JAMI CASTELLANO PATIENT MEDICARE (WNR) MEDICARE (M) PART B Nov 19, 2013 PART B [id number] JAMI CASTELLANO PATIENT MEDICARE (WNR) MEDICARE (M) PART A Nov 19, 2013 PART A [id number] JAMI CASTELLANO PATIENT MEDICARE (WNR) MEDICARE (M) PART B Nov 19, 2013 PART B [id number] JAMI CASTELLANO PATIENT MEDICARE (WNR) MEDICARE (M) PART B Nov 19, 2013 PART B [id number] JAMI CASTELLANO PATIENT MEDICARE (WNR) MEDICARE (M) PART A Nov 19, 2013 PART A [id number] JAMI CASTELLANO PATIENT MEDICARE (WNR) MEDICARE (M) PART A Nov 19, 2013 PART A [id number] JAMI CASTELLANO PATIENT MEDICARE (WNR) MEDICARE (M) PART B Nov 19, 2013 PART B [id number] JAMI CASTELLANO PATIENT MEDICARE (WNR) MEDICARE (M) PART A Nov 19, 2013 PART A [id number] JAMI CASTELLANO PATIENT MEDICARE (WNR) MEDICARE (M) PART B Nov 19, 2013 PART B [id number] JAMI CASTELLANO PATIENT MEDICARE (WNR) MEDICARE (M) PART A Nov 19, 2013 PART A [id number] JAMI CASTELLANO PATIENT MEDICARE (WNR) MEDICARE (M) PART B Nov 19, 2013 PART B [id number] JAMI CASTELLANO PATIENT MEDICARE (WNR) MEDICARE (M) PART A Nov 19, 2013 PART A [id number] JAMI CASTELLANO PATIENT MEDICARE (WNR) MEDICARE (M) PART B Nov 19, 2013 PART B [id number] JAMI CASTELLANO PATIENT MEDICARE (WNR) MEDICARE (M) PART A Nov 19, 2013 PART A [id number] [phone] JAMI CASTELLANO PATIENT MEDICARE (WNR) MEDICARE (M) PART B Nov 19, 2013 PART B [id number] JAMI CASTELLANO PATIENT MEDICARE PART D (WNR) MEDICARE (M) PART D May 22, 2020 PART D [id number] JAMI CASTELLANO PATIENT MEDICARE PART D (WNR) MEDICARE (M) PART D Feb 19, 2014 PART D [id number] JAMI CASTELLANO 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 Date/Time Encounter Type Encounter Description Reason Pro vider Source IHE Encounter Template Text not used by [place] Advance Directives: All historical and current Section [...] Dec 18, 2023 ADVANCE DIRECTIVE PETER BOWLING FF [facility]
--- OUTSIDE RECORDS SUMMARY | 2024-12-15 23:37 | XMS_ITS | Patient Health Record ---
Author Organization [facility] Address [address] [place], [place] [id number] Care Team Providers Care [place] Support Worker Name Role Phone [facility] Primary Care Provider Vanna Blair Peter MD Unavailable [phone] [place], [place] Unavailable Unavailable Mariah Orr Unavailable [phone] Allergies Allergen (clinical drug ingredient) Drug/Non Drug Allergy documented on EMR Reaction Allergy Type Onset Date Status band-aids (uncoded) Unknown Allergy Active bee stings (uncoded) Unknown Allergy Active Latex latex (uncoded) Unknown Allergy Acti ve iodine contrast even with prep (uncoded) Unknown Allergy Inactive codeine codeine Unknown Drug Allergy Active pneumococcal vaccine Unknown Drug Allergy Active tramadol tramadol Unknown Drug Allergy Active penicillin Unknown Drug Allergy Active Results Component Value Reference Range Notes Urine tox screen / MS if ind icated Reviewed date:04/30/2024 03:59:13 PM Interpretation:Consistent Performing Lab: Notes/Report: Consistent Reason For Referral Diagnosis 1 Other chronic pain ( G89.29) Referring Provider First Name [place] Crescencio ff Referring Provider Last Name [place] Referred Organization [facility] Referred Provider Blair Gale Referred Address [address], [place], Referred Provider Specialty Pain Managem ent Referral Priority Routine Reason CPAP Titration Study (31558) Diagnosis 1 Obstructive sleep ap ofelia (adult) (pediatric) (G47.33) Referral Organization [facility] Referring Provider First Name Blair Referring Provider Last Name Tompson Referring Provider Speciality Pain Manag ement General Notes Order ID: [id number], Authorized CPT CODE 85583, Approval Valid Through:04/01/2024 - 06/29/2024, Misty Stiles 04/01/2024 10:16:21 AM > Titration study approved; order faxed to [facility] scheduling and [facility] Sleep lab., Misty Stiles 08/20/2024 07:26:09 AM > Rescheduled for 09/03/24; new PA submitted. Referral Priority Routine Diagnosis 1 Vertebrogenic low ba ck pain (M54.51) Referring Provider First Name [place] Crescencio ff Referring Provider Last Name [place] Referred Organization [facility] [employer] Referred Provider Blair Gale Referred Address [address] [place], [id number], Referred Provider Specialty Pain Managem ent Referral Priority Routine Medications Medication SIG (Take, Route, Frequency, Duration) Notes Start Date End Date Status hydrOXYzine hydrochloride 25 mg 1 tab(s) orally 4 times a day Active lamoTRIgine 200 mg 1 tab orally and a 2 5 mg at bedtime Active metFORMIN 500 mg 2 tabs orally once a day Active nitroglycerin 0.4 mg 1 tab sublingually every 5 minutes Active ondansetron 4 mg 1 tab orally every 8 hours Active oxyBUTYnin 5 mg 1 tab orally 3 times a day Active atorvastatin 80 mg 1 tab orally once a day Active pantoprazole 20 mg 1 tab(s) orally once a day for 30 day(s) 04/30/2024 Active DULoxetine 30 mg 1 cap orally 2 times a day Active PreserVision AREDS 2 Antioxidant Multiple Vitamins and Minerals 1 tab(s) chewed 2 times a day Active traZODone 100 mg 1 tab orally once a day (at bedtime) Active acetaminophen-oxycodone 325 mg-7.5 mg 1 tab orally Q4H prn pain (max 4/day; hold within 4H of planned sleep) for 28 days Do not fill prior to 11/04/24. ICD-10: G89.29 09/18/2024 Active empagliflozin 25 mg 1 tab(s) orally once a day (in the morning) Active ProAir HFA 90 mcg/inh 2 puffs inhaled 4 times a day Active fexofenadine 30 mg 1 tab(s) orally 2 times a day Active Symbicort 160 mcg-4.5 mcg/inh 2 puff inhaled 2 times a day Active gabapentin 300 mg 2 caps orally at bedtime Active acetaminophen-oxycodone 325 mg-7.5 mg 1 tab orally Q4H prn pain (max 4/day; hold within 4H of planned sleep) for 28 days ICD-10: G89.29 (auth as per 09/19/24 visit) 10/17/2024 Active Social History Tobacco Use: Social History Observation Description Date Details (start date - stop date) Current Smoker NA - NA Tobacco use: Question Answer Notes : current smoker Are you interested in quitting? Ready to quit How many cigarettes a day do you smoke? 11-20 How often do you smoke cigarettes? every day How soon after you wake up do you smoke your fir st cigarette? after 60 min When did you start smoking? 1978 AUDIT-C (Standard) Question Answer Notes Did you have a drink containing alcohol in the p ast year? No Points 0 Interpretation Negative Problems Problem Type SNOMED Code ICD Code Onset Dates Problem Status W/U Status Risk Notes Problem Solitary sacroiliitis (794757386) Sacroiliitis, not elsewhere classified (M46.1) Active confirmed Problem Low back pain (319989581) Low back pain (M54.5) Active confirmed Problem Lumbosacral spondylosis without myelopathy (30932791) Spondylosis without myelopathy or radiculopathy, lumbar region (M47.816) Active confirmed Problem High risk drug monitoring status (147504261) FDC (current) use of opiate analgesic (Z79.891) Active confirmed Problem Anxiety disorder (631628387) Other specified anxiety disorders (F41.8) Active confirmed Problem Obstructive sleep apnea syndrome (93522917) Obstructive sleep apnea (adult) (pediatric) (G47.33) Active confirmed Problem Chronic pain (90710506) Other chronic pain (G89.29) Active confirmed Problem Cervical spondylosis without myelopathy (288555123) Spondylosis without myelopathy or radiculopathy, cervical region (M47.812) Active confirmed Problem Cervical radiculopathy (14248092) Cervical disc disorder with radiculopathy, unspecified cervical region (M50.10) Active confirmed Problem Cervicalgia (33794515) Cervicalgia (M54.2) Active confirmed Problem Long-term current use of drug therapy (499308309) Other penitentiary (current) drug therapy (Z79.899) Active confirmed Problem Neurogenic claudication (120091546) Spinal stenosis, lumbar region with neurogenic claudication (M48.062) Active confirmed Problem Myalgia (31913809) Myalgia of auxiliary muscles, head and neck (M79.12) Active confirmed Problem Pain in lumbar spine (566142015) Vertebrogenic low back pain (M54.51) Active confirmed Vital Signs Temperature 97.5 degrees Fahrenheit 09/19/2024 Oximetry 97 % 09/19/2024 Blood pressure diastolic 64 mm Hg 09/19/2024 Height 66 in 09/19/2024 Blood pressure systolic 101 mm Hg 09/19/2024 Weight 185.2 lbs 09/19/2024 BMI 29.89 kg/m2 09/19/2024 Encounters Encounter Location Date Provider Diagnosis [facility] [address] [place], [place] [id number] 01/23/2024 Mariah Wahl Vertebrogenic low ba ck pain M54.51 ; Other chronic pain G89.29 ; Spinal stenosis, lumbar region with neurogenic claudication M48.062 and Obstructive sleep apnea (adult) (pediatric) G47.33 [facility] [address] [place], [place] [id number] 03/19/2024 Blair Gale Vertebrogenic low ba ck pain M54.51 ; Other chronic pain G89.29 ; Spinal stenosis, lumbar region with neurogenic claudication M48.062 and Obstructive sleep apnea (adult) (pediatric) G47.33 [facility] [address] [place], [place] [id number] 04/30/2024 Blair Gale Vertebrogenic low ba ck pain M54.51 ; Other chronic pain G89.29 ; Spinal stenosis, lumbar region with neurogenic claudication M48.062 ; Obstructive sleep apnea (adult) (pediatric) G47.33 and computer terminal operator (current) use of opiate analgesic Z79.891 [facility] [address] [place], [place] [id number] 07/18/2024 Blair Gale Vertebrogenic low ba ck pain M54.51 ; Other chronic pain G89.29 ; Spinal stenosis, lumbar region with neurogenic claudication M48.062 and Obstructive sleep apnea (adult) (pediatric) G47.33 [facility] [address] [place], [place] [id number] 09/19/2024 Blair Gale Vertebrogenic low ba ck pain M54.51 ; Other chronic pain G89.29 ; Spinal stenosis, lumbar region with neurogenic claudication M48.062 and Obstructive sleep apnea (adult) (pediatric) G47.33 [facility] [address] [place], [place] [id number] 12/26/2023 Blair Gale [facility] [address] [place], [place] [id number] 02/20/2024 Blair Gale [facility] [address] [place], [place] [id number] 04/16/2024 Blair Gale [facility] [address] [place], [place] [id number] 05/28/2024 Blair Gale [facility] [address] [place], [place] [id number] 06/24/2024 Blair Gale [facility] [address] [place], [place] [id number] 08/15/2024 Blair Gale [facility] [address] [place], [place] [id number] 10/17/2024 Blair Gale Assessments Encounter Date Diagnosis (ICD Code) Assessment Notes Treatment Notes Treatment Clinical Notes Section Notes 01/23/2024 Vertebrogenic low back pain (ICD-10 - M54.51) Chronic lumbar spine pain. 09/19/2024 Vertebrogenic low back pain (ICD-10 - M54.51) Chronic lumbar spine pain. 07/18/2024 Other chronic pain (ICD-10 - G89.29) Patient reports that taking her pain medication allows her to complete her endocrinology specialist. Plan to continue oral opioid medication management. 07/18/2024 Vertebrogenic low back pain (ICD-10 - M54.51) Chronic lumbar spine pain. 04/30/2024 Vertebrogenic low back pain (ICD-10 - M54.51) Chronic lumbar spine pain. 03/19/2024 Other chronic pain (ICD-10 - G89.29) Patient reports that taking her pain medication allows her to care for her garden and water her plants. Plan to continue oral opioid medication management. 03/19/2024 Vertebrogenic low back pain (ICD-10 - M54.51) Chronic lumbar spine pain. 03/19/2024 Spinal stenosis, lumbar region with neurogenic claudication (ICD-10 - M48.062) Patient reports benefit with use of her SCS system. Most recent reprogramming was in early 2022 after the IPG exchange surgery. 04/30/2024 Other chronic pain (ICD-10 - G89.29) Patient reports that taking her pain medication allows her to prepare for the holiday season. Plan to continue oral opioid medication management. 07/18/2024 Spinal stenosis, lumbar region with neurogenic claudication (ICD-10 - M48.062) Patient reports benefit with use of her SCS system. Most recent reprogramming was in early 2022 after the IPG exchange surgery. 09/19/2024 Other chronic pain (ICD-10 - G89.29) Patient reports that taking her pain medication allows her to complete her endocrinology specialist. Plan to continue oral opioid medication at today's visit. 01/23/2024 Other chronic pain (ICD-10 - G89.29) Patient reports that taking her pain medication allows her to be more active and prepare for her daughter's upcoming wedding. Plan to continue oral opioid medication management. 01/23/2024 Spinal stenosis, lumbar region with neurogenic claudication (ICD-10 - M48.062) Patient reports benefit with use of her SCS system. Most recent reprogramming was in early 2022 after the IPG exchange surgery. 01/23/2024 Obstructive sleep apnea (adult) (pediatric) (ICD-10 - G47.33) Patient reports her sleep study was completed and her titration study is scheduled for 03/18/24. Plan to continue to restrict opioid use in relation to sleep for safety concerns. 09/19/2024 Spinal stenosis, lumbar region with neurogenic claudication (ICD-10 - M48.062) Patient reports benefit with use of her SCS system. Most recent reprogramming was in early 2022 after the IPG exchange surgery. Encouraged patient to stay in contact with her [employer] Teacher for future reprogramming as needed. 07/18/2024 Obstructive sleep apnea (adult) (pediatric) (ICD-10 - G47.33) Patient has reported her sleep study was completed on 03/18/24; orders for titration study faxed on 04/01/24. She confirms she is scheduled for that study in 08/2024. Plan to continue to restrict opioid use in relation to sleep for safety concerns. 04/30/2024 Spinal stenosis, lumbar region with neurogenic claudication (ICD-10 - M48.062) Patient reports benefit with use of her SCS system. Most recent reprogramming was in early 2022 after the IPG exchange surgery. 03/19/2024 Obstructive sleep apnea (adult) (pediatric) (ICD-10 - G47.33) Patient reports her CPAP titration study was completed on 03/18/24; awaiting results. Plan to continue to restrict opioid use in relation to sleep for safety concerns. 04/30/2024 Obstructive sleep apnea (adult) (pediatric) (ICD-10 - G47.33) Patient reports her sleep study was completed on 03/18/24; orders for titration study faxed on 04/01/24. No appointment scheduled per patient thus far. Plan to continue to restrict opioid use in relation to sleep for safety concerns. 09/19/2024 Obstructive sleep apnea (adult) (pediatric) (ICD-10 - G47.33) [facility]AP [facility] to [facility] on 09/17/24. Patient reports she has not been contacted by that company as of yet. Plan to continue to restrict opioid use in relation to sleep for safety concerns. 04/30/2024 computer terminal operator (current) use of opiate analgesic (ICD-10 - Z79.891) 2022 opioid (OUD) risk tool score = 3. This places the patient in the high risk category, warranting more frequent screening. Plan 2 month visit pending continued compliance with patient's Treatment Agreement. Plan urine toxicology screen today to monitor for presence of any unprescribed or illicit controlled substance(s), as well as prescribed oxycodone. 03/19/2024 Other Due to the [place] [facility] inability to store more than 1 month of opioid prescriptions at a time, remaining eRx will be sent in 28 days. The service was provided by MARYJO Gomez, as part of the ongoing care plan established by Blair Gale MD, who was present in the office for direct supervision during the encounter. 04/30/2024 Other Due to the [place] [facility] inability to store more than 1 month of opioid prescriptions at a time, next eRxs will be sent in 28 and 56 days. The service was provided by MARYJO Gomez, as part of the ongoing care plan established by Blair Gale MD, who was present in the office for direct supervision during the encounter. 07/18/2024 Other Due to the [place] [facility] inability to store more than 1 month of opioid prescriptions at a time, patient's remaining eRx will be sent in 28 days. The service was provided by MARYJO Gomez, as part of the ongoing care plan established by Blair Gale MD, who was present in the office for direct supervision during the encounter. 09/19/2024 Other The service was provided by MARYJO Gomez, as part of the ongoing care plan established by Blair Gale MD, who was present in the office for direct supervision during the encounter. Patient was provided with a letter at today's visit informing patient that this clinic is closing due to Dr. Gale's custodial; see scanned document. Terminal prescriptions were given to the patient along with tapering instructions. Due to the [place] [facility] inability to store more than 1 month of opioid prescriptions at a time, patient's remaining eRx will be sent in 28 days; a printed prescription will be given to patient to fill in 56 days. 01/23/2024 Other Due to the [place] [facility] inability to store more than 1 month of opioid prescriptions at a time, remaining eRx will be sent in 28 days. Plan Of Treatment No Information Insurance Providers Payer Name Payer Address Payer Phone Subscriber Number Group Number Insured Name Patient Relationship to Insured Coverage Start Date Coverage End Date [employer] [address] [place] [id number] Laquita Holguin Self - patient is the insured [employer] [address] [address] [place] [address] [phone] [id number] Laquita Holguin Self - patient is the insured Medical (General) History Medical History History ICD Code Chronic pain Low back pain Lumbar spondylosis Lumbar spinal stenosis Sacroiliitis Meralgia paresthetica, bilateral lower l imb pain Neck pain Cervical spondylosis and disc disease Bipolar disorder GERD without esophagitis Generalized anxiety disorder Gout Major depressive disorder Mild cognitive impairment Mood disorder Migraines, intractable Somatoform disorder Diabetes mellitus type II Osteoarthritis Scoliosis Cranial neuralgia Ramon's disease Macular degeneration Double vision Neuropathy Peripheral vascular disease Left trochanteric tendonitis as noted up on review of plain films report Oral nitrate Rx, history of angiogram, history of hospitalization for DC (CAD) Tobacco use, possible COPD Sleep apnea Obesity, mild Surgical History Surgery Date(Month/Year) Hysterectomy, 01/2001 Angiogram, performed at [facility], [place], [place], 01/2014 Repair of umbilical hernia, performed at [facility] in [place], [place], 10/2015 SCS system (with IPG) placem ent (for low back pain), performed at [facility] by Dr. García, 08/05/19 IPG pocket revision, performed at [facility] Dr. Brendan Bower, 11/07/20 SCS system (with IPG) placem ent (for neck pain), performed at [facility] by Dr. Bower, 08/07/21 SCS battery (IPG) replacemen t, performed at [facility] in [place], [place] by Dr. Tommy Burks, 08/03/23 Hospitalization History Reason Date(Month/Year) Sepsis, treated at [facility] in [place], [place], 11/2015 Heart attack, treated at [facility] in [place], [place], 01/2014
--- OUTSIDE RECORDS SUMMARY | 2024-12-15 23:37 | XMS_ITS | Clinical Summary ---
Author Organization [facility] Address [address] [place] [id number] Phone Care Team Providers Care Setter Molding And Coremaking Machines Name Role Phone Unavailable Primary Care Provider Unavailabl e Allergies Active Allergy Reactions Criticality Noted Date Comments Bee Sting Kit Anaphylaxis High 11/26/2017 Codeine Unknown 04/09/2009 Iodinated Contrast Media Hives High 07/21/2017 Penicillins Hives High 11/26/2017 Cephalosporins are okay. Pneumococcal 23-Susanne Ps Vaccine Other (See Comments) 11/01/2023 Pt reports vaccine site gets swollen and possibly infected Tramadol Hives,Unknown High 07/21/2017 Medications omeprazole (PriLOSEC) 40 mg Capsule, Delayed Release(E.C.) Take 40 mg by mouth daily. Active oxyCODONE-acet aminophen (PERCOCET) 5-325 mg tablet Take 1 Tablet by mouth every 4 hours as needed for Pain, Moderate. Active duloxetine HCl (DULOXETINE ORAL) Take 20 mg by mouth. Active cetirizine HCl (CETIRIZINE ORAL) Take 10 mg by mouth. Active oxybutynin chloride (DITROPAN) 5 mg tablet Take 5 mg by mouth 3 times daily. Active ondansetron (ZOFRAN) 8 mg Tablet Take 8 mg by mouth every 8 hours as needed for Nausea/Emesis. Active LAMOTRIGINE ORAL Take 225 mg by mouth daily at bedtime. Active traZODone (DESYREL) 100 mg tablet Take 100 mg by mouth daily at bedtime. Active atorvastatin calcium (ATORVASTATIN ORAL) Take 40 mg by mouth. Active spironolactone (ALDACTONE) 100 mg tablet Take 50 mg by mouth daily. 3 Active fexofenadine (DAIJA) 180 mg tablet Take 180 mg by mouth daily. 3 Active cholecalcifero l, Vitamin D3, 50 mcg (2,000 unit) Tablet Take 2,000 Units by mouth daily. 3 Active albuterol sulfate HFA 90 mcg/actuation aerosol inhaler Take 2 Puffs by inhalation 4 times daily. 3 Active budesonide-for moteroL (Symbicort) 160-4.5 mcg/actuation HFA Aerosol Inhaler 2 Puffs by See Admin Instructions route 2 times daily. Active nitroglycerin (NITROSTAT) 0.4 mg Tablet, Sublingual Place 0.4 mg under tongue see administration instructions. Active metFORMIN (GLUCOPHAGE) 500 mg tablet Take 500 mg by mouth 2 times daily with meals. Active semaglutide (Ozempic) 0.25 mg or 0.5 mg(2 mg/1.5 mL) Pen Injector Inject 0.25 mg by subcutaneous injection every 7 days. 4 Active hydrOXYzine pamoate (VISTARIL) 25 mg capsule Take 25 mg by mouth every 6 hours as needed. 4 Active Active Problems No known active problems Encounters Date Type Department Care Team Description 11/06/2024 External Device Data [facility]STRACTION Provider, Abstract 11/05/2024 External Device Data [facility] Provider, Abstract from Last 3 Months Family History Medical History Relation Name Comments Colon Polyps Mother Relation Name Status Comments Mother Social History Tobacco Use Types Packs/Day Years Used Date Smoking Tobacco: Every Day Cigarettes 0.8 45 Smokeless Tobacco: Never Tobacco Cessation:Ready to Q uit: Not Asked; Counseling Given: Not Answered Alcohol Use Standard Drinks/Week Comments No 0 (1 standard drink = 0.6 oz pur e alcohol) Comments No Sex and Gender Information Value Date Recorded Sex Assigned at Not on file Legal Sex Female 4:20 PM CDT Gender Identity Not on file Sexual Orientation Not on file Last Filed Vital Signs Vital Sign Reading Time Taken Comments Blood Pressure 103/67 11/06/2023 9:47 AM CDT Pulse 78 11/06/2023 9:47 AM CDT Temperature 36.3 C (97.4 F) 11/06/2023 9:47 AM CDT Respiratory Rate 18 11/06/2023 9:47 AM CDT Oxygen Saturation 92% 11/06/2023 9:47 AM CDT Inhaled Oxygen Concentration - - Weight 88 kg (194 lb) 11/06/2023 7:56 AM CDT Height 167.6 cm (5' 6 ) 11/06/2023 7:56 AM CDT Body Mass Index 31.31 11/06/2023 7:56 AM CDT Plan of Treatment Health Maintenance Due Date Last Done Comments DIABETES ANNUAL FOOT EXAM 1978 DIABETES MICROALBUMIN ANNUAL SCREEN 1978 LDL CHOLESTEROL ANNUAL 1978 HPV/Cotest (21-29) 1981 CERVICAL CANCER SCREENING 1990 HPV/Cotest (30-65) 1990 PAP SMEAR 1990 BREAST CANCER SCREENING 2000 FIT-DNA Q 3 years 2005 FIT/FOBT Q 1 year 2005 Flex Sig/CT Colonography Q 5 years 2005 ZOSTER VACCINE (1 of 2) 2010 RSV VACCINE (60+ or ) (1 - Risk 60-74 years 1-dose series) 2020 DIABETES HBA1C Q 6 MONTHS 12/06/2022 06/08/2022 DIABETES ANNUAL RETINAL EXAM 06/30/2023 06/30/2022 INFLUENZA VACCINE (#1) 2024 DTAP/TDAP/TD VACCINES (2 - T d or Tdap) 06/12/2027 06/12/2017, 02/19/2003, 05/22/2002 COLORECTAL SCREENING 03/27/2033 03/27/2023 Colorectal Cancer Screening 03/27/2033 Medical Devices Implanted Type Area Microsoft Application Developer Device Identifier Shelf Expiration Date Model / Serial / Lot Clip Endo Resolution 360 235cm [id number] Implanted:Qty: 1 on 03/27/2023 by Tommy Burks MD at [facility] Clip N/A: Perianal [employer]- ENDOSCOPY 07/03/2025 [id number] / / [id number] Wavewriter Mixwit Implantable Pulse Generator Kit Implanted:Qty: 1 on 08/03/2023 by Tommy Burks MD at [facility] N/A: Back [employer] SYS 06/06/2025 [id number] / [id number] / [id number] Procedures Procedure Name Priority Date/Time Associated Diagnosis Comments HEMOGLOBIN A1C Stat 06/08/2022 12:50 PM BUSINESS PROCESS SPECIALIST from Last 3 Months or Most Recently Relevant to Health Maintenance Results * (ABNORMAL) HEMOGLOBIN A1C (06/08/2022 12:50 PM BUSINESS PROCESS SPECIALIST) HEMOGLOBIN A1C 7.5(H) <=5.6 % 06/08/2022 1:55 PM BUSINESS PROCESS SPECIALIST [facility] EST. AVG GLUCOSE, A1C 169 mg/dL 06/08/2022 1:55 PM BUSINESS PROCESS SPECIALIST [facility] Blood BLOOD SPECIMEN / Unknown Venipuncture / Unknown 06/08/2022 12:50 PM BUSINESS PROCESS SPECIALIST 06/08/2022 12:57 PM BUSINESS PROCESS SPECIALIST Narrative [facility] - 06/08/2022 1:55 PM BUSINESS PROCESS SPECIALIST HGB A1C INTERPRETATION NORMAL: <5.7% PRE-DIABETES: 5.7 - 6.4% DIABETES: 6.5% OR GREATER us Will Tompkins II, MD CHEMISTRY ORDERABLES Final Re sult [facility] CLIA # [id number] [address] [place] [address] from Last 3 Months or Most Recently Relevant to Health Maintenance Insurance MEDICARE PART A AND B [facility] MEDICARE HMO [facility] OFFICE OF COMMUNITY [facility] [facility] [employer] Advance Directives For more information, please contact: [phone] * Full Code (Latest Code Status on File) Date Activated Date Inactivated Comments 11/06/2023 8:19 AM 11/06/2023 11:59 AM * Full Code Date Activated Date Inactivated Comments 11/06/2023 7:49 AM 11/06/2023 8:19 AM * Full Code Date Activated Date Inactivated Comments 08/03/2023 6:58 AM 08/03/2023 11:16 AM
[2024-12-15 23:41] VITALS: BP 105/61; PULSE 79; RESP 17; O2SAT 92
--- NOTE | 2024-12-16 00:07 | ECG_ITS ---
[facility] Test Date: 2024-12-16 Pat Name: Laquita Holguin Department: Room: Gender: Female Hand Washer: : 1960 Requested By: Conchita Garza Order Number: [id number] Miguel MD: Cayetano Prajapati M.D. Measurements Intervals [place] Rate: 68 P: 57 SD: 212 QRS: 14 QRSD: 88 T: 57 QT: 347 QTc: 372 Interpretive Statements SINUS RHYTHM WITH FIRST DEGREE AV BLOCK LOW QRS VOLTAGE IN PRECORDIAL LEADS [QRS DEFLECTION < 1.0 mV IN CHEST LEADS] NONSPECIFIC T-WAVE ABNORMALITY Compared to ECG 01/22/2024 13:08:59 First degree AV block now present T-wave abnormality now present Myocardial infarct finding no longer present Electronically Signed On 12-18-2024 14:05:46 CDT by Cayetano Prajapati M.D. [email or web address]
--- NOTE | 2024-12-16 00:47 | W.ED.SYNCOPE ---
Documented by User: CHRISSIE Beaver 12/16/24 17:11 HPI - Syncope General: Chief Complaint: Syncope Stated Complaint: Passing out\V Time Seen by Provider: 12/15/24 23:55 History of Present Illness: Patient is a 64-year-old female with hypertension presents to the emergency room with syncope. She stated she did this from a sitting position. She denies any lightheadedness, dizziness. She stated she was dazed, and out a few seconds. She had nausea, and vomiting x 1. Patient states her blood pressure is not typically the soft. No other sensation changes. No chest pain. Associated symptoms: Reports nausea; Deny abdominal pain, chest pain, fever(s) or headache(s) Related Data Home Medications ?Medication ?Instructions ?Recorded ?Confirmed albuterol sulfate 90 mcg/actuation 2 puff inhalation Q6H PRN sob 07/22/19 06/26/24 aerosol inhaler (Ventolin HFA) atorvastatin 80 mg tablet 80 mg PO DAILY 07/22/19 06/26/24 budesonide-formoterol HFA 160 2 puff inhalation BID 07/22/19 06/26/24 mcg-4.5 mcg/actuation aerosol inhaler (Symbicort) cetirizine 10 mg capsule 10 mg PO DAILY 07/22/19 06/26/24 duloxetine 60 mg capsule,delayed 60 mg PO DAILY 07/22/19 06/26/24 release fluticasone propionate 50 1 spray intranasal DAILY 07/22/19 06/26/24 mcg/actuation nasal spray,suspension lamotrigine 200 mg tablet 225 mg PO DAILY 07/22/19 06/26/24 (Lamictal) omega-3 fatty acids 1,000 mg 1,000 mg PO BID 07/22/19 06/26/24 capsule oxybutynin chloride 5 mg tablet 5 mg PO TID 07/22/19 06/26/24 oxycodone-acetaminophen 5 mg-325 1.5 tab PO TID pain 05/25/22 06/26/24 mg tablet (Percocet) trazodone 100 mg tablet 100 mg PO BEDTIME 10/04/23 06/26/24 fexofenadine 60 mg tablet 60 mg PO DAILY 12/14/23 06/26/24 spironolactone 100 mg tablet 50 mg PO DAILY 12/14/23 06/26/24 pantoprazole 20 mg tablet,delayed 20 mg PO DAILY 06/26/24 06/26/24 release Previous Rx's ?Medication ?Instructions ?Recorded nitroglycerin 0.4 mg sublingual 0.4 mg sublingual Q5M PRN chest 11/13/19 tablet (Nitrostat) pain #25 tabs bacitracin 500 unit/gram topical 1 applic topical BID #1,022.4 grams 09/19/23 ointment amlodipine 2.5 mg tablet 2.5 mg PO BID #60 tabs 12/04/23 ranolazine 500 mg tablet,extended 500 mg PO BID #180 tabs 01/16/24 release,12 hr isosorbide dinitrate 30 mg tablet 30 mg PO BID #180 tabs 06/26/24 Allergies Allergy/AdvReac Type Severity Reaction Status Date / Time bee pollen Allergy Intermediate Unknown Verified 06/26/24 13:55 iodine Allergy Intermediate unknow Verified 06/26/24 13:55 pneumococcal vaccine (From Allergy Intermediate Unknown Verified 06/26/24 13:55 Pneumovax 23) codeine Allergy Unknown Unknown Verified 06/26/24 13:55 latex Allergy Unknown Unknown Verified 06/26/24 13:55 Penicillins AdvReac Intermediate hives Verified 06/26/24 13:55 tramadol AdvReac itchy, rash Verified 06/26/24 13:55 Review of Systems General: Reports: 10 or more systems reviewed and unremarkable except in HPI and below Const: Denies: fever(s) or chills Eyes: Denies: change in vision or blurry vision ENMT: Denies: throat pain or mouth pain Card: Denies: chest pain or palpitations GI: Reports: nausea and vomiting; Denies: abdominal pain : Denies: flank pain or difficulty voiding Skin/Breast: Denies: rash or pruritus Neuro: Denies: headache(s) or numbness in extremities Endo: Denies: polyuria or polydipsia [place] Felipe/Lymph: Denies: easy bruising or easy bleeding All/Imm: Denies: urticaria or throat swelling PFS ED PFSH: Medical History (Updated 12/16/24 @ 17:11 by CHRISSIE Beaver) Chronic chest pain Smoker Intervertebral disc disorders with radiculopathy, lumbosacral region Lumbosacral spondylosis with radiculopathy HTN (hypertension) CAD (coronary artery disease) Dyslipidemia Peripheral vascular disease Cervical disc disorder with myelopathy of mid-cervical region Intervertebral disc disorders with radiculopathy, lumbar region Surgical History S/P insertion of spinal cord stimulator H/O: hysterectomy History of bladder surgery Family History Mother Cancer Diabetes Father CAD (coronary artery disease) Diabetes Sister Diabetes Grandmother Diabetes Social History Smoking and tobacco/nicotine status: current every day tobacco/nicotine user Alcohol intake: never Substance/Drug Use: never Lives independently: Yes Marital status: Current occupational status: disabled Physical Exam Const: COMMON NORMALS: no acute distress, average body habitus, patient oriented x3, no limitations, healthy appearing, alert and well nourished HENMT: COMMON NORMALS: normocephalic, atraumatic and hearing grossly normal bilaterally HEAD & SCALP: normocephalic and atraumatic Eye: COMMON NORMALS: Equal, round and reactive pupils present, EOMs intact bilaterally, conjunctivae normal and no scleral icterus CONJUNCTIVA: Yes conjunctivae normal PUPIL: Yes Equal, round and reactive pupils present Lymph: LYMPHATIC: no lymphadenopathy noted Chest: COMMONS NORMALS: normal inspection of the chest and normal palpation of entire chest wall Resp: COMMON NORMALS: normal respiratory effort and No retractions Cardio: COMMON NORMALS: regular rate and regular rhythm RATE: regular rate RHYTHM: regular rhythm : COMMON NORMALS: Yes no CVA tenderness BLADDER/KIDNEY EXAM: Yes no CVA tenderness Back/Pelvis: COMMON NORMALS: no CVA tenderness Extremity: COMMON NORMALS: normal to inspection, full ROM and capillary refill normal Neuro: COMMON NORMALS: patient oriented x3 SENSORIUM/ORIENTATION: Yes alert Psych: COMMON NORMALS: mental status grossly normal and Normal thought process present THOUGHT PROCESS: Normal thought process present Course Vital Signs: Vital signs: Vital Signs Temperature 97.7 F 12/15/24 23:26 Pulse Rate 84 12/16/24 03:56 Respiratory Rate 16 12/16/24 02:17 Blood Pressure 104/71 12/16/24 03:56 Pulse Oximetry 98 12/16/24 03:56 Oxygen Delivery Me thod Room Air 12/16/24 02:53 MDM - Syncope Medical Decision Making Patient is a 64-year-old female, presents to ED with syncope while sitting in a chair, unwitnessed, and out of few seconds, and dazed. Blood pressure is soft on admission. Patient is on amlodipine at home, which could be the underlying issues with a soft blood pressure. At this time she is quite nauseated at bedside, however does not have any abdominal pain. Will give antiemetics, IV fluids. I do not believe she is stable for orthostatics at this time. Medical Records I reviewed the patient's medical records. Lab Data I reviewed the patient's lab results. 12/16/24 00:52 12/16/24 00:[address] 12/16/24 02:18 IMPRESSION: No acute intracranial abnormality. Laboratory Results WBC 15.13 10^3/uL (3.29-11.43) H 12/16/24 00:52 RBC 4.37 10^6/uL (3.85-5.65) 12/16/24 00:52 Hgb 13.70 g/dL (11.27-16.99) 12/16/24 00:52 Hct 40.9 % (36-47) 12/16/24 00:52 MCV 93.6 fl (85-98) 12/16/24 00:52 MCH 31.4 pg (27-33) 12/16/24 00:52 MCHC 33.5 g/dL (30-55) 12/16/24 00:52 RDW 12.7 % (12.1-15.1) 12/16/24 00:52 Plt Count 253 10^3/cmm (157-399) 12/16/24 00:52 MPV 8.8 fL (7.4-10.4) 12/16/24 00:52 Neut % (Auto) 64.3 % 12/16/24 00:52 Lymph % (Auto) 26.2 % 12/16/24 00:52 [place] % (Auto) 7.1 % 12/16/24 00:52 Eos % (Auto) 1.5 % 12/16/24 00:52 Baso % (Auto) 0.5 % 12/16/24 00:52 Neut # (Auto) 9.72 10^3/uL (1.8-7.7) H 12/16/24 00:52 Lymph # (Auto) 4.0 10^3/uL (0.8-4.8) 12/16/24 00:52 [place] # (Auto) 1.1 10^3/uL (0.2-0.9) H 12/16/24 00:52 Eos # (Auto) 0.2 10^3/uL (0.0-0.8) 12/16/24 00:52 Baso # (Auto) 0.1 10^3/uL (0.0-0.1) 12/16/24 00:52 Nucleated RBC % (auto) 0 % 12/16/24 00:52 Nucleated RBCs # 0.0 /100WBC 12/16/24 00:52 Sodium 137 mmol/L (136-145) 12/16/24 00:52 Potassium 3.9 mmol/L (3.5-5.1) 12/16/24 00:52 Chloride 98 mmol/L (98-107) 12/16/24 00:52 Carbon Dioxide 23 mmol/L (22-29) 12/16/24 00:52 Anion Gap 19.9 (5-19) H 12/16/24 00:52 BUN 6 mg/dL (8-23) L 12/16/24 00:52 Creatinine 0.7 mg/dL (0.5-0.9) 12/16/24 00:52 GFR Calculation 84.2 mL/min (90-130) L 12/16/24 00:52 Glucose 125 mg/dL (65-115) H 12/16/24 00:52 Calculated Osmolality 283 mOsm/kg (285-295) L 12/16/24 00:52 Lactic Acid 2.1 mmol/L (0.5-2.2) 12/16/24 00:52 Calcium 9.7 mg/dL (8.5-10.5) 12/16/24 00:52 Magnesium 2.0 mg/dL (1.7-2.3) 12/16/24 00:52 Total Bilirubin 0.4 mg/dL (0.15-1.2) 12/16/24 00:52 AST 15 U/L (0-32) 12/16/24 00:52 ALT 14 U/L (0-33) 12/16/24 00:52 Alkaline Phosphatase 95 U/L (35-105) 12/16/24 00:52 Creatine Kinase 44 U/L (26-192) 12/16/24 00:52 Troponin T Baseline < 6 ng/L (0-10) 12/16/24 00:52 Troponin T 120 Minute < 6.0 ng/L (0-10) 12/16/24 02:44 Delta Troponin T 0 ABS# (0-10) 12/16/24 02:44 Total Protein 7.3 g/dL (6.6-8.7) 12/16/24 00:52 Albumin 4.6 g/dL (3.5-5.2) 12/16/24 00:52 Globulin 2.7 g/dL (1.3-4.6) 12/16/24 00:52 Lipase 22 U/L (13-60) 12/16/24 00:52 TSH 5.42 uIU/mL (0.27-4.20) H 12/16/24 00:52 Urine Color Yellow (Yellow) 12/16/24 02:51 Urine Appearance Clear (CLEAR) 12/16/24 02:51 Urine pH 6.5 (5-7) 12/16/24 02:51 Ur Specific [place] 1.005 (1.005-1.030) 12/16/24 02:51 Urine Protein Negative (Negative) 12/16/24 02:51 Urine Glucose (UA) Negative (Normal) 12/16/24 02:51 Urine Ketones Negative (Negative) 12/16/24 02:51 Urine Blood Negative (Negative) 12/16/24 02:51 Urine Nitrate Negative (Negative) 12/16/24 02:51 Urine Bilirubin Negative (Negative) 12/16/24 02:51 Urine Urobilinogen 0.2 mg/dL (Negative) 12/16/24 02:51 Ur Leukocyte Esterase Negative (Negative) 12/16/24 02:51 Urine RBC 0-2 /hpf (0-2) 12/16/24 02:51 Urine WBC 0-5 /hpf (0-5) 12/16/24 02:51 Ur Squamous Epith Cells 0-5 /hpf (0-5) 12/16/24 02:51 Amorphous Sediment Not Reportable 12/16/24 02:51 Urine Bacteria None seen /hpf (NONE) 12/16/24 02:51 Hyaline Casts 2.05 /lpf 12/16/24 02:51 EKG Data EKG 1: Interpretation: Normal axis, no ST segment elevation, first-degree AV block, low voltage, 365 QTc Discharge Plan Discharge Patient Disposition: Home Clinical Impression: Acute hypotension, Syncope Condition: Stable Prescriptions: No Action nitroglycerin [Nitrostat] 0.4 mg tablet, sublingual 0.4 mg SUBLINGUAL Q5M PRN (Reason: chest pain) Qty: 25 6RF Rx Instructions: do not exceed 3 doses per episode albuterol sulfate [Ventolin HFA] 90 mcg/actuation HFA aerosol inhaler 2 puff INHALATION Q6H PRN (Reason: sob) cetirizine 10 mg capsule 10 mg PO DAILY atorvastatin 80 mg tablet 80 mg PO DAILY Symbicort 160-4.5 mcg/actuation HFA aerosol inhaler 2 puff INHALATION BID duloxetine 60 mg capsule,delayed release(DR/EC) 60 mg PO DAILY fluticasone propionate 50 mcg/actuation spray,suspension 1 spray INTRANASAL DAILY lamotrigine [Lamictal] 200 mg tablet 225 mg PO DAILY omega-3 fatty acids 1,000 mg capsule 1,000 mg PO BID oxybutynin chloride 5 mg tablet 5 mg PO TID oxycodone-acetaminophen [Percocet] 5-325 mg tablet 1.5 tab PO TID spironolactone 100 mg tablet 50 mg PO DAILY trazodone 100 mg tablet 100 mg PO BEDTIME ranolazine 500 mg tablet extended release 12 hr 500 mg PO BID Qty: 180 4RF fexofenadine 60 mg tablet 60 mg PO DAILY pantoprazole 20 mg tablet,delayed release (DR/EC) 20 mg PO DAILY isosorbide dinitrate 30 mg tablet 30 mg PO BID Qty: 180 3RF Rx Instructions: allow nitrate-free interval of 12-14 hrs per 24-hr period amlodipine 2.5 mg tablet 2.5 mg PO BID Qty: 60 4RF bacitracin 500 unit/gram ointment 1 applic topical BID Qty: 1022.4 0RF Discharge Orders: Discharge ED (Routine); Ordered 12/16/24 Ordered By: Robb Lantigua Referrals: Jenny Aly FNP [Primary Care Provider, Nurse Practitioner] - 1-3 days Discharge Diet: Usual diet Discharge Activity: Resume usual activity Patient Instructions: Syncope (ED), Hypotension (ED), Patient Portal & [facility] Instructions Activity Restrictions/Additional Instructions: Hold blood pressure medications (amlodipine) for now. Check your blood pressure twice daily. If your blood pressure comes up over 125 systolic (the top number), you may restart the amlodipine. Stay hydrated. Stay in a cool environment for at least the next 48 hours. Return for repeated episodes of syncope or passing out, development of chest discomfort, mental status changes, weakness, other concerning symptoms. Call your doctor this morning for an outpatient follow-up appointment. Print Language: Occitan Coding Level of Care Code ED Sack Maker for Chg Fwumair Documented by User: Robb Lantigua, DO 12/16/24 03:54 HPI - Syncope General: Chief Complaint: Syncope Stated Complaint: Passing out\V Time Seen by Provider: 12/15/24 23:55 Related Data Home Medications ?Medication ?Instructions ?Recorded ?Confirmed albuterol sulfate 90 mcg/actuation 2 puff inhalation Q6H PRN sob 07/22/19 06/26/24 aerosol inhaler (Ventolin HFA) atorvastatin 80 mg tablet 80 mg PO DAILY 07/22/19 06/26/24 budesonide-formoterol HFA 160 2 puff inhalation BID 07/22/19 06/26/24 mcg-4.5 mcg/actuation aerosol inhaler (Symbicort) cetirizine 10 mg capsule 10 mg PO DAILY 07/22/19 06/26/24 duloxetine 60 mg capsule,delayed 60 mg PO DAILY 07/22/19 06/26/24 release fluticasone propionate 50 1 spray intranasal DAILY 07/22/19 06/26/24 mcg/actuation nasal spray,suspension lamotrigine 200 mg tablet 225 mg PO DAILY 07/22/19 06/26/24 (Lamictal) omega-3 fatty acids 1,000 mg 1,000 mg PO BID 07/22/19 06/26/24 capsule oxybutynin chloride 5 mg tablet 5 mg PO TID 07/22/19 06/26/24 oxycodone-acetaminophen 5 mg-325 1.5 tab PO TID pain 05/25/22 06/26/24 mg tablet (Percocet) trazodone 100 mg tablet 100 mg PO BEDTIME 10/04/23 06/26/24 fexofenadine 60 mg tablet 60 mg PO DAILY 12/14/23 06/26/24 spironolactone 100 mg tablet 50 mg PO DAILY 12/14/23 06/26/24 pantoprazole 20 mg tablet,delayed 20 mg PO DAILY 06/26/24 06/26/24 release Previous Rx's ?Medication ?Instructions ?Recorded nitroglycerin 0.4 mg sublingual 0.4 mg sublingual Q5M PRN chest 11/13/19 tablet (Nitrostat) pain #25 tabs bacitracin 500 unit/gram topical 1 applic topical BID #1,022.4 grams 09/19/23 ointment amlodipine 2.5 mg tablet 2.5 mg PO BID #60 tabs 12/04/23 ranolazine 500 mg tablet,extended 500 mg PO BID #180 tabs 01/16/24 release,12 hr isosorbide dinitrate 30 mg tablet 30 mg PO BID #180 tabs 06/26/24 Allergies Allergy/AdvReac Type Severity Reaction Status Date / Time bee pollen Allergy Intermediate Unknown Verified 06/26/24 13:55 iodine Allergy Intermediate unknow Verified 06/26/24 13:55 pneumococcal vaccine (From Allergy Intermediate Unknown Verified 06/26/24 13:55 Pneumovax 23) codeine Allergy Unknown Unknown Verified 06/26/24 13:55 latex Allergy Unknown Unknown Verified 06/26/24 13:55 Penicillins AdvReac Intermediate hives Verified 06/26/24 13:55 tramadol AdvReac itchy, rash Verified 06/26/24 13:55 PFS ED PFSH: Medical History (Updated 12/16/24 @ 17:11 by CHRISSIE Beaver) Chronic chest pain Smoker Intervertebral disc disorders with radiculopathy, lumbosacral region Lumbosacral spondylosis with radiculopathy HTN (hypertension) CAD (coronary artery disease) Dyslipidemia Peripheral vascular disease Cervical disc disorder with myelopathy of mid-cervical region Intervertebral disc disorders with radiculopathy, lumbar region Surgical History S/P insertion of spinal cord stimulator H/O: hysterectomy History of bladder surgery Family History Mother Cancer Diabetes Father CAD (coronary artery disease) Diabetes Sister Diabetes Grandmother Diabetes Social History Smoking and tobacco/nicotine status: current every day tobacco/nicotine user Alcohol intake: never Substance/Drug Use: never Lives independently: Yes Marital status: Current occupational status: disabled Course Vital Signs: Vital signs: Vital Signs Temperature 97.7 F 12/15/24 23:26 Pulse Rate 84 12/16/24 03:56 Respiratory Rate 16 12/16/24 02:17 Blood Pressure 104/71 12/16/24 03:56 Pulse Oximetry 98 12/16/24 03:56 Oxygen Delivery Me thod Room Air 12/16/24 02:53 MDM - Syncope Medical Decision Making Patient is a 64-year-old female, presents to ED with syncope while sitting in a chair, unwitnessed, and out of few seconds, and dazed. Blood pressure is soft on admission. Patient is on amlodipine at home, which could be the underlying issues with a soft blood pressure. At this time she is quite nauseated at bedside, however does not have any abdominal pain. Will give antiemetics, IV fluids. I do not believe she is stable for orthostatics at this time. 64-year-old female checked out to me at shift change. This patient has received 2 L of fluid. She states that she feels much better. She is asymptomatic at this point. Blood pressures improved, at 104/71. She says her blood pressure is always low. We will have her hold her amlodipine at this point, until blood pressure comes up. Her white blood cell count is 15, no left shift. Patient states her white blood cell count is always high to some degree. Hemoglobin is 13.7. Other laboratory not terribly remarkable. Head CT is negative. Troponin are nondetectable at 0 and 2 hours. No arrhythmias on the monitor. She wishes to go home as she feels better. Will we will allow. To return for any return of symptoms. Lab Data 12/16/24 00:52 12/16/24 00:[address] 12/16/24 02:18 IMPRESSION: No acute intracranial abnormality. Laboratory Results WBC 15.13 10^3/uL (3.29-11.43) H 12/16/24 00:52 RBC 4.37 10^6/uL (3.85-5.65) 12/16/24 00:52 Hgb 13.70 g/dL (11.27-16.99) 12/16/24 00:52 Hct 40.9 % (36-47) 12/16/24 00:52 MCV 93.6 fl (85-98) 12/16/24 00:52 MCH 31.4 pg (27-33) 12/16/24 00:52 MCHC 33.5 g/dL (30-55) 12/16/24 00:52 RDW 12.7 % (12.1-15.1) 12/16/24 00:52 Plt Count 253 10^3/cmm (157-399) 12/16/24 00:52 MPV 8.8 fL (7.4-10.4) 12/16/24 00:52 Neut % (Auto) 64.3 % 12/16/24 00:52 Lymph % (Auto) 26.2 % 12/16/24 00:52 [place] % (Auto) 7.1 % 12/16/24 00:52 Eos % (Auto) 1.5 % 12/16/24 00:52 Baso % (Auto) 0.5 % 12/16/24 00:52 Neut # (Auto) 9.72 10^3/uL (1.8-7.7) H 12/16/24 00:52 Lymph # (Auto) 4.0 10^3/uL (0.8-4.8) 12/16/24 00:52 [place] # (Auto) 1.1 10^3/uL (0.2-0.9) H 12/16/24 00:52 Eos # (Auto) 0.2 10^3/uL (0.0-0.8) 12/16/24 00:52 Baso # (Auto) 0.1 10^3/uL (0.0-0.1) 12/16/24 00:52 Nucleated RBC % (auto) 0 % 12/16/24 00:52 Nucleated RBCs # 0.0 /100WBC 12/16/24 00:52 Sodium 137 mmol/L (136-145) 12/16/24 00:52 Potassium 3.9 mmol/L (3.5-5.1) 12/16/24 00:52 Chloride 98 mmol/L (98-107) 12/16/24 00:52 Carbon Dioxide 23 mmol/L (22-29) 12/16/24 00:52 Anion Gap 19.9 (5-19) H 12/16/24 00:52 BUN 6 mg/dL (8-23) L 12/16/24 00:52 Creatinine 0.7 mg/dL (0.5-0.9) 12/16/24 00:52 GFR Calculation 84.2 mL/min (90-130) L 12/16/24 00:52 Glucose 125 mg/dL (65-115) H 12/16/24 00:52 Calculated Osmolality 283 mOsm/kg (285-295) L 12/16/24 00:52 Lactic Acid 2.1 mmol/L (0.5-2.2) 12/16/24 00:52 Calcium 9.7 mg/dL (8.5-10.5) 12/16/24 00:52 Magnesium 2.0 mg/dL (1.7-2.3) 12/16/24 00:52 Total Bilirubin 0.4 mg/dL (0.15-1.2) 12/16/24 00:52 AST 15 U/L (0-32) 12/16/24 00:52 ALT 14 U/L (0-33) 12/16/24 00:52 Alkaline Phosphatase 95 U/L (35-105) 12/16/24 00:52 Creatine Kinase 44 U/L (26-192) 12/16/24 00:52 Troponin T Baseline < 6 ng/L (0-10) 12/16/24 00:52 Troponin T 120 Minute < 6.0 ng/L (0-10) 12/16/24 02:44 Delta Troponin T 0 ABS# (0-10) 12/16/24 02:44 Total Protein 7.3 g/dL (6.6-8.7) 12/16/24 00:52 Albumin 4.6 g/dL (3.5-5.2) 12/16/24 00:52 Globulin 2.7 g/dL (1.3-4.6) 12/16/24 00:52 Lipase 22 U/L (13-60) 12/16/24 00:52 TSH 5.42 uIU/mL (0.27-4.20) H 12/16/24 00:52 Urine Color Yellow (Yellow) 12/16/24 02:51 Urine Appearance Clear (CLEAR) 12/16/24 02:51 Urine pH 6.5 (5-7) 12/16/24 02:51 Ur Specific [place] 1.005 (1.005-1.030) 12/16/24 02:51 Urine Protein Negative (Negative) 12/16/24 02:51 Urine Glucose (UA) Negative (Normal) 12/16/24 02:51 Urine Ketones Negative (Negative) 12/16/24 02:51 Urine Blood Negative (Negative) 12/16/24 02:51 Urine Nitrate Negative (Negative) 12/16/24 02:51 Urine Bilirubin Negative (Negative) 12/16/24 02:51 Urine Urobilinogen 0.2 mg/dL (Negative) 12/16/24 02:51 Ur Leukocyte Esterase Negative (Negative) 12/16/24 02:51 Urine RBC 0-2 /hpf (0-2) 12/16/24 02:51 Urine WBC 0-5 /hpf (0-5) 12/16/24 02:51 Ur Squamous Epith Cells 0-5 /hpf (0-5) 12/16/24 02:51 Amorphous Sediment Not Reportable 12/16/24 02:51 Urine Bacteria None seen /hpf (NONE) 12/16/24 02:51 Hyaline Casts 2.05 /lpf 12/16/24 02:51 All radiology interpretation(s) finalized by discharge Discharge Plan Discharge Patient Disposition: Home Clinical Impression: Acute hypotension, Syncope Condition: Stable Prescriptions: No Action nitroglycerin [Nitrostat] 0.4 mg tablet, sublingual 0.4 mg SUBLINGUAL Q5M PRN (Reason: chest pain) Qty: 25 6RF Rx Instructions: do not exceed 3 doses per episode albuterol sulfate [Ventolin HFA] 90 mcg/actuation HFA aerosol inhaler 2 puff INHALATION Q6H PRN (Reason: sob) cetirizine 10 mg capsule 10 mg PO DAILY atorvastatin 80 mg tablet 80 mg PO DAILY Symbicort 160-4.5 mcg/actuation HFA aerosol inhaler 2 puff INHALATION BID duloxetine 60 mg capsule,delayed release(DR/EC) 60 mg PO DAILY fluticasone propionate 50 mcg/actuation spray,suspension 1 spray INTRANASAL DAILY lamotrigine [Lamictal] 200 mg tablet 225 mg PO DAILY omega-3 fatty acids 1,000 mg capsule 1,000 mg PO BID oxybutynin chloride 5 mg tablet 5 mg PO TID oxycodone-acetaminophen [Percocet] 5-325 mg tablet 1.5 tab PO TID spironolactone 100 mg tablet 50 mg PO DAILY trazodone 100 mg tablet 100 mg PO BEDTIME ranolazine 500 mg tablet extended release 12 hr 500 mg PO BID Qty: 180 4RF fexofenadine 60 mg tablet 60 mg PO DAILY pantoprazole 20 mg tablet,delayed release (DR/EC) 20 mg PO DAILY isosorbide dinitrate 30 mg tablet 30 mg PO BID Qty: 180 3RF Rx Instructions: allow nitrate-free interval of 12-14 hrs per 24-hr period amlodipine 2.5 mg tablet 2.5 mg PO BID Qty: 60 4RF bacitracin 500 unit/gram ointment 1 applic topical BID Qty: 1022.4 0RF Discharge Orders: Discharge ED (Routine); Ordered 12/16/24 Ordered By: Robb Lantigua Referrals: Jenny Aly FNP [Primary Care Provider, Nurse Practitioner] - 1-3 days Discharge Diet: Usual diet Discharge Activity: Resume usual activity Patient Instructions: Syncope (ED), Hypotension (ED), Patient Portal & [facility] Instructions Activity Restrictions/Additional Instructions: Hold blood pressure medications (amlodipine) for now. Check your blood pressure twice daily. If your blood pressure comes up over 125 systolic (the top number), you may restart the amlodipine. Stay hydrated. Stay in a cool environment for at least the next 48 hours. Return for repeated episodes of syncope or passing out, development of chest discomfort, mental status changes, weakness, other concerning symptoms. Call your doctor this morning for an outpatient follow-up appointment. Print Language: Occitan Coding Level of Care Code ED Sack Maker for Earle Tan
[2024-12-16 01:04] LABS: Hematocrit 40.9 % (36-47); Hemoglobin 13.70 g/dL (11.27-16.99); Mean Corpuscular HGB Conc 33.5 g/dL (30-55); Mean Corpuscular Hemoglobin 31.4 pg (27-33); Mean Corpuscular Volume 93.6 fl (85-98); Nucleated Red Blood Cells % 0 %; Platelet Count 253 10^3/cmm (157-399); Red Blood Count 4.37 10^6/uL (3.85-5.65); White Blood Count 15.13 10^3/uL (3.29-11.43)
[2024-12-16] MEDS: ondansetron 2 mg/ML SDV 2 mL 4 MG IVP (01:05)
[2024-12-16 01:06] VITALS: BP 84/53; PULSE 72; RESP 16; O2SAT 95
[2024-12-16 01:20] LABS: Troponin(5th) Baseline < 6 ng/L (0-10)
[2024-12-16 01:22] LABS: Lactic Sepsis W/Reflex 2.1 mmol/L (0.5-2.2)
[2024-12-16 01:26] LABS: Reflex Lactate Order REFLEX LACTIC ORDERD
[2024-12-16 01:31] VITALS: BP 89/64; PULSE 77; RESP 16; O2SAT 98
[2024-12-16 01:39] LABS: Lipase 22 U/L (13-60)
[2024-12-16 01:41] LABS: Alanine Aminotransferase 14 U/L (0-33); Albumin Level 4.6 g/dL (3.5-5.2); Alkaline Phosphatase 95 U/L (35-105); Anion Gap 19.9 (5-19); Aspartate Amino Transferase 15 U/L (0-32); Blood Urea Nitrogen 6 mg/dL (8-23); Calcium 9.7 mg/dL (8.5-10.5); Carbon Dioxide 23 mmol/L (22-29); Chloride 98 mmol/L (98-107); Creatinine Clr Calc Pharmacy 87.4648; Globulin 2.7 g/dL (1.3-4.6); Glucose 125 mg/dL (65-115); Magnesium 2.0 mg/dL (1.7-2.3); Osmolality Calculated 283 mOsm/kg (285-295); Potassium 3.9 mmol/L (3.5-5.1); Sodium 137 mmol/L (136-145); Thyroid Stimulating Hormone 5.42 uIU/mL (0.27-4.20); Total Protein 7.3 g/dL (6.6-8.7)
[2024-12-16 02:17] VITALS: BP 87/52; PULSE 79; RESP 16; O2SAT 92
--- NOTE | 2024-12-16 02:18 | CTR_ITS ---
PROCEDURE INFORMATION: Exam: CT Head Without Contrast Exam date and time: 12/16/2024 2:26 AM Age: 64 years old Clinical indication: Syncope and collapse; Syncopal episode with n/v TECHNIQUE: Imaging protocol: Computed tomography of the head without contrast. Radiation optimization: All CT scans at this facility use at least one of these dose optimization techniques: automated exposure control; mA and/or kV adjustment per patient size (includes targeted exams where dose is matched to clinical indication); or iterative reconstruction. COMPARISON: CT head wo con* [id number] 01/22/2024 11:26 AM RADIATION DOSE METRICS: Total DLP (mGy-cm): 998.98 FINDINGS: Brain: No acute infarction, hemorrhage, mass, or extra-axial fluid collection is identified. No midline shift. Mild chronic white matter microangiopathy. Cerebral ventricles: No hydrocephalus. Paranasal sinuses: Paranasal sinuses are grossly clear. Mastoid air cells: Mastoid air cells are grossly clear. Bones: Calvarium appears intact. Soft tissues: Unremarkable. CT/CT head wo con* [id number] IMPRESSION: No acute intracranial abnormality.
[2024-12-16 02:53] VITALS: BP 105/60; PULSE 83; O2SAT 99
[2024-12-16 03:01] LABS: Glucose Urine UA Negative (Normal); Nitrate Urine Negative (Negative); Specific Gravity, Urine 1.005 (1.005-1.030)
[2024-12-16 03:06] LABS: Add Urine Microscopic? YES; Universal Test for UA Present (0)
[2024-12-16 03:09] LABS: Troponin 5 2HR < 6.0 ng/L (0-10); Troponin 5 2HR Delta 0 ABS# (0-10)
[2024-12-16 03:56] VITALS: BP 104/71; PULSE 84; O2SAT 98
== END 2024-12-16 03:55 | disposition home or self-care (01) ==
PROVIDERS: Physician Assistant; Emergency Provider Emergency Medicine; PCP Nurse Practitioner
DX: I95.89 Other hypotension (principal); Z72.0 Tobacco use; I25.10 Atherosclerotic heart disease of native coronary artery without angina pectoris; E78.5 Hyperlipidemia, unspecified; I10 Essential (primary) hypertension
CPT/HCPCS: 36415; 70450; 80053; 81001; 82550; 83605; 83690; 83735; 84443; 84484; 85025; 93005; 96361; 96374; 99285; J2405; J7030

== ENCOUNTER → 2025-03-24 14:01 | Outpatient (BNVA) | payer OTHER, SELFPAY | PROVIDERS: PCP Nurse Practitioner; Visit Provider Internal Medicine Cardiovascular Disease | DX: R07.9 Chest pain, unspecified (principal); G89.29 Other chronic pain; E78.5 Hyperlipidemia, unspecified; I95.9 Hypotension, unspecified; F17.200 Nicotine dependence, unspecified, uncomplicated; Z86.73 Personal history of transient ischemic attack (TIA), and cerebral infarction without residual deficits | CPT/HCPCS: 99214 ==